=== PATIENT | female | born 1960 | race Caucasian/White ===

== ENCOUNTER 2025-05-03 12:58 | Outpatient (CLI) | payer SELFPAY ==
--- NOTE | 2025-05-03 13:07 | XR_ITS ---
FINAL REPORT TECHNIQUE: Bone densitometry calculations of the lumbar spine and bilateral hips were obtained. CLINICAL HISTORY: SCREENING COMPARISON: None FINDINGS: Using L1-4, the bone mineral density of the spine is 0.853 g/cm2, corresponding to T-score of -1.8 and a Z score of 0.0. This is within the range of osteopenia. Using the left hip, the bone mineral density of the femoral neck is 0.589 g/cm2, corresponding to a T-score of -2.3 and a Z-score of -0.9. This is within the range of osteopenia. Using the right hip, the bone mineral density of the femoral neck is 0.664 g/cm?, corresponding to a T-score of -1.7 and a Z-score of -0.2. This is within the range of osteopenia. NOTE: T-score: Standard deviation compared with peak bone mass of young adult mean. *Following the recommendations of the International Society of Bone densitometry, classification of hip BMD is based on the lower of two T-scores; total hip or femoral neck. IMPRESSION: 1. Bone mineral density of the lumbar spine within the range of osteopenia. 2. Bone mineral density of the bilateral femoral necks within the range of osteopenia. Reviewed, Interpreted and Dictated by Caridad Trivedi MD Transcribed by Martha Jones Authenticated and . [facility]
== END 2025-05-03 23:59 | disposition home or self-care (01) ==
LOC: RAD 13:01
PROVIDERS: PCP Nurse Practitioner; Visit Provider Nurse Practitioner
DX: R93.7 Abnormal findings on diagnostic imaging of other parts of musculoskeletal system (principal); Z13.9 Encounter for screening, unspecified
CPT/HCPCS: 77080

== ENCOUNTER 2025-06-28 09:57 | Emergency (ER) | payer SELFPAY ==
--- OUTSIDE RECORDS SUMMARY | 2025-05-24 13:43 | XMS_ITS | Encounter Summary ---
Author Organization 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 Name Role Phone Unavailable Primary Care Provider Unavailabl e Reason for Referral * Mammography (Routine) - Pending Review Specialty Diagnoses / Procedures Referred By Sophy roldan Referred To Contact Radiology Diagnoses Encounter for screening mammogram for malignant neoplasm of breast Procedures MM MAMMO DIGITAL DEYVI SCREEN Gabby Dawkins, CASTR[place] [address] [place] [address] Phone: tel: Referral ID Status Reason Start Date Expiration Date V isits Requested Visits Authorized [id number] Pending Review 05/10/2025 05/10/2027 1 1 Reason for Visit * Mammography (Routine) - Pending Review Specialty Diagnoses / Procedures Referred By Sophy roldan Referred To Contact Radiology Diagnoses Encounter for screening mammogram for malignant neoplasm of breast Procedures MM MAMMO DIGITAL DEYVI SCREEN Gabby Dawkins, CASTR[place] [address] [place] [address] Phone: tel: Referral ID Status Reason Start Date Expiration Date V isits Requested Visits Authorized [id number] Pending Review 05/10/2025 05/10/2027 1 1 Encounter Details Date Type Department Care Team (Latest Contact Info) Description 05/24/2025 1:43 PM EDT - 05/24/2025 11:59 PM EDT Hospital Encounter Mobile Mammography Other Location View online schedule for mobile van location [phone] Gabby Gordillo, CASTR[place] [address] [place] [address] Encounter for screening mammogram for malignant neoplasm of breast Discharge Disposition: Home or Self Care Social History Tobacco Use Types Packs/Day Years Used Date Smoking Tobacco: Never Assessed Comments No Sex and Gender Information Value Date Recorded Sex Assigned at Not on file Legal Sex Female 11:36 AM EDT Gender Identity Not on file Sexual Orientation Not on file documented as of this encounter Discharge Disposition Disposition Code Departure Means Destination Home or Self Care documented in this encounter Plan of Treatment Not on file documented as of this encounter Procedures Procedure Name Priority Date/Time Associated Diagnosis Comments MM MAMMO DIGITAL DEYVI SCREEN BILAT Routine 05/24/2025 1:55 PM EDT Encounter for screening mammogram for malignant neoplasm of breast documented in this encounter Results * MM MAMMO DIGITAL DEYVI SCREEN BILAT (05/24/2025 1:55 PM EDT) Anatomical Region Laterality Modality Breast Bilateral Mammography 05/24/2025 1:55 PM EDT Impressions 05/25/2025 8:38 AM EDT Negative ([id number]) RECOMMENDATION: Routine Screening Mammogram in 1 Year Bilateral . . COMMENTS: DISCLAIMER *The patient was notified by MyChart or mail of the results for this examination. *The patient's information was entered into a reminder system with a target due date for the next breast imaging, in accordance with the [employer] [place] [employer] and the Society of Breast Imaging recommendations. *Breast Imaging has a false negative rate of 15%. *Any patient with a palpable abnormality, unexplained by breast imaging, should be managed on a clinical basis by the attending physician. Narrative 05/25/2025 8:38 AM EDT EXAM: MM MAMMO DIGITAL DEYVI SCREEN BILAT EXAM DATE: 05/24/2025 1:55 PM INDICATION: Z12.31-Encounter for screening mammogram for malignant neoplasm of [id number] COMPARISON STUDIES: Compared with prior studies the most recent being 05/25/2024 MM MAMMO DIGITAL DEYVI SCREEN BILAT at [facility] TISSUE DENSITY: There are scattered areas of fibroglandular density. FINDINGS: No mammographic evidence of malignancy. Procedure Note Alex Oakes MD - 05/25/2025 EXAM: MM MAMMO DIGITAL DEYVI SCREEN BILAT EXAM DATE: 05/24/2025 1:55 PM INDICATION: Z12.31-Encounter for screening mammogram for malignantneoplasm of [id number] COMPARISON STUDIES: Compared with prior studies the most recent being 05/25/2024 MM MAMMO DIGITAL DEYVI SCREEN BILAT at [facility] TISSUE DENSITY: There are scattered areas of fibroglandular density. FINDINGS: No mammographic evidence of malignancy. IMPRESSION: Negative ([id number]) RECOMMENDATION: Routine Screening Mammogram in 1 Year Bilateral . . COMMENTS: DISCLAIMER *The patient was notified by MyChart or mail of the results for this examination. *The patient's information was entered into a reminder system with atarget due date for the next breast imaging, in accordance with the [employer] [place] [employer] and the Society of Breast Imaging recommendations. *Breast Imaging has a false negative rate of 15%. *Any patient with a palpable abnormality, unexplained by breast imaging,should be managed on a clinical basis by the attending physician. us Gabby Gordillo HVAC INSTRUCTOR IMG MAMMOGRAPHY ORDERABLE S Final Result documented in this encounter Visit Diagnoses Diagnosis Encounter for screening mammogram for malignant neoplasm of breast Other screening mammogram documented in this encounter
[2025-06-28] VITALS (10 sets, daily range): BP systolic 114–157; BP diastolic 68–96; PULSE 71–100; RESP 18; TEMP 36.8–37.2; O2SAT 91–99; BMI 24.0
--- NOTE | 2025-06-28 10:04 | ED_ITS ---
<Statement entered by Donna Rosales DO - 06/28/25 14:02> I was consulted by the JANET, and we discussed the complexity of the problems being addressed. I approved the treatment and management plan for this patient's care in the emergency department, thus performing a substantive portion of the medical decision making. Donna Rosales DO Discharge Plan Disposition Patient Disposition: Xfer Short-Term Hosp Condition: Serious Prescriptions Prescriptions: No Action atorvastatin 10 mg tablet 10 mg PO DAILY Patient Comments: TAKE ONE TABLET BY MOUTH EVERY DAY alprazolam 1 mg tablet 1 mg PO TIDP PRN (Reason: Anxiety) Patient Comments: TAKE ONE TABLET BY MOUTH THREE TIMES DAILY NEEDED glipizide 10 mg tablet 10 mg PO BID Patient Comments: Take 1 tablet twice a day by oral route for 90 days. aspirin 81 mg tablet,delayed release (DR/EC) 81 mg PO DAILY Patient Comments: TAKE ONE CAPSULE BY MOUTH EVERY DAY metformin 1,000 mg tablet 1,000 mg PO BID Patient Comments: TAKE ONE TABLET BY MOUTH TWICE DAILY levothyroxine 112 mcg tablet 112 mcg PO DAILY Patient Comments: TAKE ONE TABLET BY MOUTH EVERY DAY calcium carbonate-vitamin D3 600 mg-10 mcg (400 unit) tablet 1 tab PO DAILY Patient Comments: TAKE ONE TABLET BY MOUTH EVERY DAY FOR 90 DAYS insulin glargine [Lantus Solostar U-100 Insulin] 100 unit/mL (3 mL) insulin pen 30 unit SQ BID Patient Comments: Inject 30 units twice a day by subcutaneous route at bedtime for 90 days. Referrals Follow up/Referrals: Gabby Gordillo APRN [Primary Care Provider, Medical] - See instructions Activity Restrictions/Add. Instructions Additional Instructions/Restrictions: To the [facility] emergency department care of Dr. Calle of urology Clinical Impressions Clinical Impression: Calculus of proximal left ureter, Complicated urinary tract infection, DKA, type 2 Print Language Print Language: Jamaican Discharge ED Provider: Donna Rosales General Adult HPI General Chief complaint: Nausea/Vomiting/Diarrhea Stated complaint: throwing up, weekness, diarrhea Time Seen by Provider: 06/28/25 10:02 History of Present Illness HPI narrative: Patient presents for evaluation of nausea vomiting diarrhea. Patient states that she has daily nausea vomiting diarrhea since October. Approximately 5 weeks ago she was diagnosed with H. pylori and treated with eradication protocol but has not changed any of her symptoms. Patient is a type II diabetic but is not on a GLP-1. She is on insulin however. She does not know when her last hemoglobin A1c was. She denies any abdominal pain fever chills shortness of breath hemoptysis hematochezia melena hematemesis hematuria. Related Data Home Medications ?Medication ?Instructions ?Recorded ?Confirmed alprazolam 1 mg tablet 1 mg PO TIDP PRN Anxiety 06/28/25 aspirin 81 mg tablet,delayed 81 mg PO DAILY 06/28/25 0 06/28/25 release atorvastatin 10 mg tablet 10 mg PO DAILY 06/28/2506/02 calcium 600 mg (as 1 tab PO DAILY 06/28/2506/02 carbonate)-vitamin D3 10 mcg (400 unit) tablet glipizide 10 mg tablet 10 mg PO BID 06/28/25 insulin glargine 100 unit/mL (3 30 unit SQ BID 5 06/28/25 mL) subcutaneous pen (Lantus Solostar U-100 Insulin) levothyroxine 112 mcg tablet 112 mcg PO DAILY 06/28/25 06/28/25 metformin 1,000 mg tablet 1,000 mg PO BID 06/28/25 Allergies Allergy/AdvReac Type Severity Reaction Status Date / Time No Known Allergies Allergy Verified 06/28/25 10:23 [facility] Disclaimer: The information contained in this section may have been updated after the patient was seen, as this information can be updated by other users. Social History Smoking Status: Never smoker alcohol intake: never current occupational status: retired Travel in the last 8 weeks?: None ROS Obtained: Yes Systems reviewed as appropriate & no additional complaints except as documented Physical Exam General General appearance: alert Respiratory Respiratory exam: Present normal lung sounds bilaterally Cardiovascular Cardiovascular exam: Present regular rate Neurological Exam Neurological exam: Present alert and oriented X3 Medical Decision Making Medical Records Medical records reviewed: Yes I reviewed the patient's medical records. Screening: Per USPSTF and CDC recommendations, given the prevalence of disease in our region, it is our hospital?s policy to screen for HIV and viral Hepatitis for all patients aged 18 and over and those with ongoing risk factors. Cheikh Inquiry Pt receiving controlled substance: No Vital Signs: 06/28/25 09:59 06/28/25 10:31 06/28/25 11:00 Temperature 99.0 F Temperature Source Oral Pulse Rate 96 H 93 H Pulse Rate [Radial] 100 H Respiratory Rate 18 Blood Pressure 122/68 114/78 Blood Pressure [Left Arm] 157/90 H Blood Pressure Mean [Left Arm] 112 Blood Pressure Source [Left Arm] Automatic Cuff Blood Pressure Position [Left Arm] Sitting 02 Sat by Pulse Oximetry 98 96 93 L Oxygen Delivery Method Room Air 06/28/25 11:30 06/28/25 12:00 06/28/25 12:30 Temperature Temperature Source Pulse Rate 90 81 82 Pulse Rate [Radial] Respiratory Rate Blood Pressure 135/93 H 125/96 H 147/93 H Blood Pressure [Left Arm] Blood Pressure Mean [Left Arm] Blood Pressure Source [Left Arm] Blood Pressure Position [Left Arm] 02 Sat by Pulse Oximetry 94 L 96 95 Oxygen Delivery Method Lab Data Lab results reviewed: Yes I reviewed the patient's lab results. Lab Results 06/28/25 10:07: Urine Color Yellow, Urine Appearance Cloudy, Urine pH 6.0, Ur Specific Rodman 1.020, Urine Protein 1+ A, Urine Glucose (UA) 2+, Urine Ketones 3+, Urine Blood Trace-i, Urine Nitrate Positive A, Urine Bilirubin Negative, Urine Urobilinogen 0.2, Ur Leukocyte Esterase Trace, Urine RBC Occasional, Urine WBC 50-100, Ur Squamous Epith Cells 3-5, Urine Bacteria 4+ 06/28/25 10:19: WBC 6.1, RBC 4.64, Hgb 13.3, Hct 40.1, MCV 86.4, MCH 28.7, MCHC 33.2, RDW 14.3, Plt Count 216, MPV 11.5 H, Neut % (Auto) 74.9, Lymph % (Auto) 13.1, [place] % (Auto) 9.6 H, Eos % (Auto) 0.7, Baso % (Auto) 1.0, Neut # (Auto) 4.6, Lymph # (Auto) 0.8, [place] # (Auto) 0.6, Eos # (Auto) 0.0, Baso # (Auto) 0.1, Sodium 136, Potassium 4.3, Chloride 99, Carbon Dioxide 19 L, Anion Gap 22.3 H, B UN 23 H, Creatinine 0.70, Estimated GFR 84, Est GFR ( Amer) 102, Glucose 389 H, Hemoglobin A1c 8.4 H, Calcium 10.7 H, Phosphorus 3.2, Magnesium 1.4 L, Total Bilirubin 1.3, AST 29, ALT 19, Alkaline Phosphatase 70, Total Protein 8.0, Albumin 4.6, Globulin 3.4 H, Albumin/Globulin Ratio 1.4, Lipase 117, Acetone Level Small, HCV Ab BEATRIZ w/Rflx PCR Qn Negative, HIV Ag/Ab Combo Qual Negative 06/28/25 11:04: Lactate 0.7 06/28/25 12:40: VBG pH 7.39, VBG pCO2 33.6 L, VBG pO2 44.7 H, VBG HCO3 20.0 L, V BG Total CO2 21.1 L, VBG O2 Saturation 84.3 H, VBG Base Excess -4.1 L, VBG Lactic Acid 1.1 06/28/25 10:19 06/28/25 10:19 Orders (Tests/Meds): ED MEDICATIONS Generic Name Dose Route Start Last Admin Trade Name Freq PRN Reason Stop Dose Admin Sodium Chloride 1,000 mls @ 150 mls/hr 06/28/25 14:00 Sod Chlor 0.9% 1000ml Bag IV 07/28/25 13:59 .Q6H40M ZORAIDA Sodium Chloride 2,000 mls @ 999 mls/hr 06/28/25 12:00 06/28/25 12:16 Sod Chlor 0.9% 1000ml Bag IV 07/28/25 11:59 999 mls/hr .Q2H1M ZORAIDA Administration Insulin Human Regular 100 unit 101 mls @ 5.05 mls/hr 06/28/25 12:00 06/28/25 12:31 / Sodium Chloride IV 07/28/25 11:59 6 unit/hr .Q20H ZORAIDA 6.06 mls/hr Protocol Administration 5 UNIT/HR Ceftriaxone Sodium 1 gm/ 50 mls @ 100 mls/hr 06/28/25 12:00 06/28/25 12:48 Sodium Chloride IV 07/08/25 11:59 100 mls/hr Q24H ZORAIDA Administration Sodium Chloride 10 ml 06/28/25 11:13 06/28/25 11:14 Sodium Chloride 0.9% 10ml Syr (Rad Only) IV 07/28/25 11:12 10 ml NEEDED PRN Administration Maintain IV Site Discontinued Medications Generic Name Dose Route Start Last Admin Trade Name Cass PRN Reason Stop Dose Admin Sodium Chloride 1,000 mls @ 999 mls/hr 06/28/25 10:09 06/28/25 10:24 Sod Chlor 0.9% 1000ml Bag IV 06/28/25 11:09 999 mls/hr .Q1H1M ONE Administration Insulin Human Regular 10 unit 06/28/25 11:43 06/28/25 12:47 Insulin Human Regular 100 Units/Ml 10ml Vial IVP 06/28/25 11:44 Not Given ONCE ONE Iopamidol 75 ml 06/28/25 11:13 06/28/25 11:14 Iopamidol-370 (76%);100ml Bottle IV 06/28/25 11:14 75 ml ONCE ONE Administration Ondansetron HCl 4 mg 06/28/25 10:09 06/28/25 10:24 Ondansetron 4mg/2ml Vial IV 06/28/25 10:10 4 mg ONCE ONE Administration ORDERS Category Date Time Status CT abdomen pelvis w con Stat Cat Scan 06/28/25 10:14 Completed Acetone, Serum (Rapid) Stat Lab 06/28/25 10:19 Completed CBC w/Auto Diff [Complete Blood Count Auto Diff] Stat Lab 06/28/25 10:19 Completed CMP [Comprehensive Metabolic Panel] Stat Lab 06/28/25 10:19 Completed HIV Combo Stat Lab 06/28/25 10:19 Completed Hemoglobin A1C Stat Lab 06/28/25 10:19 Completed Hepatitis C Ab Qual. W/ RFX Stat Lab 06/28/25 10:19 Completed Lactic Acid Stat Lab 06/28/25 11:04 Completed Lipase Stat Lab 06/28/25 10:19 Completed Magnesium Stat Lab 06/28/25 10:19 Completed Phosphorous Stat Lab 06/28/25 10:19 Completed Procalcitonin Stat Lab 06/28/25 10:19 Received UA [Urinalysis and Microscopic] Stat Lab 06/28/25 10:07 Completed Blood Culture Stat Micro 06/28/25 12:40 Received Urine Culture Stat Micro 06/28/25 10:07 Received VBG [Venous Blood Gas] Stat RT 06/28/25 12:40 Completed Medical Decision Narrative: In summary patient is a 64-year-old female who presents to the emergency department for evaluation of daily nausea vomiting diarrhea for 9 months. Patient is hypertensive on arrival upon arrival, afebrile. Physical exam is remarkable for clear breath sounds with no increased work of breathing or adventitious sounds, abdomen soft nontender no rebound or guarding no rigidity. Bowel sounds normal active.. Differential diagnosis includes gastroparesis versus electrolyte abnormality constipation versus hyperglycemia versus nonfunctioning gallbladder although less likely given no pain etc. Initial workup will be conducted with hematologic labs CT scan abdomen pelvis. Initial interventions include crystalloid bolus and Zofran. Initial workup reviewed by me shows a white count of 6.1 normal H&H with no neutrophilic shift, chemistry is positive for a CO2 of 19 and a gap of 22 BUN of 23 creatinine 0.7 GFR of 84 glucose of 389 hemoglobin A1c of 8.4 calcium of 10.7 magnesium of 1.4 urinalysis shows 1+ of protein 2+ of glucose 3+ of ketones trace blood nitrite positive leukocyte Estrace trace and microscopic exam shows occasional red blood cells 50-100 white cells 4+ bacteria. My informal interpretation of her CT scan abdomen pelvis shows a thick-walled but contracted gallbladder and significant hydronephrosis on the left with an obstructing proximal ureteral stone that is approximately 1 cm.. Upon repeat evaluation queried the patient whether or not she knew that she had an obstructing stone and she stated that she did note that she had a stone approximately 5 weeks ago that they saw on [facility] at [facility]. She however has had no symptoms of dysuria flank pain abdominal pain.. Given this patient is in early DKA along with a complicated urinary tract infection that likely is involving the obstructing left proximal ureteral stone. I have started the DKA protocol with an insulin bolus followed by an insulin drip as well as covering with Rocephin IV. I have contacted initially [facility] at noon to initiate transfer as we do not have interventional urology here. Spoke with Dr. Dias of urology at [facility] and we discussed patient presentation BLANKENSHIP and management and he felt that even though she had DKA and infected kidney stone that she did not need acute urologic intervention. Given that I have contacted the [facility] transfer center to discuss with the transfer physician at 1300 hrs. I spoke with the transfer center physician at [address] Calle of urology regarding patient presentation BLANKENSHIP and management and patient has been graciously accepted to the [place] emergency department for further evaluation and care. Critical Care Critical Care Time Critical Care Time: Yes Attestation: On 06/28/25, the high probability of a clinically significant, sudden or life threatening deterioration of the following system(s) required my full and direct attention, intervention and personal management. The time I documented below is in addition to time spent performing reported procedures but includes the following listed in this critical care notation. Total Time Total Critical Care Time: 30
--- OUTSIDE RECORDS SUMMARY | 2025-06-28 10:10 | XMS_ITS | Continuity of Care Document ---
Author Organization [employer] [facility] Address [address] [place] [address] Assessment No assessment recorded. Plan of Treatment Reminders Order Date Submit Date Provider Last Modified By Organization Details Last Modified Time Details Appointments ANNUAL EXAM 2024 03:30P M Álvaro Gordillo APRN Not available Not available Not available Lab H pylori urea breath test, co2 infrared 2024 025 [facility] [address] [place], [address], 05/26/2025 07:07:28 amylase + lipase, serum 2024 025 [facility] [address] [place], [address], 05/26/2025 07:07:26 lipid panel, serum 2024 025 [facility] [address] [place], [address], 05/26/2025 07:07:25 CMP, serum or plasma 2024 025 [facility] [address] [place], [address], 05/26/2025 07:07:24 CBC w/ auto diff 2024 025 [facility] [address] [place], [address], 05/26/2025 07:07:23 TSH + free T4, serum 2024 025 [facility]), [address] [place], [address], 05/26/2025 07:07:23 ca 125, serum 2024 025 [facility]), [address] [place], [address], 05/26/2025 07:07:27 vitamin D, 25-hydrox y, total, serum 2024 025 [facility]), [address] [place] [address], [address], 05/26/2025 07:07:27 Hepatitis C IgG Ab, qual, serum 2024 025 [facility], [address] [place], [address], 05/26/2025 07:07:26 HIV 1 + 2, meaningfu l use set 2024 025 [facility], [address] [place] [address], [address], 05/26/2025 07:07:28 cobalamin and folate panel, serum 2024 025 [facility], [address] [place] [address], [address], 05/26/2025 07:07:25 Referral None recorded. Procedures None recorded. Surgeries None recorded. Imaging XR, abdomen [address], [address], 05/25/2025 15:05:56 Medication Orders None recorded. Patient TargetsNo targets recorded. Patient InstructionsNo instructions recorded. Reason for Referral None Reported. Results Created Date Observation Date Name Description Value Unit Range Abnormal Flag Note LastModifiedBy Organization Detail LastModifiedTime 05/04/20 25 05/04/2025 HbA1c (hemo globi n A1c), blood HbA1c 6.9 Not Available [address], [place], [address], 05/04/2025 10:52:28 05/24/2005/25/2025 TSH+F REE T4 TSH 1.370 uIU/m L 0.450- 4.500 normal Not Available [facility] ([facility]) [address] [place], [address], 05/26/2025 07:07:23 05/24/20 25 05/25/2025 TSH+F REE T4 T4,free(dire ct) 1.93 NG/dL 0.82-1 .77 above high normal Not Available [facility] ([facility]) [address] [place], [address], 05/26/2025 07:07:23 05/24/20 25 05/25/2025 CBC WITH DIFFE RENTI AL/PL ATELE T WBC 6.4 x10e3 /uL 3.4-10 .8 normal Not Available [facility] ([facility]) [address] [place], [address], 05/26/2025 07:07:23 05/24/20 25 05/25/2025 CBC WITH DIFFE RENTI AL/PL ATELE T RBC 4.89 x10e6 /uL 3.77-5 .28 normal Not Available [facility] ([facility]) [address] [place], [address], 05/26/2025 07:07:23 05/24/20 25 05/25/2025 CBC WITH DIFFE RENTI AL/PL ATELE T hemoglobin 13.8 g/dL 11.1-1 5.9 normal Not Available [facility] ([facility]) [address] [place], [address], 05/26/2025 07:07:23 05/24/20 25 05/25/2025 CBC WITH DIFFE RENTI AL/PL ATELE T hematocrit 43.4 % 34.0-4 6.6 normal Not Available [facility] ([facility]) [address], [place], [address], 05/26/2025 07:07:23 05/24/20 25 05/25/2025 CBC WITH DIFFE RENTI AL/PL ATELE T MCV 89 fL 79-97 normal Not Available [facility] ([facility]) [address], [place], [address], 05/26/2025 07:07:23 05/24/20 25 05/25/2025 CBC WITH DIFFE RENTI AL/PL ATELE T MCH 28.2 pg 26.6-3 3.0 normal Not Available [facility] ([facility]) [address], [place], [address], 05/26/2025 07:07:23 05/24/20 25 05/25/2025 CBC WITH DIFFE RENTI AL/PL ATELE T MCHC 31.8 g/dL 31.5-3 5.7 normal Not Available [facility] ([facility]) [address] [place], [address], 05/26/2025 07:07:23 05/24/20 25 05/25/2025 CBC WITH DIFFE RENTI AL/PL ATELE T RDW 14.1 % 11.7-1 5.4 Not Available [facility] ([facility]) [address] [place], [address], 05/26/2025 07:07:23 05/24/20 25 05/25/2025 CBC WITH DIFFE RENTI AL/PL ATELE T platelets 328 x10e3 /uL 150-45 0 normal Not Available [facility] ([facility]) [address] [place], [address], 05/26/2025 07:07:23 05/24/20 25 05/25/2025 CBC WITH DIFFE RENTI AL/PL ATELE T neutrophils 61 % not estab. normal Not Available [facility] ([facility]) [address], [place], [address], 05/26/2025 07:07:23 05/24/20 25 05/25/2025 CBC WITH DIFFE RENTI AL/PL ATELE T lymphs 28 % not estab. normal Not Available [facility] ([facility]) [address], [place], [address], 05/26/2025 07:07:23 05/24/20 25 05/25/2025 CBC WITH DIFFE RENTI AL/PL ATELE T monocytes 7 % not estab. normal Not Available [facility] ([facility]) [address], [place], [address], 05/26/2025 07:07:23 05/24/20 25 05/25/2025 CBC WITH DIFFE RENTI AL/PL ATELE T eos 2 % not estab. normal Not Available [facility] ([facility]) [address], [place], [address], 05/26/2025 07:07:23 05/24/20 25 05/25/2025 CBC WITH DIFFE RENTI AL/PL ATELE T basos 1 % not estab. normal Not Available [facility] ([facility]) [address], [place], [address], 05/26/2025 07:07:23 05/24/20 25 05/25/2025 CBC WITH DIFFE RENTI AL/PL ATELE T immature cells [employer] Not Available [facility] ([facility]) [address] [place], [address], 05/26/2025 07:07:23 05/24/20 25 05/25/2025 CBC WITH DIFFE RENTI AL/PL ATELE T neutrophils (absolute) 4.0 x10e3 /uL 1.4-7. 0 normal Not Available [facility] ([facility]) [address] [place], [address], 05/26/2025 07:07:23 05/24/20 25 05/25/2025 CBC WITH DIFFE RENTI AL/PL ATELE T lymphs (absolute) 1.8 x10e3 /uL 0.7-3. 1 normal Not Available [facility] ([facility]) [address], [place], [address], 05/26/2025 07:07:23 05/24/20 25 05/25/2025 CBC WITH DIFFE RENTI AL/PL ATELE T monocytes(ab solute) 0.5 x10e3 /uL 0.1-0. 9 normal Not Available [facility] ([facility]) [address] [place], [address], 05/26/2025 07:07:23 05/24/20 25 05/25/2025 CBC WITH DIFFE RENTI AL/PL ATELE T eos (absolute) 0.1 x10e3 /uL 0.0-0. 4 normal Not Available [facility] ([facility]) [address], [place], [address], 05/26/2025 07:07:23 05/24/20 25 05/25/2025 CBC WITH DIFFE RENTI AL/PL ATELE T baso (absolute) 0.1 x10e3 /uL 0.0-0. 2 normal Not Available [facility] ([facility]) [address] [place], [address], 05/26/2025 07:07:23 05/24/2005/25/2025 CBC WITH DIFFE RENTI AL/PL ATELE T immature granulocytes 1 % not estab. Not Available [facility] ([facility]) [address] [place], [address], 05/26/2025 07:07:23 05/24/20 25 05/25/2025 CBC WITH DIFFE RENTI AL/PL ATELE T immature grans (abs) 0.0 x10e3 /uL 0.0-0. 1 Not Available [facility] ([facility]) [address], [place], [address], 05/26/2025 07:07:23 05/24/20 25 05/25/2025 CBC WITH DIFFE RENTI AL/PL ATELE T NRBC [employer] Not Available [facility] ([facility]) [address], [place], [address], 05/26/2025 07:07:23 05/24/20 25 05/25/2025 CBC WITH DIFFE RENTI AL/PL ATELE T hematology comments: [employer] Not Available [facility] ([facility]) [address], [place], [address], 05/26/2025 07:07:23 05/24/20 25 05/25/2025 COMP. METAB OLIC PANEL (14) glucose 171 mg/dL 70-99 above high normal Not Available [facility] ([facility]) [address], [place], [address], 05/26/2025 07:07:24 05/24/20 25 05/25/2025 COMP. METAB OLIC PANEL (14) BUN 32 mg/dL 8-27 above high normal Not Available [facility] ([facility]) [address] [place], [address], 05/26/2025 07:07:24 05/24/20 25 05/25/2025 COMP. METAB OLIC PANEL (14) creatinine 0.86 mg/dL 0.57-1 .00 normal Not Available [facility] ([facility]) [address], [place], [address], 05/26/2025 07:07:24 05/24/20 25 05/25/2025 COMP. METAB OLIC PANEL (14) eGFR 75 mL/mi n/1.7 3 >59 normal Not Available [facility] ([facility]) [address] [place], [address], 05/26/2025 07:07:24 05/24/20 25 05/25/2025 COMP. METAB OLIC PANEL (14) BUN/creatini ne ratio 37 12-28 above high normal Not Available [facility] ([facility]) [address] [place], [address], 05/26/2025 07:07:24 05/24/20 25 05/25/2025 COMP. METAB OLIC PANEL (14) sodium 139 mmol/ L 134-14 4 normal Not Available [facility] ([facility]) [address] [place], [address], 05/26/2025 07:07:24 05/24/20 25 05/25/2025 COMP. METAB OLIC PANEL (14) potassium 4.5 mmol/ L 3.5-5. 2 normal Not Available [facility] ([facility]) [address] [place], [address], 05/26/2025 07:07:24 05/24/20 25 05/25/2025 COMP. METAB OLIC PANEL (14) chloride 100 mmol/ L 96-106 normal Not Available [facility] ([facility]) [address] [place], [address], 05/26/2025 07:07:24 05/24/20 25 05/25/2025 COMP. METAB OLIC PANEL (14) carbon dioxide, total 18 mmol/ L 20-29 below low normal Not Available [facility] ([facility]) [address] [place], [address], 05/26/2025 07:07:24 05/24/20 25 05/25/2025 COMP. METAB OLIC PANEL (14) calcium 10.9 mg/dL 8.7-10 .3 above high normal Not Available [facility] ([facility]) [address] [place], [address], 05/26/2025 07:07:24 05/24/20 25 05/25/2025 COMP. METAB OLIC PANEL (14) protein, total 7.9 g/dL 6.0-8. 5 normal Not Available [facility] ([facility]) [address] [place], [address], 05/26/2025 07:07:24 05/24/20 25 05/25/2025 COMP. METAB OLIC PANEL (14) albumin 4.8 g/dL 3.9-4. 9 normal Not Available [facility] ([facility]) [address] [place], [address], 05/26/2025 07:07:24 05/24/20 25 05/25/2025 COMP. METAB OLIC PANEL (14) globulin, total 3.1 g/dL 1.5-4. 5 Not Available [facility] ([facility]) [address] [place], [address], 05/26/2025 07:07:24 05/24/20 25 05/25/2025 COMP. METAB OLIC PANEL (14) bilirubin, total 1.0 mg/dL 0.0-1. 2 normal Not Available [facility] ([facility]) [address] [place], [address], 05/26/2025 07:07:24 05/24/20 25 05/25/2025 COMP. METAB OLIC PANEL (14) alkaline phosphatase 113 IU/L 44-121 normal Not Available [facility] ([facility]) [address] [place], [address], 05/26/2025 07:07:24 05/24/20 25 05/25/2025 COMP. METAB OLIC PANEL (14) AST (SGOT) 18 IU/L 0-40 normal Not Available [facility] ([facility]) [address] [place], [address], 05/26/2025 07:07:24 05/24/20 25 05/25/2025 COMP. METAB OLIC PANEL (14) ALT (SGPT) 14 IU/L 0-32 normal Not Available [facility] ([facility]) [address] [place], [address], 05/26/2025 07:07:24 05/24/20 25 05/25/2025 LIPID PANEL cholesterol, total 133 mg/dL 100-19 9 normal Not Available [facility] ([facility]) [address] [place], [address], 05/26/2025 07:07:25 05/24/20 25 05/25/2025 LIPID PANEL triglyceride s 122 mg/dL 0-149 normal Not Available [facility] ([facility]) [address] [place], [address], 05/26/2025 07:07:25 05/24/20 25 05/25/2025 LIPID PANEL HDL cholesterol 36 mg/dL >39 below low normal Not Available [facility] ([facility]) [address] [place], [address], 05/26/2025 07:07:25 05/24/20 25 05/25/2025 LIPID PANEL VLDL cholesterol omkar 22 mg/dL 5-40 Not Available [facility] ([facility]) [address] [place], [address], 05/26/2025 07:07:25 05/24/20 25 05/25/2025 LIPID PANEL LDL chol calc ([facility]) 75 mg/dL 0-99 Not Available [facility] ([facility]) [address] [place], [address], 05/26/2025 07:07:25 05/24/20 25 05/25/2025 LIPID PANEL LDL calc comment: [employer] Not Available [facility] ([facility]) [address], [place], [address], 05/26/2025 07:07:25 05/24/20 25 05/25/2025 VITAM IN B12 AND FOLAT E vitamin B12 897 pg/mL 232-12 45 normal Not Available [facility] ([facility]) [address], [place], [address], 05/26/2025 07:07:25 05/24/20 25 05/25/2025 VITAM IN B12 AND FOLAT E folate (folic acid), serum >20.0 NG/mL >3.0 A serum folat e frantz ntrat ion of less than 3.1 ng/mL is consi dered to repre sent clini omkar defic iency . Not Available [facility] ([facility]) [address], [place], [address], 05/26/2025 07:07:25 05/24/20 25 05/25/2025 CHI+L IPASE amylase 42 U/L 31-110 normal Not Available [facility] ([facility]) [address] [place], [address], 05/26/2025 07:07:26 05/24/20 25 05/25/2025 CHI+L IPASE lipase 49 U/L 14-72 normal Not Available [facility] ([facility]) [address] [place], [address], 05/26/2025 07:07:26 05/24/20 25 05/25/2025 HCV ANTIB ALEENA RFX TO QUANT PCR HCV Ab Non Reacti ve non reacti ve Not Available [facility] ([facility]) [address] [place], [address], 05/26/2025 07:07:26 05/24/20 25 05/25/2025 HCV ANTIB ALEENA RFX TO QUANT PCR interpretati on: Commen t Not infec blanche with HCV unles s early or acute infec tion is suspe cted (whic h may be delay ed in an immun ocomp romis ed indiv idual ), or other evide nce exist s to indic ate HCV infec tion. Not Available [facility] ([facility]) [address], [place], [address], 05/26/2025 07:07:26 05/24/20 25 05/25/2025 CANCE R ANTIG EN (CA) 125 cancer antigen (Ca) 125 12.3 U/mL 0.0-38 .1 normal [employer] milum inesc ence Immun oassa y (ECLI A) Value s obtai walt with diffe rent assay metho ds or kits canno t be used inter restrepo eably . Resul ts canno t be inter prete d as absol andreafski evide nce of the prese nce or absen ce of adrian corona se. Not Available [facility] ([facility]) [address], [place], [address], 05/26/2025 07:07:27 05/24/20 25 05/25/2025 VITAM IN D, 25-HY DROXY vitamin D, 25-hydroxy 93.2 NG/mL 30.0-1 00.0 Vitam in D defic iency has been defin ed by the Insti tute of Medic ine and an Endoc rine Socie ty pract ice guide line as a level of serum 25-OH vitam in D less than 20 ng/mL (1,2) . The Endoc rine Socie ty went on to [facility] er defin e vitam in D insuf ficie ncy as a level betwe en 21 and 29 ng/mL (2). 1. IOM (Inst itute of Medic ine). 2009. Dieta ry refer ence intak es for calci um and D. Alberto lay [place]: The Natio nal [facility] Press . 2. Jackie cisse [place], Yudy ey [place], Abby off-F errar i QUINTANILLA, et al. Evalu ation , treat ment, and preve ntion of vitam in D defic iency : an Endoc rine Socie ty clini omkar pract ice guide line. JCEM. 2010; 96(7) :1911 -30. Not Available [facility] ([facility]) [address], [place], [address], 05/26/2025 07:07:27 05/24/20 25 05/25/2025 HIV AB/P2 4 AG WITH REFLE X HIV Ab/P24 Ag screen Non Reacti ve non reacti ve HIV-1 /HIV- 2 antib odies and HIV-1 p24 antig en were NOT detec blanche. There is no labor atory evide nce of HIV infec tion. HIV Negat elvin Not Available [facility] ([facility]) [address], [place], [address], 05/26/2025 07:07:28 05/24/20 25 05/26/2025 H PYLOR I BREAT H TEST H pylori breath test Positi ve negati ve abnormal Not Available [facility] ([facility]) [address], [place], [address], 05/26/2025 07:07:28 05/03/20 25 05/03/2025 DEXA No observ ation record ed. [email or web address] [facility] [address], [place], [address], 05/10/2025 11:27:39 05/25/20 25 XR, abdom en No observ ation record ed. [email or web address] [address], [address], 05/27/2025 08:21:09 05/26/20 25 05/24/2023 MAMMO , scree bud, digit al, bilat eral No observ ation record ed. [email or web address] Not Available 2024 17:46:16 05/31/20 MAMMO , scree bud, digit al, bilat eral No observ ation record ed. [address], [place], [address], 05/31/2025 17:51:27 Result Notes None recorded. Problems Name Problem SNOMED Code Status Onset Date Resolution Date Notes Provider Name and Address Organization Details Recorded Time Proteinuria 76863249 Active 2023 Hillary mojica, [employer] 12:56:42 Dehydration 27279813 Active 2023 Hillary Dill null, [employer] 12:56:35 Type 2 diabetes mellitus without complicatio n 055332549 Active 2023 Hillary Dill null, [employer] 12:56:53 Bilateral hyperopia of eyes 3586501701738 00 Active 2023 Hillary Dill [employer], [employer] 12:56:39 Hypothyroid ism 71739313 Active 2023 Hillary Dill null, [employer] 12:56:31 Flank pain 596457712 Active 2023 Hillary Dill [employer], [employer] 12:56:33 Nausea 581409236 Active 2023 Hillary Dill null, [employer] 12:57:16 Viral gastroenter itis 168370505 Active 2023 Hillary Dill null, [employer] 12:57:05 Urine ketone test = + 840813855 Active 2023 Hillary Dill [employer], [employer] 12:56:57 Type 2 diabetes mellitus 45270604 Active 2024 Hillary Dill null, [employer] 12:56:48 Problem Notes None recorded. Procedures Surgical History Date Name Laterality Status Provider Name and Address Organization Details Recorded Time 11/03/20 24 Cerumen Removal completed [facility] 11/03/2024 13:30:40 05/26/20 24 Most Recent Mammogram completed [facility] 02/01/2025 11:18:24 07/08/20 23 Date of Last Pap Smear completed [facility] 02/13/2024 10:46:23 Carpal tunnel surgery completed [facility]. 06/10/2023 10:52:07 ultrasonic fragmentation of urinary stone through percutaneous nephrostomy completed [facility] 06/10/2023 10:52:35 Imaging Results None recorded. Procedure Notes None recorded. Medical Equipment None Reported. Allergies No known drug allergies Medications Name Sig Start Date Stop Date Status Note LastModified by Organization Details LastModified Time debrox drops kit 0.5oz INSTILL 5 DROPS INTO AFFECTED EAR(S) 2 TIMES PER DAY 05/15 completed Not Available Not Available Not Available tetracyclin e 500 mg capsule TAKE ONE CAPSULE BY MOUTH FOUR TIMES DAILY FOR FOURTEEN DAYS active Not Available Not Available No t Available cyclobenzap rine 10 mg tablet TAKE ONE TABLET BY MOUTH THREE TIMES DAILY NEEDED active Not Available Not Available No t Available levothyroxi ne 175 mcg tablet Take 1 tablet every day by oral route. 07/02 completed Not Available Not Available Not Available levothyroxi ne 137 mcg tablet Take 1 tablet every day by oral route. 08/04 completed Not Available Not Available Not Available atorvastati n 10 mg tablet TAKE ONE TABLET BY MOUTH EVERY DAY active Not Available Not Available No t Available azithromyci n 250 mg tablet TAKE 2 TABLETS (500 MG) BY ORAL ROUTE ONCE DAILY FOR 1 DAY THEN 1 TABLET (250 MG) BY ORAL ROUTE ONCE DAILY FOR 4 DAYS 02/01 completed Not Available Not Available Not Available alprazolam 1 mg tablet TAKE ONE TABLET BY MOUTH THREE TIMES DAILY NEEDED active Not Available Not Available No t Available fluconazole 150 mg tablet TAKE ONE TABLET BY MOUTH today THEN ONE tablet again in 72 hours active Not Available Not Available No t Available meloxicam 15 mg tablet Take 1 tablet every day by oral route as needed for 90 days. 04/01 completed Not Available Not Available Not Available glipizide 10 mg tablet Take 1 tablet twice a day by oral route for 90 days. active Not Available Not Available No t Available Levoxyl 100 mcg tablet Take 1 tablet every day by oral route. 02/01 completed Not Available Not Available Not Available Debrox 6.5 % ear drops INSTILL 5 DROPS INTO AFFECTED EAR(S) BY OTIC ROUTE 2 TIMES PER DAY 04/01 completed Not Available Not Available Not Available Levoxyl 75 mcg tablet Take 1 tablet every day by oral route. 10/06 completed Not Available Not Available Not Available metronidazo le 500 mg tablet TAKE ONE TABLET BY MOUTH THREE TIMES DAILY FOR FOURTEEN DAYS active Not Available Not Available No t Available aspirin 81 mg tablet,chapis yed release TAKE ONE CAPSULE BY MOUTH EVERY DAY active Not Available Not Available No t Available tramadol 50 mg tablet TAKE ONE TABLET BY MOUTH THREE TIMES DAILY NEEDED FOR 3 DAYS active Not Available Not Available No t Available ciclopirox 8 % topical solution APPLY TO THE AFFECTED AREA(S) BY TOPICAL ROUTE ONCE DAILY PREFERABL Y AT BEDTIME OR 8 HOURS BEFORE WASHING active Not Available Not Available No t Available levothyroxi ne 88 mcg tablet TAKE ONE TABLET BY MOUTH EVERY DAY 11/05 completed Not Available Not Available Not Available alprazolam 0.5 mg tablet TAKE ONE TABLET BY MOUTH EVERY DAY as needed 08/12 completed Not Available Not Available Not Available levothyroxi ne 50 mcg tablet Take 1 tablet every day by oral route. 09/03 completed Not Available Not Available Not Available metformin 1,000 mg tablet TAKE ONE TABLET BY MOUTH TWICE DAILY active Not Available Not Available No t Available levothyroxi ne 125 mcg tablet TAKE ONE TABLET BY MOUTH ONCE DAILY 08/06 completed Not Available Not Available Not Available bismuth subsalicyla te 262 mg chewable tablet Take 1 tablet 4 times a day by oral route for 14 days. 2024 active Not Available Not Available Not Avai lable omeprazole 20 mg capsule,del ayed release TAKE ONE CAPSULE BY MOUTH TWICE DAILY FOR FOURTEEN DAYS active Not Available Not Available No t Available levothyroxi ne 112 mcg tablet TAKE ONE TABLET BY MOUTH EVERY DAY active Not Available Not Available No t Available Byetta 5 mcg/dose (250 mcg/mL)1.2 mL subcutaneou s pen injector Inject 5 microgram s twice a day by subcutane ous route for 90 days. 2024 active Not Available Not Available Not Avai lable calcium 600 mg (as carbonate)- vitamin D3 10 mcg (400 unit) tablet TAKE ONE TABLET BY MOUTH EVERY DAY FOR 90 DAYS active Not Available Not Available No t Available Lantus Solostar U-100 Insulin 100 unit/mL (3 mL) subcutaneou s pen Inject 30 units twice a day by subcutane ous route at bedtime for 90 days. active Not Available Not Available No t Available Comfort EZ Pen [place] 31 gauge x 3/16 USE daily 2023 active Not Available Not Available Not Avai lable Victoza 3-James 0.6 mg/0.1 mL (18 mg/3 mL) subcutaneou s pen injector Inject 1.8 mg every day by subcutane ous route for 90 days. 08/04 completed Not Available Not Available Not Available Novolin N FlexPen 100 unit/mL (3 mL) subcutaneou s insulin pen Inject 21 units twice a day by subcutane ous route. 11/11 completed Not Available Not Available Not Available aspirin 81 mg capsule Take 1 capsule every day by oral route. 2024 active Not Available Not Available Not Avai lable Vitals Date Recorded Body height Body mass index (BMI) Body weight Heart rate Oxygen saturation Oxygen saturation in Arterial blood by Pulse oximetry Body temperature Systolic And Diastolic Provider Name and Address Organization Details Last Updated DateTime 5 165.1 cm 24 kg/m2 94176.7 g 98 /min 96 % 96 % 97.6 [degF] 115/82 mm[Hg] Hillary Dill [employer] 13:13:05 Social History Question Answer Notes LastModified by Organizat ion Details LastModified Time Tobacco Smoking Status Never Smoker Hillary mojica [employer] 06/10/2023 10:51:32 Is Your Home Air Conditioned? Yes Information not available 06/10/2023 Do You Wear A Helmet When Biking? No [email or web address] Information not available 10/21/2024 Are You Blind Or Do You Have Difficulty Seeing? No Information n ot available 06/10/2023 What Is Your Level Of Caffeine Consumption? None Information not available 06/10/2023 Are You A Caregiver? No Information not available 06/10/2023 In The 14 Days Before Symptom Onset, Have You Had Close Contact With A Laboratory-confirm ed COVID-19 While That Case Was Ill? No Information n ot available 08/15/2023 In The 14 Days Before Symptom Onset, Have You Had Close Contact With A Person Who Is Under Investigation For COVID-19 While That Person Was Ill? No Information not available 08/15/2023 Have You Been To An Area Known To Be High Risk For COVID-19? No Information not available 06/10/2023 Are You Deaf Or Do You Have Serious Difficulty Hearing? No Information not available 06/10/2023 What Type Of Diet Are You Following? DIABETIC [email or web address] Information n ot available 10/21/2024 Have There Been Any Changes To Your Family Or Social Situation? No Information no t available 06/10/2023 What Was The Date Of Your Most Recent Tobacco Screening? 05/24/2025 Information not available 05/24/2025 What Is Your Relationship Status? Information not available 06/10/2023 Do You Use Your Seat Belt Or Car Seat Routinely? Yes Information not available 06/10/2023 Are You Sexually Active? No [email or web address] Information not available 10/21/2024 Do You Have Smoke And Carbon Monoxide Detectors In Your Home? Yes Information not available 06/10/2023 Are You Passively Exposed To Smoke? No Information no t available 06/10/2023 Are There Any Smokers In Your House? No Information not available 06/10/2023 Do You Participate In Social Media? Yes [email or web address] Information not available 10/21/2024 Has Tobacco Cessation Counseling Been Provided? No Information not available 06/10/2023 Have You Recently Traveled Abroad? No Information not available 06/10/2023 Do You Have Difficulty Walking Or Climbing Stairs? No Information not available 06/10/2023 Do You Have Any Dietary Restrictions? Yes [email or web address] Information not available 10/21/2024 Sex: Female Functional Status Question Answer Note LastModified by [employer] Details LastModified Time Do you use any illicit or recreational drugs? No Information not available 06/10/2023 Do you or have you ever used any other forms of tobacco or nicotine? No [email or web address] Information not available 10/21/2024 What is your level of alcohol consumption? Occasional Information not available 06/10/2023 Are you currently employed? No retired Information not available 06/10/2023 Do you have transportation difficulties? No Information not available 06/10/2023 Are you able to walk? [email or web address] Information not available 06/10/2023 Do you have difficulty doing errands alone? No Information not available 06/10/2023 Are you able to care for yourself independently? Yes Information not available 06/10/2023 Do you have difficulty dressing, bathing, grooming, or toileting? No Information not available 06/10/2023 Mental Status Question Answer Note LastModified by [employer] Details LastModified Time Do you feel stressed (tense, restless, nervous, or anxious, or unable to sleep at night)? [id number] [email or web address] Information not available 10/21/2024 Do you have difficulty concentrating, remembering or making decisions? No Information no t available 06/10/2023 Family History Relationship Description Onset Age of this Age Resolved Age Notes LastModified by Organization Details LastModified Time Father No current problems or disability Not available 06/2023 08:45:36 Mother No current problems or disability Not available 06/2023 08:45:36 Medical History Condition Response Diabetes Hospitalizations N Emergency room visit since last appointm ent. N Thyroid Problems Y Gynecological History Statement/Question Response Abnormal Pap N Date of Last Pap Smear 07/08/2023 Most Recent Mammogram 05/26/2024 Obstetrics History GPAL:G 0 P 0 0 0 0 Immunizations Vaccine Type Date Status Note Provider Name and Address Organization Details Recorded Time zoster recombinant 05/15/20 24 cancelled patient objection Gabby GordilloTOM[facility]S [address] [place], [address], [facility] [employer], [facility]. 05/15/2024 12:33:57 Tdap 05/03/20 23 completed Susy mojica [facility] [employer] 08/15/2023 13:44:39 Past Encounters Encounter ID Performer Location Encounter Start Date Encounter Closed Date Diagnosis/Indication Diagnosis SNOMED-CT Code Diagnosis ICD10 Code Diagnosis Note [id number] Gabby [facility]ordilloTOM[facility] [address] [place] [address] 05/04/2025 10:32:54 05/04/2025 11:25:20 Type 2 diabetes mellitus 66162196 E11.9 Z79.4 Type 2 gurjit betes mellitus without complication 710906320 E11.9 Hyperlipidemia 45268944 E78.5 Hypothyroidism 71896635 E03.9 Overweight in adulthood with body mass index of 25 or more but less than 30 909844407 Z68.25 [id number] Gabby GordilloTOMÁS [facility] [address] [place] [address] 05/24/2025 12:52:26 05/24/2025 13:37:50 Vomiting 246080746 R11.10 Abdominal pain 58039331 R10.9 Fatigue 25780293 R53.83 Mixed hyperlipidemia 267 054660 E78.2 Vitamin D deficiency 347 35185 E55.9 Cobalamin deficiency 190 241277 E53.8 Unintentio nal weight loss 492134058 R63.4 HIV screening 042570562 Z11.4 Viral scre ening status 959383981 Z11.59 Body mass index 20-24 - normal 568488074 Z68.24 Health Concerns Section Related Observation LastModified by Organization Detai ls LastModified Time None Recorded Concern Status LastModified by Organization Details LastModified Time None Recorded Payers Encounter Date Sequence Insurance Name Policy Number Policy Gutierrez Covered Member ID Gutierrez Member ID Guarantor Name 05/24/2025 1 *SELF PAY* Ci ndy [place] [facility] Episode No OBEpisode recorded.
--- OUTSIDE RECORDS SUMMARY | 2025-06-28 10:10 | XMS_ITS | Clinical Summary ---
Author Organization [facility] Address [address] [place] [address] Phone Care Team Providers Care Utility Tender Carding Name Role Phone Unavailable Primary Care Provider Unavailabl e Encounters Date Type Department Care Team Description 05/24/2025 1:43 PM EDT - 05/24/2025 11:59 PM EDT Hospital Encounter Mobile Mammography Other Location View online schedule for mobile van location [phone] Gabby Gordillo NP Encounter for screening mammogram for malignant neoplasm of breast Discharge Disposition: Home or Self Care from Last 3 Months Social History Tobacco Use Types Packs/Day Years Used Date Smoking Tobacco: Never Assessed Comments No Sex and Gender Information Value Date Recorded Sex Assigned at Not on file Legal Sex Female 11:36 AM EDT Gender Identity Not on file Sexual Orientation Not on file Obstetrics History Para Term AB IAB SAB Ectopic Multiple Livin g Live Births 2 Plan of Treatment Health Maintenance Due Date Last Done Comments Annual Wellness Exam 1963 Hepatitis C Screening 1978 Cervical Cancer Screening 1981 Pap Smear 1981 HPV/Pap Cotest 1990 Cologuard 2005 Colon Cancer Screening 2005 Colonoscopy 2005 FIT 2005 Sigmoidoscopy 2005 Virtual Colonography 2005 Zoster (1 of 2) 2010 Pneumococcal Vaccine 50+ (2 of 2 - PCV) 04/07/2020 04/07/2019 COVID-19 Vaccine (1 - 2023-2 5 season) 2024 Influenza Vaccine (#1) 2025 0, 10/16/2019, 12/05/2017 Breast Cancer Screening 05/24/2027 05/24/20 25, 05/25/2024 DTaP/TDaP/Td (3 - Td or Tdap) 05/03/2033, 02/20/2012, 01/23/2006 Hepatitis B Vaccine Aged Out No longe r eligible based on patient's age to complete this topic Meningococcal B Vaccine Aged Out No l onger eligible based on patient's age to complete this topic Procedures Procedure Name Priority Date/Time Associated Diagnosis Comments MM MAMMO DIGITAL DEYVI SCREEN BILAT Routine 05/24/2025 1:55 PM EDT Encounter for screening mammogram for malignant neoplasm of breast from Last 3 Months Results * MM MAMMO DIGITAL DEYVI SCREEN BILAT (05/24/2025 1:55 PM EDT) Anatomical Region Laterality Modality Breast Bilateral Mammography 05/24/2025 1:55 PM EDT Impressions 05/25/2025 8:38 AM EDT Negative ([id number]) RECOMMENDATION: Routine Screening Mammogram in 1 Year Bilateral . . COMMENTS: DISCLAIMER *The patient was notified by MyChart or mail of the results for this examination. *The patient's information was entered into a reminder system with a target due date for the next breast imaging, in accordance with the [employer] and the Society of [...] for screening mammogram for malignant neoplasm of [id number] COMPARISON STUDIES: Compared with prior studies the most recent being 05/25/2024 MM MAMMO DIGITAL DEYVI SCREEN BILAT at [facility] TISSUE DENSITY: There are scattered areas of fibroglandular density. FINDINGS: No mammographic evidence of malignancy. Procedure Note Alex Oakes MD - 05/25/2025 EXAM: MM MAMMO DIGITAL DEYVI SCREEN BILAT EXAM DATE: 05/24/2025 1:55 PM INDICATION: Z12.31-Encounter for screening mammogram for malignantneoplasm of [id number] COMPARISON STUDIES: Compared with prior studies the most recent being 05/25/2024 MM MAMMO DIGITAL DEYVI SCREEN BILAT at [facility] TISSUE DENSITY: There are scattered areas of fibroglandular density. FINDINGS: No mammographic evidence of malignancy. IMPRESSION: Negative ([id number]) RECOMMENDATION: Routine Screening Mammogram in 1 Year Bilateral . . COMMENTS: DISCLAIMER *The patient was notified by MyChart or mail of the results for this examination. *The patient's information was entered into a reminder system with atarget due date for the next breast imaging, in accordance with the [employer] and the Society of Breast Imaging recommendations. *Breast Imaging has a false negative rate of 15%. *Any patient with a palpable abnormality, unexplained by breast imaging,should be managed on a clinical basis by the attending physician. us Gabby Gordillo AEROGRAPHER IMG MAMMOGRAPHY ORDERABLE S Final Result from Last 3 Months
--- OUTSIDE RECORDS SUMMARY | 2025-06-28 10:10 | XMS_ITS | Data Portability ---
Author Organization [place] - [facility] EMMA Dwyer [facility] Address [address] [facility] [address] [place] [place] [address] Assessment Encounter Date Assessment Date Assessment LastModified by Organization Details LastModified Time 12/04/2022 12/04/2022 reviewed outside records and recent lab results with pt. she will see her other MDs as scheduled [email or web address] Not available 12/04/2022 15:14:05 Plan of Treatment Reminders Order Date Submit Date Provider Last Modified By Organization Details Last Modified Time Details Appointments None recorded. Lab BMP, serum or plasma 2022 023 [email or web address] 2 [facility] [place], [place], [address], 3 09:26:18 HbA1c (hemoglobi n A1c), blood 2022 023 [email or web address] 2 [facility] [place], [place], [address], 3 09:26:19 BMP, serum or plasma 2022 023 LAURA [facility] [place], [place], [address], 3 12:01:41 HbA1c (hemoglobi n A1c), blood 2022 023 HYRUM [facility] [place], [place], [address], 3 12:01:38 Referral None recorded. Procedures None recorded. Surgeries None recorded. Imaging MAMMO, screening, tomosynthe sis, bilateral 2022 023 [email or web address] [facility] handy [employer] [facility] [address] [facility], [place], [address], 3 10:49:32 Medication Orders None recorded. Patient TargetsNo targets recorded. Patient InstructionsNo instructions recorded. Reason for Referral None Reported. Results Created Date Observation Date Name Description Value Unit Range Abnormal Flag Note LastModifiedBy Organization Detail LastModifiedTime 11/08/2011/08/2022 A1C HbA1C 9.0 % 4.0-5. 6 high Incre ased risk for diabe mac 5.7-6 .4 Diabe mac: >6.4 Glyce ayo contr ol for adult s with diabe mac: <7.0 Not Available [facility] [place], [address], 11/08/2022 12:56:18 11/08/20 22 11/08/2022 A1C EAG 213.0 mg/dL Not Available [facility] [place], [address], 11/08/2022 12:56:18 11/08/20 22 11/08/2022 CBC W/ AUTOD IFF, COMPL ETE BLOOD COUNT WBC 5.65 10^3/ uL 3.70-1 1.00 Not Available [facility] [place], [address], 11/08/2022 12:56:20 11/08/20 22 11/08/2022 CBC W/ AUTOD IFF, COMPL ETE BLOOD COUNT RBC 4.4 10^6/ uL 4.0-4. 9 Not Available [facility] [place], [address], 11/08/2022 12:56:20 11/08/20 22 11/08/2022 CBC W/ AUTOD IFF, COMPL ETE BLOOD COUNT HGB 13.1 g/dL 12.2-1 4.9 Not Available [facility] [place], [address], 11/08/2022 12:56:20 11/08/20 22 11/08/2022 CBC W/ AUTOD IFF, COMPL ETE BLOOD COUNT HCT 39.5 % 35.8-4 7.9 Not Available [facility] [place], [address], 11/08/2022 12:56:20 11/08/20 22 11/08/2022 CBC W/ AUTOD IFF, COMPL ETE BLOOD COUNT MCV 90.0 fL 82.0-9 8.0 Not Available [facility] [place], [address], 11/08/2022 12:56:20 11/08/20 22 11/08/2022 CBC W/ AUTOD IFF, COMPL ETE BLOOD COUNT MCH 29.8 pg 27.0-3 3.0 Not Available [facility] [place], [address], 11/08/2022 12:56:20 11/08/20 22 11/08/2022 CBC W/ AUTOD IFF, COMPL ETE BLOOD COUNT MCHC 33.2 g/dL 31.0-3 7.0 Not Available [facility] [place], [address], 11/08/2022 12:56:20 11/08/20 22 11/08/2022 CBC W/ AUTOD IFF, COMPL ETE BLOOD COUNT RDW 13.2 % 11.8-1 4.9 Not Available [facility] [place], [place], [address], 11/08/2022 12:56:20 11/08/20 22 11/08/2022 CBC W/ AUTOD IFF, COMPL ETE BLOOD COUNT plt 245 10^3/ uL 150-40 0 Not Available [facility] [place], [address], 11/08/2022 12:56:20 11/08/20 22 11/08/2022 CBC W/ AUTOD IFF, COMPL ETE BLOOD COUNT ne% 50.4 % 50.0-7 0.0 Not Available [facility] [place], [address], 11/08/2022 12:56:20 11/08/20 22 11/08/2022 CBC W/ AUTOD IFF, COMPL ETE BLOOD COUNT ly% 39.5 % 25.0-4 0.0 Not Available [facility] [place], [address], 11/08/2022 12:56:20 11/08/20 22 11/08/2022 CBC W/ AUTOD IFF, COMPL ETE BLOOD COUNT MO% 6.2 % 4.0-12 .0 Not Available [facility] [place], [address], 11/08/2022 12:56:20 11/08/20 22 11/08/2022 CBC W/ AUTOD IFF, COMPL ETE BLOOD COUNT eo% 3.4 % 1.0-6. 0 Not Available [facility] [place], [address], 11/08/2022 12:56:20 11/08/20 22 11/08/2022 CBC W/ AUTOD IFF, COMPL ETE BLOOD COUNT ba% 0.5 % 0.0-2. 0 Not Available [facility] [place], [address], 11/08/2022 12:56:20 11/08/20 22 11/08/2022 CBC W/ AUTOD IFF, COMPL ETE BLOOD COUNT ne# 2.85 10^3/ uL 1.50-7 .50 Not Available [facility] [place], [address], 11/08/2022 12:56:20 11/08/20 22 11/08/2022 CBC W/ AUTOD IFF, COMPL ETE BLOOD COUNT ly# 2.23 10^3/ uL 1.00-4 .50 Not Available [facility] [place], [address], 11/08/2022 12:56:20 11/08/20 22 11/08/2022 CBC W/ AUTOD IFF, COMPL ETE BLOOD COUNT MO# 0.35 10^3/ uL 0.10-0 .80 Not Available [facility] [place], [address], 11/08/2022 12:56:20 11/08/20 22 11/08/2022 CBC W/ AUTOD IFF, COMPL ETE BLOOD COUNT eo# 0.19 10^3/ uL 0.00-0 .50 Not Available [facility] [place], [address], 11/08/2022 12:56:20 11/08/20 22 11/08/2022 CBC W/ AUTOD IFF, COMPL ETE BLOOD COUNT ba# 0.03 10^3/ uL 0.00-0 .20 Absol caddo numbe rs of White Blood Cells (WBC) types are more impor tant than their perce ntage s (Rela tive count s) Not Available [facility] [place], [address], 11/08/2022 12:56:20 11/08/20 22 11/08/2022 LIPID PANEL W/ CALCU LATED LDL chol 138 mg/dL 123-20 0 Not Available [facility] [place], [address], 11/08/2022 12:56:22 11/08/20 22 11/08/2022 LIPID PANEL W/ CALCU LATED LDL HDL(good) cholesterol 48.2 mg/dL >40.0 HDL Note; (Good Marion stero l) patie nts below 40 mg/dL have a modes t incre ased cardi ac risk. 60 mg/dL and great er is consi dered prote ctive again st heart disea se. Not Available [facility] [place], [address], 11/08/2022 12:56:22 11/08/20 22 11/08/2022 LIPID PANEL W/ CALCU LATED LDL trig 38 mg/dL 0-210 Not Available [facility] [place], [address], 11/08/2022 12:56:22 11/08/20 22 11/08/2022 LIPID PANEL W/ CALCU LATED LDL LDL calc(bad) chol nih 89.4 mg/dL 0.0-12 9.0 LDL Note; (Bad [place] stero l) Treat ment goals for cardi ac disea se are aimed at achie ving appro priat e LDL's Not Available [facility] [place], [address], 11/08/2022 12:56:22 11/08/20 22 11/08/2022 LIPID PANEL W/ CALCU LATED LDL VLDL calc 0.4 mg/dL Not Available [facility], [address], 11/08/2022 12:56:22 11/08/20 22 11/08/2022 CMP, COMPR EHENS HAN METAB OLIC PANEL Na 137 mEq/L 135-14 5 Not Available [facility] [place], [address], 11/08/2022 12:56:24 11/08/20 22 11/08/2022 CMP, COMPR EHENS HAN METAB OLIC PANEL K 4.2 mEq/L 3.5-5. 0 Not Available [facility] [place], [address], 11/08/2022 12:56:24 11/08/20 22 11/08/2022 CMP, COMPR EHENS HAN METAB OLIC PANEL cL 104 mEq/L 98-112 Not Available [facility] [place], [address], 11/08/2022 12:56:24 11/08/20 22 11/08/2022 CMP, COMPR EHENS HAN METAB OLIC PANEL CO2 26 mEq/L 22-31 Not Available [facility] [place] [place], [address], 11/08/2022 12:56:24 11/08/20 22 11/08/2022 CMP, COMPR EHENS HAN METAB OLIC PANEL gluc 205 mg/dL 70-100 high Not Available [facility] [place] [place], [address], 11/08/2022 12:56:24 11/08/20 22 11/08/2022 CMP, COMPR EHENS HAN METAB OLIC PANEL BUN 30 mg/dL 9-23 high Not Available [facility] [place] [place], [address], 11/08/2022 12:56:24 11/08/20 22 11/08/2022 CMP, COMPR EHENS HAN METAB OLIC PANEL creat 0.60 mg/dL 0.60-1 .20 Not Available [facility] [place], [address], 11/08/2022 12:56:24 11/08/20 22 11/08/2022 CMP, COMPR EHENS HAN METAB OLIC PANEL Ca 9.2 mg/dL 8.6-10 .4 Not Available [facility] [place], [address], 11/08/2022 12:56:24 11/08/20 22 11/08/2022 CMP, COMPR EHENS HAN METAB OLIC PANEL TP 6.8 g/dL 6.1-8. 0 Not Available [facility] [place], [address], 11/08/2022 12:56:24 11/08/20 22 11/08/2022 CMP, COMPR EHENS HAN METAB OLIC PANEL alb 4.3 g/dL 3.5-5. 0 Not Available [facility] [place], [address], 11/08/2022 12:56:24 11/08/20 22 11/08/2022 CMP, COMPR EHENS HAN METAB OLIC PANEL glob 2.5 g/dL 1.9-3. 2 Not Available [facility] [place] [place], [address], 11/08/2022 12:56:24 11/08/20 22 11/08/2022 CMP, COMPR EHENS HAN METAB OLIC PANEL A/G N 1.72 1.20-2 .20 Not Available [facility] [place] [place], [address], 11/08/2022 12:56:24 11/08/20 22 11/08/2022 CMP, COMPR EHENS HAN METAB OLIC PANEL alk phos 61 IU/L 22-126 Not Available [facility] [place], [address], 11/08/2022 12:56:24 11/08/20 22 11/08/2022 CMP, COMPR EHENS HAN METAB OLIC PANEL ALT 18 IU/L 0-35 Not Available [facility] [place], [address], 11/08/2022 12:56:24 11/08/20 22 11/08/2022 CMP, COMPR EHENS HAN METAB OLIC PANEL AST 15 IU/L 10-36 Not Available [facility] [place], [address], 11/08/2022 12:56:24 11/08/20 22 11/08/2022 CMP, COMPR EHENS HAN METAB OLIC PANEL T bili 0.8 mg/dL 0.4-1. 4 Not Available [facility] [place], [address], 11/08/2022 12:56:24 11/08/20 22 11/08/2022 CMP, COMPR EHENS HAN METAB OLIC PANEL GFR 101 GFR >60 - Mild decre ase to bren l (CKD Stage 2 to bren l) GFR 30-59 - Moder ate decre ase (CKD Stage 3) GFR 15-29 - Sever e decre ase (CKD Stage 4) GFR <15 - Dialy sis, Kidne y failu re (CKD Stage 5) Not Available [facility] [place], [address], 11/08/2022 12:56:24 11/08/20 22 11/08/2022 TSH, THYRO ID STIMU LATIN G HORMO NE TSH 6.25 uIU/L 0.34-5 .60 high Scree bud test for Thyro id funct ion Not Available [facility] [place], [address], 11/08/2022 12:56:26 11/08/20 22 11/08/2022 VENIP UNCTU RE autoapproveh ostcode Comple te Not Available [facility] [place], [address], 11/08/2022 09:06:35 11/15/20 22 11/15/2022 MICRO ALBUM IN, RAND( UR/CR EAT) MA U 5.4 mg/L 0.0-30 .0 Not Available [facility] [place], [address], 11/15/2022 12:52:47 11/15/20 22 11/15/2022 MICRO ALBUM IN, RAND( UR/CR EAT) creat U 121.34 mg/dL 34.00- 147.00 Not Available [facility] [place], [address], 11/15/2022 12:52:47 11/15/20 22 11/15/2022 MICRO ALBUM IN, RAND( UR/CR EAT) microalb/cre at rat 4.5 mg/g 0.0-30 .0 Not Available [facility] [place], [address], 11/15/2022 12:52:47 02/26/20 23 02/25/2023 URINA LYSIS , COMPL ETE W/ REFLE X TO CULTU RE SG >=1.03 0 Not Available [facility] [place], [address], 02/25/2023 08:13:44 02/26/20 23 02/25/2023 URINA LYSIS , COMPL ETE W/ REFLE X TO CULTU RE pH 6.0 5.0 - 8.0 Not Available [facility] [place], [place], [address], 02/25/2023 08:13:44 02/26/20 23 02/25/2023 URINA LYSIS , COMPL ETE W/ REFLE X TO CULTU RE pro NEGATI VE negati ve Not Available [facility] [place], [place], [address], 02/25/2023 08:13:44 02/26/20 23 02/25/2023 URINA LYSIS , COMPL ETE W/ REFLE X TO CULTU RE glu urine 2+ negati ve Not Available [facility] [place], [address], 02/25/2023 08:13:44 02/26/20 23 02/25/2023 URINA LYSIS , COMPL ETE W/ REFLE X TO CULTU RE ket NEGATI VE negati ve Not Available [facility] [place], [address], 02/25/2023 08:13:44 02/26/20 23 02/25/2023 URINA LYSIS , COMPL ETE W/ REFLE X TO CULTU RE blo TRACE negati ve Not Available [facility] [place], [address], 02/25/2023 08:13:44 02/26/20 23 02/25/2023 URINA LYSIS , COMPL ETE W/ REFLE X TO CULTU RE nit NEGATI VE negati ve Not Available [facility] [place], [address], 02/25/2023 08:13:44 02/26/20 23 02/25/2023 URINA LYSIS , COMPL ETE W/ REFLE X TO CULTU RE qasim NEGATI VE negati ve Not Available [facility] [place], [address], 02/25/2023 08:13:44 02/26/20 23 02/25/2023 URINA LYSIS , COMPL ETE W/ REFLE X TO CULTU RE julee NEGATI VE negati ve Not Available [facility] [place], [address], 02/25/2023 08:13:44 02/26/20 23 02/25/2023 URINA LYSIS , COMPL ETE W/ REFLE X TO CULTU RE uro 0.2 Not Available [facility] [place], [address], 02/25/2023 08:13:44 02/26/20 23 02/25/2023 A1C HbA1C 9.8 % 4.0-5. 6 high Incre ased risk for diabe mac 5.7-6 .4 Diabe mac: >6.4 Glyce ayo contr ol for adult s with diabe mac: <7.0 Not Available [facility] [place], [address], 02/25/2023 12:01:38 02/26/20 23 02/25/2023 A1C EAG 235.0 mg/dL Not Available [facility] [place], [address], 02/25/2023 12:01:38 02/26/20 23 02/25/2023 BMP, BASIC METAB OLIC PANEL Na 134 mEq/L 135-14 5 low Not Available [facility] [place], [address], 02/25/2023 12:01:41 02/26/20 23 02/25/2023 BMP, BASIC METAB OLIC PANEL K 4.5 mEq/L 3.5-5. 0 Not Available [facility] [place] [place], [address], 02/25/2023 12:01:41 02/26/20 23 02/25/2023 BMP, BASIC METAB OLIC PANEL cL 101 mEq/L 98-112 Not Available [facility] [place], [address], 02/25/2023 12:01:41 02/26/20 23 02/25/2023 BMP, BASIC METAB OLIC PANEL CO2 26 mEq/L 22-31 Not Available [facility] [place], [address], 02/25/2023 12:01:41 02/26/20 23 02/25/2023 BMP, BASIC METAB OLIC PANEL gluc 361 mg/dL 70-100 high Not Available [facility] [place], [address], 02/25/2023 12:01:41 02/26/20 23 02/25/2023 BMP, BASIC METAB OLIC PANEL BUN 17 mg/dL 9-23 Not Available [facility] [place], [address], 02/25/2023 12:01:41 02/26/20 23 02/25/2023 BMP, BASIC METAB OLIC PANEL creat 0.57 mg/dL 0.60-1 .20 low Not Available [facility] [place] [place], [address], 02/25/2023 12:01:41 02/26/20 23 02/25/2023 BMP, BASIC METAB OLIC PANEL Ca 10.0 mg/dL 8.6-10 .4 Not Available [facility] [place] [place], [address], 02/25/2023 12:01:41 02/26/20 23 02/25/2023 BMP, BASIC METAB OLIC PANEL GFR 102 GFR >60 - Mild decre ase to bren l (CKD Stage 2 to bren l) GFR 30-59 - Moder ate decre ase (CKD Stage 3) GFR 15-29 - Sever e decre ase (CKD Stage 4) GFR <15 - Dialy sis, Kidne y failu re (CKD Stage 5) Not Available [facility] [place], [address], 02/25/2023 12:01:41 02/26/20 23 02/25/2023 VENIP UNCTU RE autoapproveh ostcode Comple te Not Available [facility] [place], [address], 02/25/2023 08:06:11 04/12/20 23 04/12/2023 A1C HbA1C 10.6 % 4.0-5. 6 high Incre ased risk for diabe mac 5.7-6 .4 Diabe mac: >6.4 Glyce ayo contr ol for adult s with diabe mac: <7.0 Not Available [facility] [place], [address], 04/12/2023 11:16:17 04/12/20 23 04/12/2023 A1C EAG 257.2 mg/dL Not Available [facility] [place], [address], 04/12/2023 11:16:17 04/12/20 23 04/12/2023 BMP, BASIC METAB OLIC PANEL Na 137 mEq/L 135-14 5 Not Available [facility] [place], [address], 04/12/2023 11:16:21 04/12/20 23 04/12/2023 BMP, BASIC METAB OLIC PANEL K 4.6 mEq/L 3.5-5. 0 Not Available [facility] [place] [place], [address], 04/12/2023 11:16:21 04/12/20 23 04/12/2023 BMP, BASIC METAB OLIC PANEL cL 103 mEq/L 98-112 Not Available [facility] [place] [place], [address], 04/12/2023 11:16:21 04/12/20 23 04/12/2023 BMP, BASIC METAB OLIC PANEL CO2 26 mEq/L 22-31 Not Available [facility] [place], [address], 04/12/2023 11:16:21 04/12/20 23 04/12/2023 BMP, BASIC METAB OLIC PANEL gluc 252 mg/dL 70-100 high Not Available [facility] [place] [place], [address], 04/12/2023 11:16:21 04/12/20 23 04/12/2023 BMP, BASIC METAB OLIC PANEL BUN 20 mg/dL 9-23 Not Available [facility] [place], [address], 04/12/2023 11:16:21 04/12/20 23 04/12/2023 BMP, BASIC METAB OLIC PANEL creat 0.60 mg/dL 0.60-1 .20 Not Available [facility] [place] [place], [address], 04/12/2023 11:16:21 04/12/20 23 04/12/2023 BMP, BASIC METAB OLIC PANEL Ca 9.6 mg/dL 8.6-10 .4 Not Available [facility] [place] [place], [address], 04/12/2023 11:16:21 04/12/20 23 04/12/2023 BMP, BASIC METAB OLIC PANEL GFR 101 GFR >60 - Mild decre ase to bren l (CKD Stage 2 to bren l) GFR 30-59 - Moder ate decre ase (CKD Stage 3) GFR 15-29 - Sever e decre ase (CKD Stage 4) GFR <15 - Dialy sis, Kidne y failu re (CKD Stage 5) Not Available [facility] [place], [address], 04/12/2023 11:16:21 04/12/20 23 04/12/2023 VENIP UNCTU RE autoapproveh ostcode Comple te Not Available [facility] [place], [address], 04/12/2023 09:27:37 06/28/20 23 06/26/2023 MAMMO , scree bud, tomos ynthe sis, bilat eral, w/ CAD #[id number] - MG SCREEN ING DIGITA L MAMMOG MILDRED WITH CAD AND DEYVI BILATE RAL DIGITA L SCREEN ING MAMMOG MILDRED 3D/2D WITH CAD: 023 CLINIC AL: Routin e screen ing mammog [facility]. Ruchi roldan has no compla ints. Mother with post menopa usal breast cancer . TECHNI QUE: The study was acquir ed using full field digita l techno logy and interp reted from soft copy. 3D tomosy nthesi s views and volume previe w recons tructe d views were obtain ed. Manuel roldan study was also evalua blanche with a Comput er Aided Detect ion (CAD). Compar blair is made to exams dated: 02/01/20 mammog [facility] and 02/01/20 [facility] - [facility] kellie Rodriguez. FINDIN GS: TISSUE DENSIT Y: There are scatte red areas of fibrog landul ar densit y in both breast s. There are a benign densit y and nodule in the right breast . There also is a benign nodule in the left breast . Additi onally , there are benign calcif icatio ns in both breast s. No suspic ious masses , malign ant-ty pe micro calcif icatio ns, or other findin gs are seen in either breast . There has been no signif icant interv al change . IMPRES KANDY: BENIGN There is no mammog raphic eviden ce of malign damian. A 1 year screen ing mammog [facility] is recomm ended. RISK ASSESS MENT: Based on the Ronna Frausto BCRA tool, this patien t's calcul ated 10-yea r risk for develo ping breast cancer is 4.4% and lifeti me risk is 10.1%. Electr onical ly signed by: Dr. Gila Coronado M.D. ttb/pe nrad: 23 14:08: 14 Imagin g Techno logist (s): Evelyne Mota(Bernabe )(M), Radha Rodriguez letter sent: Normal Mamm[facility] BI-RAD S: 2 Benign [facility] ([facility]) [address] [place], [address], 06/28/2023 09:24:39 Result Notes Documentation Provider Name and Address Organization Details Recorded Time Mammo, Screening, Tomosynthesis, Bilateral, W/ Cad : #[id number] - MG SCREENING DIGITAL MAMMOGRAM WITH CAD AND DEYVI BILATERAL DIGITAL SCREENING MAMMOGRAM 3D/2D WITH CAD: 06/26/2023 CLINICAL: Routine screening mammogram. Patient has no complaints. Mother with post menopausal breast cancer. TECHNIQUE: The study was acquired using full field digital technology and interpreted from soft copy. 3D tomosynthesis views and volume preview reconstructed views were obtained. Current study was also evaluated with a Computer Aided Detection (CAD). Comparison is made to exams dated: 01/31/2022 mammogram and 01/31/2021 mammogram - [facility]. FINDINGS: TISSUE DENSITY: There are scattered areas of fibroglandular density in both breasts. There are a benign density and nodule in the right breast. There also is a benign nodule in the left breast. Additionally, there are benign calcifications in both breasts. No suspicious masses, malignant-type micro calcifications, or other findings are seen in either breast. There has been no significant interval change. IMPRESSION: BENIGN There is no mammographic evidence of malignancy. A 1 year screening mammogram is recommended. RISK ASSESSMENT: Based on the Ronna Frausto BCRA tool, this patient's calculated 10-year risk for developing breast cancer is 4.4% and lifetime risk is 10.1%. Electronically signed by: Dr. Gila Coronado M.D. ttb/penkamlesh:06/27/2023 14:08:14 [place] Winder(s): Fabien Mota)(M), Neil Rodriguez letter sent: Normal Mammogram BI-RADS: 2 Benign Vasquez Bridges MD [address] [place], [address], [facility] 06/28/2023 09:24:39 Problems Name Problem SNOMED Code Status Onset Date Resolution Date Notes Provider Name and Address Organization Details Recorded Time Acquired hypothyro idism 171575214 Active 2013 Acquired hypothyro idism Not Available [facility] 2 13:22:23 Kidney stone 54165824 Active [address] Lebron ([facility]). S/P lithotrip sy and stenting. Vasquez Bridges MD [address] [place], [address] , [facility] 3 14:55:32 Steatotic liver disease 653584644 Active 2013 Fatty liver - Hx of Elevated LFT's: Neg Hep B & C. Nl Ferritin level. Abd U/S showed Fatty liver. Vasquez Bridges MD [address] [place], [address] , [facility] 3 15:06:31 History of abnormal cervical Papanicol aou smear 749252142 Active 2013 Abnormal PAP smear 08/16/10, HPV +. Neg Pap at [facility] in 2013 Vasquez Bridges MD [address] [place], [address] , [facility] 3 14:55:20 Pain in upper limb 052933113 Active 2013 Hx of Bilat UE pain/ Myalgias/ Arthralgi as. Neg autoimmun e work up. Has had imaging in past of C spine (xray, CT, MRI) 2010 - minimal DDD. Rheum consult 01/2006. ?carpal tunnel. Trial of daily celebrex 09/21 Vasquez Bridges MD [address] [place], [address] , [facility] 3 14:55:47 Menopausa l and postmenop ausal disorders 528956852 Active 2013 Menopausa l and postmenop ausal disorder Not Available [facility] 2 13:22:24 Vitamin D deficienc y 82530481 Active 2013 Level good 11/21 Vasquez Bridges MD [address] [place], [address] , [facility] 3 15:05:10 Type 2 diabetes mellitus without complicat ion 463434781 Active 2018 no complicat ions. NPH added in 06/20. increased doses 12/24 and03/24 Vasquez Bridges MD [address] [place], [address] , [facility] 3 11:19:28 Genital herpes simplex type 2 579435200 Active 2018 Genital herpes simplex type 2 Not Available [facility] 2 13:22:23 Sterile pyuria 233811963 Active 2019 nocturia. x2 in 11/20. due to hyperglyc emia? prob has yeast infection in 03/24 but won't come in for visit. will use OTC meds Vasquez Bridges MD [address] [place], [address] , [facility] 3 11:17:33 Bilateral carpal tunnel syndrome 40784654647 120669 Active 2020 L>R. Presumed dx. Pt is S/P R carpal tunnel release Vasquez Bridges MD [address] [place], [address] , [facility] 3 14:31:06 Plantar fasciitis of right foot 19361291510 602487 Active 09/21. better in 2021 Vasquez Bridges MD [address] [place], [address] , [facility] 3 14:56:09 Hyperchol esterolem ia 74065043 Active 2021 pt takes atorvasta tin. pt declines COVID and flu shots and she can't afford colonosco py but will do it when she starts [employer]. Vasquez Bridges MD [address] [place], [address] , [facility] 3 15:07:21 Weight loss 19574775 Active 12/24. after wt gain in 2020 Vasquez Bridges MD [address] [place], [address] , [facility] 3 15:04:57 Mild major depressio n 82221497 Active 2022 Hx of suicide gesture (12/05, 03/2011).- Both children as young adults (daughter ? Etiology; son was murdered in 2017). Pt took bupropion and tapered herself off Fall 2021 Vasquez Bridges MD [address] [place], [address] , [facility] 3 15:09:18 Problem Notes None recorded. Procedures Surgical History Date Name Laterality Status Provider Name and Address Organization Details Recorded Time 03/06/20 23 Telehealth Telephonic completed Vasquez Bridges MD [address] [place], [address], [facility] 03/06/2023 11:14:26 02/26/20 23 Cerumen Disimpaction Using instrumentation cancelled ADIS ANDRADE [address] [place], [address], [facility] 02/19/2023 10:26:44 12/04/19 23 Diabetic Foot Exam completed Vasquez Bridges MD [address] [place], [address], [facility] 12/04/2022 15:13:31 02/01/20 22 completed Carmelina Amaro [facility] 12/04/2022 14:27:14 Carpal Tunnel Surgery completed Carmelina Amaro [facility] 12/04/2022 14:27:28 Imaging Results None recorded. Procedure Notes None recorded. Medical Equipment None Reported. Allergies No known drug allergies Medications Name Sig Start Date Stop Date Status Note LastModified by Organization Details LastModified Time celecoxib 200 mg capsule TAKE ONE CAPSULE BY MOUTH DAILY 12/04 completed Not Available Not Available Not Available atorvastati n 10 mg tablet TAKE ONE TABLET BY MOUTH AT BEDTIME 2022 active Not Available Not Available Not Avai lable alprazolam 1 mg tablet TAKE ONE TABLET BY MOUTH THREE TIMES A DAY NEEDED 2022 active Not Available Not Available Not Avai lable Novolin N NPH U-100 Insulin isophane 100 unit/mL subcutaneou s susp Take 21 u with breakfast and 21 u nightly. 2020 active Not Available Not Available Not Avai lable fluconazole 150 mg tablet Take 1 tablet once for yeast infection ; may repeat once in 3 days if needed 12/04 completed Not Available Not Available Not Available valacyclovi r 1 gram tablet Take 1 pill twice daily at first signs of lesion outbreak for 5-7 days 2021 active Not Available Not Available Not Avai lable glipizide 10 mg tablet TAKE 1 TABLET BY MOUTH TWICE DAILY BEFORE MEAL(S) active Not Available Not Available No t Available Macrobid 100 mg capsule Take 1 capsule every 12 hours by oral route for 7 days. 2022 active Not Available Not Available Not Avai lable metformin 1,000 mg tablet TAKE 1 TABLET BY MOUTH TWICE DAILY WITH MEALS 2022 active Not Available Not Available Not Avai lable levothyroxi ne 125 mcg tablet Take 1 tablet by mouth once daily 2022 active Not Available Not Available Not Avai lable aspirin 81 mg chewable tablet Chew 81 mg by mouth daily. active Not Available Not Available No t Available bacitracin- polymyxin B 500 unit-10,000 unit/gram eye ointment Apply to eye 2 (two) times daily for [address] a 1/2 inch ribbon of ointment into the lower eyelid twice a day 12/04 completed Not Available Not Available Not Available cyclobenzap rine 5 mg tablet Take one tablet (5 mg dose) by mouth 2 (two) times a day as needed for Muscle spasms. 2020 active Not Available Not Available Not Avai lable bupropion HCl XL 150 mg 24 hr tablet, extended release TAKE ONE TABLET BY MOUTH EVERY MORNING 12/04 completed Not Available Not Available Not Available zinc active Not Available Not Availa ble Not Available biotin active Not Available Not Availa ble Not Available cholecalcif irene (vitamin D3) 50 mcg (2,000 unit) capsule Take one capsule (2,000 Units dose) by mouth daily. 2019 active Not Available Not Available Not Avai lable vit C 1,000 mg-multivit -minerals-M SM 1,000 mg oral efferv powder pack Take by oral route. active Not Available Not Available No t Available vit B comp C no.24-iron- folic active Not Available Not Available Not Available Vitals Date Recorded Body height Body mass index (BMI) Body weight Heart rate Oxygen saturation Oxygen saturation in Arterial blood by Pulse oximetry Systolic And Diastolic Provider Name and Address Organization Details Last Updated DateTime 3 162.56 cm 29.2 kg/m2 36449.7 g 90 /min 98 % 98 % 138/62 mm[Hg] Carmelina Amaro [place] - [facility] 3 14:39:54 Social History Question Answer Notes LastModified by Organizat ion Details LastModified Time Tobacco Smoking Status Never Smoker Not Available [facility] 10/05/2022 18:29:40 Do You Have An Advance Directive? No Information n ot available 12/04/2022 Do You Wear A Helmet When Biking? Yes Information not available 12/04/2022 Is Blood Transfusion Acceptable In An Emergency? Yes [email or web address] Information not available 12/04/2022 What Is Your Level Of Caffeine Consumption? Moderate [email or web address] Information not available 12/04/2022 In The 14 Days Before Symptom Onset, Have You Had Close Contact With A Laboratory-confirm ed COVID-19 While That Case Was Ill? No [email or web address] Information n ot available 12/04/2022 In The 14 Days Before Symptom Onset, Have You Had Close Contact With A Person Who Is Under Investigation For COVID-19 While That Person Was Ill? No [email or web address] Information not available 12/04/2022 Have You Been To An Area Known To Be High Risk For COVID-19? No [email or web address] Information not available 12/04/2022 What Type Of Diet Are You Following? REGULAR [email or web address] Information n ot available 12/04/2022 Have There Been Any Changes To Your Family Or Social Situation? No [email or web address] Information no t available 12/04/2022 Alcohol Use Less Than 1 Per Month [email or web address] Information not available 12/04/2022 Do You Smoke? No [email or web address] Informatio n not available 12/04/2022 Do You Have A Medical Power Of Airplane Navigator? No [email or web address] Information not available 12/04/2022 What Was The Date Of Your Most Recent Tobacco Screening? 12/04/2022 [email or web address] Information not available 12/04/2022 What Is Your Relationship Status? [email or web address] Information not available 12/04/2022 Do You Use Your Seat Belt Or Car Seat Routinely? Yes [email or web address] Information not available 12/04/2022 Do You Have Smoke And Carbon Monoxide Detectors In Your Home? Yes [email or web address] Information not available 12/04/2022 Are You Passively Exposed To Smoke? No [email or web address] Information no t available 12/04/2022 Do You Use Sunscreen Routinely? Yes [email or web address] Information not available 12/04/2022 Has Tobacco Cessation Counseling Been Provided? No [email or web address] Information not available 12/04/2022 Sex: Unknown Functional Status Question Answer Note LastModified by Organizat ion Details LastModified Time Do you use any illicit or recreational drugs? No [email or web address] Information not available 12/04/2022 Do you or have you ever used any other forms of tobacco or nicotine? No [email or web address] Information not available 12/04/2022 What is your level of alcohol consumption? Occasional Information not available 12/04/2022 Are you currently employed? Yes Information not available 12/04/2022 What is your exercise level? Occasional [email or web address] Information not available 12/04/2022 Mental Status None recorded. Family History Relationship Description Onset Age of this Age Resolved Age Notes LastModified by Organization Details LastModified Time Mother Family history of malignant neoplasm [email or web address] Not available 01/2023 14:27:06 Sister Diabetes mellitus Not available 01/2023 14:27:06 Notes:Problem: Diabetes Re lation: Natural sister Problem: Cancer Relation: Natural mother Problem: Coronary artery disease Relation: Natural father Problem: Other Relation: Natural mother Problem: Other Relation: Natural daughter Problem: Glaucoma Relation: Natural father Problem: Kidney disease Relation: Natural mother Problem: Heart disease Relation: Natural father Problem: Stroke Relation: Natural sister Problem: Cancer Relation: Natural father Medical History Condition Response Depression Y Diabetes Y Gynecological History Statement/Question Response 01/31/2022 Obstetrics History GPAL:G 0 P 0 0 0 0 Immunizations Vaccine Type Date Status Note Provider Nam e and Address Organization Details Recorded Time Influenza, split virus, quadrivalent, preservative 9 completed Not Available [facility] 10/06/2022 00:19:25 Influenza, split virus, trivalent, preservative 0 completed Not Available [facility] 10/06/2022 00:19:25 Tdap 2 completed Not Available [facility] 10/06/2022 00:19:26 Influenza, recombinant, quadrivalent, PF 8 completed Not Available [facility] 10/06/2022 00:19:26 Td (adult), 2 Lf tetanus toxoid, preservative free, adsorbed 6 completed Not Available [facility] 10/06/2022 00:19:26 pneumococcal polysaccharide PPV23 9 completed Not Available [facility] 10/06/2022 00:19:26 Past Encounters Encounter ID Performer Location Encounter Start Date Encounter Closed Date Diagnosis/Indication Diagnosis SNOMED-CT Code Diagnosis ICD10 Code Diagnosis Note [id number] MD EMMA Landrum [address] [address] 12/04/2022 14:19:43 12/04/2022 15:52:14 Adult health examination 190037544 Z00.00 Hypercholesterolemia 136 10012 E78.00 controlled with statin. Type 2 gurjit betes mellitus without complication 291549593 E11.9 A1c up to 9 despite wt loss. pt will increase NPH to 16 u bid and will continue losing wt. Mild major depression 87 486436 F32.0 pt says she is doing well and denies SI/HI. she will call with questions Weight loss 88363913 R63 .4 asked pt to continue working on diet and exercise and lose more wt. we will follow Screening for malignant neoplasm of breast 390034941 Z12.39 [id number] MD EMMA Landrum [address] [place] [address] 03/06/2023 11:06:23 03/06/2023 12:07:15 Type 2 diabetes mellitus without complication 371673468 E11.9 A1c up to 9.8 prob due to getting off diet. pt will increase NPH to 18 u bid and will get back on diet and exercise program and try to lose wt. she will call with questions. recheck in 3 mos Vaginitis 79425681 N76.0 presumed dx since pt won't/can' t come in for eval. pt will try OTC meds for yeast infection and will call with questions Health Concerns Section Related Observation LastModified by Organization Detai ls LastModified Time None Recorded Concern Status LastModified by Organization Details LastModified Time None Recorded Advance Directives Directive N: Payers Insurance Date Sequence Insurance Name Policy Number Policy Gutierrez Covered Member ID Gutierrez Member ID Guarantor Name 11/08/2022 1 *SELF PAY* Ci ndy [place] 01/07/2023 PAYMENT PLAN Donna Timmy 05/05/2023 PAYMENT PLAN Donna [place] OBGyn Episode No OBEpisode recorded.
--- OUTSIDE RECORDS SUMMARY | 2025-06-28 10:10 | XMS_ITS | Continuity of Care Document ---
Author Organization [place] [facility] Address [address] [place] [address] Assessment No assessment recorded. Plan of Treatment Reminders Order Date Submit Date Provider Last Modified By Organization Details Last Modified Time Details Appointments ANNUAL EXAM 2024 03:30P M Álvaro Gordillo APRN Not available Not available Not available Lab HbA1c (hemoglob in A1c), blood [address], [address] [place] [address], [phone], 05/04/2025 12:35:55 Referral None recorded. Procedures None recorded. Surgeries None recorded. Imaging None recorded. Medication Orders aspirin 81 mg capsule 2024 025 [facility], [address] [place] [address], [id number], 05/04/2025 12:20:03 Byetta 5 mcg/dose (250 mcg/mL)1. 2 mL subcutane ous pen injector 2024 025 [facility], [address] [place] [address], [id number], 05/04/2025 11:54:54 metformin 1,000 mg tablet 2024 025 [facility], [address] [place] [address], [id number], 05/04/2025 12:20:02 glipizide 10 mg tablet 2024 025 [facility], [address] [place] [address], [id number], 05/04/2025 12:20:02 levothyro xine 112 mcg tablet 2024 025 [facility], [address] [place] [address], [id number], 05/04/2025 12:20:04 atorvasta tin 10 mg tablet 2024 025 [facility], [address] [place] [address], [id number], 05/04/2025 12:20:00 Patient TargetsNo targets recorded. Patient InstructionsNo instructions recorded. Reason for Referral None Reported. Results Created Date Observation Date Name Description Value Unit Range Abnormal Flag Note LastModifiedBy Organization Detail LastModifiedTime 05/04/2005/04/2025 HbA1c (hemo globi n A1c), blood HbA1c 6.9 Not Available [address], [address], 05/04/2025 10:52:28 05/03/20 25 05/03/2025 DEXA No observ ation record ed. [email or web address] [facility] [address], [place], [address], 05/10/2025 11:27:39 05/25/20 25 XR, abdom en No observ ation record ed. [email or web address] [address], [address], 05/27/2025 08:21:09 05/26/20 25 05/24/2023 MAMMO , scree bud, digit al, bilat eral No observ ation record ed. [email or web address] Not Available 2024 17:46:16 05/31/20 MAMMO , scree bud, digit al, bilat eral No observ ation record ed. [facility] [address], [place], [address], 05/31/2025 17:51:27 Result Notes None recorded. Problems Name Problem SNOMED Code Status Onset Date Resolution Date Notes Provider Name and Address Organization Details Recorded Time Proteinuria 27619507 Active 2023 Hillary Dill null, [employer] 12:56:42 Dehydration 06966409 Active 2023 Hillary Colemany null, [employer] 12:56:35 Type 2 diabetes mellitus without complicatio n 326773526 Active 2023 Hillary Dill null, [employer] 12:56:53 Bilateral hyperopia of eyes 9776938472709 00 Active 2023 Hillary Dill null, [employer] 12:56:39 Hypothyroid ism 82748439 Active 2023 Hillary Colemany null, [employer] 12:56:31 Flank pain 016327830 Active 2023 Hillary Colemany null, [employer] 12:56:33 Nausea 840752421 Active 2023 Hillary Colemany null, [employer] 12:57:16 Viral gastroenter itis 003284526 Active 2023 Hillary [place] null, [employer] 12:57:05 Urine ketone test = + 767524863 Active 2023 Hillary Colemany null, [employer] 12:56:57 Type 2 diabetes mellitus 51272262 Active 2024 Hillary Colemany null, [employer] 12:56:48 Problem Notes None recorded. Procedures Surgical History Date Name Laterality Status Provider Name and Address Organization Details Recorded Time 11/03/20 24 Cerumen Removal completed [employer] 11/03/2024 13:30:40 05/26/20 24 Most Recent Mammogram completed [employer] 02/01/2025 11:18:24 07/08/20 23 Date of Last Pap Smear completed [employer] 02/13/2024 10:46:23 Carpal tunnel surgery completed [employer] 06/10/2023 10:52:07 ultrasonic fragmentation of urinary stone through percutaneous nephrostomy completed [employer] 06/10/2023 10:52:35 Imaging Results None recorded. Procedure [...] Available No t Available Comfort EZ Pen Otto 31 gauge x 3/16 USE daily 2023 [...] Details Last Updated DateTime 5 165.1 cm 25.3 kg/m2 09349.0 4 g 91 /min 96 % 96 % 133/81 mm[Hg] Hillary Dill [place] - [employer]. 5 10:59:02 Social History Question Answer Notes LastModified by Organizat ion Details LastModified Time Tobacco Smoking Status Never Smoker Hillary mojica [facility] [employer] 06/10/2023 10:51:32 Is Your Home Air Conditioned? Yes Information not available 06/10/2023 Do You Wear A Helmet When Biking? No [email or web address] Information not available 10/21/2024 Are You Blind [...] Type Of Diet Are You Following? DIABETIC [email or web address] Information n ot available 10/21/2024 Have There [...] available 06/10/2023 Are You Sexually Active? No [email or web address] Information not available 10/21/2024 Do You Have Smoke And Carbon Monoxide Detectors In Your Home? Yes Information not available 06/10/2023 Are You Passively Exposed To Smoke? No Information no t available 06/10/2023 Are There Any Smokers In Your House? No Information not available 06/10/2023 Do You Participate In Social Media? Yes [email or web address] Information not available 10/21/2024 Has Tobacco Cessation Counseling Been Provided? No Information not available 06/10/2023 Have You Recently Traveled Abroad? No Information not available 06/10/2023 Do You Have Difficulty Walking Or Climbing Stairs? No Information not available 06/10/2023 Do You Have Any Dietary Restrictions? Yes [email or web address] Information not available 10/21/2024 Sex: Female Functional Status Question Answer Note LastModified by [employer] Details LastModified Time Do you use any illicit or recreational drugs? No Information not available 06/10/2023 Do you or have you ever used any other forms of tobacco or nicotine? No [email or web address] Information not available 10/21/2024 What is your [...] Mental Status Question Answer Note LastModified by [employer] Details LastModified Time Do you feel stressed (tense, restless, nervous, or anxious, or unable to sleep at night)? [id number] [email or web address] Information not available 10/21/2024 Do you have difficulty concentrating, remembering or making decisions? No Information no t available 06/10/2023 Family History Relationship Description Onset Age of this Age Resolved Age Notes LastModified by Organization Details LastModified Time Father No current problems or disability Not available 06/2023 08:45:36 Mother No current problems or disability Not available 06/2023 08:45:36 Medical History Condition Response Hospitalizations N Emergency room visit since last appointm ent. N Thyroid Problems Y Diabetes Gynecological History Statement/Question Response Abnormal Pap N Date of Last Pap Smear 07/08/2023 Most Recent Mammogram 05/26/2024 Obstetrics History GPAL:G 0 P 0 0 0 0 Immunizations Vaccine Type Date Status Note Provider Name and Address Organization Details Recorded Time zoster recombinant 05/15/20 24 cancelled patient objection Gabby Gordillo APRN [address] [place], [address], [facility] 05/15/2024 12:33:57 Tdap 05/03/20 23 completed Susy mojica [employer] 08/15/2023 13:44:39 Past Encounters Encounter ID Performer Location Encounter Start Date Encounter Closed Date Diagnosis/Indication Diagnosis SNOMED-CT Code Diagnosis ICD10 Code Diagnosis Note [id number] Gabby Gordillo APRN [address] [address] 05/04/2025 10:32:54 05/04/2025 11:25:20 Type 2 diabetes mellitus 47677142 E11.9 Z79.4 Type 2 gurjit betes mellitus without complication 803313784 E11.9 Hyperlipidemia 05962407 E78.5 Hypothyroidism 22793747 E03.9 Overweight in adulthood with body mass index of 25 or more but less than 30 747320673 Z68.25 Health Concerns Section Related Observation LastModified by Organization Detai ls LastModified Time None Recorded Concern Status LastModified by Organization Details LastModified Time None Recorded Payers Encounter Date Sequence Insurance Name Policy Number Policy Gutierrez Covered Member ID Gutierrez Member ID Guarantor Name 05/04/2025 1 *SELF PAY* Ci ndy [place] [facility] Episode No OBEpisode recorded.
--- OUTSIDE RECORDS SUMMARY | 2025-06-28 10:10 | XMS_ITS | Data Portability ---
Author Organization [employer] [facility] - [facility] Address [address] [place] [address] Assessment No assessment recorded. Plan of Treatment Reminders Order Date Submit Date Provider Last Modified By Organization Details Last Modified Time Details Appointments ANNUAL EXAM 2024 03:30P M Álvaro Gordillo ASSESSMENT MANAGER Not available Not available Not available Lab H pylori urea breath test, co2 infrared [facility]24 025 [facility] [address] [place], [address], 05/26/2025 07:07:28 amylase + lipase, serum 2024 025 [facility] [address] [place], [address], 05/26/2025 07:07:26 lipid panel, serum 2024 025 [facility] [address] [place], [address], 05/26/2025 07:07:25 CMP, serum or plasma 2024 025 [facility] [address] [place], [address], 05/26/2025 07:07:24 CBC w/ auto diff 2024 025 [facility] [address] [place], [address], 05/26/2025 07:07:23 TSH + free T4, serum 2024 025 [facility] [place], [address], 05/26/2025 07:07:23 ca 125, serum 2024 025 [facility]), [address] [place], [address], 05/26/2025 07:07:27 vitamin D, 25-hydrox y, total, serum 2024 025 [facility]), [address] [place] [address], [address], 05/26/2025 07:07:27 Hepatitis C IgG Ab, qual, serum 2024 025 [facility]), [facility] [place], [address], 05/26/2025 07:07:26 HIV 1 + 2, meaningfu l use set 2024 025 [facility]), [address] [place] [address], [address], 05/26/2025 07:07:28 cobalamin and folate panel, serum 2024 025 [facility]), [facility] [place], [address], 05/26/2025 07:07:25 HbA1c (hemoglob in A1c), blood [address], [address], 05/04/2025 12:35:55 HbA1c (hemoglob in A1c), blood [address], [address], 02/01/2025 16:19:06 TSH + free T4, serum 2024 025 [facility] [address] [place] [address], [address], 12/04/2024 04:07:15 iron + TIBC + ferritin, serum 2024 025 [facility] [address] [place] [address], [address], 12/04/2024 04:07:14 CBC w/ auto diff 2024 025 [facility] [address] [place] [address], [address], 12/04/2024 04:07:15 unlisted lab - toxassure flex 19, [id number] -P 2023 024 [facility] [address] [place] [address], [address], 11/06/2024 16:09:32 HbA1c (hemoglob in A1c), blood [address], [address], 11/03/2024 13:19:44 microalbu min/creat inine, mass ratio, urine [address], [address] [place] [address], [address], 11/03/2024 13:19:44 TSH + free T4, serum 2023 024 [facility]), [address] [place] [address], [address], 11/06/2024 16:09:32 Referral diabetic nutrition education referral - first available appt 2023 024 [email or web address] [facility] ([facility]), [address], [place], [place], [address], 12/24/2024 10:54:44 Procedures cerumen removal using irrigatio n (PROC) [address], [address], 11/03/2024 13:30:42 Surgeries None recorded. Imaging XR, abdomen [address], [address], 05/25/2025 15:05:56 XR, lumbosacr al spine, 2 or 3 view [address], [address], 02/01/2025 15:19:14 Medication Orders aspirin 81 mg capsule 2024 025 [facility], [address] [place] [address], [address], 05/04/2025 12:20:03 Byetta 5 mcg/dose (250 mcg/mL)1. 2 mL subcutane ous pen injector 2024 025 [facility], [address] [place] [address], [address], 05/04/2025 11:54:54 metformin 1,000 mg tablet 2024 025 [facility], [address] [place] [address], [address], 05/04/2025 12:20:02 glipizide 10 mg tablet 2024 025 [facility], [address] [place] [address], [address], 05/04/2025 12:20:02 levothyro xine 112 mcg tablet 2024 025 [facility], [address] [place] [address], [address], 05/04/2025 12:20:04 atorvasta tin 10 mg tablet 2024 025 [facility], [address] [place] [address], [address], 05/04/2025 12:20:00 alprazola m 1 mg tablet 2024 025 [facility], [address] [place] [address], [address], 02/01/2025 12:40:08 cyclobenz aprine 10 mg tablet 2024 025 [facility], [address] [place] [address], [address], 02/01/2025 12:40:06 tramadol 50 mg tablet 2024 025 [facility], [address] [place] [address], [address], 02/01/2025 12:40:05 aspirin 81 mg capsule 2024 025 [facility], [address] [place] [address], [address], 02/01/2025 12:40:07 Byetta 5 mcg/dose (250 mcg/mL)1. 2 mL subcutane ous pen injector 2024 025 [facility], [address] [place] [address], [address], 02/01/2025 12:19:57 glipizide 10 mg tablet 2024 025 [facility], [address] [place] [address], [address], 02/04/2025 14:23:58 Lantus Solostar U-100 Insulin 100 unit/mL (3 mL) subcutane ous pen 2024 025 [facility], [address] [place] [address], [address], 04/29/2025 12:03:37 metformin 1,000 mg tablet 2024 025 [facility], [address] [place] [address], [address], 02/01/2025 12:40:10 Levoxyl 112 mcg tablet 2024 025 [facility], [address] [place] [address], [address], 02/01/2025 12:40:03 atorvasta tin 10 mg tablet 2024 025 [facility], [address] [place] [address], [address], 02/01/2025 12:40:09 azithromy agustin 250 mg tablet 2024 025 [facility], [address] [place] [address], [address], 02/01/2025 11:49:46 alprazola m 1 mg tablet 2024 025 [facility], [address] [place] [address], [address], 12/03/2024 14:19:07 atorvasta tin 10 mg tablet 2023 024 [facility], [address] [place] [address], [address], 11/03/2024 12:58:14 alprazola m 1 mg tablet 2023 [facility], [address] [place] [address], [address], 11/03/2024 12:58:14 aspirin 81 mg capsule 2023 [facility], [address] [place] [address], [address], 11/03/2024 12:58:15 Byetta 5 mcg/dose (250 mcg/mL)1. 2 mL subcutane ous pen injector 2023 [facility], [address] [place] [address], [address], 03/29/2025 08:43:14 glipizide 10 mg tablet 2023 [facility], [address] [place] [address], [address], 11/03/2024 12:58:16 Lantus Solostar U-100 Insulin 100 unit/mL (3 mL) subcutane ous pen 2023 [facility], [address] [place] [address], [address], 11/03/2024 12:58:17 metformin 1,000 mg tablet 2023 [facility], [address] [place] [address], [address], 11/03/2024 12:58:17 Patient TargetsNo targets recorded. Patient Instructions Encounter Date Encounter Id Patient Instructions Last Modified By Organization Details Last Modified Time 11/03/2024 [id number] controlled substance agreement* [email or web address] Not available 11/03/2024 11:48:28 Reason for Referral Diabetic Nutrition Education Referral for Type 2 diabetes mellitus without complication first available appt Referring Physician: Gabby Gordillo, Family Medicine, Encounter Date: 11/03/2024 Results Created Date Observation Date Name Description Value Unit Range Abnormal Flag Note LastModifiedBy Organization Detail LastModifiedTime 10/21/2010/21/2024 urina lysis , dipst ick Leukocytes Negati ve Not Available [address], [address], 10/21/2024 16:46:16 10/21/2010/21/2024 urina lysis , dipst ick Nitrite negati ve Not Available [address], [address], 10/21/2024 16:46:16 10/21/2010/21/2024 urina lysis , dipst ick Urobilinogen 1 Not Available [address], [address], 10/21/2024 16:46:16 10/21/20 24 10/21/2024 urina lysis , dipst ick Protein 100 Not Available [address], [address], 10/21/2024 16:46:16 10/21/20 24 10/21/2024 urina lysis , dipst ick pH 6.0 Not Available [address], [address], 10/21/2024 16:46:16 10/21/2010/21/2024 urina lysis , dipst ick Blood Negati ve Not Available [address], [address], 10/21/2024 16:46:16 10/21/20 24 10/21/2024 urina lysis , dipst ick Specific [place] 1.030 Not Available [address], [address], 10/21/2024 16:46:16 10/21/20 24 10/21/2024 urina lysis , dipst ick Ketone Large Not Available [address], [address], 10/21/2024 16:46:16 10/21/20 24 10/21/2024 urina lysis , dipst ick Bilirubin Small Not Available [address], [address], 10/21/2024 16:46:16 10/21/20 24 10/21/2024 urina lysis , dipst ick Glucose 250 Not Available [address], [address], 10/21/2024 16:46:16 10/21/20 24 10/21/2024 urina lysis , dipst ick Appearance Slight ly Cloudy Not Available [address], [address], 10/21/2024 16:46:16 10/21/20 24 10/21/2024 urina lysis , dipst ick Color Dark Yellow Not Available [address], [address], 10/21/2024 16:46:16 10/21/20 24 10/21/2024 gluco se, finge rstic k, blood Blood Glucose: mg/dl 251 Not Available [address], [address], 10/21/2024 16:46:47 10/22/20 24 10/23/2024 CBC WITH DIFFE RENTI AL/PL ATELE T WBC 13.8 x10e3 /uL 3.4-10 .8 above high normal Eff ectiv e Decem wayne 2023 profi jeremías [id number] WBC will be made* * non-o rdera ble as a stand -shawna e order code. Not Available [facility] ([facility]) [address] [facility], [place], [address], 10/31/2024 20:06:46 10/22/20 24 10/23/2024 CBC WITH DIFFE RENTI AL/PL ATELE T RBC 4.18 x10e6 /uL 3.77-5 .28 normal Not Available [facility] ([facility]) [address] [place], [address], 10/31/2024 20:06:46 10/22/20 24 10/23/2024 CBC WITH DIFFE RENTI AL/PL ATELE T hemoglobin 12.5 g/dL 11.1-1 5.9 normal Not Available [facility] ([facility]) [address] [facility], [place], [address], 10/31/2024 20:06:46 10/22/20 24 10/23/2024 CBC WITH DIFFE RENTI AL/PL ATELE T hematocrit 37.3 % 34.0-4 6.6 normal Not Available [facility] ([facility]) [address] [place], [address], 10/31/2024 20:06:46 10/22/20 24 10/23/2024 CBC WITH DIFFE RENTI AL/PL ATELE T MCV 89 fL 79-97 normal Not Available [facility] ([facility]) [address] [place], [address], 10/31/2024 20:06:46 10/22/20 24 10/23/2024 CBC WITH DIFFE RENTI AL/PL ATELE T MCH 29.9 pg 26.6-3 3.0 normal Not Available [facility] ([facility]) [address] [place], [address], 10/31/2024 20:06:46 10/22/20 24 10/23/2024 CBC WITH DIFFE RENTI AL/PL ATELE T MCHC 33.5 g/dL 31.5-3 5.7 normal Not Available [facility] ([facility]) [address] [place], [address], 10/31/2024 20:06:46 10/22/20 24 10/23/2024 CBC WITH DIFFE RENTI AL/PL ATELE T RDW 12.9 % 11.7-1 5.4 Not Available [facility] ([facility]) [address] [place], [address], 10/31/2024 20:06:46 10/22/20 24 10/23/2024 CBC WITH DIFFE RENTI AL/PL ATELE T platelets 331 x10e3 /uL 150-45 0 normal Not Available [facility] ([facility]) [address] [place], [address], 10/31/2024 20:06:46 10/22/20 24 10/23/2024 CBC WITH DIFFE RENTI AL/PL ATELE T neutrophils 81 % not estab. normal Not Available [facility] ([facility]) [address] [place], [address], 10/31/2024 20:06:46 10/22/20 24 10/23/2024 CBC WITH DIFFE RENTI AL/PL ATELE T lymphs 8 % not estab. normal Not Available [facility] ([facility]) [address] [place], [address], 10/31/2024 20:06:46 10/22/20 24 10/23/2024 CBC WITH DIFFE RENTI AL/PL ATELE T monocytes 9 % not estab. normal Not Available [facility] ([facility]) [address] [place], [address], 10/31/2024 20:06:46 10/22/20 24 10/23/2024 CBC WITH DIFFE RENTI AL/PL ATELE T eos 0 % not estab. normal Not Available [facility] ([facility]) [address] [place], [address], 10/31/2024 20:06:46 10/22/20 24 10/23/2024 CBC WITH DIFFE RENTI AL/PL ATELE T basos 1 % not estab. normal Not Available [facility] ([facility]) [address] [place], [address], 10/31/2024 20:06:46 10/22/20 24 10/23/2024 CBC WITH DIFFE RENTI AL/PL ATELE T immature cells HAND PACKER/PACKAGER Not Available [facility] ([facility]) [address] [place], [address], 10/31/2024 20:06:46 10/22/20 24 10/23/2024 CBC WITH DIFFE RENTI AL/PL ATELE T neutrophils (absolute) 11.3 x10e3 /uL 1.4-7. 0 above high normal Not Available [facility] ([facility]) [address] [place], [address], 10/31/2024 20:06:46 10/22/20 24 10/23/2024 CBC WITH DIFFE RENTI AL/PL ATELE T lymphs (absolute) 1.1 x10e3 /uL 0.7-3. 1 normal Not Available [facility] ([facility]) [address] [place], [address], 10/31/2024 20:06:46 10/22/20 24 10/23/2024 CBC WITH DIFFE RENTI AL/PL ATELE T monocytes(ab solute) 1.2 x10e3 /uL 0.1-0. 9 above high normal Not Available [facility] ([facility]) [address] [place], [address], 10/31/2024 20:06:46 10/22/20 24 10/23/2024 CBC WITH DIFFE RENTI AL/PL ATELE T eos (absolute) 0.0 x10e3 /uL 0.0-0. 4 normal Not Available [facility] ([facility]) [address] [facility], [place], [address], 10/31/2024 20:06:46 10/22/20 24 10/23/2024 CBC WITH DIFFE RENTI AL/PL ATELE T baso (absolute) 0.1 x10e3 /uL 0.0-0. 2 normal Not Available [facility] ([facility]) [address] [facility], [place], [address], 10/31/2024 20:06:46 10/22/20 24 10/23/2024 CBC WITH DIFFE RENTI AL/PL ATELE T immature granulocytes 1 % not estab. Not Available [facility] ([facility]) [address] [facility], [place], [address], 10/31/2024 20:06:46 10/22/20 24 10/23/2024 CBC WITH DIFFE RENTI AL/PL ATELE T immature grans (abs) 0.1 x10e3 /uL 0.0-0. 1 Not Available [facility] ([facility]) [address] [facility], [place], [address], 10/31/2024 20:06:46 10/22/20 24 10/23/2024 CBC WITH DIFFE RENTI AL/PL ATELE T NRBC HAND PACKER/PACKAGER Not Available [facility] ([facility]) [address] [facility], [place], [address], 10/31/2024 20:06:46 10/22/20 24 10/23/2024 CBC WITH DIFFE RENTI AL/PL ATELE T hematology comments: HAND PACKER/PACKAGER Not Available [facility] ([facility]) [address] [facility], [place], [address], 10/31/2024 20:06:46 10/22/20 24 10/23/2024 COMP. METAB OLIC PANEL (14) glucose 165 mg/dL 70-99 above high normal Not Available [facility] ([facility]) [address] [place], [address], 10/31/2024 20:06:47 10/22/20 24 10/23/2024 COMP. METAB OLIC PANEL (14) BUN 22 mg/dL 8-27 normal Not Available [facility] ([facility]) [address] [place], [address], 10/31/2024 20:06:47 10/22/20 24 10/23/2024 COMP. METAB OLIC PANEL (14) creatinine 0.84 mg/dL 0.57-1 .00 normal Not Available [facility] ([facility]) [address] [place], [address], 10/31/2024 20:06:47 10/22/20 24 10/23/2024 COMP. METAB OLIC PANEL (14) eGFR 78 mL/mi n/1.7 3 >59 normal Not Available [facility] ([facility]) [address] [place], [address], 10/31/2024 20:06:47 10/22/20 24 10/23/2024 COMP. METAB OLIC PANEL (14) BUN/creatini ne ratio 26 12-28 normal Not Available [facility] ([facility]) [address] [place], [address], 10/31/2024 20:06:47 10/22/20 24 10/23/2024 COMP. METAB OLIC PANEL (14) sodium 139 mmol/ L 134-14 4 normal Not Available [facility] ([facility]) [address] [place], [address], 10/31/2024 20:06:47 10/22/20 24 10/23/2024 COMP. METAB OLIC PANEL (14) potassium 3.6 mmol/ L 3.5-5. 2 normal Not Available [facility] ([facility]) [address] [facility] [place], [address], 10/31/2024 20:06:47 10/22/20 24 10/23/2024 COMP. METAB OLIC PANEL (14) chloride 99 mmol/ L 96-106 normal Not Available [facility] ([facility]) [address] [facility] [place], [address], 10/31/2024 20:06:47 10/22/20 24 10/23/2024 COMP. METAB OLIC PANEL (14) carbon dioxide, total 18 mmol/ L 20-29 below low normal Not Available [facility] ([facility]) [address] [facility] [place], [address], 10/31/2024 20:06:47 10/22/20 24 10/23/2024 COMP. METAB OLIC PANEL (14) calcium 9.0 mg/dL 8.7-10 .3 normal Not Available [facility] ([facility]) [address] [facility] [place], [address], 10/31/2024 20:06:47 10/22/20 24 10/23/2024 COMP. METAB OLIC PANEL (14) protein, total 6.7 g/dL 6.0-8. 5 normal Not Available [facility] ([facility]) [address] [facility] [place], [address], 10/31/2024 20:06:47 10/22/20 24 10/23/2024 COMP. METAB OLIC PANEL (14) albumin 3.9 g/dL 3.9-4. 9 normal Not Available [facility] ([facility]) [address] [facility] [place], [address], 10/31/2024 20:06:47 10/22/20 24 10/23/2024 COMP. METAB OLIC PANEL (14) globulin, total 2.8 g/dL 1.5-4. 5 Not Available [facility] ([facility]) [address] [facility], [place], [address], 10/31/2024 20:06:47 10/22/20 24 10/23/2024 COMP. METAB OLIC PANEL (14) bilirubin, total 0.9 mg/dL 0.0-1. 2 normal Not Available [facility] ([facility]) [address] [place], [address], 10/31/2024 20:06:47 10/22/20 24 10/23/2024 COMP. METAB OLIC PANEL (14) alkaline phosphatase 100 IU/L 44-121 normal Not Available [facility] ([facility]) [address] [facility], [place], [address], 10/31/2024 20:06:47 10/22/20 24 10/23/2024 COMP. METAB OLIC PANEL (14) AST (SGOT) 21 IU/L 0-40 normal Not Available [facility] ([facility]) [address] [facility], [place], [address], 10/31/2024 20:06:47 10/22/20 24 10/23/2024 COMP. METAB OLIC PANEL (14) ALT (SGPT) 24 IU/L 0-32 normal Not Available [facility] ([facility]) [address] [place], [address], 10/31/2024 20:06:47 10/22/20 24 10/31/2024 BETA- HYDRO XYBUT YRATE beta-hydroxy butyrate 34 mg/dL above high normal Refer ence Range : All Ages (fast ing): 0.2 - 2.8 Not Available [facility] [address] [facility], [place], [address], 10/31/2024 20:06:48 11/03/20 24 11/06/2024 TOXAS SURE FLEX 19, UR summary report FINAL ===== ===== ===== ===== ===== ===== ===== ===== ===== ===== ===== ===== ===== === Canna binoi ds, MS, Ur RFX ToxAs sure Flex 19, Ur ===== ===== ===== ===== ===== ===== ===== ===== ===== ===== ===== ===== ===== === Test Resul t Flag Units Drug Prese nt Alpra zolam 207 ng/mg creat Alpha -hydr oxyal prazo briceno 1560 ng/mg creat Sourc e of alpra zolam is a sched uled presc ripti on medic ation . Alpha -hydr oxyal prazo briceno is an expec blanche metab olite of alpra zolam . Carbo xy-TH C 107 ng/mg creat Carbo xy-TH C is a metab olite of tetra hydro canna binol (THC) . Sourc e of THC is most commo nly herba l marij uana or marij uana- based produ cts, but THC is also prese nt in a sched uled presc ripti on medic ation . Trace amoun ts of THC can be prese nt in hemp and canna bidio l (CBD) produ cts. This test is not inten ded to disti nguis h betwe en delta -9-te trahy droca nnabi nol, the predo minan t form of THC in most herba l or marij uana- based produ cts, and delta -8-te trahy droca nnabi nol. ===== ===== ===== ===== ===== ===== ===== ===== ===== ===== ===== ===== ===== === Test Resul t Flag Units Ref Range Creat inine 45 mg/dL >=20 ===== ===== ===== ===== ===== ===== ===== ===== ===== ===== ===== ===== ===== === Decla red Medic ation s: Medic ation list was not provi ded. ===== ===== ===== ===== ===== ===== ===== ===== ===== ===== ===== ===== ===== === For clini omkar consu ltati on, pleas e call [phone]. ===== ===== ===== ===== ===== ===== ===== ===== ===== ===== ===== ===== ===== === Not Available [facility] ([facility]) [address] [place], [address], 11/06/2024 16:09:32 11/03/20 24 11/06/2024 TOXAS SURE FLEX 19, UR pdf . Not Available [facility] ([facility]) [address] [place], [address], 11/06/2024 16:09:32 11/03/20 24 11/06/2024 TOXAS SURE FLEX 19, UR creatinine 45 mg/dL REFER ENCE RANGE : Ref Range >=20 Not Available [facility] ([facility]) [address] [place], [address], 11/06/2024 16:09:32 11/03/20 24 11/06/2024 TOXAS SURE FLEX 19, UR amphetamines ia Negati ve NG/mL cutoff :300 Not Available [facility] ([facility]) [address] [place], [address], 11/06/2024 16:09:32 11/03/20 24 11/06/2024 TOXAS SURE FLEX 19, UR benzodiazepi guillaume +POSIT HAN+ Not Available [facility] ([facility]) [address] [place], [address], 11/06/2024 16:09:32 11/03/20 24 11/06/2024 TOXAS SURE FLEX 19, UR diazepam Not Detect ed NG/mg _crea t Not Available [facility] ([facility]) [address] [place] [address], [address], 11/06/2024 16:09:32 11/03/20 24 11/06/2024 TOXAS SURE FLEX 19, UR desmethyldia zepam Not Detect ed NG/mg _crea t Not Available [facility] ([facility]) [address] [place] [address], [address], 11/06/2024 16:09:32 11/03/20 24 11/06/2024 TOXAS SURE FLEX 19, UR oxazepam Not Detect ed NG/mg _crea t Not Available [facility] ([facility]) [address] [place] [address], [address], 11/06/2024 16:09:32 11/03/20 24 11/06/2024 TOXAS SURE FLEX 19, UR temazepam Not Detect ed NG/mg _crea t Expec blanche metab olism of benzo diaze pine class drugs : Paren t Drug Detec blanche Metab olite s ----- ----- - ----- ----- ----- ----- Diaze wenceslao: Desme thyld iazep am, Temaz epam, Oxaze wenceslao Chlor diaze poxid e: Desme thyld iazep am, Oxaze wenceslao Clora zepat e: Desme thyld iazep am, Oxaze wenceslao Halaz epam: Desme thyld iazep am, Oxaze wenceslao Temaz epam: Oxaze wenceslao Oxaze wenceslao: None Not Available [facility] ([facility]) [address] [facility], [place], [address], 11/06/2024 16:09:32 11/03/20 24 11/06/2024 TOXAS SURE FLEX 19, UR alprazolam 207 NG/mg _crea t Not Available [facility] ([facility]) [address] [facility], [place], [address], 11/06/2024 16:09:32 11/03/20 24 11/06/2024 TOXAS SURE FLEX 19, UR alpha-hydrox yalprazolam 1560 NG/mg _crea t Not Available [facility] ([facility]) [address] [place], [address], 11/06/2024 16:09:32 11/03/20 24 11/06/2024 TOXAS SURE FLEX 19, UR desalkylflur azepam Not Detect ed NG/mg _crea t Not Available [facility] ([facility]) [address] [facility], [place], [address], 11/06/2024 16:09:32 11/03/20 24 11/06/2024 TOXAS SURE FLEX 19, UR lorazepam Not Detect ed NG/mg _crea t Not Available [facility] ([facility]) [address] [place], [address], 11/06/2024 16:09:32 11/03/20 24 11/06/2024 TOXAS SURE FLEX 19, UR alpha-hydrox ytriazolam Not Detect ed NG/mg _crea t Not Available [facility] ([facility]) [address] [place], [address], 11/06/2024 16:09:32 11/03/20 24 11/06/2024 TOXAS SURE FLEX 19, UR clonazepam Not Detect ed NG/mg _crea t Not Available [facility] ([facility]) [address] [place], [address], 11/06/2024 16:09:32 11/03/20 24 11/06/2024 TOXAS SURE FLEX 19, UR 7-aminoclona zepam Not Detect ed NG/mg _crea t Not Available [facility] ([facility]) [address] [place], [address], 11/06/2024 16:09:32 11/03/20 24 11/06/2024 TOXAS SURE FLEX 19, UR midazolam Not Detect ed NG/mg _crea t Not Available [facility] ([facility]) [address] [place], [address], 11/06/2024 16:09:32 11/03/20 24 11/06/2024 TOXAS SURE FLEX 19, UR alpha-hydrox ymidazolam Not Detect ed NG/mg _crea t Not Available [facility] ([facility]) [address] [place], [address], 11/06/2024 16:09:32 11/03/20 24 11/06/2024 TOXAS SURE FLEX 19, UR flunitrazepa m Not Detect ed NG/mg _crea t Not Available [facility] ([facility]) [address] [place], [address], 11/06/2024 16:09:32 11/03/20 24 11/06/2024 TOXAS SURE FLEX 19, UR desmethylflu nitrazepam Not Detect ed NG/mg _crea t Not Available [facility] ([facility]) [address] [place], [address], 11/06/2024 16:09:32 11/03/20 24 11/06/2024 TOXAS SURE FLEX 19, UR cocaine metabolite ia Negati ve NG/mL cutoff :150 Not Available [facility] ([facility]) [address] [place], [address], 11/06/2024 16:09:32 11/03/20 24 11/06/2024 TOXAS SURE FLEX 19, UR ethanol biomarkers ia Negati ve NG/mL cutoff :500 Not Available [facility] ([facility]) [address] [place], [address], 11/06/2024 16:09:32 11/03/20 24 11/06/2024 TOXAS SURE FLEX 19, UR cannabinoids ia COMMEN T NG/mL cutoff :20 Furth er testi ng indic ated Not Available [facility] ([facility]) [address] [place], [address], 11/06/2024 16:09:32 11/03/20 24 11/06/2024 TOXAS SURE FLEX 19, UR 6-acetylmorp emanuel ia Negati ve NG/mL cutoff :10 Not Available [facility] ([facility]) [address] [place], [address], 11/06/2024 16:09:32 11/03/20 24 11/06/2024 TOXAS SURE FLEX 19, UR opiate class ia Negati ve NG/mL cutoff :100 Not Available [facility] ([facility]) [address] [place], [address], 11/06/2024 16:09:32 11/03/20 24 11/06/2024 TOXAS SURE FLEX 19, UR oxycodone class ia Negati ve NG/mL cutoff :100 Not Available [facility] ([facility]) [address] [place], [address], 11/06/2024 16:09:32 11/03/20 24 11/06/2024 TOXAS SURE FLEX 19, UR methadone ia Negati ve NG/mL cutoff :100 Not Available [facility] ([facility]) [address] [place] [address], [address], 11/06/2024 16:09:32 11/03/20 24 11/06/2024 TOXAS SURE FLEX 19, UR methadone mtb ia Negati ve NG/mL cutoff :100 Not Available [facility] ([facility]) [address] [place], [address], 11/06/2024 16:09:32 11/03/20 24 11/06/2024 TOXAS SURE FLEX 19, UR buprenorphin e ia Negati ve NG/mL cutoff :5.0 Not Available [facility] ([facility]) [address] [place], [address], 11/06/2024 16:09:32 11/03/20 24 11/06/2024 TOXAS SURE FLEX 19, UR fentanyl ia Negati ve NG/mL cutoff :2.0 Not Available [facility] ([facility]) [address] [place], [address], 11/06/2024 16:09:32 11/03/20 24 11/06/2024 TOXAS SURE FLEX 19, UR tapentadol ia Negati ve NG/mL cutoff :200 Not Available [facility] ([facility]) [address] [place], [address], 11/06/2024 16:09:32 11/03/20 24 11/06/2024 TOXAS SURE FLEX 19, UR propoxyphene ia Negati ve NG/mL cutoff :300 Not Available [facility] ([facility]) [address] [place], [address], 11/06/2024 16:09:32 11/03/20 24 11/06/2024 TOXAS SURE FLEX 19, UR tramadol ia Negati ve NG/mL cutoff :200 Not Available [facility] ([facility]) [address] [place], [address], 11/06/2024 16:09:32 11/03/20 24 11/06/2024 TOXAS SURE FLEX 19, UR methylphenid ate ia Negati ve NG/mL cutoff :100 Not Available [facility] ([facility]) [address] [place], [address], 11/06/2024 16:09:32 11/03/20 24 11/06/2024 TOXAS SURE FLEX 19, UR barbiturates ia Negati ve NG/mL cutoff :200 Not Available [facility] ([facility]) [address] [place], [address], 11/06/2024 16:09:32 11/03/20 24 11/06/2024 TOXAS SURE FLEX 19, UR phencyclidin e ia Negati ve NG/mL cutoff :25 Not Available [facility] ([facility]) [address] [place], [address], 11/06/2024 16:09:32 11/03/20 24 11/06/2024 TOXAS SURE FLEX 19, UR gabapentin ia Negati ve ug/mL cutoff :1.0 Not Available [facility] ([facility]) [address] [place], [address], 11/06/2024 16:09:32 11/03/20 24 11/06/2024 TOXAS SURE FLEX 19, UR anticonvulsa nts Negati ve Not Available [facility] ([facility]) [address] [place], [address], 11/06/2024 16:09:32 11/03/20 24 11/06/2024 TOXAS SURE FLEX 19, UR pregabalin Not Detect ed Not Available [facility] ([facility]) [address] [place], [address], 11/06/2024 16:09:32 11/03/20 24 11/06/2024 TOXAS SURE FLEX 19, UR carisoprodol ia Negati ve NG/mL cutoff :100 Not Available [facility] ([facility]) [address] [place], [address], 11/06/2024 16:09:32 11/03/20 24 11/04/2024 TSH+F REE T4 TSH 28.600 uIU/m L 0.450- 4.500 above high normal Not Available [facility] ([facility]) [address] [facility], [place], [address], 11/06/2024 16:09:32 11/03/20 24 11/04/2024 TSH+F REE T4 T4,free(dire ct) 1.17 NG/dL 0.82-1 .77 normal Not Available [facility] ([facility]) [address] [facility], [place], [address], 11/06/2024 16:09:32 11/03/20 24 11/06/2024 VICTORINA MEEKS DS, MS, UR RFX cannabinoids +POSIT HAN+ Not Available [facility] ([facility]) [address] [facility], [place], [address], 11/06/2024 16:09:33 11/03/20 24 11/06/2024 VICTORINA MEEKS DS, MS, UR RFX carboxy-THC 107 NG/mg _crea t This test is not inten ded to disti nguis h betwe en the metab olite s of delta -9-te trahy droca nnabi nol, the predo minan t form of THC in most herba l or marij uana- based produ cts, and delta -8-te trahy droca nnabi nol, a psych oacti ve compo und gener ally synth esize d from other victorina meeks ds. Not Available [facility] ([facility]) [address] [facility], [place], [address], 11/06/2024 16:09:33 11/03/20 24 11/03/2024 micro album in/cr eatin ine, mass ratio , urine Microalbumin 30 Not Available [address], [address], 11/03/2024 11:25:26 11/03/20 24 11/03/2024 micro album in/cr eatin ine, mass ratio , urine Creatinine 50 Not Available [facility] [place] [address], [place], [address], 11/03/2024 11:25:26 11/03/20 24 11/03/2024 micro album in/cr eatin ine, mass ratio , urine Ratio 30-300 Not Available [address], [address], 11/03/2024 11:25:26 11/03/20 24 11/03/2024 HbA1c (hemo globi n A1c), blood HbA1c 7.4 Not Available [address], [address], 11/03/2024 11:25:25 12/03/19 25 12/04/2024 FE+TI BC+FE R iron bind.cap.(TI BC) 285 ug/dL 250-45 0 normal Not Available [facility] ([facility]) [address] [place], [address], 12/04/2024 04:07:14 12/03/19 25 12/04/2024 FE+TI BC+FE R UIBC 243 ug/dL 118-36 9 normal Not Available [facility] ([facility]) [address] [place], [address], 12/04/2024 04:07:14 12/03/19 25 12/04/2024 FE+TI BC+FE R iron 42 ug/dL 27-139 normal Not Available [facility] ([facility]) [address] [place], [address], 12/04/2024 04:07:14 12/03/19 25 12/04/2024 FE+TI BC+FE R iron saturation 15 % 15-55 normal Not Available [facility] ([facility]) [address] [place], [address], 12/04/2024 04:07:14 12/03/1912/04/2024 FE+TI BC+FE R ferritin 59 NG/mL 15-150 normal Not Available [facility] ([facility]) [address] [place], [address], 12/04/2024 04:07:14 12/03/19 25 12/04/2024 TSH+F REE T4 TSH 11.400 uIU/m L 0.450- 4.500 above high normal Not Available [facility] ([facility]) [address] [place], [address], 12/04/2024 04:07:15 12/03/1912/04/2024 TSH+F REE T4 T4,free(dire ct) 1.49 NG/dL 0.82-1 .77 normal Not Available [facility] ([facility]) [address] [place], [address], 12/04/2024 04:07:15 12/03/1912/04/2024 CBC WITH DIFFE RENTI AL/PL ATELE T WBC 7.8 x10e3 /uL 3.4-10 .8 normal Not Available [facility] ([facility]) [address] [place], [address], 12/04/2024 04:07:15 12/03/1912/04/2024 CBC WITH DIFFE RENTI AL/PL ATELE T RBC 4.17 x10e6 /uL 3.77-5 .28 normal Not Available [facility] ([facility]) [address] [place], [address], 12/04/2024 04:07:15 12/03/1912/04/2024 CBC WITH DIFFE RENTI AL/PL ATELE T hemoglobin 12.3 g/dL 11.1-1 5.9 normal Not Available [facility] ([facility]) [address] [place], [address], 12/04/2024 04:07:15 12/03/1912/04/2024 CBC WITH DIFFE RENTI AL/PL ATELE T hematocrit 37.8 % 34.0-4 6.6 normal Not Available [facility] ([facility]) [address] [place], [address], 12/04/2024 04:07:15 12/03/1912/04/2024 CBC WITH DIFFE RENTI AL/PL ATELE T MCV 91 fL 79-97 normal Not Available [facility] ([facility]) [address] [place], [address], 12/04/2024 04:07:15 12/03/1912/04/2024 CBC WITH DIFFE RENTI AL/PL ATELE T MCH 29.5 pg 26.6-3 3.0 normal Not Available [facility] ([facility]) [address] [place], [address], 12/04/2024 04:07:15 12/03/1912/04/2024 CBC WITH DIFFE RENTI AL/PL ATELE T MCHC 32.5 g/dL 31.5-3 5.7 normal Not Available [facility] ([facility]) [address] [place], [address], 12/04/2024 04:07:15 12/03/1912/04/2024 CBC WITH DIFFE RENTI AL/PL ATELE T RDW 13.3 % 11.7-1 5.4 Not Available [facility] ([facility]) [address] [place], [address], 12/04/2024 04:07:15 12/03/1912/04/2024 CBC WITH DIFFE RENTI AL/PL ATELE T platelets 320 x10e3 /uL 150-45 0 normal Not Available [facility] ([facility]) [address] [place], [address], 12/04/2024 04:07:15 12/03/19 25 12/04/2024 CBC WITH DIFFE RENTI AL/PL ATELE T neutrophils 63 % not estab. normal Not Available [facility] ([facility]) [address] [facility], [place], [address], 12/04/2024 04:07:15 12/03/19 25 12/04/2024 CBC WITH DIFFE RENTI AL/PL ATELE T lymphs 29 % not estab. normal Not Available [facility] ([facility]) [address] [facility], [place], [address], 12/04/2024 04:07:15 12/03/19 25 12/04/2024 CBC WITH DIFFE RENTI AL/PL ATELE T monocytes 5 % not estab. normal Not Available [facility] ([facility]) [address] [facility], [place], [address], 12/04/2024 04:07:15 12/03/19 25 12/04/2024 CBC WITH DIFFE RENTI AL/PL ATELE T eos 2 % not estab. normal Not Available [facility] ([facility]) [address] [facility], [place], [address], 12/04/2024 04:07:15 12/03/19 25 12/04/2024 CBC WITH DIFFE RENTI AL/PL ATELE T basos 1 % not estab. normal Not Available [facility] ([facility]) [address] [facility], [place], [address], 12/04/2024 04:07:15 12/03/19 25 12/04/2024 CBC WITH DIFFE RENTI AL/PL ATELE T immature cells HAND PACKER/PACKAGER Not Available [facility] ([facility]) [address] [facility], [place], [address], 12/04/2024 04:07:15 12/03/19 25 12/04/2024 CBC WITH DIFFE RENTI AL/PL ATELE T neutrophils (absolute) 4.8 x10e3 /uL 1.4-7. 0 normal Not Available [facility] ([facility]) [address] [facility], [place], [address], 12/04/2024 04:07:15 12/03/19 25 12/04/2024 CBC WITH DIFFE RENTI AL/PL ATELE T lymphs (absolute) 2.3 x10e3 /uL 0.7-3. 1 normal Not Available [facility] ([facility]) [address] [facility], [place], [address], 12/04/2024 04:07:15 12/03/1912/04/2024 CBC WITH DIFFE RENTI AL/PL ATELE T monocytes(ab solute) 0.4 x10e3 /uL 0.1-0. 9 normal Not Available [facility] ([facility]) [address] [facility], [place], [address], 12/04/2024 04:07:15 12/03/19 25 12/04/2024 CBC WITH DIFFE RENTI AL/PL ATELE T eos (absolute) 0.2 x10e3 /uL 0.0-0. 4 normal Not Available [facility] ([facility]) [address] [facility], [place], [address], 12/04/2024 04:07:15 12/03/1912/04/2024 CBC WITH DIFFE RENTI AL/PL ATELE T baso (absolute) 0.1 x10e3 /uL 0.0-0. 2 normal Not Available [facility] ([facility]) [address] [facility], [place], [address], 12/04/2024 04:07:15 12/03/1912/04/2024 CBC WITH DIFFE RENTI AL/PL ATELE T immature granulocytes 0 % not estab. Not Available [facility] ([facility]) [address] [facility], [place], [address], 12/04/2024 04:07:15 12/03/192025 CBC WITH DIFFE RENTI AL/PL ATELE T immature grans (abs) 0.0 x10e3 /uL 0.0-0. 1 Not Available [facility] ([facility]) [address] [facility], [place], [address], 12/04/2024 04:07:15 12/03/19 25 12/04/2024 CBC WITH DIFFE RENTI AL/PL ATELE T NRBC HAND PACKER/PACKAGER Not Available [facility] ([facility]) [address] [facility], [place], [address], 12/04/2024 04:07:15 12/03/19 25 12/04/2024 CBC WITH DIFFE RENTI AL/PL ATELE T hematology comments: HAND PACKER/PACKAGER Not Available [facility] ([facility]) [address] [facility], [place], [address], 12/04/2024 04:07:15 02/02/20 25 02/01/2025 HbA1c (hemo globi n A1c), blood HbA1c 7.6 Not Available [address], [address], 02/01/2025 11:18:07 05/04/20 25 05/04/2025 HbA1c (hemo globi n A1c), blood HbA1c 6.9 Not Available [address], [address], 05/04/2025 10:52:28 05/24/20 25 05/25/2025 TSH+F REE T4 TSH 1.370 uIU/m L 0.450- 4.500 normal Not Available [facility] ([facility]) [address] [facility], [place], [address], 05/26/2025 07:07:23 05/24/20 25 05/25/2025 TSH+F REE T4 T4,free(dire ct) 1.93 NG/dL 0.82-1 .77 above high normal Not Available [facility] ([facility]) [address] [place], [address], 05/26/2025 07:07:23 05/24/20 25 05/25/2025 CBC WITH DIFFE RENTI AL/PL ATELE T WBC 6.4 x10e3 /uL 3.4-10 .8 normal Not Available [facility] ([facility]) [address] [place], [address], 05/26/2025 07:07:23 05/24/20 25 05/25/2025 CBC WITH DIFFE RENTI AL/PL ATELE T RBC 4.89 x10e6 /uL 3.77-5 .28 normal Not Available [facility] ([facility]) [address] [place], [address], 05/26/2025 07:07:23 05/24/20 25 05/25/2025 CBC WITH DIFFE RENTI AL/PL ATELE T hemoglobin 13.8 g/dL 11.1-1 5.9 normal Not Available [facility] ([facility]) [address] [place], [address], 05/26/2025 07:07:23 05/24/20 25 05/25/2025 CBC WITH DIFFE RENTI AL/PL ATELE T hematocrit 43.4 % 34.0-4 6.6 normal Not Available [facility] ([facility]) [address] [place], [address], 05/26/2025 07:07:23 05/24/20 25 05/25/2025 CBC WITH DIFFE RENTI AL/PL ATELE T MCV 89 fL 79-97 normal Not Available [facility] ([facility]) [address] [place], [address], 05/26/2025 07:07:23 05/24/20 25 05/25/2025 CBC WITH DIFFE RENTI AL/PL ATELE T MCH 28.2 pg 26.6-3 3.0 normal Not Available [facility] ([facility]) [address] [facility], [place], [address], 05/26/2025 07:07:23 05/24/20 25 05/25/2025 CBC WITH DIFFE RENTI AL/PL ATELE T MCHC 31.8 g/dL 31.5-3 5.7 normal Not Available [facility] ([facility]) [address] [facility], [place], [address], 05/26/2025 07:07:23 05/24/20 25 05/25/2025 CBC WITH DIFFE RENTI AL/PL ATELE T RDW 14.1 % 11.7-1 5.4 Not Available [facility] ([facility]) [address] [facility], [place], [address], 05/26/2025 07:07:23 05/24/20 25 05/25/2025 CBC WITH DIFFE RENTI AL/PL ATELE T platelets 328 x10e3 /uL 150-45 0 normal Not Available [facility] ([facility]) [address] [facility], [place], [address], 05/26/2025 07:07:23 05/24/20 25 05/25/2025 CBC WITH DIFFE RENTI AL/PL ATELE T neutrophils 61 % not estab. normal Not Available [facility] ([facility]) [address] [facility], [place], [address], 05/26/2025 07:07:23 05/24/20 25 05/25/2025 CBC WITH DIFFE RENTI AL/PL ATELE T lymphs 28 % not estab. normal Not Available [facility] ([facility]) [address] [facility], [place], [address], 05/26/2025 07:07:23 05/24/20 25 05/25/2025 CBC WITH DIFFE RENTI AL/PL ATELE T monocytes 7 % not estab. normal Not Available [facility] ([facility]) [address] [place], [address], 05/26/2025 07:07:23 05/24/20 25 05/25/2025 CBC WITH DIFFE RENTI AL/PL ATELE T eos 2 % not estab. normal Not Available [facility] ([facility]) [address] [place], [address], 05/26/2025 07:07:23 05/24/20 25 05/25/2025 CBC WITH DIFFE RENTI AL/PL ATELE T basos 1 % not estab. normal Not Available [facility] ([facility]) [address] [place], [address], 05/26/2025 07:07:23 05/24/20 25 05/25/2025 CBC WITH DIFFE RENTI AL/PL ATELE T immature cells HAND PACKER/PACKAGER Not Available [facility] ([facility]) [address] [place], [address], 05/26/2025 07:07:23 05/24/20 25 05/25/2025 CBC WITH DIFFE RENTI AL/PL ATELE T neutrophils (absolute) 4.0 x10e3 /uL 1.4-7. 0 normal Not Available [facility] ([facility]) [address] [place], [address], 05/26/2025 07:07:23 05/24/20 25 05/25/2025 CBC WITH DIFFE RENTI AL/PL ATELE T lymphs (absolute) 1.8 x10e3 /uL 0.7-3. 1 normal Not Available [facility] ([facility]) [address] [place], [address], 05/26/2025 07:07:23 05/24/20 25 05/25/2025 CBC WITH DIFFE RENTI AL/PL ATELE T monocytes(ab solute) 0.5 x10e3 /uL 0.1-0. 9 normal Not Available [facility] ([facility]) [address] [facility], [place], [address], 05/26/2025 07:07:23 05/24/20 25 05/25/2025 CBC WITH DIFFE RENTI AL/PL ATELE T eos (absolute) 0.1 x10e3 /uL 0.0-0. 4 normal Not Available [facility] ([facility]) [address] [facility], [place], [address], 05/26/2025 07:07:23 05/24/20 25 05/25/2025 CBC WITH DIFFE RENTI AL/PL ATELE T baso (absolute) 0.1 x10e3 /uL 0.0-0. 2 normal Not Available [facility] ([facility]) [address] [facility], [place], [address], 05/26/2025 07:07:23 05/24/20 25 05/25/2025 CBC WITH DIFFE RENTI AL/PL ATELE T immature granulocytes 1 % not estab. Not Available [facility] ([facility]) [address] [facility], [place], [address], 05/26/2025 07:07:23 05/24/20 25 05/25/2025 CBC WITH DIFFE RENTI AL/PL ATELE T immature grans (abs) 0.0 x10e3 /uL 0.0-0. 1 Not Available [facility] ([facility]) [address] [place], [address], 05/26/2025 07:07:23 05/24/20 25 05/25/2025 CBC WITH DIFFE RENTI AL/PL ATELE T NRBC HAND PACKER/PACKAGER Not Available [facility] ([facility]) [address] [facility], [place], [address], 05/26/2025 07:07:23 05/24/20 25 05/25/2025 CBC WITH DIFFE RENTI AL/PL ATELE T hematology comments: HAND PACKER/PACKAGER Not Available [facility] ([facility]) [address] [facility] [place], [address], 05/26/2025 07:07:23 05/24/20 25 05/25/2025 COMP. METAB OLIC PANEL (14) glucose 171 mg/dL 70-99 above high normal Not Available [facility] ([facility]) [address] [facility] [place], [address], 05/26/2025 07:07:24 05/24/20 25 05/25/2025 COMP. METAB OLIC PANEL (14) BUN 32 mg/dL 8-27 above high normal Not Available [facility] ([facility]) [address] [facility] [place], [address], 05/26/2025 07:07:24 05/24/20 25 05/25/2025 COMP. METAB OLIC PANEL (14) creatinine 0.86 mg/dL 0.57-1 .00 normal Not Available [facility] ([facility]) [address] [facility] [place], [address], 05/26/2025 07:07:24 05/24/20 25 05/25/2025 COMP. METAB OLIC PANEL (14) eGFR 75 mL/mi n/1.7 3 >59 normal Not Available [facility] ([facility]) [address] [place], [address], 05/26/2025 07:07:24 05/24/20 25 05/25/2025 COMP. METAB OLIC PANEL (14) BUN/creatini ne ratio 37 12-28 above high normal Not Available [facility] ([facility]) [address] [place], [address], 05/26/2025 07:07:24 05/24/20 25 05/25/2025 COMP. METAB OLIC PANEL (14) sodium 139 mmol/ L 134-14 4 normal Not Available [facility] ([facility]) [address] [place], [address], 05/26/2025 07:07:24 05/24/20 25 05/25/2025 COMP. METAB OLIC PANEL (14) potassium 4.5 mmol/ L 3.5-5. 2 normal Not Available [facility] ([facility]) [address] [facility] [place], [address], 05/26/2025 07:07:24 05/24/20 25 05/25/2025 COMP. METAB OLIC PANEL (14) chloride 100 mmol/ L 96-106 normal Not Available [facility] ([facility]) [address] [facility] [place], [address], 05/26/2025 07:07:24 05/24/20 25 05/25/2025 COMP. METAB OLIC PANEL (14) carbon dioxide, total 18 mmol/ L 20-29 below low normal Not Available [facility] ([facility]) [address] [facility] [place], [address], 05/26/2025 07:07:24 05/24/20 25 05/25/2025 COMP. METAB OLIC PANEL (14) calcium 10.9 mg/dL 8.7-10 .3 above high normal Not Available [facility] ([facility]) [address] [facility] [place], [address], 05/26/2025 07:07:24 05/24/20 25 05/25/2025 COMP. METAB OLIC PANEL (14) protein, total 7.9 g/dL 6.0-8. 5 normal Not Available [facility] ([facility]) [address] [facility] [place], [address], 05/26/2025 07:07:24 05/24/20 25 05/25/2025 COMP. METAB OLIC PANEL (14) albumin 4.8 g/dL 3.9-4. 9 normal Not Available [facility] ([facility]) [address] [facility] [place], [address], 05/26/2025 07:07:24 05/24/20 25 05/25/2025 COMP. METAB OLIC PANEL (14) globulin, total 3.1 g/dL 1.5-4. 5 Not Available [facility] ([facility]) [address] [facility] [place], [address], 05/26/2025 07:07:24 05/24/20 25 05/25/2025 COMP. METAB OLIC PANEL (14) bilirubin, total 1.0 mg/dL 0.0-1. 2 normal Not Available [facility] ([facility]) [address] [facility] [place], [address], 05/26/2025 07:07:24 05/24/20 25 05/25/2025 COMP. METAB OLIC PANEL (14) alkaline phosphatase 113 IU/L 44-121 normal Not Available [facility] ([facility]) [address] [facility] [place], [address], 05/26/2025 07:07:24 05/24/20 25 05/25/2025 COMP. METAB OLIC PANEL (14) AST (SGOT) 18 IU/L 0-40 normal Not Available [facility] ([facility]) [address] [facility] [place], [address], 05/26/2025 07:07:24 05/24/20 25 05/25/2025 COMP. METAB OLIC PANEL (14) ALT (SGPT) 14 IU/L 0-32 normal Not Available [facility] ([facility]) [address] [facility] [place], [address], 05/26/2025 07:07:24 05/24/20 25 05/25/2025 LIPID PANEL cholesterol, total 133 mg/dL 100-19 9 normal Not Available [facility] ([facility]) [address] [facility] [place], [address], 05/26/2025 07:07:25 05/24/20 25 05/25/2025 LIPID PANEL triglyceride s 122 mg/dL 0-149 normal Not Available [facility] ([facility]) [address] [place], [address], 05/26/2025 07:07:25 05/24/20 25 05/25/2025 LIPID PANEL HDL cholesterol 36 mg/dL >39 below low normal Not Available [facility] ([facility]) [address] [place], [address], 05/26/2025 07:07:25 05/24/20 25 05/25/2025 LIPID PANEL VLDL cholesterol omkar 22 mg/dL 5-40 Not Available [facility] ([facility]) [address] [place], [address], 05/26/2025 07:07:25 05/24/20 25 05/25/2025 LIPID PANEL LDL chol calc ([facility]) 75 mg/dL 0-99 Not Available [facility] ([facility]) [address] [place], [address], 05/26/2025 07:07:25 05/24/20 25 05/25/2025 LIPID PANEL LDL calc comment: [employer]ER/PACKAG[employer] Not Available [facility] ([facility]) [address] [place], [address], 05/26/2025 07:07:25 05/24/20 25 05/25/2025 VITAM IN B12 AND FOLAT E vitamin B12 897 pg/mL 232-12 45 normal Not Available [facility] ([facility]) [address] [place], [address], 05/26/2025 07:07:25 05/24/20 25 05/25/2025 VITAM IN B12 AND FOLAT E folate (folic acid), serum >20.0 NG/mL >3.0 A serum folat e frantz ntrat ion of less than 3.1 ng/mL is consi dered to repre sent clini omkar defic iency . Not Available [facility] ([facility]) [address] [place], [address], 05/26/2025 07:07:25 05/24/20 25 05/25/2025 CHI+L IPASE amylase 42 U/L 31-110 normal Not Available [facility] ([facility]) [address] [facility], [place], [address], 05/26/2025 07:07:26 05/24/20 25 05/25/2025 CHI+L IPASE lipase 49 U/L 14-72 normal Not Available [facility] ([facility]) [address] [facility], [place], [address], 05/26/2025 07:07:26 05/24/20 25 05/25/2025 HCV ANTIB ALEENA RFX TO QUANT PCR HCV Ab Non Reacti ve non reacti ve Not Available [facility] ([facility]) [address] [facility], [place], [address], 05/26/2025 07:07:26 05/24/20 25 05/25/2025 HCV ANTIB ALEENA RFX TO QUANT PCR interpretati on: Commen t Not infec blanche with HCV unles s early or acute infec tion is suspe cted (whic h may be delay ed in an immun ocomp romis ed indiv idual ), or other evide nce exist s to indic ate HCV infec tion. Not Available [facility] ([facility]) [address] [facility], [place], [address], 05/26/2025 07:07:26 05/24/20 25 05/25/2025 CANCE R ANTIG EN (CA) 125 cancer antigen (Ca) 125 12.3 U/mL 0.0-38 .1 normal [employer] grupo milum inesc ence Immun oassa y (ECLI A) Value s obtai walt with diffe rent assay metho ds or kits canno t be used inter restrepo eacullen . Resul ts canno t be inter prete d as absol [place] evide nce of the prese nce or absen ce of adrian corona se. Not Available [facility] ([facility]) [address] [facility], [place], [address], 05/26/2025 07:07:27 05/24/2005/25/2025 VITAM IN D, 25-HY DROXY vitamin D, 25-hydroxy 93.2 NG/mL 30.0-1 00.0 Vitam in D defic iency has been defin ed by the Insti tute of Medic ine and an Endoc rine Socie ty pract ice guide line as a level of serum 25-OH vitam in D less than 20 ng/mL (1,2) . The Endoc rine Socie ty went on to furth er defin e vitam in D insuf ficie ncy as a level betwe en 21 and 29 ng/mL (2). 1. IOM (Inst itute of Medic ine). 2010. Ko ry refer ence intak es for calci um and D. Alberto lay [place]: The Natio nal [facility] Press . 2. Jackie cisse MF, Yudy newsome [place], Abby off-F errar i QUINTANILLA, et al. Evalu ation , treat ment, and preve ntion of vitam in D defic iency : an Endoc rine Socie ty clini omkar pract ice guide line. JCEM. 2010; 96(7) :1911 -30. Not Available [facility] ([facility]) [address] [facility], [place], [address], 05/26/2025 07:07:27 05/24/2005/25/2025 HIV AB/P2 4 AG WITH REFLE X HIV Ab/P24 Ag screen Non Reacti ve non reacti ve HIV-1 /HIV- 2 antib odies and HIV-1 p24 antig en were NOT detec blanche. There is no labor atory evide nce of HIV infec tion. HIV Negat han Not Available [facility] ([facility]) [address] [facility], [place], [address], 05/26/2025 07:07:28 05/24/20 25 05/26/2025 H PYLOR I BREAT H TEST H pylori breath test Positi ve negati ve abnormal Not Available [facility] ([facility]) [address], [place], [address], 05/26/2025 07:07:28 02/02/20 25 XR, lumbo sacra l spine , 2 or 3 view No observ ation record ed. [email or web address] [address], [address], 02/02/2025 08:43:21 05/03/20 25 05/03/2025 DEXA No observ ation record ed. [email or web address] [facility] [address], [place], [address], 05/10/2025 11:27:39 05/25/20 25 XR, abdom en No observ ation record ed. [email or web address] [address], [address], 05/27/2025 08:21:09 05/26/2005/24/2023 MAMMO , scree bud, digit al, bilat eral No observ ation record ed. [email or web address] Not Available 2024 17:46:16 05/31/20 MAMMO , scree bud, digit al, bilat eral No observ ation record ed. [address], [place], [address], 05/31/2025 17:51:27 Result Notes None recorded. Problems Name Problem SNOMED Code Status Onset Date Resolution Date Notes Provider Name and Address Organization Details Recorded Time Proteinuria 35120150 Active 2023 RASHMI Varma [employer] 12:56:42 Dehydration 19995246 Active 2023 Hillary mojica [facility] [employer]. 06/23/202 5 12:56:35 Type 2 diabetes mellitus without complicatio n 798207083 Active 2023 Hillary mojica, [employer] 12:56:53 Bilateral hyperopia of eyes 7325433031890 00 Active 2023 Hillary mojica, [employer] 12:56:39 Hypothyroid ism 78141786 Active 2023 Hillary Dill null, [employer] 12:56:31 Flank pain 427826522 Active 2023 Hillary Dill [employer], [employer] 12:56:33 Nausea 986299602 Active 2023 Hillary Dill [employer], [employer] 12:57:16 Viral gastroenter itis 584610596 Active 2023 Hillary Dill [employer], [employer] 12:57:05 Urine ketone test = + 009531876 Active 2023 Hillary Dill [employer], [employer] 12:56:57 Type 2 diabetes mellitus 83594197 Active 2024 Hillary Dill [employer], [employer] 12:56:48 Problem Notes None recorded. Procedures Surgical History Date Name Laterality Status Provider Name and Address Organization Details Recorded Time 11/03/20 24 Cerumen Removal completed [employer] 11/03/2024 13:30:40 05/26/20 24 Most Recent Mammogram completed [employer] 02/01/2025 11:18:24 07/08/20 23 Date of Last Pap Smear completed [employer] 02/13/2024 10:46:23 Carpal tunnel surgery completed [employer] 06/10/2023 10:52:07 ultrasonic fragmentation of urinary stone through percutaneous nephrostomy completed Hillary Dill [employer]. 06/10/2023 10:52:35 Imaging Results None recorded. Procedure [...] OTIC ROUTE 2 TIMES PER DAY 04/01 /2024 completed Not Available Not Available Not Available [...] Available No t Available Comfort EZ Pen [place] 31 gauge x 3/16 USE daily 2023 active Not Available Not Available Not Jocy velázquez Victoza 3-James 0.6 mg/0.1 mL (18 mg/3 [...] 2024 active Not Available Not Available Not Jocy velázquez Vitals Date Recorded Body height Body mass index (BMI) Body weight Body temperature Heart rate Oxygen saturation Oxygen saturation in Arterial blood by Pulse oximetry Systolic And Diastolic Provider Name and Address Organization Details Last Updated DateTime 5 165.1 cm 26.5 kg/m2 82127.1 9 g 97.2 [degF] 77 /min 96 % 96 % 100/67 mm[Hg] Hillary [employer], [employer] 5 13:29:41 Date Recorded Body height Body mass index (BMI) Body weight Heart rate Oxygen saturation Oxygen saturation in Arterial blood by Pulse oximetry Systolic And Diastolic Provider Name and Address Organization Details Last Updated DateTime 5 165.1 cm 26.6 kg/m2 08716.7 8 g 85 /min 97 % 97 % 139/80 mm[Hg] Hillary [employer] 5 11:28:42 Date Recorded Body height Body mass index (BMI) Body weight Heart rate Oxygen saturation Oxygen saturation in Arterial blood by Pulse oximetry Systolic And Diastolic Provider Name and Address Organization Details Last Updated DateTime 5 165.1 cm 25.3 kg/m2 91317.0 4 g 91 /min 96 % 96 % 133/81 mm[Hg] Hillary Dill [employer] 5 10:59:02 Date Recorded Body height Body mass index (BMI) Body weight Heart rate Oxygen saturation Oxygen saturation in Arterial blood by Pulse oximetry Body temperature Systolic And Diastolic Provider Name and Address Organization Details Last Updated DateTime 5 165.1 cm 24 kg/m2 29393.7 g 98 /min 96 % 96 % 97.6 [degF] 115/82 mm[Hg] Hillary Dill [employer] 5 13:13:05 Date Recorded Body height Body mass index (BMI) Body weight Heart rate Oxygen saturation Oxygen saturation in Arterial blood by Pulse oximetry Systolic And Diastolic Provider Name and Address Organization Details Last Updated DateTime 4 165.1 cm 27.4 kg/m2 17584.2 5 g 83 /min 96 % 96 % 137/88 mm[Hg] Hillary Dill [employer] 4 11:35:06 Social History Question Answer Notes LastModified by [employer] ion Details LastModified Time Tobacco Smoking Status Never Smoker Hillary [employer] 06/10/2023 10:51:32 Is Your Home Air Conditioned? Yes Information not available 06/10/2023 Do You Wear A Helmet When Biking? No Information not available 10/21/2024 Are You Blind [...] Type Of Diet Are You Following? DIABETIC [email or web address] Information n ot available 10/21/2024 Have There [...] available 06/10/2023 Are You Sexually Active? No [email or web address] Information not available 10/21/2024 Do You Have Smoke And Carbon Monoxide Detectors In Your Home? Yes Information not available 06/10/2023 Are You Passively Exposed To Smoke? No Information no t available 06/10/2023 Are There Any Smokers In Your House? No Information not available 06/10/2023 Do You Participate In Social Media? Yes [email or web address] Information not available 10/21/2024 Has Tobacco Cessation Counseling Been Provided? No Information not available 06/10/2023 Have You Recently Traveled Abroad? No Information not available 06/10/2023 Do You Have Difficulty Walking Or Climbing Stairs? No Information not available 06/10/2023 Do You Have Any Dietary Restrictions? Yes [email or web address] Information not available 10/21/2024 Sex: Female Functional Status Question Answer Note LastModified by [employer] ion Details LastModified Time Do you use any illicit or recreational drugs? No Information not available 06/10/2023 Do you or have you ever used any other forms of tobacco or nicotine? No [email or web address] Information not available 10/21/2024 What is your [...] Organizat ion Details LastModified Time Do you feel stressed (tense, restless, nervous, or anxious, or unable to sleep at night)? [id number] [email or web address] Information not available 10/21/2024 Do you have difficulty concentrating, remembering or making decisions? No Information no t available 06/10/2023 Family History Relationship Description Onset Age of this Age Resolved Age Notes LastModified by Organization Details LastModified Time Father No current problems or disability Not available 06/2023 08:45:36 Mother No current problems or disability Not available 06/2023 08:45:36 Medical History Condition Response Hospitalizations N Diabetes Emergency room visit since last appointm ent. N Thyroid Problems Y Gynecological History Statement/Question Response Abnormal Pap N Date of Last Pap Smear 07/08/2023 Most Recent Mammogram 05/26/2024 Obstetrics History GPAL:G 0 P 0 0 0 0 Immunizations Vaccine Type Date Status Note Provider Name and Address Organization Details Recorded Time zoster recombinant 05/15/20 24 cancelled patient objection Gabby Gordillo APRN [address] [place] [address], [address], [facility] [employer] 05/15/2024 12:33:57 Tdap 05/03/20 23 completed Susy mojica [employer] 08/15/2023 13:44:39 Past Encounters Encounter ID Performer Location Encounter Start Date Encounter Closed Date Diagnosis/Indication Diagnosis SNOMED-CT Code Diagnosis ICD10 Code Diagnosis Note [id number] Gabby Gordillo APRN [address] [address] 06/10/2023 10:41:33 06/10/2023 13:40:07 Impacted cerumen of bilateral ears 1534308462 653800 H61.23 Body mass index 25-29 - overweight 829000044 Z68.28 [id number] Gabby Gordillo[address] 0 07/08/2023 08:43:29 07/08/2023 09:43:24 Generalized anxiety disorder 44095316 F41.1 Gynecologi c examination 85107461 Z01.419 Body mass index 25-29 - overweight 223223654 Z68.28 [id number] Gabby Gordillo [place] [address] 08/15/2023 13:42:11 08/15/2023 14:56:11 Type 2 diabetes mellitus without complication 828770052 E11.9 Generalize d anxiety disorder 33187726 F41.1 Long-term drug therapy 246114463 Z79.899 Fatigue 41945907 R53.83 Hypothyroidism 42395776 E03.9 Hyperlipidemia 34358329 E78.5 Vitamin D deficiency 347 41689 E55.9 Vitamin B deficiency 479 98476 E53.9 Body mass index 25-29 - overweight 791739681 Z68.28 [id number] [place] [address] 09/05/2023 12:44:34 09/05/2023 13:38:47 Pain in coccyx 64595796 M53.3 Pain of mu ltiple joints 81743512 M25.50 Onychomyco sis of toenails 581692172 B35.1 Body mass index 25-29 - overweight 031740679 Z68.28 [id number] [place] [address] 11/11/2023 13:32:30 11/11/2023 14:54:51 Generalized anxiety disorder 12765534 F41.1 Type 2 gurjit betes mellitus without complication 670843399 E11.9 Hyperlipidemia 42668757 E78.5 Hypothyroidism 80031986 E03.9 Pain of mu ltiple joints 94928902 M25.50 Anti-nucle ar factor detected 175950612 R76.8 [id number] Gabby Gordillo [address] [address] 02/13/2024 10:22:58 02/13/2024 11:45:26 Diabetes mellitus 68147984 E11.9 Body mass index 20-24 - normal 454260198 Z68.24 Type 2 gurjit betes mellitus without complication 662758493 E11.9 Hyperlipidemia 58264870 E78.5 Hypothyroidism 48264658 E03.9 Pain of mu ltiple joints 06219270 M25.50 Impacted c erumen of bilateral ears 2702484574 609883 H61.23 [id number] DILEEP DURAN, [facility] [address] 04/01/2024 16:22:28 04/01/2024 17:05:20 Proteinuria 48419853 R80.9 Blood in urine 39110664 R31.9 Dehydration 17647554 E86 .0 [id number] MATILDA SAHA, OD [address] [address] 04/16/2024 12:31:35 04/16/2024 14:10:35 Type 2 diabetes mellitus without complication 729829555 E11.9 Patient educated on findings. No Diabetic Retinopath y found during examinatio n. Stressed importance of blood sugar control and risks of diabetic retinopath y. RTC if changes in vision occur. Bilateral hyperopia of eyes 6593208816 39928 H52.03 Educated patient o findings. Optional spec Rx. OTC readers ok. Discussed the possibilit y of refraction changes if blood sugar becomes more under control. [id number] Gabby Duy [address] [address] 05/15/2024 10:30:59 05/15/2024 11:53:26 Type 2 diabetes mellitus without complication 414480579 E11.9 Screening for malignant neoplasm of colon 912133334 Z12.11 We are checking to see how much patient would owe for cologuard where she is on slide. Body mass index 25-29 - overweight 857970749 Z68.28 Vaccine de clined by patient 7756864305 02 Z28.20 pt may like to get later but she does not want it at this time. Fatigue 97739513 R53.83 Hyperlipidemia 40282382 E78.5 Vitamin D deficiency 347 90100 E55.9 Hypothyroidism 63717889 E03.9 Noncomplia nce with treatment 2777240 Z91.995 [id number] Gabby Gordillo [place] [address] 0 07/02/2024 12:50:47 07/02/2024 13:51:44 Hypothyroidism 09940395 E03.9 Body mass index 25-29 - overweight 581423182 Z68.28 Type 2 gurjit betes mellitus without complication 127938534 E11.9 [id number] Gabby Gordillo [place] [address] 08/04/2024 15:16:57 08/04/2024 16:24:57 Adult health examination 443326662 Z00.00 Type 2 gurjit betes mellitus without complication 903861565 E11.9 Fatigue 01786359 R53.83 Hyperlipidemia 43291336 E78.5 Vitamin D deficiency 347 43317 E55.9 Generalize d anxiety disorder 07304732 F41.1 Noncomplia nce with treatment 9983450 Z91.199 Body mass index 25-29 - overweight 327385224 Z68.28 [id number] Donna Main, CASTRO [place] [address] 10/21/2024 15:57:45 10/21/2024 17:19:36 Type 2 diabetes mellitus without complication 352837690 E11.9 Flank pain 799313572 R10 .9 Viral gastroenteritis 11 4907028 A08.4 Urine ketone test = + 16 0602248 R82.4 [id number] Gabby Gordillo [place] [address] 0 11/03/2024 11:20:43 11/03/2024 12:24:25 Type 2 diabetes mellitus without complication 282544098 E11.9 Long-term drug therapy 144819700 Z79.899 Hypothyroidism 34224995 E03.9 Generalize d anxiety disorder 64533487 F41.1 Hyperlipidemia 46769234 E78.5 Body mass index 25-29 - overweight 173529669 Z68.28 Impacted c erumen of bilateral ears 5389725758 061127 H61.23 [id number] [place] [address] 12/03/2024 12:40:35 12/03/2024 14:26:04 Hypothyroidism 58607985 E03.9 Generalize d anxiety disorder 10867638 F41.1 Fatigue 74484503 R53.83 Iron defic iency anemia 26594114 D50.9 Lower resp iratory tract infection 67608132 J22 Body mass index 25-29 - overweight 108788576 Z68.28 [id number] [place] [address] 02/01/2025 11:15:42 02/01/2025 12:16:32 Type 2 diabetes mellitus without complication 828500834 E11.9 Low back pain 830002577 M54.50 Generalize d anxiety disorder 93063354 F41.1 Hyperlipidemia 10605117 E78.5 Hypothyroidism 09143107 E03.9 Body mass index 25-29 - overweight 499706849 Z68.28 [id number] [place] [address] 0 05/04/2025 10:32:54 05/04/2025 11:25:20 Type 2 diabetes mellitus 58827281 E11.9 Z79.4 Type 2 gurjit betes mellitus without complication 608118461 E11.9 Hyperlipidemia 76087068 E78.5 Hypothyroidism 85831028 E03.9 Overweight in adulthood with body mass index of 25 or more but less than 30 386060869 Z68.25 [id number] [place] [address] 0 05/24/2025 12:52:26 05/24/2025 13:37:50 Vomiting 418410984 R11.10 Abdominal pain 99226134 R10.9 Fatigue 40394525 R53.83 Mixed hyperlipidemia 267 572547 E78.2 Vitamin D deficiency 347 69874 E55.9 Cobalamin deficiency 190 079304 E53.8 Unintentio nal weight loss 465629002 R63.4 HIV screening 474414492 Z11.4 Viral scre ening status 538408495 Z11.59 Body mass index 20-24 - normal 394766730 Z68.24 Health Concerns Section Related Observation LastModified by Organization Detai ls LastModified Time None Recorded Concern Status LastModified by Organization Details LastModified Time None Recorded Advance Directives Directive None Recorded Payers Insurance Date Sequence Insurance Name Policy Number Policy Gutierrez Covered Member ID Gutierrez Member ID Guarantor Name 08/15/2023 SLIDING FEE SCHEDULE - DISCOUNT Donna Warner 08/04/2024 SLIDING FEE SCHEDULE - DISCOUNT Donna Warner 06/10/2023 1 *SELF PAY* Ci ndy Timmy OBGyn Episode No OBEpisode recorded.
--- NOTE | 2025-06-28 10:14 | CT_ITS ---
FINAL REPORT TECHNIQUE: Thin section axial images are obtained through the abdomen and pelvis after intravenous contrast. Reconstruction images were obtained from the axial data. Exam was performed using dose reduction techniques. CLINICAL HISTORY: Nausea vomiting diarrhea for 9 months FINDINGS: LUNG BASES: There is a granuloma in the left lower lobe Heart size is normal. LIVER: Homogeneous. No focal lesion. GALLBLADDER/BILIARY SYSTEM: The gallbladder is contracted. No gallstones. No biliary dilatation. SPLEEN: Unremarkable. PANCREAS: Unremarkable. ADRENALS: Unremarkable. KIDNEYS/URETERS/BLADDER: There is moderate left hydronephrosis with an obstructing 12 mm left UPJ stone. There is mild right hydronephrosis with no obstructing stone on the right. There is no renal mass. There is mild left perinephric stranding. There are multiple nonobstructing left renal stones. Unremarkable urinary bladder. GI TRACT: No small bowel obstruction or dilatation. Normal appendix. No acute colon abnormality. PELVIC ORGANS: Unremarkable for age. LYMPH NODES/RETROPERITONEUM/MESENTERY: No lymphadenopathy. No abdominal aortic aneurysm. ABDOMINAL WALL: The abdominal wall is intact. FREE FLUID: No ascites. BONES: There is no acute osseous abnormality. There are chronic compression deformities of T12 and L1 which are fused. IMPRESSION: 1. Obstructing left UPJ stone with hydronephrosis. 2. Nonobstructing left renal stones. Reviewed, Interpreted and Dictated by Caridad Trivedi MD Transcribed by ADIS Cm Authenticated and [facility]
[2025-06-28] MEDS: 0.9 % SODIUM CHLORIDE 1000ML 1,000 ML 999 ML IV (10:24)
[2025-06-28] MEDS: ONDANSETRON 4MG/2ML VIAL 4 MG IV (10:24)
--- NOTE | 2025-06-28 10:26 | PC.NURSE ---
PT MEDICATED PER EMAR, UPDATED ON POC. CALL LIGHT WITHIN REACH
[2025-06-28 10:27] LABS: Hematocrit 40.1 % (37.0-47.0); Hemoglobin 13.3 g/dL (12.2-16.2); Immature Granulocytes % 0.7 %; Mean Corpuscular HGB Conc 33.2 g/dL (31.8-35.4); Mean Corpuscular Hemoglobin 28.7 pg (27.0-31.2); Mean Corpuscular Volume 86.4 fl (81-99); Nucleated Red Blood Cells % 0 %; Platelet Count 216 K/mm3 (142-424); Red Blood Count 4.64 M/mm3 (4.20-5.40); Red Cell Distribution Width-SD 45.1 fL; White Blood Count 6.1 K/mm3 (4.8-10.8)
[2025-06-28 10:38] LABS: Alanine Aminotransferase 19 U/L (12-78); Albumin Level 4.6 g/dl (3.5-5.0); Albumin/Globulin Ratio 1.4 (1.1-1.8); Alkaline Phosphatase 70 U/L (38-126); Anion Gap 22.3 mEq/L (5-15); Aspartate Amino Transferase 29 U/L (14-36); Bilirubin,Total 1.3 mg/dl (0.2-1.3); Blood Urea Nitrogen 23 mg/dl (7-17); Calcium 10.7 mg/dl (8.4-10.2); Carbon Dioxide 19 mmol/L (22.0-30.0); Chloride 99 mmol/L (98-107); Creatinine,Serum 0.70 mg/dl (0.52-1.04); Estimated Glomerular Filt Rate 84 ml/min (>60); GFR (African American) 102 ML/MIN (>60); Globulin 3.4 g/dL (1.3-3.2); Glucose 389 mg/dl (74-100); Lipase 117 U/L (23-300); Magnesium 1.4 mg/dl (1.6-2.3); Potassium 4.3 mmoL/L (3.5-5.1); Sodium 136 mmol/L (136-145); Total Protein,Serum 8.0 g/dl (6.3-8.2)
--- NOTE | 2025-06-28 10:44 | PC.NURSE ---
ROUNDED ON PT, WARM BLANKET PROVIDED. AT BEDSIDE. CALL LIGHT WITHIN REACH
[2025-06-28] MEDS: SODIUM CHLORIDE 0.9% 10ML SYR (RAD ONLY) 10 ML IV (11:14)
[2025-06-28] MEDS: IOPAMIDOL-370 (76%);100ML BOTTLE 75 ML IV (11:14)
[2025-06-28 11:29] LABS: Hemoglobin A1C 8.4 % (4.0-6.0)
[2025-06-28 11:35] LABS: Acetone, Serum (Rapid) Small (None Detect)
[2025-06-28 11:52] LABS: Microscopic, Urine URINE MICROSCOPIC (MICROSCOPIC)
[2025-06-28 11:54] LABS: Bilirubin,Urine Negative (Negative); Color,Urine YELLOW (Yellow); Glucose,Urine (UA) 2+ (Negative); Ketones,Urine 3+ (Negative); Leukocyte Esterase,Urine TRACE (Negative); PH,Urine 6.0 (5.0-8.5); Protein,Urine 1+ (Negative); Specific Gravity, Urine 1.020 (1.005-1.030); Urobilinogen,Urine 0.2 EU/dl (0.2)
--- NOTE | 2025-06-28 12:01 | PC.NURSE ---
DON YOLANDA AT BEDSIDE TO UPDATE PT AND
[2025-06-28 12:03] LABS: Phosphorous 3.2 mg/dl (2.5-4.5)
[2025-06-28 12:04] LABS: WBC,Urine 50-100 #/hpf (0-3)
--- NOTE | 2025-06-28 12:04 | PC.NURSE ---
Called [facility] to speak with [facility] about this patient for mild DKA and an 11.[address] [facility] advised they would page urology and call us back.
[2025-06-28 12:05] LABS: Bacteria,Urine 4+ /lpf; RBC,Urine Occasional #/hpf (0-3)
[2025-06-28] MEDS: 0.9 % SODIUM CHLORIDE 1000ML 2,000 ML 999 ML IV (12:16)
[2025-06-28] MEDS: INSULIN REGULAR, HUMAN 100 UNIT in 0.9 % SODIUM CHLORIDE 100 ML 6.06 UNIT IV (12:31)
--- NOTE | 2025-06-28 12:34 | PC.NURSE ---
Patients FSBS was [id number].
[2025-06-28 12:43] LABS: Hepatitis C Ab Qual. W/ RFX NEGATIVE (Negative)
[2025-06-28 12:44] LABS: VBG PCO2 33.6 mmol/L (35-51); VBG PH 7.39 mmol/L (7.31-7.41); VBG PO2 44.7 mmol/L (28-40)
[2025-06-28 12:45] LABS: Lactate Venous 1.1 mmol/L (0.4-2.0); VBG HCO3 20.0 mmol/L (23-30)
--- NOTE | 2025-06-28 12:47 | PC.NURSE ---
[facility] called back and advised that they were still waiting on Urology due to they were in surgery but would call us back as soon as hes available
[2025-06-28] MEDS: CEFTRIAXONE 1 GM 1 GM in 0.9 % SODIUM CHLORIDE 50 ML IV (12:48)
--- NOTE | 2025-06-28 12:51 | PC.NURSE ---
[facility] called back and [facility] is speaking with them now
--- NOTE | 2025-06-28 12:57 | PC.NURSE ---
[facility] advised [facility] they could not take this pt.
--- NOTE | 2025-06-28 13:04 | PC.NURSE ---
Called [facility] per [facility] to speak with them about transferring this patient with mild DKA and a 12 mm kidney stone. Images have been powershared and a disc made and [facility] advised that they would call us back
--- NOTE | 2025-06-28 13:36 | PC.NURSE ---
Patients FSBS was 230.
[2025-06-28 13:37] LABS: Procalcitonin 0.420 ng/mL (0.0-2.0)
--- NOTE | 2025-06-28 14:02 | PC.NURSE ---
Called EMS to let them know that the patient was ready for transfer. they said that they would be here as soon as possible.
--- NOTE | 2025-06-28 14:30 | PC.NURSE ---
REPORT GIVEN TO [facility]
--- NOTE | 2025-06-29 11:11 | PC.NURSE ---
Urine culture results faxed to [facility]
[2025-06-30 05:34] LABS: Acinetobacter calcoaceticus-ba Not Detected; Bacteroides fragilis Not Detected; CTX-M Not Detected; Candida auris Not Detected; Candida glabrata Not Detected; Enterobacterales Detected; Enterococcus faecalis Not Detected; Enterococcus faecium Not Detected; IMP Not Detected; KPC Not Detected; Klebsiella aerogenes Not Detected; Klebsiella pneumoniae grp Detected; NDM Not Detected; OXA-48-like Not Detected; Proteus spp. Not Detected; Salmonella spp. Not Detected; Serratia marcescens Not Detected; Staphylococcus epidermidis Not Detected; Staphylococcus lugdunensis Not Detected; Staphylococcus spp. Not Detected; Stenotrophomonas maltophilia Not Detected; Streptococcus agalactiae(GrpB) Not Detected; Streptococcus pyogenes Group A Not Detected; Streptococcus spp. Not Detected; VIM Not Detected; mcr-1 Not Detected
--- NOTE | 2025-06-30 05:50 | PC.NURSE ---
Positive blood culture results given to RN at and faxed to the number requested
== END 2025-06-28 14:35 | disposition short-term general hospital (02) ==
PROVIDERS: Physician Assistant; Emergency Provider Emergency Medicine; PCP Nurse Practitioner
DX: E11.10 Type 2 diabetes mellitus with ketoacidosis without coma (principal); N13.0 Hydronephrosis with ureteropelvic junction obstruction; N39.0 Urinary tract infection, site not specified; B96.21 Shiga toxin-producing Escherichia coli [E. coli] [STEC] O157 as the cause of diseases classified elsewhere; B96.1 Klebsiella pneumoniae [K. pneumoniae] as the cause of diseases classified elsewhere; N20.0 Calculus of kidney; Z79.4 Long term (current) use of insulin
CPT/HCPCS: 74177; 80053; 81001; 82009; 82803; 83036; 83605; 83690; 83735; 84100; 84145; 85025; 86803; 87040; 87077; 87086; 87088; 87154; 87186; 87389; 96361; 96365; 96366; 96375; 99291; J0696; J2405; J7030; Q9967

== ENCOUNTER 2025-08-06 16:08 | Emergency (ER) | payer SELFPAY ==
--- OUTSIDE RECORDS SUMMARY | 2025-06-28 15:38 | XMS_ITS | Encounter Summary ---
Author Organization [facility] Address [address] [place] [address] Care Team Providers [employer] Operations Specialist Name Role Phone Gabby Gordillo APRN Primary Care Provider + [phone] Reason for Visit * Reason Comments Nausea * Auth/Cert (Routine) Specialty Diagnoses / Procedures Referred By Sophy roldan Referred To Contact Diagnoses Ureteral stone with hydronephrosis kidney stone 12mm; DKA William Calle MD [address] [address] Phone: tel: fax: [facility] [address] [place] [address] Phone: tel: Referral ID Status Reason Start Date Expiration Date Visits Re quested Visits Authorized [id number] 1 1 Encounter Details Date Type Department Care Team (Latest Contact Info) Description 06/28/2025 3:38 PM EDT - 06/29/2025 1:25 PM EDT Hospital Encounter [facility] [address] [place] [address] Sheyla Groves MD [address] [place] [address] William Calle MD [address] [address] Ureteral stone with hydronephrosis (Primary Dx) Discharge Disposition: Home or Self Care Social History Tobacco Use Types Packs/Day Years Used Date Smoking Tobacco: Never Passive Smoke Exposure: Never Smokeless Tobacco: Never Tobacco Cessation:Counseling Given: No Alcohol Use Standard Drinks/Week Comments Never 0 (1 standard drink = 0.6 oz pur e alcohol) AUDIT-C Answer Date Recorded Q1: How often do you have a drink containing alcohol? Never 06/29/2025 Q2: How many drinks containi ng alcohol do you have on a typical day when you are drinking? Patient does not drink Q3: How often do you have si x or more drinks on one occasion? Never 06/29/2025 Comments Unknown Sex and Gender Information Value Date Recorded Sex Assigned at Not on file Legal Sex Female 1:07 PM EDT Gender Identity Not on file Sexual Orientation Not on file documented as of this encounter Last Filed Vital Signs Vital Sign Reading Time Taken Comments Blood Pressure 125/76 06/29/2025 12:44 PM EDT Pulse 82 06/29/2025 12:44 PM EDT Temperature 36.4 C (97.5 F) 06/29/2025 12:44 PM EDT Respiratory Rate 14 06/29/2025 4:01 AM EDT Oxygen Saturation 98% 06/29/2025 12:44 PM EDT Inhaled Oxygen Concentration - - Weight 71 kg (156 lb 8.4 oz) 06/28/2025 4:46 PM EDT Height 162.6 cm (5' 4 ) 06/28/2025 4:46 PM EDT Body Mass Index 26.87 06/28/2025 4:46 PM EDT documented in this encounter Functional Status * AUDIT-C Score Answer Date of Assessment Author 0 06/29/2025 12:43 AM EDT Toña Lockett RN * Question Answer Date of Assessment Author Q1: How often do you have a drink containing alcohol? Never 06/29/2025 12:43 AM EDT Toña Lockett RN Q2: How many drinks containing alcohol do you have on a typical day when you are drinking? Patient does not drink 06/29/2025 12:43 AM EDT Toña Lockett RN Q3: How often do you have six or more drinks on one occasion? Never 06/29/2025 12:43 AM EDT Toña Lockett RN * Are you deaf or do you have serious difficulty hearing? Answer Date of Assessment Author No 06/29/2025 12:21 PM EDT Stacey Erazo * Are you blind or do you have serious difficulty seeing, even when wearing glasses? Answer Date of Assessment Author No 06/29/2025 12:21 PM EDT Stacey Erazo * Do you have serious difficulty walking or climbing stairs? Answer Date of Assessment Author No 06/29/2025 12:21 PM EDT Stacey Erazo * Do you have serious difficulty dressing or bathing? Answer Date of Assessment Author No 06/29/2025 12:21 PM EDT Stacey Erazo * Because of a physical, mental, or emotional condition, do you have serious difficulty doing errandsalone such as visiting the doctor? Answer Date of Assessment Author No 06/29/2025 12:21 PM EDT Stacey Erazo * Calculated C-SSRS Risk Score (Lifetime/Recent) Answer Date of Assessment Author No Risk Indicated 06/28/2025 5:05 PM EDT Vicenta James RN * Question Answer Date of Assessment Author 1. Wish to be (Past 1 Month) No 06/28/2025 5:05 PM EDT Vicenta Wesley RN 2. Non-Specific Active Suici sushil Thoughts (Past 1 Month) No 06/28/2025 5:05 PM EDT Leta Wesley RN 6. Suicidal Behavior (Lifetime) No 5:05 PM EDT Vicenta Wesley RN documented as of this encounter Mental Status * Because of a physical, mental, or emotional condition, do you have serious difficulty concentrating, remembering, or making decisions? (5 years old or older) Answer Entry Date Author No 06/29/2025 12:21 PM EDT Stacey Erazo documented in this encounter Discharge Instructions * Discharge Instructions* Wilfred Richard MD - 06/29/2025 9:16 AM EDT Medications: - You should take 500mg Tylenol every 6 hours for mild - moderate pain. You may take up to 1000mg every 6 hours but do not take more than 4000mg in a day. - You should take 500mg methocarbamol 4 times per day for muscle spasms. - You may resume your previous medications unless otherwise instructed. Nutrition: - You may resume your normal diet as tolerated, focusing on liquids to keep yourself hydrated. Activity: - Walking and climbing stairs is ok and encouraged. You should refrain from any strenuous activity/exercise until your follow up appointment. - No lifting anything >10lbs (approximately a gallon of milk) for the next 6 weeks. - You may not drive for 24 hours after surgery, or while taking narcotics Potential Issues: - It is normal to have some blood in the urine after the procedure and while you have a stent in place. Drink plenty of water and it should clear up. Contact the office if you are passing large clotsor unable to urinate. - Call the office if you have a fever greater than 101 F - Call the office if you have severe abdominal discomfort, nausea and vomiting, or feeling unwell Follow Up: - You will be contacted by the clinic for a follow up appointment in approximately 2-4 weeks. Questions or Concerns and Appointments (physicians work at both clinics so confirm your location ahead of your appointment) [facility] Clinic at [address], [address] Floor, [facility], [address] [place] [address] Clinic After Hours [facility] [address] [facility] [address] [place] [address] Clinic documented in this encounter Medications at Time of Discharge acetaminophen (Tylenol) 500 MG tablet Take 2 tablets by mouth every 6 hours as needed for pain. 50 tablet 06/29/2025 Aspirin 81 MG capsule Take 1 capsule by mouth daily. 05/04/2025 exenatide 5 MCG/0.02ML inj. pen 2 times a day before meals. 05/04/2025 ibuprofen 400 MG tablet Take 1 tablet by mouth every 6 hours as needed for moderate pain. 20 tablet 06/29/2025 methocarbamol (Robaxin) 500 MG tablet Take 1 tablet by mouth 4 times a day as needed for muscle spasms. 20 tablet 06/29/2025 phenazopyridine (Pyridium) 100 MG tablet Take 1 tablet by mouth 3 times a day for 10 days. 30 tablet 06/29/2025 07/12/2025 documented as of this encounter Miscellaneous Notes * Query Clarification Note - William Calle MD - 06/29/2025 1:25 PM EDT Physician Clarification [x] UTI due to klebsiella pneumoniae [] Other (please comment) This documentation will become part of the patient's medical record. * Stacey Jay - 06/29/2025 12:20 PM EDT Images from the original note were not included. [address] Diabetic Ketoacidosis Diabetic ketoacidosis (DKA) is a serious problem that can happen in people with diabetes. DKA should be treated as a medical emergency. This is because it can lead to coma or . If you have the symptoms of DKA, get medical help right away. DKA happens more often in people with type 1 diabetes. It can also happen to people with type 2 diabetes who are taking the SLGT-2 inhibitors for diabetes control. It also can happen in women with diabetes during (gestational diabetes). DKA happens when insulin levels are too low. Without enough insulin, sugar (glucose) can?t get to the cells of your body. The glucose stays in the blood. The liver then puts out even more glucose into the blood. This causes high blood glucose (hyperglycemia). Your body breaks down stored fat, when your cells don't get the glucose they need for energy. When this happens, acids called ketones are released into the blood. This is called ketosis. High levels of ketones (ketoacidosis) can be harmfulto you. Hyperglycemia and ketoacidosis can also cause serious problems in the blood and your body, such as: ? Low levels of potassium and phosphate. ? Damage to kidneys or other organs. ? Coma. ? Dehydration. What causes diabetic ketoacidosis? In people with diabetes, DKA is most often caused by too little insulin in the body. It's also caused by: ? Diabetes that's not under good control. ? Infections, such as a urinary tract infection or pneumonia. ? Serious health problems, such as a heart attack. ? Reactions to certain prescribed medicines, including medicines used to treat type 2 diabetes. ? Reactions to illegal drugs, including cocaine. ? Problems with insulin delivery from an insulin pump. Symptoms of diabetic ketoacidosis DKA most often happens slowly over time. But it can get worse in a few hours if you are vomiting and dehydrated. The first symptoms are: ? Thirst and dry mouth. ? Urinating a lot. ? Belly pain. ? Nausea or vomiting. ? Breath that smells fruity (from the ketones). Over time, these symptoms may happen or get worse, including: ? Dry or flushed skin. ? Nausea and vomiting. ? Loss of appetite. ? Weight loss. ? Belly pain. ? Trouble breathing or breathing that is deep and rapid. ? Trouble thinking or confusion. ? Feeling very tired or weak. This can lead to coma. How is diabetic ketoacidosis diagnosed? Your health care provider will ask about your health history. They will give you a physical exam. You may also have tests, including: ? Blood tests to check your glucose levels and ketones. ? Blood tests to check your electrolytes, such as potassium, sodium, and bicarbonate. ? Plasma osmolarity to check the number of particles dissolved in your blood. ? Other blood tests to check for the number of red and white blood cells in your blood. ? Urine test to check for ketones. ? Electrocardiogram. ? Chest X-ray to check for lung infection. These tests are done to check for DKA, and watch it over time. How is diabetic ketoacidosis treated? DKA needs treatment right away in the hospital. Treatment includes: ? Insulin. This is the main type of treatment. Insulin allows the cells to use the glucose in the blood. This lowers the levels of both blood glucose and ketones. ? Fluids and electrolytes. These are given by IV (intravenous) line into a vein. Fluids are replaced and abnormal electrolyte levels are corrected. ? Other medicines. These may be given to treat an illness that caused DKA. For example, antibioticsmay be given to treat any infection that caused DKA. Preventing diabetic ketoacidosis To help prevent DKA, make sure you: ? Take all of your medicines for diabetes exactly as prescribed. This includes insulin. ? Check your blood glucose levels exactly as instructed. ? Be very careful when you are sick with an illness or an infection. Take extra care to follow diabetes care instructions for sick days. Check your blood glucose more often. Contact your health care provider if you have questions about how to manage your diabetes while you are ill. ? Don't exercise when your blood sugar is high and you have ketones in your urine. ? Check your urine ketone levels if told to do so. This is done with a urine test strip. Ask your provider how often to check your urine. When to contact your doctor Contact your health care provider or get medical care right away if you: ? Have symptoms of DKA. ? Have very high blood glucose levels or high levels of ketones in your urine. ? Are getting sick with another illness. ? Are confused about how to manage your diabetes. Last Reviewed Date: 2025 00:00:00 ?? [id number] [employer]. All rights reserved. This information is not intended as a substitute for professional medical care. Always follow your healthcare professional's instructions. * Otis MurguiaANDREW - Stacey Erazo - 06/29/2025 12:20 PM EDT Images from the original note were not included. 20600 Diabetes: Understanding Carbohydrates, Fats, and Protein Food is a source of fuel and nourishment for your body. It?s also a source of pleasure. Having diabetes doesn?t mean you have to eat special foods or give up desserts. Instead, your dietitian can show you how to plan meals to suit your body. To start, learn how different foods affect blood sugar. Carbohydrates Carbohydrates (carbs) are the main source of fuel for the body. They raise blood sugar. Many peoplethink carbohydrates are only in pasta or bread. But carbohydrates are in many kinds of foods. Carbsinclude: ? Sugars. These are naturally found in foods such as fruit, milk, honey, and molasses. Sugars can also be added to many foods. They may be added to cereals, yogurt, candy, and desserts. Sugars raise blood sugar rapidly. ? Starches. These are in bread, cereals, pasta, and dried beans. They?re also in corn, peas, potatoes, yam, acorn squash, and butternut squash. Starches raise blood sugar, but more slowly than simplesugars. ? Fiber. This is in foods such as vegetables, fruits, beans, and whole grains. Unlike other carbs, fiber isn?t digested or absorbed, so it can help keep blood sugar from rising too fast. It may also help keep blood cholesterol at a healthy level. Did you know? Even though carbohydrates raise blood sugar, it?s best to have some in every meal. They're an important part of a healthy diet. Fat Fat is an energy source that can be stored until needed. Fat doesn't raise blood sugar. But it can raise blood cholesterol. This increases the risk of heart disease. Fat is high in calories. Eating too many calories can cause weight gain. Not all types of fat are the same. More healthy: ? Monounsaturated fats. These are mostly found in vegetable oils such as olive, canola, and peanut oils. They're found in avocados and some nuts. Monounsaturated fats are healthy for your heart. That?s because they lower LDL ( bad ) cholesterol. ? Polyunsaturated fats. These are mostly found in vegetable oils such as corn, safflower, and soybean oils. They're found in some seeds, nuts, and fish. Polyunsaturated fats lower LDL ( bad ) cholesterol. So choosing them instead of saturated fats is healthy for your heart. Some unsaturated fats can help lower triglycerides. Less healthy: ? Saturated fats. These are found in animal products such as meat, poultry, whole milk, lard, and butter. Saturated fats raise LDL ( bad ) cholesterol. They are not healthy for your heart. ? Trans fats. These are formed when vegetable oils are processed into solid fats. They are found inmany processed foods. Trans fats raise LDL ( bad ) cholesterol and lower HDL ( good ) cholesterol. They are not healthy for your heart. Protein Protein helps the body build and repair muscle and other tissue. Protein has little or no effect onblood sugar. But many foods that have protein also have saturated fat. By choosing low-fat protein sources, you can get the benefits of protein without the extra fat: ? Plant protein. This is found in dry beans and peas, nuts, and soy products such as tofu and soy milk. These foods tend to have no cholesterol. Most are low in saturated fat. ? Animal protein. This is found in fish, poultry, meat, cheese, milk, and eggs. These foods have cholesterol. They can be high in saturated fat. Aim for lean, lower-fat choices. Don't eat fried foods. Last Reviewed Date: 2024 00:00:00 ?? [id number] [employer]. All rights reserved. This information is not intended as a substitute for professional medical care. Always follow your healthcare professional's instructions. * Otis Brandon - Stacey Erazo - 06/29/2025 12:20 PM EDT Images from the original note were not included. [address]28 Managing Type 2 Diabetes Type 2 diabetes is a long-term (chronic) condition. Managing it may mean making some tough changes.Your healthcare team can help you. You'll need to balance your medicine with diet and activity. This will help you manage your type 2 diabetes. You will also need to check your blood sugar often. And work with your healthcare providerto prevent complications. Ask your team about a service called diabetes self-management education and support (DSMES). The ADA advises that all people with diabetes participate in an individually appropriate DSMES. You will learn skills to help you better manage your diabetes and find support when you need it. This service should be provided at diagnosis, annually, or when not meeting treatment goals. Take your medicine You may take pills or give yourself insulin shots for diabetes. Or you may use both. Take your medicines or give yourself insulin at the right times, This will help you control your blood sugar. Think about ways that will help you remember to take your medicines the right way every day. Ask your healthcare provider or team for ideas. You may only take pills for your diabetes now. But this may change. Over time, most people with type 2 diabetes also need insulin or other injections. Eat healthy A healthy diet helps control the amount of sugar in your blood. It also helps you stay at a healthyweight. Or it helps you lose weight, if you're overweight. Extra weight makes it harder to control diabetes. Your healthcare team will help you create a plan that works for you. You don't have to give up all the foods you like. Have meals and snacks with: ? Vegetables ? Fruits ? Lean meats or other healthy proteins ? Whole grains ? Low-fat or nonfat dairy products Replace sugary drinks with water or low-calorie, no calorie drinks when possible. Don't have foods with added sugar. Be physically active Being active helps lower your blood sugar. Activity helps your body use insulin to turn food into energy. It also helps you manage your weight. Ask your healthcare provider to help you to make an activity program that's right for you. Your program is based on your age, general health, and types of activity you enjoy. Start off slowly. But try to aim for at least 150 minutes of exercise or activity each week. Start with 30 minutes a day. Exercise in 10- minute blocks. Don?t let more than 2 days go by without being active. Get enough sleep As you manage your diabetes, it's essential to recognize the significant role that sleep plays in your overall health. Quality sleep is not just about feeling rested; it can directly impact your blood sugar levels and diabetes management. Here are some sleep tips: ? Aim for 7-9 Hours. Most adults need between 7 to 9 hours of sleep per night. Try to stick with a regular sleep schedule. ? Be consistent. Going to sleep at the same time every night and waking up at the same time each day, including on the weekends, trains your body to be ready for the proper amount of sleep each night. ? Routine. Create a relaxing pre-bedtime routine that you do every night to help prepare you to fall asleep. Try reading a book, doing gentle yoga, or taking a bath. One thing to leave out of your routine is screens. The blue light emitted from phones, computers, and even TVs can disrupt your body?s ability to produce melatonin. This is a hormone that helps you sleep. Check your blood sugar A regular part of your care may be to check your own blood sugar. Or you may only need to check your blood sugar from time to time. Your healthcare provider will tell you how to check your blood sugar at home. Checking it tells you if your blood sugar is in your target range. Having your blood sugars within the target range means that you are managing your diabetes well. If your blood sugar levels are too high or too low, your healthcare provider may suggest changes toyour diet or activity level. They may also adjust your medicine. Your healthcare provider may also tell you to check your blood sugar more often when you are sick. Take care of yourself When you have diabetes, you may be more likely to get other health problems. They include foot, eye, heart, nerve, and kidney problems. You can help prevent these problems by controlling your blood sugar. And by taking good care of yourself. Your healthcare provider, nurse, music educator, and others can help you with the following: ? Checkups. You should have regular checkups with your healthcare provider. At those visits, you will have a physical exam that includes checking your feet. Your healthcare provider will also check your blood pressure and weight. Take your shoes off before your appointment starts to be sure your feet are checked. Be sure to bring the records of your blood sugar tests. Ask your healthcare providers if there are new or better ways to check on your blood sugars. ? Other exams. You'll also need eye, foot, and dental exams at least once each year or as advised. ? Lab tests. You will have blood and urine tests: o Your healthcare provider will check your hemoglobin A1C at least twice a year. This blood test shows how well you have been controlling your blood sugar over 2 to 3 months. The results help your healthcare provider manage your diabetes. o You will also have other lab tests. For example, to check for kidney problems and abnormal cholesterol levels. ? Smoking. If you smoke, you will need to quit. Smoking makes it more likely you will get complications from diabetes. Ask your healthcare provider about ways to quit. Also don't use e-cigarette, or vaping products. ? Vaccines. Get a yearly flu shot. And ask your healthcare provider about vaccines to prevent pneumonia, shingles, COVID-19, RSV, and hepatitis B. Stress and depression Most people have challenges throughout their lives. Living with diabetes can increase your stress. Feeling stressed or depressed can actually affect your blood sugar levels. Tell your healthcare provider if you are having trouble coping with diabetes. They can help or refer you to other healthcare providers or programs. To learn more Know where you can get help. You can try the following: ? Support. Ask family and friends to support your efforts to take care of yourself. Or look for a diabetes support group nearby or on the internet. Check the Support for Your Health Journey at diabetes.org/tools-resources ? Counseling. Talk with a manager social services, psychologist, psychiatrist, or other counselor. ? Information. Contact the [place] at www.diabetes.org or 689-214-7047. Another good source is the Association of Diabetes Care and Education Specialists at www.diabeteseducator.org/mxcrrb-tqlo-gmlnsmwf. Last Reviewed Date: 2022 00:00:00 ?? [id number] [employer]. All rights reserved. This information is not intended as a substitute for professional medical care. Always follow your healthcare professional's instructions. * Taylor Ochoa - 06/29/2025 12:10 PM EDT Images from the original note were not included. Creating a Sick Day Plan - Video Understand how preparing a sick day plan, while you are healthy, can help you manage your diabetes on days which you are ill. To view the video go to this web address: https://[employer].Pixowl/2M6ujar Or, scan this QR code with your smart phone ?? [employer] * Taylor Ochoa - 06/29/2025 12:10 PM EDT Images from the original note were not included. [address]505 Diabetes: Sick Day Plan Infections, the flu, and even a cold can cause your blood sugar to rise. Eating less or having an upset stomach (nausea) and vomiting may cause your blood sugar to fall. Creating a sick day plan willhelp you manage your blood sugar when you get ill. Planning ahead To plan ahead before you get sick: ? Ask your healthcare provider to help you make a sick day plan. ? Talk with 1 or 2 friends or family members about blood sugar monitoring. Tell them the symptoms that need emergency care. ? Put together a sick day box with medicines and easy-to-fix foods. ? Put a printed copy of your sick day plan in the box. Don?ts Don'ts include: ? Don?t stop taking your diabetes medicine without advice from your healthcare provider. ? Don't take other medicines without advice. Check with your healthcare provider first. This includes medicines such as those for colds or the flu. Do?s Do's include: ? Eating. Stick to your meal plan, if you can. Even if you can't eat your normal diet, you may still be able to eat some saltine crackers or dry toast. If you can?t eat, try fruit juice, regular gelatin, or frozen juice bars if approved by your healthcare provider. ? Drinking. Drink at least 1 glass of liquid every half hour. If you?re eating, these liquids should be sugar-free and caffeine-free. ? Checking your blood sugar. Check your blood sugar as often as your provider tells you to do so. You may need to check it more often than normal. ? Checking for ketones. Check your blood or urine for ketones. Ketones are the waste product from burning fat instead of glucose for the energy your body needs. They are a warning sign of ketoacidosis. Ketoacidosis is a medical emergency that can happen to anyone with diabetes. It is more common with type 1 diabetes. It may also be a problem if you are taking a certain type of medicine for type 2diabetes. This medicine type is called an SGLT-2 inhibitor. ? Taking your diabetes medicines. o Adjust your insulin based on your sick-day plan. Don't skip insulin. You need insulin even if youcan't eat your normal meals. o If you take pills for diabetes (oral medicines), take your normal dose unless your provider tellsyou something different. ? Choosing sugar-free medicines. Look for sugar-free cough drops and other medicines. Ask your provider if it?s OK for you to take these. ? Getting help. If you're alone, ask someone to check on you several times a day. Have your phone near you at all times. When to call your healthcare provider Call your provider or get medical care right away for any of the below: ? You vomit or have diarrhea for more than 6 hours. ? Your blood sugar level is higher than normal or more than 250 mg/dL even after you have taken extra insulin (if advised in your sick-day plan). ? You take oral medicine for diabetes, and your blood sugar is higher than normal or over 250 mg/dL, before a meal and stays that high for more than 24 hours. ? Your blood sugar is lower than normal or less than 70 mg/dL. ? You have moderate to large amounts of ketones in your blood or urine. ? You feel weak standing up. Or you have signs of dehydration, such as dry lips or tongue. ? You aren?t better after 2 days. ? You can't stay awake or think clearly. Last Reviewed Date: 2024 00:00:00 ?? [id number] [employer]. All rights reserved. This information is not intended as a substitute for professional medical care. Always follow your healthcare professional's instructions. * Consults - Taylor Rios - 06/29/2025 12:00 PM EDTAssociated Order(s): IP CONSULT TO DIABETIC EDUCATION Adult Diabetes Education Team Note Donna Warner 64 y.o. female CSN: [id number] This is a 64 y.o. female patient was admitted to [facility] with the diagnosis of ureteral stone with hydronephrosis. DM education for automatic A1c >9% Labs: A1C 9.2 06/28/25 FSBG-PRN FSBG FSBG Other FSBG-AC FSBG-HS FSBG-3a POCBG Ranges: 81-297 Current Diabetes Regimen: glargine 15u bid; lispro 1:50>150 tid prn ac or >250 hs and 3a prn Home Monitoring Of Diabetes Home Monitoring Meter Type: pt endorses glucometer at home Home Monitoring Frequency: Twice a day (BID) Home Monitoring Average: pt reports BG has increased to 200+ since she has been sick/in pain. She endorses her BG was better and A1c was down when last checked before admission. Home Medications for Diabetes: pt endorses metformin, glipizide, lantus, and another injectable sheis unaware of the name. Any barriers/issues getting DM/RX Supplies? Yes, no insurance Education Diabetic Education Performed with patient. Dx t2dm for 8 years, PCP is DM care provider Medication Education instructions given: The use of insulin Injection sites and rotation Importance of taking basal insulin Pt couldn't remember home doses of injectables, reports she goes by the box. Pt instructed by primary team to follow up with PCP for DM management. PCP or outpatient pharmacy will need to review medications with her. Pt endorses injectables taken twice daily. Pt endorses she is self adjusting insulin doses. taught titration of basal insulin: titration of basal insulin by +2u if fasting BG >150mg/dL for 3 consecutive days, or -2u if fasting BG <100 md/dL or experiencing unexplained low BGsx. Diabetic Monitoring Education instructions given: Test Times Target Goals Action to take for results outside the target goals Hyperglycemia causes, signs, symptoms and treatment Hypoglycemia Management instructions given: Symptoms, causes, and treatment Nutrition instructions given: Appropriate meal schedule Plate method Carbohydrate containing foods Sick Day Management instructions given: Importance of always taking basal insulin Complications and Hygiene instructions given: A1C Complications Prevention Follow Ups: Provided with educational literature and the diabetic [facility] diabetes basics booklet, [facility] 60g cho handout, and myplate tear sheet, A1c and complications handout Diabetes Education Team Recommendations: pt endorses understanding of education without questions at this time. Pt declines needing DM care prescriptions at discharge. Wilfred Schmidt with Uro onc team alerted to DM education completion and alerted to consider ADA standards of care recommend addingor intensifying DM care regimen when A1c >9%; importance of BG control for wound healing, infecti on prevention, and complication/readmission prevention. Education Time 30 minutes Taylor Rios * Progress Notes - Mikki Olson RN - 06/29/2025 10:03 AM EDT POC reviewed with primary team. Refer to primary team's discharge note for details. Medically readyto discharge today. Patient agrees to dc home today and agrees with above DC plan. In??s A. OTTO Olson, security services manager * Discharge Summary - Wilfred Richard MD - 06/29/2025 10:02 AM EDT Hospitalization Admit Date/Time: 06/28/2025 3:38 PM Admitting Attending: William Calle Discharge Date: 06/29/25 Discharge Attending Physician: William Calle MD PCP name and Address: Gabby Gordillo, [employer] [address] / [place] [address] Referring provider name and address: Loy Viramontes PA [address] [place] [address] [place] [address] Chief Concern, Brief History of Present Illness, and Hospital Course HPI: Donna Warner is a 64 y.o. female who presented with flank pain on 06/28/25. Hospital Course: Donna Warner is a 64 y.o. female who presented with Left flank pain on 06/28/25 and was subsequently admitted to [facility] for further work-up, evaluation, and treatment. On 06/28/25, the patient underwent cystoscopy with ureteral stent insertion. The procedure was tolerated well with no intr aoperative complications. The patient was successfully extubated post- operatively and taken to the PACU for immediate postoperative care per protocol. Patient was subsequently placed in a floor bed where the diet was slowly advanced which the patient tolerated well. The remainder of the post-operative course was uncomplicated. On the day of discharge, the patient was ambulating frequently and independently with pain well controlled on po pain meds, tolerating a regular diet, voiding adequately, and passing flatus and stool. Patient was discharged to home in stable condition without pending results. Surgeries and Procedures Procedures performed in this encounter Procedures Case Request Operating Room: CYSTOSCOPY, WITH URETERAL STENT INSERTION CYSTOSCOPY, WITH URETERAL STENT INSERTION, retrograde pyleogram (Left) Medication List .. acetaminophen 500 MG tablet Commonly known as: Tylenol Take 2 tablets by mouth every 6 hours as needed for pain. ibuprofen 400 MG tablet Take 1 tablet by mouth every 6 hours as needed for moderate pain. methocarbamol 500 MG tablet Commonly known as: Robaxin Take 1 tablet by mouth 4 times a day as needed for muscle spasms. phenazopyridine 100 MG tablet Commonly known as: Pyridium Take 1 tablet by mouth 3 times a day for 10 days. Where to Get Your Medications These medications were sent to [facility] - [place], [place] - [address] [facility] [address] acetaminophen 500 MG tablet ibuprofen 400 MG tablet methocarbamol 500 MG tablet phenazopyridine 100 MG tablet Discharge Diagnosis Medical Problems Active and Resolved Hospital Problems Hospital * (Principal) Ureteral stone with hydronephrosis Outpatient Follow-Up No future appointments. Test Results Pending At Discharge Pending Labs Order Current Status Urine Culture In process Urine Culture In process Discharge Disposition/Condition Disposition: Home Condition: Stable (s/sx potential problems absent or manageable) I spent < 30 minutes of patient care and instruction time in preparation for this discharge. Cosigned by William Calle MD at 06/30/2025 1:18 PM EDT Associated attestation - William Calle MD - 06/30/2025 1:18 PM EDT I saw and evaluated the patient with the resident/fellow. I discussed the case with the resident/fellow and agree with the findings and plan as documented. * Care Plan - Stacey Erazo - 06/29/2025 9:46 AM EDT Problem: Adult Inpatient Plan of Care Goal: Plan of Care Review Outcome: Ongoing, Progressing Flowsheets (Taken 06/29/2025 09) Progress: improving Outcome Evaluation: plan of care reviewed with patient Plan of Care Reviewed With: patient Goal: Patient-Specific Goal (Individualized) Outcome: Ongoing, Progressing Flowsheets (Taken 06/29/2025799) Patient/Family-Specific Goals (Include Timeframe): pt will remain free from falls/injury during this shift Individualized Care Needs: safety Anxieties, Fears or Concerns: none stated Goal: Absence of Hospital-Acquired Illness or Injury Outcome: Ongoing, Progressing Intervention: Identify and Manage Fall Risk Flowsheets (Taken 06/29/2025799) Safety Promotion/Fall Prevention: clutter-free environment maintained Intervention: Prevent Skin Injury Flowsheets Taken 06/29/2025937 Skin Protection: incontinence pads utilized Taken 06/29/2025799 Body Position: weight shifting Intervention: Prevent and Manage VTE (Venous Thromboembolism) Risk Flowsheets (Taken 06/29/2025799) VTE Prevention/Management: medication Intervention: Prevent Infection Flowsheets (Taken 06/29/2025937) Infection Prevention: environmental surveillance performed equipment surfaces disinfected hand hygiene promoted personal protective equipment utilized rest/sleep promoted Goal: Optimal Comfort and Wellbeing Outcome: Ongoing, Progressing Intervention: Monitor Pain and Promote Comfort Flowsheets (Taken 06/29/2025937) Pain Management Interventions: medication (see MAR) emotional support pillow support provided position adjusted Intervention: Provide Person-Centered Care Flowsheets (Taken 06/29/2025937) Trust Relationship/Rapport: care explained emotional support provided Goal: Readiness for Transition of Care Outcome: Ongoing, Progressing Intervention: Mutually Develop Transition Plan Flowsheets (Taken 06/29/2025937) Discharge Facility/Level of Care Needs: 1-Home or Self Care Equipment Needed After Discharge: none Equipment Currently Used at Home: none Current Outpatient/Agency/Support Group: other (see comments) Anticipated Changes Related to Illness: none Transportation Anticipated: family or friend will provide Outpatient/Agency/Support Group Needs: support group(s) Transportation Concerns: none Current Discharge Risk: other (see comments) Concerns to be Addressed: no discharge needs identified Readmission Within the Last 30 Days: no previous admission in last 30 days Patient/Family Anticipated Services at Transition: education services Patient/Family Anticipates Transition to: home with family Offered/Gave Vendor List: no Note: Case management to evaluate Problem: Skin Injury Risk Increased Goal: Skin Health and Integrity Outcome: Ongoing, Progressing Intervention: Optimize Skin Protection Flowsheets Taken 06/29/2025937 Skin Protection: incontinence pads utilized Taken 06/29/2025 08 Activity Management: up ad mulu Head of Bed (HOB) Positioning: HOB elevated Intervention: Promote and Optimize Oral Intake Flowsheets (Taken 06/29/2025937) Oral Nutrition Promotion: nutrition counseling provided Nutrition Interventions: diet adjusted food preferences provided Problem: Diabetes Goal: Optimal Coping Outcome: Ongoing, Progressing Intervention: Support Wellbeing and Self-Management Success Flowsheets (Taken 06/29/2025937) Supportive Measures: active listening utilized counseling provided positive reinforcement provided Family/Support System Care: involvement promoted self-care encouraged support provided Goal: Optimal Functional Ability Outcome: Ongoing, Progressing Intervention: Optimize Functional Ability Flowsheets Taken 06/29/2025 08 by Stacey Erazo Activity Management: up ad mulu Activity Assistance Provided: independent Taken 06/29/2025 0033 by Toña Lockett, JOCE Self-Care Promotion: independence encouraged Goal: Blood Glucose Level Within Target Range Outcome: Ongoing, Progressing Intervention: Optimize Glycemic Control Flowsheets (Taken 06/29/2025 003 by Toña Lockett RN) Hyperglycemia Management: blood glucose monitored correctional insulin given Goal: Minimize Hypoglycemia Risk Outcome: Ongoing, Progressing Intervention: Minimize and Manage Hypoglycemia Flowsheets (Taken 06/29/2025 09) Hypoglycemia Management: blood glucose monitored Problem: Pain Acute Goal: Optimal Pain Control and Function Outcome: Ongoing, Progressing Intervention: Optimize Psychosocial Wellbeing Flowsheets (Taken 06/29/2025937) Supportive Measures: active listening utilized counseling provided positive reinforcement provided Diversional Activities: television Spiritual Activities Assistance: music provided Intervention: Develop Pain Management Plan Flowsheets (Taken 06/29/2025937) Pain Management Interventions: medication (see MAR) emotional support pillow support provided position adjusted Intervention: Prevent or Manage Pain Flowsheets (Taken 06/29/2025937) Sensory Stimulation Regulation: care clustered lighting decreased quiet environment promoted Complementary Therapy: music therapy provided Bowel Elimination Promotion: adequate fluid intake promoted ambulation promoted Sleep/Rest Enhancement: awakenings minimized consistent schedule promoted family presence promoted regular sleep/rest pattern promoted Medication Review/Management: medications reviewed * Hospital Course - Wilfred Richard MD - 06/29/2025 9:08 AM EDT HPI: Donna Warner is a 64 y.o. female who presented with flank pain on 06/28/25. Hospital Course: Donna Warner is a 64 y.o. female who presented with Left flank pain on 06/28/25 and was subsequently admitted to [facility] for further work-up, evaluation, and treatment. On 06/28/25, the patient underwent cystoscopy with ureteral stent insertion. The procedure was tolerated well with no intr aoperative complications. The patient was successfully extubated post- operatively and taken to the PACU for immediate postoperative care per protocol. Patient was subsequently placed in a floor bed where the diet was slowly advanced which the patient tolerated well. The remainder of the post-operative course was uncomplicated. On the day of discharge, the patient was ambulating frequently and independently with pain well controlled on po pain meds, tolerating a regular diet, voiding adequately, and passing flatus and stool. Patient was discharged to home in stable condition without pending results. * Care Plan - Toña Lockett RN - 06/29/2025 12:39 AM EDT Problem: Adult Inpatient Plan of Care Goal: Plan of Care Review Outcome: Ongoing, Progressing Flowsheets (Taken 06/29/202532) Progress: improving Outcome Evaluation: Plan of care reviewed with patient and spouse verbalized understanding. Plan of Care Reviewed With: patient spouse Problem: Adult Inpatient Plan of Care Goal: Patient-Specific Goal (Individualized) Outcome: Ongoing, Progressing Flowsheets (Taken 06/29/2025 0000) Patient/Family-Specific Goals (Include Timeframe): Pt will be free of falls/Injury this shift. Individualized Care Needs: Safety Anxieties, Fears or Concerns: None expressed Problem: Adult Inpatient Plan of Care Goal: Absence of Hospital-Acquired Illness or Injury Outcome: Ongoing, Progressing Intervention: Identify and Manage Fall Risk Flowsheets (Taken 06/29/202532) Safety Promotion/Fall Prevention: activity supervised clutter-free environment maintained fall prevention program maintained lighting adjusted nonskid shoes/slippers when out of bed safety round/check completed Intervention: Prevent Skin Injury Flowsheets (Taken 06/29/202532) Body Position: weight shifting Skin Protection: protective footwear used Intervention: Prevent and Manage VTE (Venous Thromboembolism) Risk Flowsheets (Taken 06/29/2025 0000) VTE Prevention/Management: bilateral lower extremity SCDs (sequential compression devices) on Intervention: Prevent Infection Flowsheets (Taken 06/29/202532) Infection Prevention: hand hygiene promoted personal protective equipment utilized Problem: Adult Inpatient Plan of Care Goal: Readiness for Transition of Care Outcome: Ongoing, Progressing Intervention: Mutually Develop Transition Plan Flowsheets (Taken 06/29/202532) Equipment Currently Used at Home: none Concerns to be Addressed: no discharge needs identified Readmission Within the Last 30 Days: no previous admission in last 30 days Patient/Family Anticipates Transition to: home with family Problem: Diabetes Goal: Optimal Coping Outcome: Ongoing, Progressing Intervention: Support Wellbeing and Self-Management Success Flowsheets (Taken 06/29/202532) Supportive Measures: active listening utilized positive reinforcement provided problem-solving facilitated relaxation techniques promoted self-care encouraged self-responsibility promoted verbalization of feelings encouraged Family/Support System Care: involvement promoted self-care encouraged Goal: Optimal Functional Ability Outcome: Ongoing, Progressing Intervention: Optimize Functional Ability Flowsheets (Taken 06/29/202532) Activity Management: activity adjusted per tolerance Activity Assistance Provided: independent Self-Care Promotion: independence encouraged Goal: Blood Glucose Level Within Target Range Outcome: Ongoing, Progressing Intervention: Optimize Glycemic Control Flowsheets (Taken 06/29/202532) Hyperglycemia Management: blood glucose monitored correctional insulin given Goal: Minimize Hypoglycemia Risk Outcome: Ongoing, Progressing Intervention: Minimize and Manage Hypoglycemia Flowsheets (Taken 06/29/202532) Hypoglycemia Management: blood glucose monitored Problem: Pain Acute Goal: Optimal Pain Control and Function Intervention: Optimize Psychosocial Wellbeing Flowsheets (Taken 06/29/202536) Supportive Measures: active listening utilized decision-making supported positive reinforcement provided relaxation techniques promoted self-care encouraged self-reflection promoted self-responsibility promoted verbalization of feelings encouraged Diversional Activities: television smartphone Intervention: Develop Pain Management Plan Flowsheets (Taken 06/29/202536) Pain Management Interventions: quiet environment facilitated rest pillow support provided position adjusted Intervention: Prevent or Manage Pain Flowsheets (Taken 06/29/202536) Sensory Stimulation Regulation: care clustered lighting decreased quiet environment promoted television on Bowel Elimination Promotion: adequate fluid intake promoted Sleep/Rest Enhancement: awakenings minimized noise level reduced regular sleep/rest pattern promoted relaxation techniques promoted * Anesthesia PACU Signout - Manuel Gutierrez MD - 06/28/2025 9:25 PM EDT Patient: Donna Salazarham Anesthesia Type: general Vitals Value Taken Time BP 129/75 06/28/25 21:20 Temp 36.8 ??C (98.3 ??F) 06/28/25 21:00 Pulse 100 06/28/25 21:23 Resp 18 06/28/25 21:23 SpO2 99 % 06/28/25 21:23 Vitals shown include unfiled device data. Anesthesia PACU Signout Patient location during evaluation: PACU Patient participation: complete - patient participated Level of consciousness: baseline and awake Pain management: adequate (pain score 0-3) Airway patency: natural airway Hydration status: acceptable PONV: none Cardiovascular status: acceptable and hemodynamically stable Respiratory status: acceptable, spontaneous ventilation, unassisted and nonlabored ventilation Discharge Disposition: admit to inpatient unit Cosigned by Adeel Newsome MD at 06/29/2025 10:10 PM EDT Associated attestation - Adeel Newsome MD - 06/29/2025 10:10 PM EDT I discussed the case with the resident/fellow and agree with the findings and plan as documented. * Op Note - William Calle MD - 06/28/2025 8:20 PM EDT Operative Note Date: 06/28/25 Location: [facility] Name: Donna Warner, : 1960, Diagnoses: Pre-op Diagnosis Ureteral stone with hydronephrosis Post-op Diagnosis Ureteral stone with hydronephrosis Procedure(s): Cystoscopy Left retrograde pyelogram Left ureteral stent placement without strings Attending Surgeon(s): * William Calle - Primary Irish Moss Gatherer(s): * Teresa Kimble MD - Resident - Assisting Anesthesia: Choice ASA: II Blood Administration: Blood Product Administration History None Estimated Blood Loss: Minimal Drains: * None in log * Implants Type Name Action Serial No. Stent STENT URETERAL DOUBLE PIGTAIL POS 6FR 24CM - [id number] Wasted Stent STENT URETERAL DOUBLE PIGTAIL POS 6FR 26CM - [id number] Implanted Specimen: Specimens ID Source Frozen? A Other (specify site) Description: Left Renal Pelvis Urine Findings: - Mild rectal prolapse - Bladder without masses, stones, or lesions. Bilateral ureteral orifices in normal anatomic position. - Left retrograde pyelogram demonstrated dilated left renal pelvis without contrast extravasation and was used to assist with stent placement - Successful placement of 6 Japanese X 26 cm JJ ureteral stent without strings on the left Indications: Donna Warner is an 64 y.o. female who is having surgery for Ureteral stone with hydronephrosis. History of T2DM, hypothyroidism, and HLD who presents to ED as a transfer from [facility] for left UPJ stone with upstream hydronephrosis and concern for infection. She has been afebrile and hemodynamically stable. OSH labs notable for WBC 6.1, hemoglobin 13.3, creatinine 0.7, hemoglobin A1c 8.4, urinalysis with protein, glucose, ketones, blood, nitrites positive, leukocyte esterase, and 4+ bacteria. Narrative: After informed consent was obtained, the patient was brought into the surgical suite. General anesthesia was administered, SCDs were placed on the patient, preoperative antibiotics were administered prior to the start of the case. The patient was placed in the dorsal lithotomy position. The patientwas prepped and draped in a sterile and standard fashion. A time-out was called immediately prior to the start of the case, and all in the room were in agreement. A 21 Japanese rigid cystoscope was introduced through the patient's urethral meatus into the urinary bladder. Quick survey of the bladder demonstrated no masses, stones, or lesions. Bilateral ureteral orifices in normal anatomic position. The left ureteral orifice was cannulated with a sensor wire and this is advanced under fluoroscopy to the level of the left renal pelvis. A 5 Japanese open-ended ureteral catheter was advanced over the sensor wire into the left renal pelvis and the wire was withdrawn. A hydronephrotic drip was noted of concentrated urine, a left renal pelvis urine was collected and sent for culture. Contrast was injected through the catheter to delineate the left intrarenal anatomy which demonstrated dilated left renal collecting system without contrast extravasation. The ureteral catheter was exchanged for a sensor wire under fluoroscopy. A 6 Japanese X 26 cm JJ ureteral stent was advanced over the wire in the proximal curl was confirmed to be in the left renal pelvis and distal curl in the urinary bladder. The patient tolerated the procedure well and was awakened from anesthesia without difficulty. The patient was transported to PACU in stable condition. There were NO signs of surgical site infection (SSI) present at the time of surgery (PATOS). Complications: None; patient tolerated the procedure well. Postoperative plan: - Patient is admitted to Urology service - Regular diet - Flomax while stent in place - Oxybutynin for bladder spasms as needed, Pyridium for discomfort as needed - Follow up urine cultures Submitted by: Teresa Kimble MD - 06/28/2025 * H&P - Teresa Kimble MD - 06/28/2025 5:57 PM EDTAssociated Order(s): Consult to Urology Consult to Urology Consult performed by: Teresa Kimble MD Consult ordered by: Sheyla Groves MD Reason for consult: Left UPJ stone with hydronephrosis [facility] Urology Consult Note 06/28/25 Service Requesting Consultation: Emergency medicine CC: Left UPJ stone with hydronephrosis HPI: Donna Warner is a 64 y.o. female with pmhx T2DM, hypothyroidism, and HLD who presents to ED as a transfer from [facility] for left UPJ stone with upstream hydronephrosis and concern for infection. She has been afebrile and hemodynamically stable. OSH labs notable for WBC 6.1, hemoglobin 13.3, creatinine 0.7, hemoglobin A1c 8.4, urinalysis with protein, glucose, ketones, blood,nitrites positive, leukocyte esterase, and 4+ bacteria. Patient states she has had nausea and a poor appetite and feels unwell since October. She states that she was recently treated for an H pyloriinfection and treated antibiotics about 2 weeks ago. She has known about her kidney stone for the last couple of months. She states she had a subjective fever, nausea, and vomiting. She denies any flank pain, dysuria, or hematuria. She used to see a urologist in the past in [place] but recently moved to [place] and has not established with a urologist here. She has a history of kidney stones and required ureteroscopy once in the past. Surgical history remarkable for carpal tunnel surgery and ureteroscopy. She denies any tobacco use. She occasionally drinks alcohol. She takes ASA 81 but no other blood thinners. Family history of father with prostate cancer in mother with breast cancer. Past Medical History: reviewed Past Medical History[1] Past Surgical History: reviewed Surgical History[2] Family History: reviewed Family History[3] Social History: reviewed Social History[4] Outpatient Medications: No current outpatient medications ROS: Review of Systems All other systems reviewed and are negative. PHYSICAL EXAM: Temp: [36.8 ??C (98.3 ??F)] 36.8 ??C (98.3 ??F) Heart Rate: [96] 96 Resp: [16] 16 BP: (110)/(71) 110/71 SpO2: [98 %] 98 % GEN: NAD HEENT: NCAT, EOMI RESP: Equal bilateral chest rise, normal work of breathing CV: Regular rate, appears well perfused ABD: Nondistended, nontender to palpation : No CVA tenderness bilaterally EXT: No gross deformities MSK: Full ROM in BL UE NEURO: No focal deficits, alert and oriented PSYCH: Normal mood and affect LABS: Results from last 7 days Lab Units 06/28/25 1657 WBC 10*3/uL 5.12 HEMOGLOBIN g/dL 11.5 HEMATOCRIT % 34.1 PLATELETS 10*3/uL 183 Results from last 7 days Lab Units 06/28/25 1657 SODIUM mmol/L 138 POTASSIUM mmol/L 3.7 CHLORIDE mmol/L 105 CO2 mmol/L 19* BUN mg/dL 17 CREATININE mg/dL 0.56* EGFR mL/min/1.73m*2 102.1 GLUCOSE mg/dL 102* CALCIUM mg/dL 9.2 Results from last 7 days Lab Units 06/28/25 1641 COLOR UA Dark Yellow SPEC GRAV U >1.030* PH UA 6.0 PROTEIN UR mg/dL Trace* GLUCOSE UA mg/dL 500* KETONES UA mg/dL 40* LEUKOCYTES UA Negative NITRITE UA Negative Results from last 7 days Lab Units 06/28/25 1641 COLOR UA Dark Yellow SPEC GRAV U >1.030* PH UA 6.0 PROTEIN UR mg/dL Trace* GLUCOSE UA mg/dL 500* KETONES UA mg/dL 40* LEUKOCYTES UA Negative NITRITE UA Negative Imaging: I have personally reviewed the imaging below: CT abdomen and pelvis 06/28/2025: My personal interpretation this imaging is that there is a 11 x 8 mm left UPJ stone with upstream hydronephrosis. There are some punctate nonobstructing left renal stones was well as an 8 mm left lower pole renal stone. Mildly distended but unremarkable urinary bladder. Hospital Problem List: Principal Problem: Ureteral stone with hydronephrosis Assessment: Donna Warner is a 64 y.o. female with pmhx T2DM, hypothyroidism, and HLD who presents to ED as a transfer from [facility] for left UPJ stone with upstream hydronephrosis and concern for infection. She has been afebrile and hemodynamically stable. OSH labs notable forWBC 6.1, hemoglobin 13.3, creatinine 0.7, hemoglobin A1c 8.4, urinalysis with protein, glucose, ketones, blood, nitrites positive, leukocyte esterase, and 4+ bacteria. Labs here WBC 5.1, HGB 11.5, creatinine 0.56, urinalysis with trace protein, ketones, and glucose. She did receive a dose of Rocephin at OSH. Given concern for infection in the setting of an obstructing stone we will plan for cystoscopy and left ureteral stent placement Plan: - admit to urology - NPO - To OR for cystoscopy and left ureteral stent placement - [facility] - restart home meds as able Teresa Kimble MD [1] History reviewed. No pertinent past medical history. [2] History reviewed. No pertinent surgical history. [3] No family history on file. [4] Cosigned by William Calle MD at 06/30/2025 1:17 PM EDT Associated attestation - William Calle MD - 06/30/2025 1:17 PM EDT I saw and evaluated the patient with the resident/fellow. I discussed the case with the resident/fellow and agree with the findings and plan as documented. * ED Provider Notes - David Santos MBBS - 06/28/2025 3:37 PM EDT Images from the original note were not included. - HPI Chief Complaint Patient presents with Nausea HPI Ms Warner is 64, with PMH of T2DM who presented to [facility] with nausea/vomiting and was found to have an obstructing 12 mm stone in L proximal ureter, found to be in DKA and started on insulin gtt. She notes that she has had nausea/vomiting for about 6 weeks now, she tested positive for H pylori and completed two weeks of treatment, with minimal improvement in symptoms. Given this, she presented to OSH ED today, for further evaluation, where CT scan showed a 12 mm stone with obstruction and was transferred here after being given unclear dose of ceftriaxone due to no Urology service at OSH. She was also started on insulin gtt due to being found in DKA but stopped in transfer due to glucoseof 70-80 She notes no fevers, no abdominal or flank pain at all. Patient History Past Medical History[1] Surgical History[2] Family History[3] Social History[4] Allergies: Allergies[5] Physical Exam ED Triage Vitals [06/28/25 1551] Temp Heart Rate Resp BP 36.8 ??C (98.3 ??F) 96 16 110/71 SpO2 Temp src Heart Rate Source Patient Position 98 % -- -- -- BP Location FiO2 (%) -- -- Physical Exam Constitutional: Appearance: Normal appearance. HENT: Mouth/Throat: Mouth: Mucous membranes are moist. Pharynx: Oropharynx is clear. Cardiovascular: Rate and Rhythm: Normal rate and regular rhythm. Pulses: Normal pulses. Heart sounds: Normal heart sounds. No murmur heard. Pulmonary: Effort: Pulmonary effort is normal. No respiratory distress. Breath sounds: Normal breath sounds. No wheezing. Abdominal: General: Abdomen is flat. There is no distension. Palpations: Abdomen is soft. Tenderness: There is no abdominal tenderness. There is no right CVA tenderness or left CVA tenderness. Musculoskeletal: Right lower leg: No edema. Left lower leg: No edema. Skin: General: Skin is warm and dry. Capillary Refill: Capillary refill takes less than 2 seconds. Neurological: General: No focal deficit present. Mental Status: She is alert and oriented to person, place, and time. No data recorded ED Course & MDM - Assessment: 64 y.o. female presents to ED with complaint of obstructive stone. It should be noted that the chronic conditions includes T2DM, which currently is not at goal therapy. This complicates the clinical picture because it Comorbidities: may be exacerbating symptoms and increases the amount and complexity of data to be reviewed Differential Diagnosis: Obstructive stone, DKA, UTI In order to fully explore the differential diagnosis the following treatments and tests were ordered: All Other Orders Ordered Status Ordering Provider 06/28/25 1806 Hemogram (CBC) Morning draw Start Status Ordering Provider 06/29/25 0400 Scheduled AL AWADI, TERESA N 06/30/25 0400 Scheduled AL AWADI, TERESA N 07/01/25 0400 Scheduled AL AWADI, TERESA N 07/02/25 0400 Scheduled AL AWADI, TERESA N 07/03/25 0400 Scheduled AL AWADI, TERESA N Acknowledged AL AWADI, TERESA N 06/28/25 1806 Basic metabolic panel Morning draw Start Status Ordering Provider 06/29/25 0400 Scheduled AL AWADI, TERESA N 06/30/25 0400 Scheduled AL AWADI, TERESA N 07/01/25 0400 Scheduled AL AWADI, TERESA N 07/02/25 0400 Scheduled AL AWADI, TERESA N 07/03/25 0400 Scheduled AL AWADI, TERESA N Acknowledged AL AWADI, TERESA N 06/28/25 1806 Magnesium Morning draw Start Status Ordering Provider 06/29/25 0400 Scheduled AL AWADI, TERESA N 06/30/25 0400 Scheduled AL AWADI, TERESA N 07/01/25 0400 Scheduled AL AWADI, TERESA N 07/02/25 0400 Scheduled AL AWADI, TERESA N 07/03/25 0400 Scheduled AL AWADI, TERESA N Acknowledged AL AWADI, TERESA N 06/28/25 1806 Phosphorus Morning draw Start Status Ordering Provider 06/29/25 0400 Scheduled AL AWADI, TERESA N 06/30/25 0400 Scheduled AL AWADI, TERESA N 07/01/25 0400 Scheduled AL AWADI, TERESA N 07/02/25 0400 Scheduled AL AWADI, TERESA N 07/03/25 0400 Scheduled AL AWADI, TERESA N Acknowledged AL AWADI, TERESA N 06/28/25 1806 Ambulate patient 4 times daily Acknowledged AL AWADI, TERESA N 06/28/25 1806 Vital Signs (Every 4 hours) Every 4 hours Acknowledged TERESA KIMBLE N 06/28/25 1806 Check pulse oximetry (Every 4 hours) Every 4 hours Acknowledged TERESA KIMBLE N 06/28/25 180 Intake and Output (Every 4 hours) Every 4 hours Acknowledged TERESA KIMBLE N 06/28/25 180 Do Not Give Nicotine Replacement Until discontinued Acknowledged TERESA KIMBLE N 06/28/25 180 Mobility Orders Until discontinued Acknowledged TERESA KIMBLE N 06/28/25 180 Out of Bed Until discontinued Acknowledged TERESA KIMBLE N 06/28/25 180 Notify Provider Until discontinued Acknowledged TERESA KIMBLE N 06/28/25 180 Insert peripheral IV Once Placed in And Linked Group Acknowledged TERESA KIMBLE N 06/28/25 180 Saline lock IV Once Placed in And Linked Group Acknowledged TERESA KIMBLE N 06/28/25 180 Do NOT transfer patient to [facility] without chief resident or attending apporval Until discontinued Acknowledged TERESA KIMBLE N 06/28/25 180 Admit to inpatient Once Acknowledged TERESA KIMBLE N 06/28/25 180 Full code Continuous Acknowledged TERESA KIMBLE N 06/28/25 174 NPO diet NPO except: Sips with meds Diet effective now Acknowledged TERESA KIMBLE N 06/28/25 1748 Case Request Operating Room: CYSTOSCOPY, WITH URETERAL STENT INSERTION Once Completed VERONICA PETEALICEEBONIETERESA N 06/28/25 174 , urine Once Final result VERONICA PETEALICETERESA N 06/28/25 1748 Skin prep Once Acknowledged TERESA KIMBLE N 06/28/25 1748 Hibiclens Scrub Until discontinued Comments: Shower/scrub evening before and morning of procedure; include 5 minutes scrub each time to operative site with chlorhexidine gluconate 4% (Hibiclens). Acknowledged VERONICA PETEALICETERESA N 06/28/25 1748 Void registration manager to OR Once Acknowledged VERONICA FREEMANALICETERESA N 06/28/25 1740 Microbiology Frequency Override Once In process DAVID SANTOS 06/28/25 1649 Hemoglobin A1c STAT In process SHEYLA GROVES 06/28/25 1649 EKG now - STAT (adult) Once Preliminary result SHEYLA GROVES 06/28/25 1649 PT-INR STAT Final result SHEYLA GROVES 06/28/25 1649 Magnesium STAT Final result SHEYLA GROVES 06/28/25 1649 Blood gas panel, venous STAT Final result SHEYLA GROVES 06/28/25 1649 Beta-Hydroxybutyric Acid STAT Final result SHEYLA GROVES 06/28/25 1635 Urinalysis with reflex microscopic AND reflex culture (IF UTI SUSPECTED) STAT In process DAVID SANTOS 06/28/25 1635 Urinalysis with reflex microscopic (Culture NOT Included) PROCEDURE ONCE Final result DAVID SANTOS 06/28/25 1635 Urine Salvador Panel PROCEDURE ONCE In process DAVID SANTOS 06/28/25 1632 CMP STAT Final result DAVID SANTOS 06/28/25 1632 CBC and Differential STAT Final result DAVID SANTOS 06/28/25 1632 Hepatitis C Antibody - ED Once Final result DAVID SANTOS 06/28/25 1632 ED Protocol - HIV 1/2 Antibody/Antigen Screen Once Final result DAVID SANTOS 06/28/25 1633 ED HIV 1/2 Antibody/Antigen Screen w/Reflex to HIV 1/2 Differentiation PROCEDURE ONCE Final result DAVID SANTOS 06/28/25 1631 Consult to Urology Once Specialty: Urology Provider: (Not yet assigned) Completed DAVID SANTOS 06/28/25 1620 POCT glucose meter PROCEDURE ONCE Final result POCT, GENERIC PROVIDER OSH labs notable for WBC 6.1, hemoglobin 13.3, creatinine 0.7, hemoglobin A1c 8.4, urinalysis with protein, glucose, ketones, blood, nitrites positive, leukocyte esterase, and 4+ bacteria. Given OSH findings of left UPJ stone with hydronephrosis, with images powershared, Urology was consulted, who agreed to admit her to their service - CMP with no abnormalities, CBC with no leucocytosis (low suspicion for infection such as pyelonephritis) - INR slightly elevated at 1.2 however no signs of bleeding - Urine culture obtained, UA with trace protein and ketonuria - EKG normal Given DKA at OSH, VBG obtained showing pH of 7.3, bicarb of 21, beta hydroxy butyrate elevated at 2.46, however glucose normal and no anion gap, patient able to tolerate PO (likely resolving DKA) Social Determinates of Health Risks (including Economic Stability, Education and level of understanding, Healthcare access and quality and concerning social factors): None identified on this visit Ultimately, this patient was Was admitted (Admission) The encounter diagnosis was Ureteral stone with hydronephrosis.. Patient believed to require admission for the listed diagnoses. The Urology service was consulted for admission and was agreeable to admit to Acute Floor (Med/Surg). ED Prescriptions None Disposition Admit Admitting/Attending Physician: WILLIAM CALLE [[id number]] Provider Care Team: [facility] [[id number]] Are they the primary team?: Yes [1] - [1] History reviewed. No pertinent past medical history. [2] History reviewed. No pertinent surgical history. [3] No family history on file. [4] [5] No Known Allergies David Santos MBBS Resident [id number] Cosigned by Sheyla Groves MD at 06/28/2025 7:12 PM EDT Associated attestation - Sheyla Groves MD - 06/28/2025 7:12 PM EDT I saw and evaluated the patient with the resident/fellow. I discussed the case with the resident/fellow and agree with the findings and plan as documented. * ED Triage Notes - Vicenta Wesley RN - 06/28/2025 3:37 PM EDT Patient complains of n/v abdominal pain. Was in DKA at OSH, insulin drip was stopped en route FSBG 76. Sent for 12mm obstructing kidney stone. Recently had Hpylori completed abx. documented in this encounter Plan of Treatment Upcoming Encounters Date Type Department Care Team (Late st Contact Info) Description 09/09/2025 1:00 PM EDT Appointment [facility] [address] [place] [address] 09/09/2025 3:15 PM EDT Office Visit Medical Office Building Urology [address], [address] [place] [address] Gilberto Ling MD [address] [place] [address] documented as of this encounter Procedures Procedure Name Priority Date/Time Associated Diagnosis Comments POCT GLUCOSE METER UNSOLICITED RESULTS Routine 06/29/2025 12:42 PM EDT POCT GLUCOSE METER UNSOLICITED RESULTS Routine 06/29/2025 7:48 AM EDT POCT GLUCOSE METER UNSOLICITED RESULTS Routine 06/29/2025 6:47 AM EDT CBC W/O DIFFERENTIAL Routine 06/29/2025 3:58 AM EDT PHOSPHORUS, PLASMA Routine 06/29/2025 3: 58 AM EDT MAGNESIUM, PLASMA Routine 06/29/2025 3:5 8 AM EDT BASIC METABOLIC PANEL, PLASMA Routine 06/29/2025 3:58 AM EDT POCT GLUCOSE METER UNSOLICITED RESULTS Routine 06/28/2025 11:53 PM EDT FL LESS THAN 1 HOUR (NON-REPORTABLE) Routine 06/28/2025 9:00 PM EDT POCT GLUCOSE METER UNSOLICITED RESULTS Routine 06/28/2025 8:59 PM EDT URINE CULTURE Routine 06/28/2025 8:29 PM EDT Ureteral stone with hydronephrosis POCT GLUCOSE METER UNSOLICITED RESULTS Routine 06/28/2025 7:47 PM EDT ME CYSTOSCOPY,INSERT URETERAL STENT 06/28/2025 7:46 PM EDT Ureteral stone with hydronephrosis Special Needs Cmax MICROBIOLOGY FREQUENCY OVERRIDE STAT 06/28/2025 6:05 PM EDT , URINE Routine 06/28/2025 6:05 PM EDT URINE CULTURE Routine 06/28/2025 6:05 PM EDT ECG ADULT STAT 06/28/2025 4:57 PM EDT ED HIV 1/2 ANTIBODY/ANTIGEN SCREEN WITH REFLEX TO HIV I/II DIFFERENTIATION STAT 06/28/2025 4:57 PM EDT ED PROTOCOL HIV 1/2 ANTIBODY/ANTIGEN SCREEN W/REFLEX TO HIV 1/2 ANTIBODY DIFFERENTIATION STAT 06/28/2025 4:57 PM EDT BETA HYDROXYBUTYRIC ACID STAT 06/28/2025 4:57 PM EDT HEPATITIS C ANTIBODY - ED W/REFLEX TO HCV QUANT PCR STAT 06/28/2025 4:57 PM EDT PROTHROMBIN TIME(PT) / INR STAT 06/28/2025 4:57 PM EDT CBC WITH AUTO DIFFERENTIAL STAT 06/28/2025 4:57 PM EDT MAGNESIUM, PLASMA STAT 06/28/2025 4:5 7 PM EDT HEMOGLOBIN A1C STAT 06/28/2025 4:57 PM EDT BLOOD GAS PANEL, VENOUS STAT 06/28/2025 4:57 PM EDT COMPREHENSIVE METABOLIC PANEL, PLASMA STAT 06/28/2025 4:57 PM EDT URINALYSIS WITH REFLEX MICROSCOPIC AND CULTURE STAT 06/28/2025 4:41 PM EDT URINE SALVADOR PANEL STAT 06/28/2025 4:41 PM EDT URINALYSIS WITH REFLEX MICROSCOPIC STAT 06/28/2025 4:41 PM EDT POCT GLUCOSE METER UNSOLICITED RESULTS Routine 06/28/2025 4:20 PM EDT documented in this encounter Results * (ABNORMAL) POCT glucose meter (06/29/2025 12:42 PM EDT) Pathologist [facility] POCT Glucose 258(H) 74 - 99 mg/dL 06/29/2025 12:43 PM EDT [facility] Comment:Accuracy of a glucos e result obtained from a capillary whole blood specimen relies upon adequate, non-compromised capillary blood flow. If the capillary glucose result is not consistent with the patient's clinical signs and symptoms, glucose testing should be repeated with either an arterial or venous sample on the glucometer or sent to the main labortory for testing. Comment 06/29/2025 12:43 PM EDT [facility] Implementation Architect ID Jose Hartman 06/29/2025 12:43 PM EDT [facility] Device ID [id number] 06/29/2025 12:43 PM EDT [facility] Specimen Type POC Capillary 06/29/2025 12:43 PM EDT [facility] Blood Capillary blood specimen / Unknown 06/29/2025 12:42 PM EDT 06/29/2025 12:43 PM EDT us William Calle MD LAB POINT OF CARE T EST DOCKED DEVICE UNSOLICITED RESULTS Final Result [facility] [address] [place] [address] * (ABNORMAL) POCT glucose meter (06/29/2025 7:48 AM EDT) POCT Glucose 297(H) 74 - 99 mg/dL 06/29/2025 7:49 AM EDT [facility] Comment:Accuracy of a glucos e result obtained from a capillary whole blood specimen relies upon adequate, non-compromised capillary blood flow. If the capillary glucose result is not consistent with the patient's clinical signs and symptoms, glucose testing should be repeated with either an arterial or venous sample on the glucometer or sent to the main labortory for testing. Comment 06/29/2025 7:49 AM EDT [facility] Implementation Architect ID Jose Hartman 06/29/2025 7:49 AM EDT [facility] Device ID [id number] 06/29/2025 7:49 AM EDT [facility] Specimen Type POC Capillary 06/29/2025 7:49 AM EDT [facility] Blood Capillary blood specimen / Unknown 06/29/2025 7:48 AM EDT 06/29/2025 7:49 AM EDT William Calle MD LAB POINT OF CARE T EST DOCKED DEVICE UNSOLICITED RESULTS Final Result Performing Organization Address City/State/[facility] Co de Phone Number [facility] [address] [place] [address] * (ABNORMAL) POCT glucose meter (06/29/2025 6:47 AM EDT) [facility] POCT Glucose 294(H) 74 - 99 mg/dL 06/29/2025 6:49 AM EDT [facility] Comment:Accuracy of a glucos e result obtained from a capillary whole blood specimen relies upon adequate, non-compromised capillary blood flow. If the capillary glucose result is not consistent with the patient's clinical signs and symptoms, glucose testing should be repeated with either an arterial or venous sample on the glucometer or sent to the main labortory for testing. Comment 06/29/2025 6:49 AM EDT [facility] Implementation Architect ID Karlie Paniagua 06/29/2025 6:49 AM EDT [facility] Device ID [id number] 06/29/2025 6:49 AM EDT [facility] Specimen Type POC Capillary 06/29/2025 6:49 AM EDT [facility] Blood Capillary blood specimen / Unknown 06/29/2025 6:47 AM EDT 06/29/2025 6:49 AM EDT us William Calle MD LAB POINT OF CARE T EST DOCKED DEVICE UNSOLICITED RESULTS Final Result Performing Organization Address [facility] Co de Phone Number [facility] [address] [place] [address] * Phosphorus (06/29/2025 3:58 AM EDT) Phosphorus, Plasma 3.5 2.5 - 4.5 mg/dL 06/29/2025 4:41 AM EDT [facility] Blood Venous blood specimen / Unknown Venipuncture / Unknown 06/29/2025 3:58 AM EDT 06/29/2025 4:09 AM EDT William Calle MD LAB BLOOD ORDERABLES Final Result Performing Organization Address [facility] de Phone Number [facility] [address] [place] [address] * (ABNORMAL) Magnesium (06/29/2025 3:58 AM EDT) Magnesium, Plasma 1.8(L) 1.9 - 2.4 mg/dL 06/29/2025 4:41 AM EDT [facility] Blood Venous blood specimen / Unknown Venipuncture / Unknown 06/29/2025 3:58 AM EDT 06/29/2025 4:09 AM EDT William Calle MD LAB BLOOD ORDERABLES Final Result Performing Organization Address City/[facility] Co de Phone Number [facility] [address] [place] [address] * (ABNORMAL) Basic metabolic panel (06/29/2025 3:58 AM EDT) Glucose, Plasma 279(H) 74 - 99 mg/dL 06/29/2025 4:41 AM EDT [facility] BUN, Plasma 16 8 - 23 mg/dL 06/29/2025 4:41 AM EDT [facility] Creatinine, Plasma 0.61 0.60 - 1.10 mg/dL 06/29/2025 4:41 AM EDT [facility] BUN/Creatinine Ratio 26 06/29/2025 4:41 AM EDT [facility] Sodium, Plasma 139 136 - 145 mmol/L 06/29/2025 4:41 AM EDT [facility] Potassium, Plasma 4.4 3.6 - 4.9 mmol/L 06/29/2025 4:41 AM EDT [facility] Chloride, Plasma 106 97 - 107 mmol/L 06/29/2025 4:41 AM EDT [facility] CO2, Plasma 19(L) 22 - 29 mmol/L 06/29/2025 4:41 AM EDT [facility] Anion Gap 14 6 - 16 mmol/L 06/29/2025 4:41 AM EDT [facility] Total Calcium, Plasma 8.5(L) 8.9 - 10.2 mg/dL 06/29/2025 4:41 AM EDT [facility] eGFRcr 100.0 mL/min/1.7 3m*2 06/29/2025 4:41 AM EDT [facility] Comment:Reported eGFRcr in m L/min/1.73m2 is based the CKD-EPI 2020 equation that does not use a race coefficient. Blood Venous blood specimen / Unknown Venipuncture / Unknown 06/29/2025 3:58 AM EDT 06/29/2025 4:09 AM EDT us William Calle MD LAB BLOOD ORDERABLES Final Result [facility] [address] [place] [address] * (ABNORMAL) Hemogram (CBC) (06/29/2025 3:58 AM EDT) WBC Count 5.08 3.70 - 10.30 10*3/uL LAB HEMATOLOGY METHOD 06/29/2025 4:29 AM EDT [facility] RBC Count 3.74(L) 3.90 - 5.20 10*6/uL LAB HEMATOLOGY METHOD 06/29/2025 4:29 AM EDT [facility] HGB 10.9(L) 11.2 - 15.7 g/dL LAB HEMATOLOGY METHOD 06/29/2025 4:29 AM EDT [facility] HCT 32.3(L) 34.0 - 45.0 % LAB HEMATOLOGY METHOD 06/29/2025 4:29 AM EDT [facility] Platelet Count 188 155 - 369 10*3/uL LAB HEMATOLOGY METHOD 06/29/2025 4:29 AM EDT [facility] MCV 86 79 - 98 fL LAB HEMATOLOGY METHOD 06/29/2025 4:29 AM EDT [facility] MCH 29.1 26.0 - 32.0 pg LAB HEMATOLOGY METHOD 06/29/2025 4:29 AM EDT [facility] MCHC 33.7 30.7 - 35.5 g/dL LAB HEMATOLOGY METHOD 06/29/2025 4:29 AM EDT [facility] RDW 14.3 11.5 - 14.5 % LAB HEMATOLOGY METHOD 06/29/2025 4:29 AM EDT [facility] MPV 12.1 8.8 - 12.5 fL LAB HEMATOLOGY METHOD 06/29/2025 4:29 AM EDT [facility] nRBC 0.0 <=0.0 per 100 WBCs LAB HEMATOLOGY METHOD 06/29/2025 4:29 AM EDT [facility] Blood Venous blood specimen / Unknown Venipuncture / Unknown 06/29/2025 3:58 AM EDT 06/29/2025 4:03 AM EDT us William Calle MD LAB BLOOD ORDERABLES Final Result [facility] [address] [place] [address] * (ABNORMAL) POCT glucose meter (06/28/2025 11:53 PM EDT) [facility] POCT Glucose 223(H) 74 - 99 mg/dL 06/28/2025 11:58 PM EDT [facility] Comment:Accuracy of a glucos e result obtained from a capillary whole blood specimen relies upon adequate, non-compromised capillary blood flow. If the capillary glucose result is not consistent with the patient's clinical signs and symptoms, glucose testing should be repeated with either an arterial or venous sample on the glucometer or sent to the main labortory for testing. Comment 06/28/2025 11:58 PM EDT [facility] Implementation Architect ID Karlie Paniagua 06/28/2025 11:58 PM EDT [facility] Device ID [id number] 06/28/2025 11:58 PM EDT [facility] Specimen Type POC Capillary 06/28/2025 11:58 PM EDT [facility] Blood Capillary blood specimen / Unknown 06/28/2025 11:53 PM EDT 06/28/2025 11:58 PM EDT us William Calle MD LAB POINT OF CARE T EST DOCKED DEVICE UNSOLICITED RESULTS Final Result [facility] [address] [place] [address] * FL Less than 1 Hour Intraoperative (06/28/2025 9:00 PM EDT) Narrative IMAGING - 06/28/2025 9:28 PM EDT Images were obtained for surgical purposes. See William Calle's surgical note in the patient's chart for the findings. us William Calle MD IMG FLUOROSCOPY PROCEDURES Final Result IMAGING * (ABNORMAL) POCT glucose meter (06/28/2025 8:59 PM EDT) POCT Glucose 114(H) 74 - 99 mg/dL 06/28/2025 9:01 PM EDT [facility] Comment:Accuracy of a glucos e result obtained from a capillary whole blood specimen relies upon adequate, non-compromised capillary blood flow. If the capillary glucose result is not consistent with the patient's clinical signs and symptoms, glucose testing should be repeated with either an arterial or venous sample on the glucometer or sent to the main labortory for testing. Comment 06/28/2025 9:01 PM EDT [facility] Implementation Architect ID Sotero Sanchez 06/28/2025 9:01 PM EDT [facility] LAB Device ID [id number] 06/28/2025 9:01 PM EDT [facility] Specimen Type POC Capillary 06/28/2025 9:01 PM EDT [facility] Blood Capillary blood specimen / Unknown 06/28/2025 8:59 PM EDT 06/28/2025 9:01 PM EDT William Calle MD LAB POINT OF CARE T EST DOCKED DEVICE UNSOLICITED RESULTS Final Result [facility] [address] [place] [address] * (ABNORMAL) Urine Culture (06/28/2025 8:29 PM EDT) Culture Unable to quantitate due to interfering substance. 07/02/2025 1:42 PM EDT [facility] Culture Klebsiella pneumoniae(A) PRINCESS 07/02/2025 1:42 PM EDT [facility] Comment: This isolate has been identified using the FDA Approved UTILICASE CA System Edited result: Previously reported as Gram Negative Jorge on 06/30/2025 at 1805 EDT. Urine Topography unknown / Unknown 06/28/2025 8:29 PM EDT 06/28/2025 9:02 PM EDT Comment:Pre-op diagnosis: Ureteral stone with hydronephrosis [N13.2] Narrative Organism Antibiotic Method Susceptibility Klebsiella pneumoniae Amoxicillin/Clavulanate PRINCESS <=4/2 ug/ml: Susceptible Klebsiella pneumoniae Ampicillin PRINCESS 16 ug/ml: Resistant Klebsiella pneumoniae Ampicillin/Sulbactam PRINCESS 8/4 ug/ml: Susceptible Klebsiella pneumoniae Aztreonam PRINCESS <=2 ug/ml: Susceptible Klebsiella pneumoniae Cefazolin PRINCESS <=1 ug/ml: Susceptible Comment:Breakpoints when cefazolin is used for therapy of uncomplicated UTIs due to E. coli, K. pneumoniae, and P. mirabilis. Breakpoints are based on a dosage regimen of 1 g administered every 12 hours. Cefazolin should be used as a surrogate to predict susceptibility for all oral cephalosporins (including cephalexin and cefdinir) to E. coli, Klebsiella spp., and P. mirabilis isolated from the urine. Klebsiella pneumoniae Cefepime PRINCESS <=0.5 ug/ml: Susceptible Klebsiella pneumoniae Ceftriaxone PRINCESS <=1 ug/ml: Susceptible Klebsiella pneumoniae Ciprofloxacin PRINCESS <=0.25 ug/ml: Susceptible Klebsiella pneumoniae Ertapenem PRINCESS <=0.25 ug/ml: Susceptible Klebsiella pneumoniae Gentamicin PRINCESS <=2 ug/ml: Susceptible Klebsiella pneumoniae Levofloxacin PRINCESS <=0.25 ug/ml: Susceptible Klebsiella pneumoniae Meropenem PRINCESS <=0.5 ug/ml: Susceptible Klebsiella pneumoniae Nitrofurantoin PRINCESS >64 ug/ml: Resistant Klebsiella pneumoniae Piperacillin/Tazobactam PRINCESS 4/4 ug/ml: Susceptible Klebsiella pneumoniae Tetracycline PRINCESS >8 ug/ml: Resistant Klebsiella pneumoniae Tobramycin PRINECSS <=2 ug/ml: Susceptible Klebsiella pneumoniae Trimethoprim/Sulfa methoxazol e PRINCESS <=0.5/9.5 ug/ml: Susceptible William Calle MD LAB MICROBIOLOGY - GENERAL ORDERABLES Final Result [address] [address] * (ABNORMAL) POCT glucose meter (06/28/2025 7:47 PM EDT) [facility] POCT Glucose 122(H) 74 - 99 mg/dL 06/28/2025 7:50 PM EDT [facility] Comment:Accuracy of a glucos e result obtained from a capillary whole blood specimen relies upon adequate, non-compromised capillary blood flow. If the capillary glucose result is not consistent with the patient's clinical signs and symptoms, glucose testing should be repeated with either an arterial or venous sample on the glucometer or sent to the main labortory for testing. Comment 06/28/2025 7:50 PM EDT [facility] Implementation Architect ID Lupe Cordova 7:50 PM EDT [facility] Device ID [id number] 06/28/2025 7:50 PM EDT [facility] Specimen Type POC Capillary 06/28/2025 7:50 PM EDT [facility] Blood Capillary blood specimen / Unknown 06/28/2025 7:47 PM EDT 06/28/2025 7:50 PM EDT us William Calle MD LAB POINT OF CARE T EST DOCKED DEVICE UNSOLICITED RESULTS Final Result Performing Organization Address [facility] Co de Phone Number [facility] [address] [place] [address] * Urine Culture (06/28/2025 6:05 PM EDT) Culture <10,000 CFU/mL Mixed urogenital, fecal, or skin lavinia present. 06/30/2025 5:55 AM EDT [facility] Urine Urine specimen obtained by clean catch procedure / Unknown Non-blood Collection / Unknown 06/28/2025 6:05 PM EDT 06/28/2025 6:23 PM EDT William Calle MD LAB MICROBIOLOGY - GENERAL ORDERABLES Final Result Performing Organization Address [facility] de Phone Number [facility] [address] [place] [address] * , urine (06/28/2025 6:05 PM EDT) Urine Negative Negative 6:23 PM EDT [facility] Comment:False negative resul ts have been reported in some women after 7 weeks of gestation. Plasma hCG testing is recommended if clinically indicated. Urine Urine specimen obtained by clean catch procedure / Unknown Non-blood Collection / Unknown 06/28/2025 6:05 PM EDT 06/28/2025 6:15 PM EDT William Calle MD LAB URINE ORDERABLES Final Result Performing Organization Address [facility] de Phone Number [facility] [address] [place] [address] * Microbiology Frequency Override (06/28/2025 6:05 PM EDT) Microbiology Frequency Override Test Comment Urine culture 06/29/2025 7:05 AM EDT [facility] Urine Urine specimen obtained by clean catch procedure / Unknown Non-blood Collection / Unknown 06/28/2025 6:05 PM EDT 06/28/2025 6:23 PM EDT us Sheyla Groves MD LAB MICROBIOLOGY - GENERAL OR DERABLES Final Result [facility] [address] [place] [address] * EKG now - STAT (adult) (06/28/2025 4:57 PM EDT) EKG DIAGNOSIS CLASS Borderline Abnormal MUSE ECG Ventricular Rate 82 BPM MUSE ECG Atrial Rate 82 BPM MUSE ECG ME Interval 136 ms MUSE ECG QRSD Interval 74 ms MUSE ECG QT Interval 352 ms MUSE ECG QTC Interval 411 ms MUSE ECG P Vista 59 degrees MUSE ECG R Vista 46 degrees MUSE ECG T Wave [place] 59 degrees MUSE ECG Diagnosis Normal sinus rhythm MUSE ECG Diagnosis Low voltage QRS MUSE ECG Diagnosis Borderline ECG MUSE ECG Diagnosis MUSE ECG Diagnosis Confirmed by Gilberto West ([id number]) on 06/29/2025 4:58:20 PM MUSE ECG 06/28/2025 4:57 PM EDT 06/29/2025 4:58 PM EDT us Sheyla Groves MD ECG ORDERABLES Final Result MUSE ECG * (ABNORMAL) Hemoglobin A1c (06/28/2025 4:57 PM EDT) Hemoglobin A1c 9.2(H) <5.7 % 06/28/2025 7:22 PM EDT [facility] Blood Venous blood specimen / Unknown Venipuncture / Unknown 06/28/2025 4:57 PM EDT 06/28/2025 5:14 PM EDT Narrative [facility] - 06/28/2025 7:22 PM EDT HA1C Interpretive Data: Diagnosis of Diabetes: Diabetic > or = 6.5% Pre-diabetic 5.7 to 6.4% Non-diabetic < or = 5.6% Glycemic Targets for Type I and Type II Diabetics: Non- Adults <7.0% Adults <6.0% Children and Adolescents <7.5% Source: [place] [employer]. Standards of medical care in diabetes,2017. Diabetes Care.2017:40 (suppl 1):S1-S135. us Sheyla Groves MD LAB BLOOD ORDERABLES Final Re sult Performing Organization Address [facility]/ZIP Co de Phone Number [facility] [address] [place] [address] * (ABNORMAL) Beta-Hydroxybutyric Acid (06/28/2025 4:57 PM EDT) Beta-Hydroxybu tyric Acid, Plasma 2.46(H) <=0.27 mmol/L 06/28/2025 6:17 PM EDT [facility] Blood Venous blood specimen / Unknown Venipuncture / Unknown 06/28/2025 4:57 PM EDT 06/28/2025 5:05 PM EDT us Sheyla Groves MD LAB BLOOD ORDERABLES Final Re sult Performing Organization Address [facility] de Phone Number [facility] [address] [place] [address] * (ABNORMAL) Blood gas panel, venous (06/28/2025 4:57 PM EDT) pH, Venous 7.30(L) 7.32 - 7.43 LAB HEMATOLOGY METHOD 06/28/2025 5:10 PM EDT [facility] pCO2, Venous 43 37 - 52 mmHg LAB HEMATOLOGY METHOD 06/28/2025 5:10 PM EDT [facility] pO2, Venous 15(L) 25 - 40 mmHg LAB HEMATOLOGY METHOD 06/28/2025 5:10 PM EDT [facility] SO2, Measured, Venous 18(L) 65 - 80 % LAB HEMATOLOGY METHOD 06/28/2025 5:10 PM EDT [facility] Base Excess, Venous -5.1(L) -2.0 - 3.0 mmol/L LAB HEMATOLOGY METHOD 06/28/2025 5:10 PM EDT [facility] Bicarbonate, Calculated, Venous 21(L) 22 - 26 mmol/L LAB HEMATOLOGY METHOD 06/28/2025 5:10 PM EDT [facility] Hematocrit, Whole Blood 36.8 34.0 - 45.0 % LAB HEMATOLOGY METHOD 06/28/2025 5:10 PM EDT [facility] Sodium, Whole Blood 142 136 - 145 mmol/L LAB HEMATOLOGY METHOD 06/28/2025 5:10 PM EDT [facility] Potassium, Whole Blood 3.6 3.6 - 4.9 mmol/L LAB HEMATOLOGY METHOD 06/28/2025 5:10 PM EDT [facility] Chloride, Whole Blood 108(H) 97 - 107 mmol/L LAB HEMATOLOGY METHOD 06/28/2025 5:10 PM EDT [facility] Glucose, Whole Blood 101(H) 74 - 99 mg/dL LAB HEMATOLOGY METHOD 06/28/2025 5:10 PM EDT [facility] Lactate, Venous, Whole Blood 1.2 0.5 - 2.2 mmol/L LAB HEMATOLOGY METHOD 06/28/2025 5:10 PM EDT [facility] Ionized Calcium, Whole Blood 4.9 4.6 - 5.1 mg/dL LAB HEMATOLOGY METHOD 06/28/2025 5:10 PM EDT [facility] Blood Venous blood specimen / Unknown Venipuncture / Unknown 06/28/2025 4:57 PM EDT 06/28/2025 5:07 PM EDT us Sheyla Groves MD LAB BLOOD ORDERABLES Final Re sult Performing Organization Address City/[facility]/ZIP Co de Phone Number [facility] [address] [place] [address] * (ABNORMAL) Magnesium (06/28/2025 4:57 PM EDT) Magnesium, Plasma 1.2(L) 1.9 - 2.4 mg/dL 06/28/2025 5:31 PM EDT [facility] Blood Venous blood specimen / Unknown Venipuncture / Unknown 06/28/2025 4:57 PM EDT 06/28/2025 5:05 PM EDT us Sheyla Groves MD LAB BLOOD ORDERABLES Final Re sult Performing Organization Address City/[facility]/ZIP Co de Phone Number [facility] [address] [place] [address] * (ABNORMAL) PT-INR (06/28/2025 4:57 PM EDT) Prothrombin Time 14.9(H) 12.0 - 14.3 sec 06/28/2025 5:22 PM EDT [facility] INR 1.2(H) 0.9 - 1.1 06/28/2025 5:22 PM EDT [facility] Blood Venous blood specimen / Unknown Venipuncture / Unknown 06/28/2025 4:57 PM EDT 06/28/2025 5:05 PM EDT Narrative [facility] - 06/28/2025 5:22 PM EDT OPTIMAL INR RANGES FOR PATIENT ON ORAL ANTICOAGULANT THERAPY Prevention of venous thromboembolism INR 2.0 to 3.0 In patients with heart disease: Atrial fibrillation INR 2.0 to 3.0 Valvular heart disease INR 2.0 to 3.0 Tissue heart valves INR 2.0 to 3.0 Mechanical prosthetic valves INR 2.5 to 3.5 Prevention of recurrent WI INR 2.5 to 3.5 us Sheyla Groves MD LAB BLOOD ORDERABLES Final Re sult [facility] [address] [place] [address] * ED HIV 1/2 Antibody/Antigen Screen w/Reflex to HIV 1/2 Differentiation (06/28/2025 4:57 PM EDT) HIV 1 & 2 Antibody/Antigen Screen Non Reactive Non Reactive 06/28/2025 5:54 PM EDT [facility] Comment:Screening for HIV 1 & 2 antibodies, and P24 antigen is NONREACTIVE. No confirmatory testing is required. Blood Venous blood specimen / Unknown Venipuncture / Unknown 06/28/2025 4:57 PM EDT 06/28/2025 5:13 PM EDT us Sheyla Groves MD LAB BLOOD ORDERABLES Final Re sult [facility] [address] [place] [address] * Hepatitis C Antibody - ED (06/28/2025 4:57 PM EDT) Pathologist [facility] Hepatitis C Antibody Negative Negative 06/28/2025 5:56 PM EDT [facility] Blood Venous blood specimen / Unknown Venipuncture / Unknown 06/28/2025 4:57 PM EDT 06/28/2025 5:13 PM EDT us Sheyla Groves MD LAB BLOOD ORDERABLES Final Re sult [facility] [address] [place] [address] * (ABNORMAL) CBC and Differential (06/28/2025 4:57 PM EDT) [facility] WBC Count 5.12 3.70 - 10.30 10*3/uL LAB HEMATOLOGY METHOD 06/28/2025 5:09 PM EDT [facility] RBC Count 3.94 3.90 - 5.20 10*6/uL LAB HEMATOLOGY METHOD 06/28/2025 5:09 PM EDT [facility] HGB 11.5 11.2 - 15.7 g/dL LAB HEMATOLOGY METHOD 06/28/2025 5:09 PM EDT [facility] HCT 34.1 34.0 - 45.0 % LAB HEMATOLOGY METHOD 06/28/2025 5:09 PM EDT [facility] Platelet Count 183 155 - 369 10*3/uL LAB HEMATOLOGY METHOD 06/28/2025 5:09 PM EDT [facility] MCV 87 79 - 98 fL LAB HEMATOLOGY METHOD 06/28/2025 5:09 PM EDT [facility] MCH 29.2 26.0 - 32.0 pg LAB HEMATOLOGY METHOD 06/28/2025 5:09 PM EDT [facility] MCHC 33.7 30.7 - 35.5 g/dL LAB HEMATOLOGY METHOD 06/28/2025 5:09 PM EDT [facility] RDW 14.3 11.5 - 14.5 % LAB HEMATOLOGY METHOD 06/28/2025 5:09 PM EDT [facility] MPV 11.7 8.8 - 12.5 fL LAB HEMATOLOGY METHOD 06/28/2025 5:09 PM EDT [facility] nRBC 0.0 <=0.0 per 100 WBCs LAB HEMATOLOGY METHOD 06/28/2025 5:09 PM EDT [facility] Differential Type Automated LAB HEMATOLOGY METHOD 06/28/2025 5:09 PM EDT [facility] Neutrophils % 68 % LAB HEMATOLOGY METHOD 06/28/2025 5:09 PM EDT [facility] Lymphocytes % 18 % LAB HEMATOLOGY METHOD 06/28/2025 5:09 PM EDT [facility] Monocytes % 11 % LAB HEMATOLOGY METHOD 06/28/2025 5:09 PM EDT [facility] Eosinophils % 1 % LAB HEMATOLOGY METHOD 06/28/2025 5:09 PM EDT [facility] Basophils % 1 % LAB HEMATOLOGY METHOD 06/28/2025 5:09 PM EDT [facility] Immature Granulocytes % 1 % LAB HEMATOLOGY METHOD 06/28/2025 5:09 PM EDT [facility] Neutrophils Absolute 3.55 1.60 - 6.10 10*3/uL LAB HEMATOLOGY METHOD 06/28/2025 5:09 PM EDT [facility] Lymphocytes Absolute 0.91(L) 1.20 - 3.90 10*3/uL LAB HEMATOLOGY METHOD 06/28/2025 5:09 PM EDT [facility] Monocytes Absolute 0.55 0.30 - 0.90 10*3/uL LAB HEMATOLOGY METHOD 06/28/2025 5:09 PM EDT [facility] Eosinophils Absolute 0.05 0.00 - 0.50 10*3/uL LAB HEMATOLOGY METHOD 06/28/2025 5:09 PM EDT [facility] Basophils Absolute 0.03 0.00 - 0.10 10*3/uL LAB HEMATOLOGY METHOD 06/28/2025 5:09 PM EDT [facility] Immature Granulocytes Absolute 0.03 0.00 - 0.06 10*3/uL LAB HEMATOLOGY METHOD 06/28/2025 5:09 PM EDT [facility] Blood Venous blood specimen / Unknown Venipuncture / Unknown 06/28/2025 4:57 PM EDT 06/28/2025 5:05 PM EDT [facility] - 06/28/2025 5:09 PM EDT Therapeutic decision making should be based on absolute values, rather than percentages. us Sheyla Groves MD LAB BLOOD ORDERABLES Final Re sult [facility] [address] [place] [address] * (ABNORMAL) CMP (06/28/2025 4:57 PM EDT) Glucose, Plasma 102(H) 74 - 99 mg/dL 06/28/2025 5:31 PM EDT [facility] BUN, Plasma 17 8 - 23 mg/dL 06/28/2025 5:31 PM EDT [facility] Creatinine, Plasma 0.56(L) 0.60 - 1.10 mg/dL 06/28/2025 5:31 PM EDT [facility] BUN/Creatinine Ratio 30 06/28/2025 5:31 PM EDT [facility] Sodium, Plasma 138 136 - 145 mmol/L 06/28/2025 5:31 PM EDT [facility] Potassium, Plasma 3.7 3.6 - 4.9 mmol/L 06/28/2025 5:31 PM EDT [facility] Chloride, Plasma 105 97 - 107 mmol/L 06/28/2025 5:31 PM EDT [facility] CO2, Plasma 19(L) 22 - 29 mmol/L 06/28/2025 5:31 PM EDT [facility] Anion Gap 14 6 - 16 mmol/L 06/28/2025 5:31 PM EDT [facility] Total Calcium, Plasma 9.2 8.9 - 10.2 mg/dL 06/28/2025 5:31 PM EDT [facility] Total Protein 6.9 6.3 - 7.9 g/dL 06/28/2025 5:31 PM EDT [facility] Albumin, Plasma 3.7 3.5 - 5.2 g/dL 06/28/2025 5:31 PM EDT [facility] AST, Plasma 14 10 - 35 U/L 06/28/2025 5:31 PM EDT [facility] ALT, Plasma 12 10 - 35 U/L 06/28/2025 5:31 PM EDT [facility] Alkaline Phosphatase, Plasma 62 46 - 142 U/L 06/28/2025 5:31 PM EDT [facility] Total Bilirubin, Plasma 0.5 0.2 - 1.1 mg/dL 06/28/2025 5:31 PM EDT [facility] eGFRcr 102.1 mL/min/1.7 3m*2 06/28/2025 5:31 PM EDT [facility] Comment:Reported eGFRcr in m L/min/1.73m2 is based the CKD-EPI 2020 equation that does not use a race coefficient. Blood Venous blood specimen / Unknown Venipuncture / Unknown 06/28/2025 4:57 PM EDT 06/28/2025 5:05 PM EDT us Sheyla Groves MD LAB BLOOD ORDERABLES Final Re sult [facility] [address] [place] [address] * Urine [place] Panel (06/28/2025 4:41 PM EDT) Extra Reflex urine culture not indicated 06/29/2025 2:01 AM EDT [facility] Comment: Previously prelim verified as Culture prev ordered within last 24 hours, refer to previous culture result on 06/28/2025 at 1901 EDT. Previously prelim verified as Specimen evaluation in progress on 06/28/2025 at 2001 EDT. Previously prelim verified as Specimen evaluation in progress on 06/28/2025 at 2101 EDT. Previously prelim verified as Specimen evaluation in progress on 06/28/2025 at 2201 EDT. Previously prelim verified as Specimen evaluation in progress on 06/28/2025 at 2301 EDT. Previously prelim verified as Specimen evaluation in progress on 06/29/2025 at 0001 EDT. Previously prelim verified as Specimen evaluation in progress on 06/29/2025 at 0103 EDT. Urine Urine specimen obtained by clean catch procedure / Unknown Non-blood Collection / Unknown 06/28/2025 4:41 PM EDT 06/28/2025 5:14 PM EDT us Sheyla Groves MD LAB URINE ORDERABLES Final Re sult [facility] [address] [place] [address] * (ABNORMAL) Urinalysis with reflex microscopic (Culture NOT Included) (06/28/2025 4:41 PM EDT) Color, Urine Dark Yellow LAB URINALYSIS - AUTOMATED METHOD 06/28/2025 4:53 PM EDT [facility] Clarity, Urine Clear LAB URINALYSIS - AUTOMATED METHOD 06/28/2025 4:53 PM EDT [facility] Spec [place], Urine >1.030(H) 1.005 - 1.030 LAB URINALYSIS - AUTOMATED METHOD 06/28/2025 4:53 PM EDT [facility] pH, Urine 6.0 5.0 - 8.0 LAB URINALYSIS - AUTOMATED METHOD 06/28/2025 4:53 PM EDT [facility] Protein, Urine Trace(A) Negative mg/dL LAB URINALYSIS - AUTOMATED METHOD 06/28/2025 4:53 PM EDT [facility] Glucose, Urine 500(A) Negative mg/dL LAB URINALYSIS - AUTOMATED METHOD 06/28/2025 4:53 PM EDT [facility] Ketones, Urine 40(A) Negative mg/dL LAB URINALYSIS - AUTOMATED METHOD 06/28/2025 4:53 PM EDT [facility] Blood, Urine Negative Negative LAB URINALYSIS - AUTOMATED METHOD 06/28/2025 4:53 PM EDT [facility] Bilirubin, Urine Negative Negative LAB URINALYSIS - AUTOMATED METHOD 06/28/2025 4:53 PM EDT [facility] Urobilinogen, Urine 0.2 0.2 to 1.0 mg/dL LAB URINALYSIS - AUTOMATED METHOD 06/28/2025 4:53 PM EDT [facility] Leukocytes, Urine Negative Negative LAB URINALYSIS - AUTOMATED METHOD 06/28/2025 4:53 PM EDT [facility] Nitrite, Urine Negative Negative LAB URINALYSIS - AUTOMATED METHOD 06/28/2025 4:53 PM EDT [facility] Urine Urine specimen obtained by clean catch procedure / Unknown Non-blood Collection / Unknown 06/28/2025 4:41 PM EDT 06/28/2025 4:51 PM EDT Sheyla Groves MD LAB URINE ORDERABLES Final Re sult Performing Organization Address City/[facility] Co de Phone Number [facility] [address] [place] [address] * POCT glucose meter (06/28/2025 4:20 PM EDT) [facility] POCT Glucose 81 74 - 99 mg/dL 06/28/2025 4:22 PM EDT [facility] Comment:Accuracy of a glucos e result obtained from a capillary whole blood specimen relies upon adequate, non-compromised capillary blood flow. If the capillary glucose result is not consistent with the patient's clinical signs and symptoms, glucose testing should be repeated with either an arterial or venous sample on the glucometer or sent to the main labortory for testing. Comment 06/28/2025 4:22 PM EDT [facility] Implementation Architect ID Vicenta Wesley 06/28/2025 4:22 PM EDT [facility] Device ID [id number] 06/28/2025 4:22 PM EDT [facility] Specimen Type POC Capillary 06/28/2025 4:22 PM EDT [facility] Blood Capillary blood specimen / Unknown 06/28/2025 4:20 PM EDT 06/28/2025 4:22 PM EDT Generic Provider Poct LAB POINT OF CARE TEST DOCKED DEVICE UNSOLICITED RESULTS Final Result Performing Organization Address City/[facility] Co de Phone Number [facility] [address] [place] [address] documented in this encounter Visit Diagnoses Diagnosis Ureteral stone with hydronephrosis- Primary Ureteral stone with hydronephrosis documented in this encounter Admitting Diagnoses Diagnosis Ureteral stone with hydronephrosis documented in this encounter Administered Medications Inactive Administered Medications - up to 3 most recent administrations Medication Order MAR Action Action Date Dose Rate Site acetaminophen (Tylenol) tablet 1,000 mg 1,000 mg, Oral, Every 6 hours scheduled, First dose on Sat06/28/25 at 1810, Until Discontinued, Routine Given 06/29/2025 6:47 AM EDT 1,000 mg Given 06/29/2025 12:49 AM EDT 1,000 mg cefadroxil (Duricef) capsule 1,000 mg 1,000 mg, Oral, 2 times daily, 10 doses, First dose on Sat06/29/25 at 1000, Last dose on Sat07/03/25 at 2100, Routine Given 06/29/2025 10:33 AM EDT 1,000 mg cefTRIAXone (Rocephin) 2 g in sodium chloride 0.9% 100 mL IVPB (vial adapter required) 2 g, Intravenous, Every 24 hours, First dose on Sat06/29/25 at 0700, Until Discontinued, Routine New Bag 06/29/2025 6:46 AM EDT 2 g 220 mL/hr dextrose 10 % (D10W) bolus 125 mL 125 mL, Intravenous, Every 15 min PRN, Starting on Sat06/28/25 at 1808, Until Sat06/29/25 at 1639, Administer over 15 Minutes, Routine, low blood sugar BG 51-89 mg/dL dextrose 10 % (D10W) bolus 250 mL 250 mL, Intravenous, Every 15 min PRN, Starting on Sat06/28/25 at 1808, Until Sat06/29/25 at 1639, Administer over 15 Minutes, Routine, PRN low blood sugar BG =/<50 mg/dL glucagon (human recombinant) injection 1 mg 1 mg, Intramuscular, Every 15 min PRN, Starting on Sat06/28/25 at 1808, Until Sat06/29/25 at 1639, Routine, low blood sugar per Hypoglycemia Prevention and Treatment protocol glucose (Glutose) 40 % oral gel 15-30 grams of glucose 15-30 grams of glucose, Sublingual, Every 15 min PRN, Starting on Sat06/28/25 at 1808, Until Sat06/29/25 at 1639, Routine, low blood sugar, per Hypoglycemia Prevention and Treatment protocol heparin (porcine) injection 5,000 Units 5,000 Units, Subcutaneous, Every 8 hours scheduled, First dose on Sat06/28/25 at 2200, Until Discontinued, RoutineIndications:Prophy laxis of Venous Thromboembolism Given 06/29/2025 6:46 AM EDT 5,000 Units Left Lower Abdomen Given 06/28/2025 9:23 PM EDT 5,000 Units L eft Lower Abdomen insulin glargine-yfgn 100 UNIT/ML injection 15 Units 15 Units, Subcutaneous, 2 times daily, First dose on Sat06/29/25 at 0900, Until Discontinued, Routine Given 06/29/2025 8:07 AM EDT 15 Units Right Upper Arm (Delmar k) insulin lispro (Admelog) 100 units/mL injection - Correction - Standard Dose 0-5 Units, Subcutaneous, 3 times daily with meals, First dose on Sat06/29/25 at 0830, Until Discontinued, Routine Given 06/29/2025 1:06 PM EDT 3 Units Right Lower Abdomen Given 06/29/2025 8:07 AM EDT 3 Units Ri ght Upper Arm (Back) insulin lispro (Admelog) injection - Correction - Nighttime Dose 0-3 Units, Subcutaneous, 2 times nightly (2100 & 0300), First dose on Sat06/29/25 at 2100, Until Discontinued, Routine insulin regular (HumuLIN R,NovoLIN R) 100 units/mL injection - Correction - Standard Dose 0-5 Units, Subcutaneous, Every 6 hours scheduled, First dose on Sat06/28/25 at 1810, Until Discontinued, Routine Given 06/29/2025 6:51 AM EDT 3 Units Left Lower Abdomen Given 06/29/2025 12:49 AM EDT 2 Units L eft Lower Abdomen lactated Ringer's infusion 84 mL/hr, Intravenous, Continuous, Starting on Sat06/28/25 at 1810, Until Sat06/29/25 at 1639, Routine New Bag 06/29/2025 8:08 AM EDT 84 mL/ hr 84 mL/hr New Bag 06/28/2025 9:02 PM EDT 84 mL/hr 84 mL/hr New Bag 06/28/2025 8:01 PM EDT magnesium sulfate IVPB 2 g 2 g, Intravenous, Once, 1 dose, On Sat06/28/25 at 1745, Routine New Bag 06/28/2025 6:11 PM EDT 2 g 25 mL/hr magnesium sulfate IVPB 2 g 2 g, Intravenous, Once, 1 dose, On Sat06/29/25 at 0645, Routine New Bag 06/29/2025 6:46 AM EDT 2 g 25 mL/hr ondansetron (Zofran) injection 4 mg 4 mg, Intravenous, Every 6 hours PRN, Starting on Sat06/28/25 at 1806, Until Sat06/29/25 at 1639, Routine, nausea, vomiting oxybutynin (Ditropan) tablet 5 mg 5 mg, Oral, 3 times daily PRN, Starting on Sat06/28/25 at 1806, Until Sat06/29/25 at 1639, Routine, bladder spasms phenazopyridine (Pyridium) tablet 200 mg 200 mg, Oral, 3 times daily PRN, Starting on Sat06/28/25 at 1805, Until Sat06/29/25 at 1639, Routine, pain, discomfort, irritation sodium chloride 0.9 % flush 10 mL 10 mL, Intravenous, Every 12 hours, First dose on Sat06/28/25 at 2130, Until Discontinued, Routine, Holding - Preprocedure Given 06/28/2025 9:01 PM EDT 10 mL sodium chloride 0.9 % flush 10 mL 10 mL, Intravenous, Every 12 hours, First dose on Sat06/28/25 at 1810, Until Discontinued, Routine Given 06/29/2025 6:51 AM EDT 10 mL Given 06/28/2025 6:11 PM EDT 10 mL sodium chloride 0.9 % flush 10 mL 10 mL, Intravenous, As needed, Starting on Sat06/28/25 at 1804, Until Sat06/29/25 at 1639, Routine, line care tamsulosin (Flomax) 24 hr capsule 0.4 mg 0.4 mg, Oral, Nightly, First dose on Sat06/28/25 at 2200, Until Discontinued, Routine Given 06/28/2025 9:22 PM EDT 0.4 mg documented in this encounter Active and Recently Administered Medications Times are shown in EDT. Scheduled Medication Order 06/27/2025 06/28/2025 06/29/2025 acetaminophen (Tylenol) tablet 1,000 mg 1,000 mg, Oral, Every 6 hours scheduled, First dose on Sat06/28/25 at 1810, Until Discontinued, Routine 182 (Not Given - Provider: Vicenta Wesley RN - Reason: Patient/family refused)1942 (JAN Hold - Provider: Automatic Transfer Provider - Reason: Patient in procedure)2040 (JAN Unhold - Provider: Jewel Aviles RN) 004 (Given - Provider: Toña Lockett RN)0647 (Given - Provider: Toña Lockett RN)1153 (Not Given - Provider: Stacey Erazo - Reason: Patient/family refused) cefadroxil (Duricef) capsule 1,000 mg 1,000 mg, Oral, 2 times daily, 10 doses, First dose on Sat06/29/25 at 1000, Last dose on Sat07/03/25 at 2100, Routine 1033 (Given - Provid er: [facility]) cefTRIAXone (Rocephin) 2 g in sodium chloride 0.9% 100 mL IVPB (vial adapter required) (CANCELED) 2 g, Intravenous, Every 24 hours, First dose on Sat06/29/25 at 0700, Until Discontinued, Routine 0646 (New Bag - Provider: Toña Lockett RN)0727 (Stopped - Provider: Stacey Erazo) heparin (porcine) injection 5,000 Units 5,000 Units, Subcutaneous, Every 8 hours scheduled, First dose on Sat06/28/25 at 2200, Until Discontinued, Routine 1942 (JAN Hold - Provider: Automatic Transfer Provider - Reason: Patient in procedure)2040 (JAN Unhold - Provider: Jewel Aviles RN)2122 (Given - Provider: Jewel Aviles RN) 0646 (Given - Provider: Toña Lockett RN)1306 (Not Given - Provider: Stacey Erazo - Reason: Patient/family refused) insulin glargine-yfgn 100 UNIT/ML injection 15 Units 15 Units, Subcutaneous, 2 times daily, First dose on Sat06/29/25 at 0900, Until Discontinued, Routine 0807 (Given - Provid er: [facility]) insulin lispro (Admelog) 100 units/mL injection - Correction - Standard Dose 0-5 Units, Subcutaneous, 3 times daily with meals, First dose on Sat06/29/25 at 0830, Until Discontinued, Routine 0807 (Given - Provid er: [facility])1306 (Given - Provider: Stacey Erazo) insulin lispro (Admelog) injection - Correction - Nighttime Dose 0-3 Units, Subcutaneous, 2 times nightly (2100 & 0300), First dose on Sat06/29/25 at 2100, Until Discontinued, Routine insulin regular (HumuLIN R,NovoLIN R) 100 units/mL injection - Correction - Standard Dose (CANCELED) 0-5 Units, Subcutaneous, Every 6 hours scheduled, First dose on Sat06/28/25 at 1810, Until Discontinued, Routine 1825 (Not Given - Provider: Vicenta Wesley RN - Reason: Order parameters not met)1942 (JAN Hold - Provider: Automatic Transfer Provider - Reason: Patient in procedure)2040 (JAN Unhold - Provider: Jewel Aviles RN) 48 (Given - Provider: Toña Lockett RN)0651 (Given - Provider: Tñoa Lockett RN) magnesium sulfate IVPB 2 g (COMPLETED) 2 g, Intravenous, Once, 1 dose, On Sat06/28/25 at 1745, Routine 1810 (New Bag - Provider: Vicenta Wesley RN)2033 (Stopped - Provider: Jewel Aviles RN) magnesium sulfate IVPB 2 g (COMPLETED) 2 g, Intravenous, Once, 1 dose, On Sat06/29/25 at 0645, Routine 0646 (New Bag - Provider: Toña Lockett RN)0806 (Stopped - Provider: Stacey Erazo) sodium chloride 0.9 % flush 10 mL (CANCELED)(Linked Group 1) 10 mL, Intravenous, Every 12 hours, First dose on Sat06/28/25 at 2130, Until Discontinued, Routine, Holding - Preprocedure 2100 (Given - Provider: Jewel Aviles RN) sodium chloride 0.9 % flush 10 mL(Linked Group 2) 10 mL, Intravenous, Every 12 hours, First dose on Sat06/28/25 at 1810, Until Discontinued, Routine 1810 (Given - Provider: Vicenta Wesley RN)1942 (JAN Hold - Provider: Automatic Transfer Provider - Reason: Patient in procedure)2040 (JAN Unhold - Provider: Jewel Aviles RN) 0651 (Given - Provider: Toña Lockett RN) tamsulosin (Flomax) 24 hr capsule 0.4 mg 0.4 mg, Oral, Nightly, First dose on Sat06/28/25 at 2200, Until Discontinued, Routine 1942 (JAN Hold - Provider: Automatic Transfer Provider - Reason: Patient in procedure)2040 (JAN Unhold - Provider: Jewel Aviles RN)2121 (Given - Provider: Jewel Aviles RN) Continuous Medication Order 06/27/2025 06/28/2025 06/29/2025 lactated Ringer's infusion 84 mL/hr, Intravenous, Continuous, Starting on Sat06/28/25 at 1810, Until Sat06/29/25 at 1639, Routine 2000 (New Bag - Provider: Manuel Gutierrez MD)2023 (Anesthesia Volume Adjustment - Provider: Manuel Gutierrez MD)2101 (New Bag - Provider: Jewel Aviles RN) 807 (New Bag - Provider: Stacey Erazo) PRN Medication Order 06/27/2025 06/28/2025 06/29/2025 dextrose 10 % (D10W) bolus 125 mL(Linked Group 3) 125 mL, Intravenous, Every 15 min PRN, Starting on Sat06/28/25 at 1808, Until Sat06/29/25 at 1639, Administer over 15 Minutes, Routine, low blood sugar BG 51-89 mg/dL 1942 (JAN Hold - Provider: Automatic Transfer Provider - Reason: Patient in procedure)2040 (JAN Unhold - Provider: Jewel Aviles RN) dextrose 10 % (D10W) bolus 250 mL(Linked Group 3) 250 mL, Intravenous, Every 15 min PRN, Starting on Sat06/28/25 at 1808, Until Sat06/29/25 at 1639, Administer over 15 Minutes, Routine, PRN low blood sugar BG =/<50 mg/dL 1942 (JAN Hold - Provider: Automatic Transfer Provider - Reason: Patient in procedure)2040 (JAN Unhold - Provider: Jewel Aviles RN) glucagon (human recombinant) injection 1 mg(Linked Group 3) 1 mg, Intramuscular, Every 15 min PRN, Starting on Sat06/28/25 at 1808, Until Sat06/29/25 at 1639, Routine, low blood sugar per Hypoglycemia Prevention and Treatment protocol 1943 ([facility] Hold - Provider: Automatic Transfer Provider - Reason: Patient in procedure)2040 ([facility] Unhold - Provider: Jewel Aviles RN) glucose (Glutose) 40 % oral gel 15-30 grams of glucose(Linked Group 3) 15-30 grams of glucose, Sublingual, Every 15 min PRN, Starting on Sat06/28/25 at 1808, Until Sat06/29/25 at 1639, Routine, low blood sugar, per Hypoglycemia Prevention and Treatment protocol 194 ([facility] Hold - Provider: Automatic Transfer Provider - Reason: Patient in procedure)2040 ([facility] Unhold - Provider: Jewel Aviles RN) iohexol (OMNIPaque) 300 MG/ML injection (CANCELED) As needed, Starting on Sat06/28/25 at 204, Until Sat06/28/25 at 205, Routine, Intraprocedure 2045 (Given - Provider: Teresa Kimble MD) ondansetron (Zofran) injection 4 mg 4 mg, Intravenous, Every 6 hours PRN, Starting on Sat06/28/25 at 1806, Until Sat06/29/25 at 1639, Routine, nausea, vomiting 194 ([facility] Hold - Provider: Automatic Transfer Provider - Reason: Patient in procedure)2040 ([facility] Unhold - Provider: Jewel Aviles RN) oxybutynin (Ditropan) tablet 5 mg 5 mg, Oral, 3 times daily PRN, Starting on Sat06/28/25 at 1806, Until Sat06/29/25 at 1639, Routine, bladder spasms 194 ([facility] Hold - Provider: Automatic Transfer Provider - Reason: Patient in procedure)2040 ([facility] Unhold - Provider: Jewel Aviles RN) phenazopyridine (Pyridium) tablet 200 mg 200 mg, Oral, 3 times daily PRN, Starting on Sat06/28/25 at 1805, Until Sat06/29/25 at 1639, Routine, pain, discomfort, irritation 194 ([facility] Hold - Provider: Automatic Transfer Provider - Reason: Patient in procedure)2040 ([facility] Unhold - Provider: Jewel Aviles RN) sodium chloride 0.9 % flush 10 mL(Linked Group 2) 10 mL, Intravenous, As needed, Starting on Sat06/28/25 at 1804, Until Sat06/29/25 at 1639, Routine, line care 1942 (JAN Hold - Provider: Automatic Transfer Provider - Reason: Patient in procedure)2040 (JAN Unhold - Provider: Jewel Aviles RN) Linked Groups Order Group 1: Insert peripheral IV (CANCELED) Once, On Sat06/28/25 at 203, For 1 occurrence, Holding - Preprocedure And Saline lock IV (CANCELED) Once, On Sat06/28/25 at 2035, For 1 occurrence, Holding - Preprocedure And sodium chloride 0.9 % flush 10 mL (CANCELED)Jump to med 10 mL, Intravenous, Every 12 hours, First dose on Sat06/28/25 at 2130, Until Discontinued, Routine, Holding - Preprocedure And sodium chloride 0.9 % flush 10 mL (CANCELED) 10 mL, Intravenous, As needed, Starting on Sat06/28/25 at 2035, Until Sat06/28/25 at 2220, Routine, Holding - Preprocedure, line care Group 2: Insert peripheral IV (COMPLETED) Once, On Sat06/28/25 at 1805, For 1 occurrence And Saline lock IV (COMPLETED) Once, On Sat06/28/25 at 1805, For 1 occurrence And sodium chloride 0.9 % flush 10 mLJump to med 10 mL, Intravenous, Every 12 hours, First dose on Sat06/28/25 at 1810, Until Discontinued, Routine And sodium chloride 0.9 % flush 10 mLJump to med 10 mL, Intravenous, As needed, Starting on Sat06/28/25 at 1804, Until Sat06/29/25 at 1639, Routine, line care Group 3: glucose (Glutose) 40 % oral gel 15-30 grams of glucoseJump to med 15-30 grams of glucose, Sublingual, Every 15 min PRN, Starting on Sat06/28/25 at 1808, Until Sat06/29/25 at 1639, Routine, low blood sugar, per Hypoglycemia Prevention and Treatment protocol Or dextrose 10 % (D10W) bolus 125 mLJump to med 125 mL, Intravenous, Every 15 min PRN, Starting on Sat06/28/25 at 1808, Until Sat06/29/25 at 1639, Administer over 15 Minutes, Routine, low blood sugar BG 51-89 mg/dL Or dextrose 10 % (D10W) bolus 250 mLJump to med 250 mL, Intravenous, Every 15 min PRN, Starting on Sat06/28/25 at 1808, Until Sat06/29/25 at 1639, Administer over 15 Minutes, Routine, PRN low blood sugar BG =/<50 mg/dL Or glucagon (human recombinant) injection 1 mgJump to med 1 mg, Intramuscular, Every 15 min PRN, Starting on Sat06/28/25 at 1808, Until Sat06/29/25 at 1639, Routine, low blood sugar per Hypoglycemia Prevention and Treatment protocol documented in this encounter Additional Health Concerns Assessment Noted Time A Body Mass Index follow-up plan has been documented for the patient 06/29/2025 12:23 PM EDT documented as of this encounter Care Teams Airways Operations Specialist Relationship Specialty Start Date End Date Gabby Gordillo APRN [address] [place] [place] [id number] PCP - General 06/28/25 documented as of this encounter
--- OUTSIDE RECORDS SUMMARY | 2025-06-28 20:01 | XMS_ITS | Encounter Summary ---
Author Organization [facility] Address [address] [place] [address] Care Team Providers Care Process Operator Name Role Phone Gabby oGrdillo APRN Primary Care Provider + [phone] Reason for Visit * Auth/Cert (Routine) Specialty Diagnoses / Procedures Referred By Sophy t Referred To Contact Diagnoses Ureteral stone with hydronephrosis kidney stone 12mm; William Dorado MD [address] [facility] [address] [place] [address] Phone: tel: fax: [facility] [address] [place] [address] Phone: tel: Referral ID Status Reason Start Date Expiration Date Visits Re quested Visits Authorized [id number] 1 1 Encounter Details Date Type Department Care Team (Late st Contact Info) Description 06/28/2025 8:01 PM EDT Anesthesia Event [facility] [address] [place] [phone] Adeel Newsome MD [address] [place] [phone] Manuel Gutierrez MD [address] [place], [place] [id number] Anesthesia Record Procedure Summary Procedure Name Responsible Anesthesiologist Anesthesia Start Time Anesthesia Stop Time CYSTOSCOPY, WITH URETERAL STENT INSERTION, retrograde pyleogram (Left: Ureter) Adeel Newsome MD 06/28/25200006/28/252054 Events Date Time Event Comment 06/28/20251955 In Room 2000 An Start The patient was reevaluated immediately before sedation and remains eligible for anesthesia plan. 2000 An Start Data 2007 An Induction The patient was reevaluated immediately before moderate or deep sedation use and before anesthesia induction. 2007 An Intubation 2007 Anesthesia Ready 2019 Proc Start 2034 Proc Fin 2046 An Extubation 2049 an stop data 2051 Out of Room 2054 An Stop 2054 Handoff to Receiving I compl eted my handoff to the receiving clinician during which we: 1. Identified the patient 2. Identified the responsible provider 3. Reviewed the pertinent medical history 4. Discussed the surgical course 5. Reviewed intra-op anesthesia management and issues during anesthesia 6. Set expectations for post-procedure period 7. Allowed opportunity for questions and acknowledgement of understanding. Meds Name Total fentaNYL (Sublimaze) injection 50 mcg/mL 50 mcg lidocaine PF (Xylocaine-MPF) 2% 70 mg propofol (Diprivan) injection 10 mg/mL 1 00 mg dexamethasone (Decadron) injection 4 mg/ mL 4 mg phenylephrine (Clyde-Synephrine) prefilled syringe 1 mg/10 mL 300 mcg ondansetron (Zofran) injection 2 mg/mL 4 mg ceFAZolin (Ancef) vial 1 g 2 g lactated Ringer's infusion 500 mL * Agents Name O2 Sevoflurane * Blood No blood administrations on file. Lines, Drains, and Airways Type Details Placement Removal Peripheral IV Placement Date: 06/28/25; Placement Time: 1706; Catheter Size: 20 G; Orientation: Left; Location: Antecubital; Removal Date: 06/29/25; Removal Time: 1153; Removal Reason: Discharge 06/28/251706 by Vicenta Wesley RN 06/29/251152 by Stacey Erazo Peripheral IV Placement Date: 06/28/25; Placement Time: 1706; Catheter Size: 20 G; Orientation: Right; Location: Antecubital; Removal Date: 06/29/25; Removal Time: 1153; Removal Reason: Discharge 06/28/251706 by Vicenta Wesley RN 06/29/25 115 by Stacey Erazo Supraglottic Airway Placement Date: 06/28/25; Placement Time: 2007 (created via procedure documentation); Mask Ventilation: 0; Removal Date: 06/28/25; Removal Time: 204606/28/252007 by Manuel Gutierrez MD 06/28/252046 by Manuel Gutierrez MD documented in this encounter Social History Tobacco Use Types Packs/Day Years Used Date Smoking Tobacco: Never Assessed AUDIT-C Answer Date Recorded Q1: How often [...] on file documented as of this encounter Functional Status * AUDIT-C Score [...] 12:43 AM EDT Toña Lockett RN * Calculated C-SSRS Risk Score (Lifetime/Recent) Answer [...] Wesley RN documented as of this encounter Miscellaneous Notes * Anesthesia Postprocedure Evaluation - Manuel Gutierrez MD - 06/28/2025 8:55 PM EDT Patient: Donna Warner Anesthesia Type: general Vitals Value Taken Time BP 93/59 06/28/25 20:55 Temp See flowsheet 06/28/25 20:55 Pulse 69 06/28/25 20:55 Resp 18 06/28/25 20:55 SpO2 99 06/28/25 20:55 Anesthesia Post Evaluation Patient location during evaluation: PACU Patient participation: complete - patient cannot participate Level of consciousness: sedated Pain management: adequate (pain score 0-3) Airway patency: natural airway Cardiovascular status: acceptable and hemodynamically stable Respiratory status: acceptable, blow-by oxygen and face mask Hydration status: acceptable Nausea/Vomiting: No No notable events documented. Cosigned by Adeel Newsome MD at 06/29/2025 10:10 PM EDT Associated attestation - Adeel Newsome MD - 06/29/2025 10:10 PM EDT I agree with the findings and care plan documented in the postprocedure evaluation note. * Anesthesia Procedure Notes - Manuel Gutierrez MD - 06/28/2025 8:18 PM EDT Associated Order(s): Airway Airway Date/Time: 06/28/2025 8:08 PM Reason: elective Airway not difficult General Information and Staff Patient location during procedure: OR Anesthesiologist: Adeel Newsome MD Resident: Manuel Gutierrez MD Performed: CLAY BURNER Patient Condition Indications for airway management: anesthesia Patient position: sniffing MILS maintained throughout Final Airway Details Final airway type: LMALMA Size: 4 LMA Type: normal Cosigned by Adeel Newsome MD at 06/29/2025 10:10 PM EDT Associated attestation - Adeel Newsome MD - 06/29/2025 10:10 PM EDT I was present during all critical and matias portions of the procedure(s) and immediately available [facility] services the entire duration. See resident note for details. * Anesthesia Preprocedure Evaluation - Adeel Newsome MD - 06/28/2025 7:10 PM EDT Anesthesiologist: Adeel Newsome MD Seasonal Customer Service Associate: Manuel Gutierrez MD Patient: Donna Warner is a 64 y.o. female with T2DM, hypothyroidism, HLD, and body mass index is 26.87 kg/m??. who presents with Ureteral stone with hydronephrosis, now for CYSTOSCOPY, WITH URETERAL STENT INSERTION (Left) >4 METs Allergies reviewed No problems with previous anesthetics Appropriately NPO Procedure Information Date/Time: 06/28/252099 Procedure: CYSTOSCOPY, WITH URETERAL STENT INSERTION (Left) Location: [facility] [facility] Surgeons: William Calle MD Relevant Problems /Renal (+) Ureteral stone with hydronephrosis ALLERGIES Allergies[1] NPO STATUS Past Medical History[2] AIRWAY HISTORY Airway Detailed Review Displaying the 20 most recent records No records found. MEDICATIONS Outpatient No current outpatient medications Scheduled Current Scheduled Medications[3] PRNs Current PRN Medications[4] SURGICAL HX: Surgical History[5] SOCIAL HX: Social History[6] OBJECTIVE DATA LABS Lab Results Component Value Date WBC 5.12 06/28/2025 HGB 11.5 06/28/2025 HCT 34.1 06/28/2025 MCV 87 06/28/2025 PLT 183 06/28/2025 Lab Results Component Value Date CALCIUM 9.2 06/28/2025 BUN 17 06/28/2025 CREATININE 0.56 (L) 06/28/2025 BCR 30 06/28/2025 NA 138 06/28/2025 K 3.7 06/28/2025 CL 105 06/28/2025 CO2 19 (L) 06/28/2025 Type and Screen No results found for: ABO Results from last 7 days Lab Units 06/28/25 1657 INR 1.2* Lab Results Component Value Date HGBA1C 9.2 (H) 06/28/2025 Lab Results Component Value Date PGLU 122 (H) 06/28/2025 GLUCOSE 102 (H) 06/28/2025 ABG No results found for: PHART , GCR7DWB , PO2ART , SO2ART , BEART , PZT5XRY , HCTART , SODIUMART , POTASSIUMART , POCTCL , POCGLU , IONCALART , LACTATE Lab Results Component Value Date HCTSYR 36.8 06/28/2025 KSYR 3.6 06/28/2025 CLSYR 108 (H) 06/28/2025 GLUSYR 101 (H) 06/28/2025 CAION 4.9 06/28/2025 ECHO No echocardiogram results found for the past 12 months PFTs No results found for: EEO5LNS , ULB3ITBD , MIM7GUL , FVCPRED BP Readings from Last 5 Encounters: 06/28/25 110/71 Physical Exam Airway Mallampati: I Mouth opening: normal TM distance: >3 FB Neck ROM: full Cardiovascular Rhythm: regular Rate: normal Dental (+) edentulous, upper dentures, lower dentures Pulmonary Breath sounds clear to auscultation Neurological Oriented: normal to time, normal to place and normal to person and oriented to person, place and time Skin Musculoskeletal Extremities Anesthesia Plan ASA 2 Plan was reviewed with: resident Anesthesia technique(s) discussed with the patient/family: general Anesthesia plan agreed upon was: general Anesthetic plan and risks discussed with patient and spouse. Use of blood products discussed with spouse and patient who consented to blood products. Anesthesia Evaluation [1] No Known Allergies [2] History reviewed. No pertinent past medical history. [3] [Transfer Hold] acetaminophen, 1,000 mg, Oral, q6h ZORAIDA [START ON 06/29/2025] cefTRIAXone, 2 g, Intravenous, q24h [Transfer Hold] heparin (porcine), 5,000 Units, Subcutaneous, q8h ZORAIDA [Transfer Hold] insulin regular, 0-5 Units, Subcutaneous, q6h ZORAIDA magnesium sulfate, 2 g, Intravenous, Once Insert peripheral IV, , , Once AND Saline lock IV, , , Once AND [Transfer Hold] sodium chloride, 10 mL, Intravenous, q12h AND [Transfer Hold] sodium chloride, 10 mL, Intravenous, PRN [Transfer Hold] tamsulosin, 0.4 mg, Oral, Nightly [4] PRN medications: [Transfer Hold] glucose OR [Transfer Hold] dextrose 10 % OR [Transfer Hold] dextrose 10 % OR [Transfer Hold] glucagon (human recombinant), [Transfer Hold] ondansetron, [Transfer Hold] oxybutynin, [Transfer Hold] phenazopyridine, Insert peripheral IV AND Saline lock IV AND [Transfer Hold] sodium chloride AND [Transfer Hold] sodium chloride [5] History reviewed. No pertinent surgical history. [6] documented in this encounter Plan of Treatment Upcoming Encounters Date Type Department Care Team (Late st Contact Info) Description 09/09/2025 1:00 PM EDT Appointment [facility] Ultrasound [address] [place] [phone] 09/09/2025 3:15 PM EDT Office Visit Medical Office Building Urology [address] [facility] [address], [address] [place] [phone] Gilberto Ling MD [address] [place] [address] documented as of this encounter Procedures Procedure Name Priority Date/Time Associated Diagnosis Comments PB ANESTHESIA PLACEHOLDER Routine 06/28/2025 8:08 PM EDT KS AN ELECTIVE SUPRAGLOTTIC AIRWAY Routine 06/28/2025 8:08 PM EDT documented in this encounter Results * KS AN ELECTIVE SUPRAGLOTTIC AIRWAY, PB ANESTHESIA PLACEHOLDER (06/28/2025 8:08 PM EDT) Narrative Adeel Newsome MD - 06/28/2025 8:08 PM EDT Adeel Newsome MD 06/29/2025 10:10 PM Airway Date/Time: 06/28/2025 8:08 PM Reason: elective Airway not difficult General Information and Staff Patient location during procedure: OR Anesthesiologist: Adeel Newsome MD Resident: Manuel Gutierrez MD Performed: CLAY BURNER Patient Condition Indications for airway management: anesthesia Patient position: sniffing MILS maintained throughout Final Airway Details Final airway type: LMALMA Size: 4 LMA Type: normal us Adeel Newsome MD ANESTHESIA ORDERABLES Final R esult documented in this encounter Visit Diagnoses Not on filedocumented in this encounter Administered Medications Inactive Administered Medications - up to 3 most recent administrations Medication Order MAR Action Action Date Dose Rate Site ceFAZolin (Ancef) injection Intravenous, As needed, Starting on Sat06/28/25 at 2010, Until Sat06/28/25 at 2054, Routine, Anesthesia Intraprocedure Given 06/28/2025 8:11 PM EDT 2 g dexamethasone (Decadron) injection Intravenous, As needed, Starting on Sat06/28/25 at 2012, Until Sat06/28/25 at 2054, Routine, Anesthesia Intraprocedure Given 06/28/2025 8:13 PM EDT 4 mg fentaNYL (Sublimaze) injection Intravenous, As needed, Starting on Sat06/28/25 at 2002, Until Sat06/28/25 at 2054, Routine, Anesthesia Intraprocedure Given 06/28/2025 8:03 PM EDT 50 mcg lactated Ringer's infusion 84 mL/hr, Intravenous, Continuous, Starting on Sat06/28/25 at 1810, Until Sat06/29/25 at 1639, Routine New Bag 06/29/2025 8:08 AM EDT 84 mL/hr 84 mL/hr New Bag 06/28/2025 9:02 PM EDT 84 mL/hr 84 mL/hr New Bag 06/28/2025 8:01 PM EDT lidocaine PF (Xylocaine) 2 % injection Intravenous, As needed, Starting on Sat06/28/25 at 2006, Until Sat06/28/25 at 2054, Routine, Anesthesia Intraprocedure Given 06/28/2025 8:07 PM EDT 70 mg ondansetron (Zofran) injection Intravenous, As needed, Starting on Sat06/28/25 at 2020, Until Sat06/28/25 at 2054, Routine, Anesthesia Intraprocedure Given 06/28/2025 8:21 PM EDT 4 mg phenylephrine in NS (Clyde-Synephrine) 100 mcg/mL prefilled syringe Intravenous, As needed, Starting on Sat06/28/25 at 2021, Until Sat06/28/25 at 2054, Routine, Anesthesia Intraprocedure Given 06/28/2025 8:40 PM EDT 100 mcg Given 06/28/2025 8:28 PM EDT 100 mcg Given 06/28/2025 8:22 PM EDT 100 mcg propofol (Diprivan) injection Intravenous, As needed, Starting on Sat06/28/25 at 2006, Until Sat06/28/25 at 2054, Routine, Anesthesia Intraprocedure Given 06/28/2025 8:07 PM EDT 100 mg documented in this encounter Additional Health Concerns Assessment Noted Time A Body Mass Index follow-up plan has been documented for the patient 06/29/2025 12:23 PM EDT documented as of this encounter Care Teams Process Operator Relationship Specialty Start Date End Date Gabby Gordillo APRN [address] [place] [id number] PCP - General 06/28/25 documented as of this encounter
--- OUTSIDE RECORDS SUMMARY | 2025-06-28 21:00 | XMS_ITS | Encounter Summary ---
Author Organization [facility] Address [address] [place] [address] Care Team Providers Care Provider Relations Representative Name Role Phone Gabby Gordillo APRN Primary Care Provider + [phone] Reason for Visit * Reason Comments Nausea * Auth/Cert (Routine) Specialty Diagnoses / Procedures Referred By Sophy roldan Referred To Contact Diagnoses Ureteral stone with hydronephrosis kidney stone 12mm; DKA William Calle MD [address] [address] Phone: tel: fax: [facility] H Inpatient [address] [place] [address] Phone: tel: Referral ID Status Reason Start Date Expiration Date Visits Re quested Visits Authorized [id number] 1 1 Encounter Details Date Type Department Care Team (Late st Contact Info) Description 06/28/2025 9:00 PM EDT - 06/28/2025 10:35 PM EDT Surgery PAV A OPERATING ROOM [address] [place] [address] William Calle MD [address] [address] CYSTOSCOPY, WITH URETERAL STENT INSERTION, retrograde pyleogram [73854 (CPT )] Surgery Details Date/Time Status Location OR Service Patient Class Case Class Case Type Trauma Case? 06/28/2025 9:00 PM Posted [facility] OR [facility] OR 11 Urology Emergency T-Timed: to be done within 24 hours Panel 1 Procedure LRB Anes Op Region Wound Class Comments CYSTOSCOPY, WITH URETERAL ST ENT INSERTION, retrograde pyleogram Left Choice Ureter Surgeon Surgeon Role Service Panel William Calle MD Primary Urology 1 Teresa Kimble MD Resident - Assisting 1 Special Needs Cmax documented in this encounter Social History Tobacco [...] Sign Reading Time Taken Comments Blood Pressure 125/79 06/28/2025 10:27 PM EDT Pulse 84 06/28/2025 10:27 PM EDT Temperature 36.7 C (98.1 F) 06/28/2025 10:27 PM EDT Respiratory Rate 15 06/28/2025 9:25 PM EDT Oxygen Saturation 96% 06/28/2025 10:27 PM EDT Inhaled Oxygen Concentration - - Weight 71 kg (156 lb 8.4 oz) 06/28/2025 4:46 PM EDT Height 162.6 cm (5' 4 ) 06/28/2025 4:46 PM EDT Body Mass Index 26.87 06/28/2025 4:46 PM EDT documented in this encounter Functional Status * Are you deaf or do you [...] confirm your location ahead of your appointment) [facility] Urology Department Clinic at [facility] [address], [address]nd Floor, [facility], [address] [place] [address] Clinic After Hours [facility] Multidisciplinary Urology Clinic [address] [place] [address] Clinic documented in this encounter Medications at [...] from the original note were not included. [address] Diabetic Ketoacidosis Diabetic ketoacidosis (DKA) is a [...] diabetes. Last Reviewed Date: 2025 00:00:00 ?? 2365-0854 The Where I've Been. All rights reserved. This information is not intended as a substitute for professional medical care. Always follow your healthcare professional's instructions. * Otis OnFHIR - Stacey Erazo - 06/29/2025 12:20 PM EDT Images from the original note were not included. 19159 Diabetes: Understanding Carbohydrates, Fats, and Protein Food [...] foods. Last Reviewed Date: 2024 00:00:00 ?? 3781-9596 The Where I've Been. All rights reserved. This information is not intended as a substitute for professional medical care. Always follow your healthcare professional's instructions. * Otis Brandon - Stacey Erazo - 06/29/2025 12:20 PM EDT Images from the original note were not included. 54073 Managing Type 2 Diabetes Type 2 diabetes [...] care of yourself. Your healthcare provider, nurse, hematology nurse educator, and others can help you with [...] at diabetes.org/tools-resources ? Counseling. Talk with a social media content specialist, psychologist, psychiatrist, or other counselor. ? Information. Contact the [place] Diabetes Association at www.diabetes.org or 587-988-2468. Another good source is the Association of Diabetes Care and Education Specialists at www.diabeteseducator.org/kmnrvd-qwqj-ljzpczqo. Last Reviewed Date: 2022 00:00:00 ?? 5330-8799 The Where I've Been. All rights reserved. This information is not [...] the video go to this web address: [email or web address] Or, scan this QR code with your smart phone ?? [employer] * Taylor Ochoa - 06/29/2025 12:10 PM EDT Images from the original note were not included. 20447 Diabetes: Sick Day Plan Infections, the flu, [...] clearly. Last Reviewed Date: 2024 00:00:00 ?? 0918-5425 The Where I've Been. All rights reserved. This information is not intended as a substitute for professional medical care. Always follow your healthcare professional's instructions. * Consults - Taylor Rios - 06/29/2025 12:00 PM EDTAssociated Order(s): IP CONSULT TO DIABETIC EDUCATION Adult Diabetes Education Team Note Donna Warner 64 y.o. female CSN: [id number] This is a 64 y.o. female patient was admitted to [facility] with the diagnosis of ureteral stone with [...] and the diabetic [facility] diabetes basics booklet, [facility] 60g cho handout, and myplate tear sheet, [...] Taylor Rios * Progress Notes - Mikki lOson RN - 06/29/2025 10:03 AM EDT POC reviewed with primary team. Refer to primary team's discharge note for details. Medically readyto discharge today. Patient agrees to dc home today and agrees with above DC plan. In??s A. OTTO Olson, complaint manager * Discharge Summary - Wilfred Richard MD - 06/29/2025 10:02 AM EDT Hospitalization Admit Date/Time: 06/28/2025 3:38 PM Admitting Attending: William Calle Discharge Date: 06/29/25 Discharge Attending Physician: William Calle MD PCP name and Address: Gabby Gordillo, BAR PORTER [address] / [place] [address] Referring provider name and address: Loy Viramontes PA [address] [place] [address] Chief Concern, Brief History of Present Illness, and Hospital Course HPI: Donna Timmy is a 64 y.o. female who presented with flank pain on 06/28/25. Hospital Course: Donna Warner is a 64 y.o. female who presented with Left flank pain on 06/28/25 and was subsequently admitted to [facility] for further work-up, evaluation, and treatment. On [...] Your Medications These medications were sent to [facility] - [place], [place] - [address] [facility] [id number] acetaminophen 500 MG tablet ibuprofen 400 MG [...] plan as documented. * Care Plan - KaceyStacey killian - 06/29/2025 9:46 AM EDT Problem: Adult Inpatient Plan of Care Goal: Plan of Care Review Outcome: Ongoing, Progressing Flowsheets (Taken 06/29/2025937) Progress: improving Outcome Evaluation: plan of care [...] Skin Protection: incontinence pads utilized Taken 06/29/2025799 Activity Management: up ad mulu Head of [...] Progressing Intervention: Optimize Functional Ability Flowsheets Taken 06/29/2025799 by Stacey Erazo Activity Management: up ad mulu Activity Assistance Provided: independent Taken 06/29/202532 by Toña Lockett, RN Self-Care Promotion: independence encouraged Goal: Blood Glucose Level Within Target Range Outcome: Ongoing, Progressing Intervention: Optimize Glycemic Control Flowsheets (Taken 06/29/202532 by Toña Lockett, RN) Hyperglycemia Management: blood glucose monitored correctional [...] on 06/28/25 and was subsequently admitted to [facility] for further work-up, evaluation, and treatment. On [...] Manage VTE (Venous Thromboembolism) Risk Flowsheets (Taken 06/29/2025) VTE Prevention/Management: bilateral lower extremity SCDs (sequential [...] MD - 06/28/2025 9:25 PM EDT Patient: [facility] Anesthesia Type: general Vitals Value Taken Time [...] PM EDT Operative Note Date: 06/28/25 Location: [facility] OR Name: Donna Warner, : 1960, Diagnoses: Pre-op Diagnosis Ureteral stone with hydronephrosis Post-op Diagnosis Ureteral stone with hydronephrosis Procedure(s): Cystoscopy Left retrograde pyelogram Left ureteral stent placement without strings Attending Surgeon(s): * William Calle - Primary Cage Loader(s): * Teresa Kimble MD - Resident - Assisting Anesthesia: Choice ASA: II Blood Administration: Blood Product Administration History None Estimated Blood Loss: Minimal Drains: * None in log * Implants Type Name Action Serial No. Stent STENT URETERAL DOUBLE PIGTAIL POS 6FR 24CM - [id number] Wasted Stent STENT URETERAL DOUBLE PIGTAIL POS 6FR 26CM - [id number] Implanted Specimen: Specimens ID Source Frozen? A Other (specify site) Description: Left Renal Pelvis Urine Findings: - Mild rectal prolapse - Bladder without masses, stones, or lesions. Bilateral ureteral orifices in normal anatomic position. - Left retrograde pyelogram demonstrated dilated left renal pelvis without contrast extravasation and was used to assist with stent placement - Successful placement of 6 [place] X 26 cm JJ ureteral stent without strings on the left Indications: Donna Warner is an 64 y.o. female who is having surgery for Ureteral stone with hydronephrosis. History of T2DM, hypothyroidism, and HLD who presents to ED as a transfer from [facility] for left UPJ stone with upstream hydronephrosis [...] the room were in agreement. A 21 [place] rigid cystoscope was introduced through the patient's urethral meatus into the urinary bladder. Quick survey of the bladder demonstrated no masses, stones, or lesions. Bilateral ureteral orifices in normal anatomic position. The left ureteral orifice was cannulated with a sensor wire and this is advanced under fluoroscopy to the level of the left renal pelvis. A 5 [place] open-ended ureteral catheter was advanced over the [...] a sensor wire under fluoroscopy. A 6 [place] X 26 cm JJ ureteral stent was [...] for consult: Left UPJ stone with hydronephrosis [facility] Urology Consult Note 06/28/25 Service Requesting Consultation: Emergency medicine CC: Left UPJ stone with hydronephrosis HPI: Donna Warner is a 64 y.o. female with pmhx T2DM, hypothyroidism, and HLD who presents to ED as a transfer from [facility] for left UPJ stone with upstream hydronephrosis [...] see a urologist in the past in [place] but recently moved to [place] and has not established with a urologist [...] presents to ED as a transfer from [facility] for left UPJ stone with upstream hydronephrosis [...] cystoscopy and left ureteral stent placement - [facility] -mIVF - restart home meds as able Teresa [...] with PMH of T2DM who presented to [facility] with nausea/vomiting and was found to [...] daily Acknowledged AL AWADI, TERESA N 06/28/25 180 Vital Signs (Every 4 hours) Every 4 hours Acknowledged AL AWADI, TERESA N 06/28/25 180 Check pulse oximetry (Every 4 hours) Every 4 hours Acknowledged AL AWADI, TERESA N 06/28/25 180 Intake and Output (Every 4 hours) Every 4 hours Acknowledged AL AWADI, TERESA N 06/28/25 180 Do Not Give Nicotine Replacement Until discontinued Acknowledged AL AWADI, TERESA N 06/28/25 1806 Mobility Orders Until discontinued Acknowledged TERESA KIMBLE N 06/28/25 1806 Out of Bed Until discontinued Acknowledged TERESA KIMBLE N 06/28/25 1806 Notify Provider Until discontinued Acknowledged TERESA KIMBLE N 06/28/25 1806 Insert peripheral IV Once Placed in And Linked Group Acknowledged TERESA KIMBLE N 06/28/25 1806 Saline lock IV Once Placed in And Linked Group Acknowledged TERESA KIMBLE N 06/28/25 1806 Do NOT transfer patient to [facility] without chief resident or attending apporval Until discontinued Acknowledged TERESA KIMBLE N 06/28/25 1806 Admit to inpatient Once Acknowledged TERESA KIMBLE N 06/28/25 1806 Full code Continuous Acknowledged TERESA KIMBLE N 06/28/25 1748 NPO diet NPO except: Sips with meds Diet effective now Acknowledged TERESA KIMBLE N 06/28/25 1748 Case Request Operating Room: CYSTOSCOPY, WITH URETERAL STENT INSERTION Once Completed TERESA KIMBLE N 06/28/25 1748 , urine Once Final result TERESA KIMBLE N 06/28/25 1748 Skin prep Once Acknowledged TERESA KIMBLE N 06/28/25 1748 Hibiclens Scrub Until discontinued Comments: Shower/scrub evening before and morning of procedure; include 5 minutes scrub each time to operative site with chlorhexidine gluconate 4% (Susanaiclens). Acknowledged TERESA KIMBLE N 06/28/25 1748 Void male impersonator to OR Once Acknowledged TERESA KIMBLE N 06/28/25 1740 Microbiology Frequency Override Once In process DAVID SANTOS 06/28/25 1649 Hemoglobin A1c STAT In process SAMIRA BARBARA A 06/28/25 1649 EKG now - STAT (adult) Once Preliminary result SHEYLA GROVES 06/28/25 1649 PT-INR STAT Final result SAMIRA BARBARA Cherry 06/28/25 1649 Magnesium STAT Final result SAMIRA BARBARA A 06/28/25 1649 Blood gas panel, venous STAT Final result SAMIRA BARBARA A 06/28/25 1649 Beta-Hydroxybutyric Acid STAT Final result [...] None Disposition Admit Admitting/Attending Physician: WILLIAM CALLE [[id number]] Provider Care Team: URO ONCOLOGY [[id number]] Are [...] documented. * ED Triage Notes - Vicenta Wesley, RN - 06/28/2025 3:37 PM EDT Patient complains of n/v abdominal pain. Was in DKA at OSH, insulin drip was stopped en route FSBG 76. Sent for 12mm obstructing kidney stone. Recently had Hpylori completed abx. documented in this encounter Plan of Treatment Upcoming Encounters Date Type Department Care Team ([facility] st Contact Info) Description 09/09/2025 1:00 PM EDT Appointment [facility] Ultrasound [address] [place] [address] 09/09/2025 3:15 PM EDT Office Visit Medical Office Building Urology [address], [address] [place] [address] Gilberto Ling MD [address] [place] [address] documented as of this encounter [...] UNSOLICITED RESULTS Routine 06/28/2025 7:47 PM EDT MS CYSTOSCOPY,INSERT URETERAL STENT 06/28/2025 7:46 PM EDT [...] POCT glucose meter (06/29/2025 12:42 PM EDT) POCT Glucose 258(H) 74 - 99 mg/dL [...] for testing. Comment 06/29/2025 12:43 PM EDT [facility] Wire Photo Operator News ID Jose Hartman 06/29/2025 12:43 PM EDT [facility] Device ID [id number] 06/29/2025 12:43 PM EDT [facility] Specimen Type POC Capillary 06/29/2025 12:43 PM EDT [facility] Blood Capillary blood specimen / Unknown 06/29/2025 12:42 PM EDT 06/29/2025 12:43 PM EDT us William Calle MD LAB POINT OF CARE T EST DOCKED DEVICE UNSOLICITED RESULTS Final Result Performing Organization Address City/State/[facility] Co de Phone Number HEALTHCARE LAB [address] [place] [address] * (ABNORMAL) POCT glucose meter (06/29/2025 7:48 AM EDT) POCT Glucose 297(H) 74 - 99 mg/dL 06/29/2025 7:49 AM EDT [facility] Comment:Accuracy of [...] for testing. Comment 06/29/2025 7:49 AM EDT [facility] Wire Photo Operator News ID Jose Hartman 06/29/2025 7:49 AM EDT [facility] Device ID [id number] 06/29/2025 7:49 AM EDT [facility] Specimen Type POC Capillary 06/29/2025 7:49 AM EDT [facility] Blood Capillary blood specimen / Unknown 06/29/2025 7:48 AM EDT 06/29/2025 7:49 AM EDT William Calle MD LAB POINT OF CARE T EST DOCKED DEVICE UNSOLICITED RESULTS Final Result Performing Organization Address City/[facility] Co de Phone Number HEALTHCARE LAB [address] [place] [address] * (ABNORMAL) POCT glucose meter (06/29/2025 6:47 AM EDT) [facility] Signature POCT Glucose 294(H) 74 - 99 mg/dL 06/29/2025 6:49 AM EDT [facility] Comment:Accuracy of a [...] for testing. Comment 06/29/2025 6:49 AM EDT [facility] Wire Photo Operator News ID Karlie Paniagua 06/29/2025 6:49 AM EDT [facility] Device ID [id number] 06/29/2025 6:49 AM EDT [facility] Specimen Type POC Capillary 06/29/2025 6:49 AM EDT [facility] Blood Capillary blood specimen / Unknown 06/29/2025 6:47 AM EDT 06/29/2025 6:49 AM EDT us William Calle MD LAB POINT OF CARE T EST DOCKED DEVICE UNSOLICITED RESULTS Final Result Performing Organization Address City/[facility]/ZIP Co de Phone Number [facility]ALTHCARE [facility] [address] [place] [address] * Phosphorus (06/29/2025 3:58 AM EDT) Phosphorus, Plasma 3.5 2.5 - 4.5 mg/dL 06/29/2025 4:41 AM EDT [facility] Blood Venous blood specimen / Unknown Venipuncture / Unknown 06/29/2025 3:58 AM EDT 06/29/2025 4:09 AM EDT William Calle MD LAB BLOOD ORDERABLES Final Result Performing Organization Address City/[facility]/ZIP Co de Phone Number [facility] [address] [place] [address] * (ABNORMAL) Magnesium (06/29/2025 3:58 AM EDT) Pathologist [facility] Magnesium, Plasma 1.8(L) 1.9 - 2.4 mg/dL 06/29/2025 4:41 AM EDT [facility] Blood Venous blood specimen / Unknown Venipuncture / Unknown 06/29/2025 3:58 AM EDT 06/29/2025 4:09 AM EDT William Calle MD LAB BLOOD ORDERABLES Final Result Performing Organization Address [facility]/ZIP Co de Phone Number [facility] [address] [place] [address] * (ABNORMAL) Basic metabolic panel (06/29/2025 3:58 AM EDT) Glucose, Plasma 279(H) 74 - 99 mg/dL 06/29/2025 4:41 AM EDT [facility] BUN, Plasma 16 8 - 23 mg/dL 06/29/2025 4:41 AM EDT [facility] Creatinine, Plasma 0.61 0.60 - 1.10 mg/dL 06/29/2025 4:41 AM EDT [facility] BUN/Creatinine Ratio 26 06/29/2025 4:41 AM EDT [facility] Sodium, Plasma 139 136 - 145 mmol/L 06/29/2025 4:41 AM EDT [facility] Potassium, Plasma 4.4 3.6 - 4.9 mmol/L 06/29/2025 4:41 AM EDT [facility] Chloride, Plasma 106 97 - 107 mmol/L 06/29/2025 4:41 AM EDT [facility] CO2, Plasma 19(L) 22 - 29 mmol/L 06/29/2025 4:41 AM EDT [facility] Anion Gap 14 6 - 16 mmol/L 06/29/2025 4:41 AM EDT [facility] Total Calcium, Plasma 8.5(L) 8.9 - 10.2 mg/dL 06/29/2025 4:41 AM EDT [facility] eGFRcr 100.0 mL/min/1.7 3m*2 06/29/2025 4:41 AM EDT [facility] Comment:Reported eGFRcr in m L/min/1.73m2 is based the CKD-EPI 2020 equation that does not use a race coefficient. Blood Venous blood specimen / Unknown Venipuncture / Unknown 06/29/2025 3:58 AM EDT 06/29/2025 4:09 AM EDT us William Calle MD LAB BLOOD ORDERABLES Final Result [facility] [address] [place] [address] * (ABNORMAL) Hemogram (CBC) (06/29/2025 3:58 AM EDT) WBC Count 5.08 3.70 - 10.30 10*3/uL LAB HEMATOLOGY METHOD 06/29/2025 4:29 AM EDT [facility] RBC Count 3.74(L) 3.90 - 5.20 10*6/uL LAB HEMATOLOGY METHOD 06/29/2025 4:29 AM EDT [facility] HGB 10.9(L) 11.2 - 15.7 g/dL LAB HEMATOLOGY METHOD 06/29/2025 4:29 AM EDT [facility] HCT 32.3(L) 34.0 - 45.0 % LAB HEMATOLOGY METHOD 06/29/2025 4:29 AM EDT [facility] Platelet Count 188 155 - 369 10*3/uL LAB HEMATOLOGY METHOD 06/29/2025 4:29 AM EDT [facility] MCV 86 79 - 98 fL LAB HEMATOLOGY METHOD 06/29/2025 4:29 AM EDT [facility] MCH 29.1 26.0 - 32.0 pg LAB HEMATOLOGY METHOD 06/29/2025 4:29 AM EDT [facility] MCHC 33.7 30.7 - 35.5 g/dL LAB HEMATOLOGY METHOD 06/29/2025 4:29 AM EDT [facility] RDW 14.3 11.5 - 14.5 % LAB HEMATOLOGY METHOD 06/29/2025 4:29 AM EDT [facility] MPV 12.1 8.8 - 12.5 fL LAB HEMATOLOGY METHOD 06/29/2025 4:29 AM EDT [facility] nRBC 0.0 <=0.0 per 100 WBCs LAB HEMATOLOGY METHOD 06/29/2025 4:29 AM EDT [facility] Blood Venous blood specimen / Unknown Venipuncture / Unknown 06/29/2025 3:58 AM EDT 06/29/2025 4:03 AM EDT us William Calle MD LAB BLOOD ORDERABLES Final Result [facility] [address] [place] [address] * (ABNORMAL) POCT glucose meter (06/28/2025 11:53 PM EDT) POCT Glucose 223(H) 74 - 99 mg/dL 06/28/2025 11:58 PM EDT [facility] Comment:Accuracy of [...] 06/28/2025 11:58 PM EDT [facility] Wire Photo Operator News ID [email or web address] cherry 06/28/2025 11:58 PM EDT [facility] Device ID [id number] 06/28/2025 11:58 PM EDT [facility] Specimen Type POC Capillary 06/28/2025 11:58 PM EDT [facility] Blood Capillary blood specimen / Unknown 06/28/2025 11:53 PM EDT 06/28/2025 11:58 PM EDT William Calle MD LAB POINT OF CARE T EST DOCKED DEVICE UNSOLICITED RESULTS Final Result [facility] [address] [place] [address] * [place] Less than 1 Hour Intraoperative (06/28/2025 9:00 PM EDT) Narrative IMAGING - 06/28/2025 9:28 PM EDT Images were obtained for surgical purposes. See William Calle's surgical note in the patient's chart for the findings. William Calle MD IMG FLUOROSCOPY PROCEDURES Final Result Performing Organization Address City/[facility]/ZIP Co de Phone Number IMAGING * (ABNORMAL) POCT glucose meter (06/28/2025 [...] 06/28/2025 9:01 PM EDT [facility] Wire Photo Operator News ID Sotero Sanchez 06/28/2025 9:01 PM EDT [facility] Device ID [id number] 06/28/2025 9:01 PM EDT [facility] Specimen Type POC Capillary 06/28/2025 9:01 PM EDT [facility] Blood Capillary blood specimen / Unknown 06/28/2025 8:59 PM EDT 06/28/2025 9:01 PM EDT us William Calle MD LAB POINT OF CARE T EST DOCKED DEVICE UNSOLICITED RESULTS Final Result [facility] [address] [place] [id number] * (ABNORMAL) Urine Culture (06/28/2025 8:29 PM EDT) Culture Unable to quantitate due to interfering substance. 07/02/2025 1:42 PM EDT [facility] Culture Klebsiella pneumoniae(A) PRINCESS 07/02/2025 1:42 PM EDT [facility] Comment: This isolate has been identified using the FDA Approved [employer] [place] System Edited result: Previously reported as [...] PRINCESS >8 ug/ml: Resistant Klebsiella pneumoniae Tobramycin PRINCESS <=2 ug/ml: Susceptible Klebsiella pneumoniae Trimethoprim/Sulfa methoxazol e PRINCESS <=0.5/9.5 ug/ml: Susceptible William Calle MD LAB MICROBIOLOGY - GENERAL ORDERABLES Final Result Performing Organization Address City/State/[facility] Co de Phone Number [facility] [address] [place] [address] * (ABNORMAL) POCT glucose meter (06/28/2025 7:47 PM EDT) POCT Glucose 122(H) 74 - 99 mg/dL [...] for testing. Comment 06/28/2025 7:50 PM EDT [facility] Wire Photo Operator News ID Lupe Cordova 7:50 PM EDT [facility] Device ID [id number] 06/28/2025 7:50 PM EDT [facility] Specimen Type POC Capillary 06/28/2025 7:50 PM EDT [facility] Blood Capillary blood specimen / Unknown 06/28/2025 7:47 PM EDT 06/28/2025 7:50 PM EDT William Calle MD LAB POINT OF CARE T EST DOCKED DEVICE UNSOLICITED RESULTS Final Result Performing Organization Address City/[facility] Co de Phone Number [facility]ALTH[facility]ARE LAB [address] [place] [address] * Urine Culture (06/28/2025 6:05 PM EDT) Culture <10,000 CFU/mL Mixed urogenital, fecal, or skin lavinia present. 06/30/2025 5:55 AM EDT [facility] Urine Urine specimen obtained by clean catch procedure / Unknown Non-blood Collection / Unknown 06/28/2025 6:05 PM EDT 06/28/2025 6:23 PM EDT us William Calle MD LAB MICROBIOLOGY - GENERAL ORDERABLES Final Result Performing Organization Address [facility]/ZIP Co de Phone Number [facility] [address] [place] [address] * , urine (06/28/2025 6:05 PM EDT) Urine Negative Negative 6:23 PM EDT [facility] Comment:False negative resul ts have been reported in some women after 7 weeks of gestation. Plasma hCG testing is recommended if clinically indicated. Urine Urine specimen obtained by clean catch procedure / Unknown Non-blood Collection / Unknown 06/28/2025 6:05 PM EDT 06/28/2025 6:15 PM EDT us William Calle MD LAB URINE ORDERABLES Final Result Performing Organization Address [facility] Co de Phone Number [facility] [address] [place] [address] * Microbiology Frequency Override (06/28/2025 6:05 PM EDT) Pathologist [facility] Microbiology Frequency Override Test Comment Urine culture 06/29/2025 7:05 AM EDT [facility] Urine Urine specimen obtained by clean catch procedure / Unknown Non-blood Collection / Unknown 06/28/2025 6:05 PM EDT 06/28/2025 6:23 PM EDT us Sheyla Groves MD LAB MICROBIOLOGY - GENERAL OR DERABLES Final Result Performing Organization Address City/[facility]/ZIP Co de Phone Number [facility] [address] [place] [address] * EKG now - STAT (adult) (06/28/2025 4:57 PM EDT) EKG DIAGNOSIS CLASS Borderline Abnormal MUSE ECG Ventricular Rate 82 BPM MUSE ECG Atrial Rate 82 BPM MUSE ECG MS Interval 136 ms MUSE ECG QRSD Interval 74 ms MUSE ECG QT Interval 352 ms MUSE ECG QTC Interval 411 ms MUSE ECG P [place] 59 degrees MUSE ECG R [place] 46 degrees MUSE ECG T Wave [place] 59 degrees MUSE ECG Diagnosis Normal sinus rhythm MUSE ECG Diagnosis Low voltage QRS MUSE ECG Diagnosis Borderline ECG MUSE ECG Diagnosis MUSE ECG Diagnosis Confirmed by Gilberto West ([id number]) on 06/29/2025 4:58:20 PM MUSE ECG 06/28/2025 4:57 PM EDT 06/29/2025 4:58 PM EDT us Sheyla Groves MD ECG ORDERABLES Final Result Performing Organization Address [facility] Co de Phone Number MUSE ECG * (ABNORMAL) Hemoglobin A1c (06/28/2025 4:57 PM EDT) Pathologist [facility] Hemoglobin A1c 9.2(H) <5.7 % 06/28/2025 7:22 PM EDT [facility] Blood Venous blood specimen / Unknown Venipuncture / Unknown 06/28/2025 4:57 PM EDT 06/28/2025 5:14 PM EDT Narrative [facility] - 06/28/2025 7:22 PM EDT HA1C Interpretive Data: Diagnosis of Diabetes: Diabetic > or = 6.5% Pre-diabetic 5.7 to 6.4% Non-diabetic < or = 5.6% Glycemic Targets for Type I and Type II Diabetics: Non- Adults <7.0% Adults <6.0% Children and Adolescents <7.5% Source: Citizen Of [place] Diabetes Association. Standards of medical care in diabetes,2017. Diabetes Care.2017:40 (suppl 1):S1-S135. us Sheyla Groves MD LAB BLOOD ORDERABLES Final Re sult [facility] [address] [place] [address] * (ABNORMAL) Beta-Hydroxybutyric Acid (06/28/2025 4:57 PM EDT) Beta-Hydroxybu tyric Acid, Plasma 2.46(H) <=0.27 mmol/L 06/28/2025 6:17 PM EDT [facility] Blood Venous blood specimen / Unknown Venipuncture / Unknown 06/28/2025 4:57 PM EDT 06/28/2025 5:05 PM EDT us Sheyla Groves MD LAB BLOOD ORDERABLES Final Re sult [facility] [address] [place] [address] * (ABNORMAL) Blood gas panel, venous (06/28/2025 4:57 PM EDT) pH, Venous 7.30(L) 7.32 - 7.43 LAB HEMATOLOGY METHOD 06/28/2025 5:10 PM EDT [facility] pCO2, Venous 43 37 - 52 mmHg LAB HEMATOLOGY METHOD 06/28/2025 5:10 PM EDT [facility] pO2, Venous 15(L) 25 - 40 mmHg LAB HEMATOLOGY METHOD 06/28/2025 5:10 PM EDT [facility] SO2, Measured, Venous 18(L) 65 - 80 % LAB HEMATOLOGY METHOD 06/28/2025 5:10 PM EDT [facility] Base Excess, Venous -5.1(L) -2.0 - 3.0 mmol/L LAB HEMATOLOGY METHOD 06/28/2025 5:10 PM EDT [facility] Bicarbonate, Calculated, Venous 21(L) 22 - 26 mmol/L LAB HEMATOLOGY METHOD 06/28/2025 5:10 PM EDT [facility] Hematocrit, Whole Blood 36.8 34.0 - 45.0 % LAB HEMATOLOGY METHOD 06/28/2025 5:10 PM EDT [facility] Sodium, Whole Blood 142 136 - 145 mmol/L LAB HEMATOLOGY METHOD 06/28/2025 5:10 PM EDT [facility] Potassium, Whole Blood 3.6 3.6 - 4.9 mmol/L LAB HEMATOLOGY METHOD 06/28/2025 5:10 PM EDT [facility] Chloride, Whole Blood 108(H) 97 - 107 mmol/L LAB HEMATOLOGY METHOD 06/28/2025 5:10 PM EDT [facility] Glucose, Whole Blood 101(H) 74 - 99 mg/dL LAB HEMATOLOGY METHOD 06/28/2025 5:10 PM EDT [facility] Lactate, Venous, Whole Blood 1.2 0.5 - 2.2 mmol/L LAB HEMATOLOGY METHOD 06/28/2025 5:10 PM EDT [facility] Ionized Calcium, Whole Blood 4.9 4.6 - 5.1 mg/dL LAB HEMATOLOGY METHOD 06/28/2025 5:10 PM EDT [facility] Blood Venous blood specimen / Unknown Venipuncture / Unknown 06/28/2025 4:57 PM EDT 06/28/2025 5:07 PM EDT us Sheyla Groves MD LAB BLOOD ORDERABLES Final Re sult Performing Organization Address City/[facility]/ZIP Co de Phone Number [facility] [address] [place] [address] * (ABNORMAL) Magnesium (06/28/2025 4:57 PM EDT) Magnesium, Plasma 1.2(L) 1.9 - 2.4 mg/dL 06/28/2025 5:31 PM EDT [facility] Blood Venous blood specimen / Unknown Venipuncture / Unknown 06/28/2025 4:57 PM EDT 06/28/2025 5:05 PM EDT us Sheyla Groves MD LAB BLOOD ORDERABLES Final Re sult [facility] [address] [place] [address] * (ABNORMAL) PT-INR (06/28/2025 4:57 PM EDT) Prothrombin Time 14.9(H) 12.0 - 14.3 sec 06/28/2025 5:22 PM EDT [facility] INR 1.2(H) 0.9 - 1.1 06/28/2025 5:22 PM EDT [facility] Blood Venous blood specimen / Unknown Venipuncture / Unknown 06/28/2025 4:57 PM EDT 06/28/2025 5:05 PM EDT Narrative [facility] - 06/28/2025 5:22 PM EDT OPTIMAL INR RANGES FOR PATIENT ON ORAL ANTICOAGULANT THERAPY Prevention of venous thromboembolism INR 2.0 to 3.0 In patients with heart disease: Atrial fibrillation INR 2.0 to 3.0 Valvular heart disease INR 2.0 to 3.0 Tissue heart valves INR 2.0 to 3.0 Mechanical prosthetic valves INR 2.5 to 3.5 Prevention of recurrent AL INR 2.5 to 3.5 us Sheyla Groves MD LAB BLOOD ORDERABLES Final Re sult Performing Organization Address [facility]/ZIP Co de Phone Number [facility] [address] [place] [address] * ED HIV 1/2 Antibody/Antigen Screen w/Reflex to HIV 1/2 Differentiation (06/28/2025 4:57 PM EDT) HIV 1 & 2 Antibody/Antigen Screen Non Reactive Non Reactive 06/28/2025 5:54 PM EDT [facility] Comment:Screening for HIV 1 & 2 antibodies, and P24 antigen is NONREACTIVE. No confirmatory testing is required. Blood Venous blood specimen / Unknown Venipuncture / Unknown 06/28/2025 4:57 PM EDT 06/28/2025 5:13 PM EDT us Sheyla Groves MD LAB BLOOD ORDERABLES Final Re sult Performing Organization Address City/[facility]/ZIP Co de Phone Number [facility] [address] [place] [address] * Hepatitis C Antibody - ED (06/28/2025 4:57 PM EDT) Hepatitis C Antibody Negative Negative 06/28/2025 5:56 PM EDT [facility] Blood Venous blood specimen / Unknown Venipuncture / Unknown 06/28/2025 4:57 PM EDT 06/28/2025 5:13 PM EDT us Sheyla Groves MD LAB BLOOD ORDERABLES Final Re sult [facility] [address] [place] [address] * (ABNORMAL) CBC and Differential (06/28/2025 4:57 PM EDT) WBC Count 5.12 3.70 - 10.30 10*3/uL LAB HEMATOLOGY METHOD 06/28/2025 5:09 PM EDT [facility] RBC Count 3.94 3.90 - 5.20 10*6/uL LAB HEMATOLOGY METHOD 06/28/2025 5:09 PM EDT [facility] HGB 11.5 11.2 - 15.7 g/dL LAB HEMATOLOGY METHOD 06/28/2025 5:09 PM EDT [facility] HCT 34.1 34.0 - 45.0 % LAB HEMATOLOGY METHOD 06/28/2025 5:09 PM EDT [facility] Platelet Count 183 155 - 369 10*3/uL LAB HEMATOLOGY METHOD 06/28/2025 5:09 PM EDT [facility] MCV 87 79 - 98 fL LAB HEMATOLOGY METHOD 06/28/2025 5:09 PM EDT [facility] MCH 29.2 26.0 - 32.0 pg LAB HEMATOLOGY METHOD 06/28/2025 5:09 PM EDT [facility] MCHC 33.7 30.7 - 35.5 g/dL LAB HEMATOLOGY METHOD 06/28/2025 5:09 PM EDT [facility] RDW 14.3 11.5 - 14.5 % LAB HEMATOLOGY METHOD 06/28/2025 5:09 PM EDT [facility] MPV 11.7 8.8 - 12.5 fL LAB HEMATOLOGY METHOD 06/28/2025 5:09 PM EDT [facility] nRBC 0.0 <=0.0 per 100 WBCs LAB HEMATOLOGY METHOD 06/28/2025 5:09 PM EDT [facility] Differential Type Automated LAB HEMATOLOGY METHOD 06/28/2025 5:09 PM EDT [facility] Neutrophils % 68 % LAB HEMATOLOGY METHOD 06/28/2025 5:09 PM EDT [facility] Lymphocytes % 18 % LAB HEMATOLOGY METHOD 06/28/2025 5:09 PM EDT [facility] Monocytes % 11 % LAB HEMATOLOGY METHOD 06/28/2025 5:09 PM EDT [facility] Eosinophils % 1 % LAB HEMATOLOGY METHOD 06/28/2025 5:09 PM EDT [facility] Basophils % 1 % LAB HEMATOLOGY METHOD 06/28/2025 5:09 PM EDT [facility] Immature Granulocytes % 1 % LAB HEMATOLOGY METHOD 06/28/2025 5:09 PM EDT [facility] Neutrophils Absolute 3.55 1.60 - 6.10 10*3/uL LAB HEMATOLOGY METHOD 06/28/2025 5:09 PM EDT [facility] Lymphocytes Absolute 0.91(L) 1.20 - 3.90 10*3/uL LAB HEMATOLOGY METHOD 06/28/2025 5:09 PM EDT [facility] Monocytes Absolute 0.55 0.30 - 0.90 10*3/uL LAB HEMATOLOGY METHOD 06/28/2025 5:09 PM EDT [facility] Eosinophils Absolute 0.05 0.00 - 0.50 10*3/uL LAB HEMATOLOGY METHOD 06/28/2025 5:09 PM EDT [facility] Basophils Absolute 0.03 0.00 - 0.10 10*3/uL LAB HEMATOLOGY METHOD 06/28/2025 5:09 PM EDT [facility] Immature Granulocytes Absolute 0.03 0.00 - 0.06 10*3/uL LAB HEMATOLOGY METHOD 06/28/2025 5:09 PM EDT [facility] Blood Venous blood specimen / Unknown Venipuncture / Unknown 06/28/2025 4:57 PM EDT 06/28/2025 5:05 PM EDT Narrative [facility] - 06/28/2025 5:09 PM EDT Therapeutic decision making should be based on absolute values, rather than percentages. us Sheyla Groves MD LAB BLOOD ORDERABLES Final Re sult [facility] [address] [place] [address] * (ABNORMAL) CMP (06/28/2025 4:57 PM EDT) Glucose, Plasma 102(H) 74 - 99 mg/dL 06/28/2025 5:31 PM EDT [facility] BUN, Plasma 17 8 - 23 mg/dL 06/28/2025 5:31 PM EDT [facility] Creatinine, Plasma 0.56(L) 0.60 - 1.10 mg/dL 06/28/2025 5:31 PM EDT [facility] BUN/Creatinine Ratio 30 06/28/2025 5:31 PM EDT [facility] Sodium, Plasma 138 136 - 145 mmol/L 06/28/2025 5:31 PM EDT [facility] Potassium, Plasma 3.7 3.6 - 4.9 mmol/L 06/28/2025 5:31 PM EDT [facility] Chloride, Plasma 105 97 - 107 mmol/L 06/28/2025 5:31 PM EDT [facility] CO2, Plasma 19(L) 22 - 29 mmol/L 06/28/2025 5:31 PM EDT [facility] Anion Gap 14 6 - 16 mmol/L 06/28/2025 5:31 PM EDT [facility] Total Calcium, Plasma 9.2 8.9 - 10.2 mg/dL 06/28/2025 5:31 PM EDT [facility] Total Protein 6.9 6.3 - 7.9 g/dL 06/28/2025 5:31 PM EDT [facility] Albumin, Plasma 3.7 3.5 - 5.2 g/dL 06/28/2025 5:31 PM EDT [facility] AST, Plasma 14 10 - 35 U/L 06/28/2025 5:31 PM EDT [facility] ALT, Plasma 12 10 - 35 U/L 06/28/2025 5:31 PM EDT [facility] Alkaline Phosphatase, Plasma 62 46 - 142 U/L 06/28/2025 5:31 PM EDT [facility] Total Bilirubin, Plasma 0.5 0.2 - 1.1 mg/dL 06/28/2025 5:31 PM EDT [facility] eGFRcr 102.1 mL/min/1.7 3m*2 06/28/2025 5:31 PM EDT [facility] Comment:Reported eGFRcr in m L/min/1.73m2 is based the CKD-EPI 2020 equation that does not use a race coefficient. Blood Venous blood specimen / Unknown Venipuncture / Unknown 06/28/2025 4:57 PM EDT 06/28/2025 5:05 PM EDT us Sheyla Groves MD LAB BLOOD ORDERABLES Final Re sult Performing Organization Address [facility] de Phone Number [facility] [address] [place] [address] * Urine [place] Panel (06/28/2025 4:41 PM EDT) Extra Reflex urine culture not indicated 06/29/2025 2:01 AM EDT [facility] Comment: Previously prelim verified as [...] ORDERABLES Final Re sult Performing Organization Address [facility] Co de Phone Number [facility] [address] [place] [address] * (ABNORMAL) Urinalysis with reflex microscopic (Culture NOT Included) (06/28/2025 4:41 PM EDT) Color, Urine Dark Yellow LAB URINALYSIS - AUTOMATED METHOD 06/28/2025 4:53 PM EDT [facility] Clarity, Urine Clear LAB URINALYSIS - AUTOMATED METHOD 06/28/2025 4:53 PM EDT [facility] Spec [place], Urine >1.030(H) 1.005 - 1.030 LAB URINALYSIS - AUTOMATED METHOD 06/28/2025 4:53 PM EDT [facility] pH, Urine 6.0 5.0 - 8.0 LAB URINALYSIS - AUTOMATED METHOD 06/28/2025 4:53 PM EDT [facility] Protein, Urine Trace(A) Negative mg/dL LAB URINALYSIS - AUTOMATED METHOD 06/28/2025 4:53 PM EDT [facility] Glucose, Urine 500(A) Negative mg/dL LAB URINALYSIS - AUTOMATED METHOD 06/28/2025 4:53 PM EDT [facility] Ketones, Urine 40(A) Negative mg/dL LAB URINALYSIS - AUTOMATED METHOD 06/28/2025 4:53 PM EDT [facility] Blood, Urine Negative Negative LAB URINALYSIS - AUTOMATED METHOD 06/28/2025 4:53 PM EDT [facility] Bilirubin, Urine Negative Negative LAB URINALYSIS - AUTOMATED METHOD 06/28/2025 4:53 PM EDT [facility] Urobilinogen, Urine 0.2 0.2 to 1.0 mg/dL LAB URINALYSIS - AUTOMATED METHOD 06/28/2025 4:53 PM EDT [facility] Leukocytes, Urine Negative Negative LAB URINALYSIS - AUTOMATED METHOD 06/28/2025 4:53 PM EDT [facility] Nitrite, Urine Negative Negative LAB URINALYSIS - AUTOMATED METHOD 06/28/2025 4:53 PM EDT [facility] Urine Urine specimen obtained by clean catch procedure / Unknown Non-blood Collection / Unknown 06/28/2025 4:41 PM EDT 06/28/2025 4:51 PM EDT us Sheyla Groves MD LAB URINE ORDERABLES Final Re sult [facility] [address] [place] [address] * POCT glucose meter (06/28/2025 4:20 PM EDT) POCT Glucose 81 74 - 99 mg/dL [...] Comment 06/28/2025 4:22 PM EDT [facility] Wire Photo Operator News ID Vicenta Wesley 06/28/2025 4:22 PM EDT [facility] Device ID [id number] 06/28/2025 4:22 PM EDT [facility] Specimen Type POC Capillary 06/28/2025 4:22 PM EDT [facility] Blood Capillary blood specimen / Unknown 06/28/2025 4:20 PM EDT 06/28/2025 4:22 PM EDT us Generic Provider Poct LAB POINT OF CARE TEST DOCKED DEVICE UNSOLICITED RESULTS Final Result [facility] [address] [place] [address] documented in this encounter Visit Diagnoses Diagnosis Ureteral stone with hydronephrosis- Primary Ureteral stone with hydronephrosis Ureteral stone with hydronephrosis documented in this [...] Given 06/29/2025 10:33 AM EDT 1,000 mg dextrose 10 % (D10W) bolus 125 mL [...] dose on Sat06/28/25 at 2200, Until Discontinued, RoutineIndications:Prophylaxi s of Venous Thromboembolism Given 06/29/2025 6:46 AM [...] on Sat06/29/25 at 2100, Until Discontinued, Routine iohexol (OMNIPaque) 300 MG/ML injection As needed, Starting on Sat06/28/25 at 204, Until Sat06/28/25 at 205, Routine, Intraprocedure Given 06/28/2025 8:46 PM EDT 3 mL lactated Ringer's infusion 84 mL/hr, Intravenous, Continuous, Starting on Sat06/28/25 at 1810, Until Sat06/29/25 at 1639, Routine New Bag 06/29/2025 8:08 AM EDT 84 mL/ hr 84 mL/hr New Bag 06/28/2025 9:02 PM EDT 84 mL/hr 84 mL/hr New Bag 06/28/2025 8:01 PM EDT ondansetron (Zofran) injection 4 mg 4 mg, [...] Transfer Provider - Reason: Patient in procedure)2040 (MAR Unhold - Provider: Jewel Aviles RN) 0049 (Given - Provider: Toña Lockett RN)0647 (Given - Provider: Toña Lockett RN)1153 (Not Given - Provider: Stacey Erazo - Reason: Patient/family refused) cefadroxil (Duricef) capsule 1,000 mg 1,000 mg, Oral, 2 times daily, 10 doses, First dose on Sat06/29/25 at 1000, Last dose on Sat07/03/25 at 2100, Routine 1033 (Given - Provid er: Stacey Kacey) cefTRIAXone (Rocephin) 2 g in sodium chloride [...] on Sat06/28/25 at 2200, Until Discontinued, Routine 194 (JAN Hold - Provider: Automatic Transfer Provider - Reason: Patient in procedure)2040 (MAR Unhold - Provider: Jewel Aviles RN)2122 (Given - Provider: Jewel Aviles RN) 0646 (Given - Provider: Toña Lockett RN)1306 (Not Given - Provider: Stacey Erazo - Reason: Patient/family refused) insulin glargine-yfgn 100 UNIT/ML injection 15 Units 15 Units, Subcutaneous, 2 times daily, First dose on Sat06/29/25 at 0900, Until Discontinued, Routine 0807 (Given - Provid er: Stacey Erazo) insulin lispro (Admelog) 100 units/mL injection - Correction - Standard Dose 0-5 Units, Subcutaneous, 3 times daily with meals, First dose on Sat06/29/25 at 0830, Until Discontinued, Routine 0807 (Given - Provid er: Stacey Erazo)1306 (Given - Provider: Stacey Erazo) insulin lispro [...] Wesley RN - Reason: Order parameters not met)194 (MAR Hold - Provider: Automatic Transfer Provider - Reason: Patient in procedure)2040 (MAR Unhold - Provider: Jewel Aviles RN) 0049 (Given - Provider: Toña Lockett RN)0651 (Given - Provider: Toña Lockett RN) magnesium sulfate IVPB 2 g (COMPLETED) 2 g, Intravenous, Once, 1 dose, On Sat06/28/25 at 1745, Routine 1811 (New Bag - Provider: Vicenta Wesley RN)2033 [...] Discontinued, Routine 1810 (Given - Provider: Vicenta Wesley, JOCE)1942 (JAN Hold - Provider: Automatic Transfer Provider - Reason: Patient in procedure)2040 (JAN Unhold - Provider: Jewel Aviles RN) 0651 (Given - Provider: Toña Lockett RN) tamsulosin (Flomax) 24 hr capsule 0.4 mg 0.4 mg, Oral, Nightly, First dose on Sat06/28/25 at 2200, Until Discontinued, Routine 1942 (JAN Hold - Provider: Automatic Transfer Provider - Reason: Patient in procedure)2040 ([facility] Unhold - Provider: Jewel Aviles, JOCE)2121 (Given - Provider: Jewel Aviles RN) Continuous Medication Order 06/27/2025 06/28/2025 06/29/2025 lactated Ringer's infusion 84 mL/hr, Intravenous, Continuous, Starting on Sat06/28/25 at 1810, Until Sat06/29/25 at 1639, Routine 2000 (New Bag - Provider: Manuel Gutierrez MD)2023 (Anesthesia Volume Adjustment - Provider: Manuel Gutierrez MD)2101 (New Bag - Provider: Jewel Aviles RN) 08 (New Bag - Provider: Stacey Erazo) PRN Medication Order 06/27/2025 06/28/2025 06/29/2025 dextrose 10 % (D10W) bolus 125 mL(Linked Group 3) 125 mL, Intravenous, Every 15 min PRN, Starting on Sat06/28/25 at 1808, Until Sat06/29/25 at 1639, Administer over 15 Minutes, Routine, low blood sugar BG 51-89 mg/dL 1942 (JAN Hold - Provider: Automatic Transfer Provider - Reason: Patient in procedure)2040 ([facility] Unhold - Provider: Jewel Aviles RN) dextrose 10 % (D10W) bolus 250 mL(Linked Group 3) 250 mL, Intravenous, Every 15 min PRN, Starting on Sat06/28/25 at 1808, Until Sat06/29/25 at 1639, Administer over 15 Minutes, Routine, PRN low blood sugar BG =/<50 mg/dL 1942 ([facility] Hold - Provider: Automatic Transfer Provider - Reason: Patient in procedure)2040 ([facility] Unhold - Provider: Jewel Aviles RN) glucagon (human recombinant) injection 1 mg(Linked Group 3) 1 mg, Intramuscular, Every 15 min PRN, Starting on Sat06/28/25 at 1808, Until Sat06/29/25 at 1639, Routine, low blood sugar per Hypoglycemia Prevention and Treatment protocol 194 ([facility] Hold - Provider: Automatic Transfer Provider - Reason: Patient in procedure)2040 ([facility] Unhold - Provider: Jewel Aviles RN) glucose (Glutose) 40 % oral gel 15-30 grams of glucose(Linked Group 3) 15-30 grams of glucose, Sublingual, Every 15 min PRN, Starting on Sat06/28/25 at 1808, Until Sat06/29/25 at 1639, Routine, low blood sugar, per Hypoglycemia Prevention and Treatment protocol 1942 ([facility] Hold - Provider: Automatic Transfer Provider - Reason: Patient in procedure)2040 ([facility] Unhold - Provider: Jewel Aviles RN) iohexol (OMNIPaque) 300 MG/ML injection (CANCELED) As needed, Starting on Sat06/28/25 at 204, Until Sat06/28/25 at 205, Routine, Intraprocedure 2045 (Given - Provider: Teresa Kimble MD) ondansetron (Zofran) injection 4 mg 4 mg, Intravenous, Every 6 hours PRN, Starting on Sat06/28/25 at 1806, Until Sat06/29/25 at 1639, Routine, nausea, vomiting 1942 ([facility] Hold - Provider: Automatic Transfer Provider - Reason: Patient in procedure)2040 ([facility] Unhold - Provider: Jewel Aviles RN) oxybutynin (Ditropan) tablet 5 mg 5 mg, Oral, 3 times daily PRN, Starting on Sat06/28/25 at 1806, Until Sat06/29/25 at 1639, Routine, bladder spasms 1943 ([facility] Hold - Provider: Automatic Transfer Provider - Reason: Patient in procedure)2040 ([facility] Unhold - Provider: Jweel Aviles RN) phenazopyridine (Pyridium) tablet 200 mg 200 mg, Oral, 3 times daily PRN, Starting on Sat06/28/25 at 1805, Until Sat06/29/25 at 1639, Routine, pain, discomfort, irritation 1943 ([facility] Hold - Provider: Automatic Transfer Provider - Reason: Patient in procedure)2040 ([facility] Unhold - Provider: Jewel Aviles RN) sodium chloride 0.9 % flush 10 mL(Linked Group 2) 10 mL, Intravenous, As needed, Starting on Sat06/28/25 at 1804, Until Sat06/29/25 at 1639, Routine, line care 1943 ([facility] Hold - Provider: Automatic Transfer Provider - Reason: Patient in procedure)2040 ([facility] Unhold - Provider: Jewel Aviles RN) Linked [...] documented as of this encounter Care Teams Provider Relations Representative Relationship Specialty Start Date End Date Gabby Gordillo APRN [address] [place] [address] PCP - General 06/28/25 documented as of this encounter
--- OUTSIDE RECORDS SUMMARY | 2025-07-12 11:17 | XMS_ITS | Encounter Summary ---
Author Organization Healthcare Address [address] [place] [address] Care Team Providers Care Suspect Artist Name Role Phone Gabby Gordillo APRN Primary Care Provider + [phone] Reason for Referral * Imaging (Routine) - Authorized Specialty Diagnoses / Procedures Referred By Sophy roldan Referred To Contact Radiology Diagnoses Left ureteral stone Procedures US Renal Complete Gilberto Ling MD [address] [address] Phone: tel: fax: Referral ID Status Reason Start Date Expiration Date V isits Requested Visits Authorized [id number] Authorized 07/12/2025 01/11/2027 1 1 Reason for Visit * Auth/Cert (Routine) Specialty Diagnoses / Procedures Referred By Sophy roldan Referred To Contact Diagnoses Left ureteral stone Left ureteral stone [N20.1] Procedures VA CYSTO/URETERO W/LITHOTRIPSY &INDWELL STENT INSRT CHG X-RAY RETROGRADE PYELOGRAM URETEROSCOPY/LASER LITHOTRIPSY Gilberto Ling MD [address] [address] Phone: tel: fax: [facility] [address] [place] [address] Phone: tel: Referral ID Status Reason Start Date Expiration Date Visits Re quested Visits Authorized [id number] 1 1 Encounter Details Date Type Department Care Team (Latest Contact Info) Description 07/12/2025 11:17 AM EDT - 07/12/2025 6:39 PM EDT Hospital Encounter [facility] [address] [place] [address] Gilberto Ling MD [address] [facility] [address] [place] [address] Left ureteral stone; Acute cystitis without hematuria Discharge Disposition: Home or Self Care Social History Tobacco Use Types Packs/Day Years Used Date Smoking Tobacco: Never Passive Smoke Exposure: Never Smokeless Tobacco: Never Alcohol Use Standard Drinks/Week Comments Not Currently 0 (1 standard drink = 0.6 oz [...] drinks on one occasion? Never 06/29/2025 Comments No Sex and Gender Information Value Date Recorded Sex Assigned at Not on file Legal Sex Female 1:07 PM EDT Gender Identity Not on file Sexual Orientation Not on file documented as of this encounter Last Filed Vital Signs Vital Sign Reading Time Taken Comments Blood Pressure 117/76 07/12/2025 6:15 PM EDT Pulse 78 07/12/2025 6:20 PM EDT Temperature 36.7 C (98.1 F) 07/12/2025 6:15 PM EDT Respiratory Rate 16 07/12/2025 6:20 PM EDT Oxygen Saturation 96% 07/12/2025 6:20 PM EDT Inhaled Oxygen Concentration - - Weight 64.9 kg (143 lb 1.3 oz) 07/12/2025 12:44 PM EDT Height 162.6 cm (5' 4 ) 07/12/2025 12:44 PM EDT Body Mass Index 24.56 07/12/2025 12:44 PM EDT documented in this encounter Functional [...] Date of Assessment Author No Risk Indicated 07/12/2025 12:22 PM EDT Greyson Almaguer RN * Question Answer Date of Assessment Author 1. Wish to be (Past 1 Month) No 025 12:22 PM EDT Benita Almaguer RN 2. Non-Specific Active Suici sushil Thoughts (Past 1 Month) No 07/12/2025 12:22 PM EDT Benita Almaguer RN 6. Suicidal Behavior (Lifetime) No 12:22 PM EDT Benita Almaguer RN documented as of this encounter Mental Status * Because of a physical, mental, or emotional condition, do you have serious difficulty concentrating, remembering, or making decisions? (5 years old or older) Answer Entry Date Author No 06/29/2025 12:21 PM EDT Stacey Erazo documented in this encounter Discharge Instructions * Discharge Instructions* Rosa Thompson RN - 07/12/2025 6:01 PM EDT Remove Stent on Saturday07/19/2025 Precautions: - You have received sedation/anesthesia today. You may not drive, drink alcohol, or do anything that requires a clear head for the next 24 hours. Medications: - You have been prescribed Bactrim DS taken twice daily for until 07/19/2025. This is an antibiotic.Please take the entire course of the medication even if you begin to feel better. This is the same antibiotic you were prescribed preoperatively - You should take 0.4mg tamsulosin (Flomax) daily until one day after stent is removed - You may take 200mg phenazopyridine (Pyridium) up to three times daily for stent and bladder discomfort. This medication will make your urine turn orange. - You may take 500mg Tylenol every 6 hours for mild - moderate pain. You may take up to 1000mg every 6 hours but do not take more than 4000mg in a day. - You may also take 600mg ibuprofen (if you normally are able to) every 6 hours for mild-moderate pain. - You may resume your previous medications unless otherwise instructed. Nutrition: - You may resume your normal diet as tolerated, focusing on liquids to keep yourself hydrated. Activity: - You may resume normal physical activity as tolerated - You may not drive for 24 hours after surgery Potential Issues: - It is normal to have some mild bladder, abdominal, or flank discomfort as well as some urinary frequency and discomfort with voiding - Call the office if you have a fever greater than 101 F - Call the office if you have severe abdominal discomfort, nausea and vomiting, or feeling unwell Follow Up: - You will be contacted by the clinic for a follow up appointment in 2 months with Gilberto Ling MD. Renal Ultrasound and 24-Hour Urine prior to follow up appointment. Questions or Concerns and Appointments (physicians work at both clinics so confirm your location ahead of your appointment) [facility] Urology Department Clinic at [place] [address] [facility], 2nd Floor, [facility], [address] [place] [address] Clinic After Hours [facility] Office Building Urology Clinic [address] [place] [address] Clinic After Hours documented in this encounter Medications at Time of Discharge acetaminophen (Tylenol) 500 MG tablet Take 2 tablets by mouth every 6 hours as needed for pain. 50 tablet 06/29/2025 Aspirin 81 MG capsule Take 1 capsule by mouth daily. 05/04/2025 atorvastatin (Lipitor) 10 MG tablet Take 1 tablet by mouth nightly. exenatide 5 MCG/0.02ML inj. pen 2 times a day before meals. 05/04/2025 glipiZIDE (Glucotrol) 10 MG tablet Take 1 tablet by mouth 2 times a day. ibuprofen 400 MG tablet Take 1 tablet by mouth every 6 hours as needed for moderate pain. 20 tablet 06/29/2025 Lantus SoloStar 100 UNIT/ML injection pen Inject 30 units twice a day by subcutaneous route at bedtime for 90 days. levothyroxine (Synthroid, Levoxyl) 112 MCG tablet Take 1 tablet by mouth daily. metFORMIN (Glucophage) 1000 MG tablet Take 1 tablet by mouth 2 times a day. methocarbamol (Robaxin) 500 MG tablet Take 1 tablet by mouth 4 times a day as needed for muscle spasms. 20 tablet 06/29/2025 phenazopyridine (Pyridium) 100 MG tablet Take 2 tablets by mouth 3 times a day as needed (Bladder discomfort). 30 tablet 07/12/2025 tamsulosin (Flomax) 0.4 MG 24 hr capsule Take 1 capsule by mouth 1 time each day with dinner. Please take the medication until 1 day after removal of your stent 30 capsule 07/12/2025 5 acetaminophen (Tylenol) 500 MG tablet Take 2 tablets by mouth every 6 hours as needed for pain for up to 10 days. 80 tablet 07/12/2025 5 sulfamethoxazole -trimethoprim (Bactrim DS) 800-160 MG tabletIndication s:Acute cystitis without hematuria Take 1 tablet by mouth 2 times a day for 7 days. 14 tablet 07/12/2025 5 documented as of this encounter Miscellaneous Notes * Anesthesia PACU Signout - Steven Diaz MD - 07/12/2025 6:26 PM EDT Patient: [facility] Anesthesia Type: general Vitals Value Taken Time BP 117/76 07/12/25 18:15 Temp 36.7 ??C (98.1 ??F) 07/12/25 18:15 Pulse 77 07/12/25 18:15 Resp 14 07/12/25 18:15 SpO2 96 % 07/12/25 18:15 Anesthesia PACU Signout Patient location during evaluation: PACU Patient participation: complete - patient participated Level of consciousness: baseline and awake Pain management: adequate (pain score 0-3) Airway patency: natural airway Hydration status: acceptable PONV: none Cardiovascular status: acceptable and hemodynamically stable Respiratory status: acceptable, spontaneous ventilation, unassisted and nonlabored ventilation * Rosa Reeder RN - 07/12/2025 5:38 PM EDT Images from the original note were not included. [id number] Having a Ureteral Stent A ureteral stent is a soft, flexible plastic tube. It's 8 to 11 inches long. It?s temporarily put into a ureter to help drain urine into the bladder. One end goes in the kidney. The other end goes into the bladder. A coil on each end holds the stent in place. The stent can?t be seen from outside the body. It should not get in the way of your normal routine. Your stent will be put in by a doctor trained in treating the urinary tract (urologist). Or it may be put in by another specialist. The procedure is done in a hospital or surgery center. You?ll likely go home the same day. When is a ureteral stent used? A ureteral stent may be used: ? To bypass a blockage in a kidney or ureter. ? During kidney stone removal. ? To let a ureter heal after surgery. Before the procedure Your doctor will tell you how to prepare for the procedure. Tell your doctor if you were ill recently. Also tell them about any allergies or health conditions you have. Be sure your doctor knows about all the medicines you take. These include herbal supplements and medicines that don't need a prescription. X-rays or other imaging tests will be done ahead of time. These tests will be of your kidneys and ureters. During the procedure ? You receive medicine to prevent pain and help you relax or sleep during the procedure. Once this takes effect, the procedure starts. ? The doctor puts a cystoscope (lighted instrument) through the urethra and into the bladder. This shows the opening to the ureter. ? A thin wire is carefully threaded through the cystoscope, up the ureter, and into the kidney. Thestent is inserted over the wire. ? A fluoroscope (special X-ray machine) is used to help position the stent. When the stent is in place, the wire and cystoscope are removed. While you have a stent ? Some pain is normal. If you move in a certain way, it may cause pain or a feeling that you need to urinate. You may also feel mild soreness or pressure before or during urination. These symptoms will go away a few days after the stent is removed. ? Medicine to control pain or bladder spasms or to prevent infection may be prescribed. Take it as directed. ? Drink plenty of fluids to help flush out your urinary tract. ? Your urine may be slightly pink or red. This is due to bleeding caused by minor irritation from the stent. This may happen on and off while you have the stent. ? As with any synthetic device placed in the body, there is a risk of infection. The stent may haveto be removed if this happens. How long will you need a stent? The stent is often taken out after the blockage in the ureter is treated or the ureter has healed. This may take 1 week to 2 weeks, or longer. If a stent is needed for a long time, it may need to be changed every few months. When to contact your doctor Contact your doctor right away if: ? Your urine contains blood clots or you see a large amount of blood-tinged urine. ? You have symptoms similar to those you had before the stent was placed. ? You constantly leak urine. ? You have a fever of 100.4??F (38??C) or higher, or as directed by your doctor. ? You have chills. ? You experience nausea or vomiting. ? Your pain is not relieved with medicine. ? The end of the stent comes out of the urethra. ? You experience new or worsening symptoms. Last Reviewed Date: 2025 00:00:00 ?? [id number] [employer]. All rights reserved. This information is not intended as a substitute for professional medical care. Always follow your healthcare professional's instructions. * Rosa Reeder RN - 07/12/2025 5:38 PM EDT Images from the original note were not included. [id number] Discharge Instructions: After Your Surgery You?ve just had surgery. During surgery, you were given medicine called anesthesia to keep you relaxed and free of pain. After surgery, you may have some pain or nausea. This is common. Here are sometips for feeling better and getting well after surgery. Going home Your healthcare provider will show you how to take care of yourself when you go home. They'll also answer your questions. Have an adult family member or friend drive you home. For the first 24 hours after your surgery: ? Don't drive or use heavy equipment. ? Don't make important decisions or sign legal papers. ? Take medicines as directed. ? Don't drink alcohol. ? Have someone stay with you, if needed. They can watch for problems and help keep you safe. Be sure to go to all follow-up visits with your healthcare provider. And rest after your surgery for as long as your provider tells you to. Coping with pain If you have pain after surgery, pain medicine will help you feel better. Take it as directed, before pain becomes severe. Also, ask your healthcare provider or pharmacist about other ways to control pain. This might be with heat, ice, or relaxation. And follow any other instructions your surgeon ornurse gives you. Stay on schedule with your medicine. Tips for taking pain medicine To get the best relief possible, remember these points: ? Pain medicines can upset your stomach. Taking them with a little food may help. ? Most pain relievers taken by mouth need at least 20 to 30 minutes to start to work. ? Don't wait till your pain becomes severe before you take your medicine. Try to time your medicineso that you can take it before starting an activity. This might be before you get dressed, go for awalk, or sit down for dinner. ? Constipation is a common side effect of some pain medicines. Call your healthcare provider beforetaking any medicines, such as laxatives or stool softeners, to help ease constipation. Also ask if you should skip any foods. Drinking lots of fluids and eating foods, such as fruits and vegetables, that are high in fiber can also help. Remember, don't take laxatives unless your surgeon has prescribed them. ? Drinking alcohol and taking pain medicine can cause dizziness and slow your breathing. It can even be deadly. Don't drink alcohol while taking pain medicine. ? Pain medicine can make you react more slowly to things. Don't drive or run machinery while takingpain medicine. Your healthcare provider may tell you to take acetaminophen to help ease your pain. Ask them how much you're supposed to take each day. Acetaminophen or other pain relievers may interact with your prescription medicines or other kimw-gfn-vcdbxss (OTC) medicines. Some prescription medicines have acetaminophen and other ingredients in them. Using both prescription and OTC acetaminophen for pain cancause you to accidentally overdose. Read the labels on your OTC medicines with care. This will helpyou to clearly know the list of ingredients, how much to take, and any warnings. It may also help you not take too much acetaminophen. If you have questions or don't understand the information, ask yo ur pharmacist or healthcare provider to explain it to you before you take the OTC medicine. Managing nausea Some people have an upset stomach (nausea) after surgery. This is often because of anesthesia, pain, or pain medicine, less movement of food in the stomach, or the stress of surgery. These tips will help you handle nausea and eat healthy foods as you get better. If you were on a special food plan before surgery, ask your healthcare provider if you should follow it while you get better. Check withyour provider on how your eating should progress. It may depend on the surgery you had. These general tips may help: ? Don't push yourself to eat. Your body will tell you when to eat and how much. ? Start off with clear liquids and soup. They're easier to digest. ? Next try semi-solid foods as you feel ready. These include mashed potatoes, applesauce, and gelatin. ? Slowly move to solid foods. Don?t eat fatty, rich, or spicy foods at first. ? Don't force yourself to have 3 large meals a day. Instead eat smaller amounts more often. ? Take pain medicines with a small amount of solid food, such as crackers or toast. This helps prevent nausea. When to call your healthcare provider Call your healthcare provider right away if you have any of these: ? You still have too much pain, or the pain gets worse, after taking the medicine. The medicine maynot be strong enough. Or there may be a complication from the surgery. ? You feel too sleepy, dizzy, or groggy. The medicine may be too strong. ? Side effects, such as nausea or vomiting. Your healthcare provider may advise taking other medicines to treat these or may change your treatment plan.. ? Skin changes, such as rash, itching, or hives. This may mean you have an allergic reaction. Your provider may advise taking other medicines. ? The incision looks different (for instance, part of it opens up). ? Bleeding or fluid leaking from the incision site, and you weren't told to expect that. ? Fever of 100.4??F (38??C) or higher, or as directed by your healthcare provider. Call 911 Call 911 right away if you have: ? Trouble breathing ? Facial swelling If you have obstructive sleep apnea You were given anesthesia medicine during surgery to keep you comfortable and free of pain. After surgery, you may have more apnea spells because of this medicine and other medicines you were given. The spells may last longer than normal. At home: ? Keep using the continuous positive airway pressure (CPAP) device when you sleep. Unless your healthcare provider tells you not to, use it when you sleep, day or night. CPAP is a common device used to treat obstructive sleep apnea. ? Talk with your provider before taking any pain medicine, muscle relaxants, or sedatives. Your provider will tell you about the possible dangers of taking these medicines. ? Contact your provider if your sleeping changes a lot even when taking medicines as directed. Last Reviewed Date: 2024 00:00:00 ?? [id number] [employer]. All rights reserved. This information is not intended as a substitute for professional medical care. Always follow your healthcare professional's instructions. * Op Note - Steven Shaw MD - 07/12/2025 4:07 PM EDT Date of Surgery: 07/12/25 Procedure Performed: Cystoscopy Left Ureteroscopy, laser lithotripsy and basket stone extraction Left retrograde pyelogram Left ureteral stent placement Preoperative Diagnosis: Left ureteral Stone Postoperative Diagnosis: Same Surgeon: * Gilberto Ling - Primary Mechanical Design Drafter Surgeon: * Steven Shaw MD - Resident - Assisting Intraoperative Findings: Stones were visible on fluoroscopy. Stones appeared to be completely treated. Left stent placed with strings Intraoperative fluoroscopy demonstrated normal appearing renal collecting system and was used to confirm proper placement of the ureteral stent. Other findings include: Stone was impacted at the left UPJ, following removal the UPJ was noted to be markedly inflamed. Indications: Donna Warner is a 64 y.o. female with pmhx T2DM, hypothyroidism, and HLD who presents to ED as a transfer from [facility] for left UPJ stone with upstream hydronephrosis and concern for infection. She was taken for left ureteral stent placement on 06/28/2025. She presents today for definitive stone management. Anesthesia: General Complications: None Drains: Implant Name Type Inv. Item Serial No. Print Shop Stenographer Lot No. [id number] No. Used Action STENT URETERAL DOUBLE PIGTAIL POS 6FR 26CM - [id number] STENT URETERAL DOUBLE PIGTAIL POS 6FR 26CM [id number] 1 Implanted Specimens: ID Type Source Tests Collected by Time A : URINE CULTURE Urine Ureter, Left URINE CULTURE Gilberto Ling MD 07/12/2025 1618 B : left kidney stone for analysis Calculus Kidney, Left CALCULI (KIDNEY STONE)ANALYSIS (SO) Gilberto Ling MD 07/12/2025 1655 EBL: Min. Procedure in Detail: After informed consent was obtained, the patient was brought into the surgical suite. The patient was placed in the dorsal lithotomy position. General anesthesia was administered, SCDs were placed onthe patient and preoperative antibiotics were administered prior to the start of the case. A 19 Fr rigid cystoscope was introduced into the patient's urethral meatus and advanced into the urinary bladder. A bladder urine was collected and sent for culture. The bladder was examined and did not have any masses or stones. The left ureteral orifice was cannulated with a Sensor wire and this was advanced under fluoroscopyto the level of the left renal pelvis. A semirigid ureteroscope was then advanced into the left ureter alongside the Sensor wire. There were no stones visualized in the distal or mid ureter. The semirigid ureteroscope was removed and a dual-lumen catheter was advanced over the sensor wire. A zip wire was advanced to the level of the renal pelvis and the dual lumen catheter was offloaded from the wires. A 11/13 x 46 cm ureteral access sheath was advanced over the Sensor wire under fluoroscopy until the proximal portion was at the left UPJ. The flexible ureteroscope was then inserted through the access sheath into the left kidney. An impacted stone was encountered at the UPJ. A 200 micron laser fiber was used to fragment the stone into small particles. The larger pieces were removed with a 1.9 FrNcircle basket. Much of the dust was flushed out by flushing the calices with saline irrigation with a 20cc syringe through the cystoscope. The stones were sent for stone analysis. Contrast was injected in a retrograde fashion to delineate the intrarenal anatomy. The ureteroscope and access sheath were withdrawn and the ureter was examined with no evidence of significant ureteral injury. A small stone fragment was visualized in the mid ureter. This fragment was removed with the 1.9 Fr Ncircle basket. A 6 Fr x 26 cm JJ ureteral stent with strings was placed over the zip wire and the proximal end wasseen on fluoroscopy to be in the renal pelvis and the distal end in the bladder. The patient tolerated the procedure well and was awakened from anesthesia without difficulty. They were taken to the PACU in stable condition. Postoperative Plan: - The patient will be discharged home today. - The patient has been prescribed Bactrim DS taken twice daily for 7 days. - 0.4mg tamsulosin daily until one day after stent is removed - 200mg phenazopyridine up to three times daily for stent and bladder discomfort - 500mg Tylenol every 6 hours for mild - moderate pain - 600mg ibuprofen every 6 hours for mild-moderate pain - The patient may remove their ureteral stent on 07/19/2025. - The patient will follow up in 2 months with Gilberto Ling MD. - Renal Ultrasound and 24-Hour Urine prior to follow up appointment. Steven Shaw MD Cosigned by Gilberto Ling MD at 07/20/2025 9:03 PM EDT Associated attestation - Gilberto Ling MD - 07/20/2025 9:03 PM EDT I was present for the entirety of the procedure(s). * H&P - Steven Shaw MD - 07/12/2025 1:49 PM EDT Subjective Chief complaint Left UPJ stone History Of Present Illness Donna Warner is a 64 y.o. female with pmhx T2DM, hypothyroidism, and HLD who presents to ED as a transfer from [facility] for left UPJ stone with upstream hydronephrosis and concern for infection. She was taken for left ureteral stent placement on 06/28/2025. She presents today for definitive stone management. Medical/Surgical/Social/Family History I have reviewed and updated the patient history. Allergies Patient has no known allergies. Medications Current Medications[1] Objective Review of Systems All other systems reviewed and are negative. Physical Exam HENT: Mouth/Throat: Mouth: Mucous membranes are moist. Pharynx: Oropharynx is clear. Cardiovascular: Rate and Rhythm: Normal rate. Pulmonary: Effort: Pulmonary effort is normal. Abdominal: General: Abdomen is flat. Palpations: Abdomen is soft. Skin: General: Skin is warm and dry. Neurological: General: No focal deficit present. Mental Status: She is alert and oriented to person, place, and time. Psychiatric: Mood and Affect: Mood normal. Behavior: Behavior normal. Last Recorded Vitals Blood pressure 109/57, pulse 71, temperature 36.4 ??C (97.6 ??F), temperature source Oral, resp. rate 12, height 1.626 m (5' 4 ), weight 64.9 kg (143 lb 1.3 oz), SpO2 96%. Results Review I have reviewed the latest lab and imaging results. Assessment & Plan Left ureteral stone The diagnoses, recommended procedures, and plan of care was once again discussed in detail with thepatient. All risks, benefits, and alternatives of the procedure were clearly elucidated. All questions were solicited and answered to satisfaction. Informed consent was obtained. We will proceed today with operative management as discussed. - To OR for Left Ureteroscopy with laser lithotripsy - Intraoperative cefazolin Medically Ready for Discharge:Anticipated Today [1] Current Facility-Administered Medications Medication Dose Route Frequency Provider Last Rate Last Admin cefTRIAXone (Rocephin) 1 g in sodium chloride 0.9% 100 mL IVPB (vial adapter required) 1 g Intravenous q24h Gilberto Ling MD lactated Ringer's infusion 20 mL/hr Intravenous Continuous Gilberto Ling MD 20 mL/hr at 07/12/25 1259 20 mL/hr at 07/12/25 1259 sodium chloride 0.9 % flush 10 mL 10 mL Intravenous q12h Rob Gonzalez MD And sodium chloride 0.9 % flush 10 mL 10 mL Intravenous PRN Rob Gonzalez MD Cosigned by Gilberto Ling MD at 07/12/2025 6:27 PM EDT * PAT Phone Note - Mariaa Greenwood RN - 07/07/2025 10:15 AM EDT JONNA Warner is a 64 y.o. female who presents with Pre-op Diagnosis * Left ureteral stone [N20.1] now scheduled for URETEROSCOPY/LASER LITHOTRIPSY (Left). Past Medical History[1] Family History[2] Social History[3] SURGICAL HISTORY: Surgical History[4] Allergies[5] MEDICATIONS: Current Medications[6] Mariaa Greenwood RN [1] Past Medical History: Diagnosis Date Chronic kidney disease kidney stones Diabetes mellitus (CMS/HCC) Disease of thyroid gland Hyperlipidemia [2] History reviewed. No pertinent family history. [3] Social History Tobacco Use Smoking status: Never Passive exposure: Never Smokeless tobacco: Never Vaping Use Vaping status: Never Used Substance Use Topics Alcohol use: Not Currently Drug use: Never [4] Past Surgical History: Procedure Laterality Date CARPAL TUNNEL RELEASE Right KIDNEY STONE SURGERY [5] No Known Allergies [6] No current facility-administered medications for this encounter. Current Outpatient Medications: acetaminophen, Take 2 tablets by mouth every 6 hours as needed for pain. Aspirin, Take 1 capsule by mouth daily. atorvastatin, Take 1 tablet by mouth nightly. exenatide, 2 times a day before meals. glipiZIDE, Take 1 tablet by mouth 2 times a day. Lantus SoloStar, Inject 30 units twice a day by subcutaneous route at bedtime for 90 days. levothyroxine, Take 1 tablet by mouth daily. metFORMIN, Take 1 tablet by mouth 2 times a day. methocarbamol, Take 1 tablet by mouth 4 times a day as needed for muscle spasms. phenazopyridine, Take 1 tablet by mouth 3 times a day for 10 days. ibuprofen, Take 1 tablet by mouth every 6 hours as needed for moderate pain. (Patient not taking: Reported on 07/07/2025) * Preprocedure Instructions - Mariaa Greenwood RN - 07/07/2025 10:13 AM EDT Home Medication Instructions Current Medications Medication Instructions acetaminophen (Tylenol) 500 MG tablet Take as needed Aspirin 81 MG capsule Hold 5 days before surgery atorvastatin (Lipitor) 10 MG tablet Take night before surgery exenatide 5 MCG/0.02ML inj. pen Hold day of surgery glipiZIDE (Glucotrol) 10 MG tablet Hold day of surgery Lantus SoloStar 100 UNIT/ML injection pen Take 1/2 usual dose of your insulin night before surgery levothyroxine (Synthroid, Levoxyl) 112 MCG tablet Take morning of surgery metFORMIN (Glucophage) 1000 MG tablet Hold 48 hours before surgery methocarbamol (Robaxin) 500 MG tablet Take as needed phenazopyridine (Pyridium) 100 MG tablet Take as prescribed You will be called the business day before surgery with your arrival time Your surgery is at [facility] located at [address] [place] [address] Please park in the parking garage and enter the building at Entrance A and check-in inside Do not eat any food after midnight the night before your surgey. Do not drink any coffee or tea butyou can have clear liquids up to 2 hours prior to arrival. Do not try to get all your hydration in 2 hours prior to your arrival. Start the day before surgery drinking more than you normally would. After midnight, you can have clear liquids: water, apple juice, Gatorade or Powerade up to 2 hours prior to arrival time No alcohol within 24 hours of surgery Do not smoke, vape or use any tobacco products after midnight the night before your surgery Arrive on time to avoid delays You MUST have a responsible adult available for transport to and from hospital If you spend the night in the hospital you are allowed to have one adult visitor spend the night inyour room You are allowed to have 2 adult visitors with you on the day of surgery Bring insurance card, photo ID, along with power of managing attorney, guardianship or advanced directives if applicable Do not bring any valuables Hibiclens bathing instructions reviewed if applicable; if you do not receive Hibiclens you may buy Dial antibacterial soap and shower with it the night before your surgery and the morning of surgery Notify surgeon of fever, illness, any changes or if you decide not to have surgery documented in this encounter Plan of Treatment Upcoming Encounters Date Type Department Care Team ([facility] st Contact Info) Description 09/09/2025 1:00 PM EDT Appointment [facility] Ultrasound [address] [place] [id number] 09/09/2025 3:15 PM EDT Office Visit Medical Office Building Urology [address], [address] [place] [address] Gilberto Ling MD [address] [place] [address] Scheduled Orders Name Type Priority Associated Diagnoses Orde r Schedule US Renal Complete Imaging Routine Left ureteral stone Expected: 09/11/2025 (Approximate), Expires: 01/13/2027 [facility] urine kidney stone panel Lab Routine Left ureteral stone Expected: 08/12/2025 (Approximate), Expires: 01/13/2027 documented as of this encounter Goals Goal Patient Goal Type Associated Problems Recent Progress Patient-Stated? Author Autogenerat ed Goal Care Plan Autogenerated Problem No Taylor Foster documented as of this encounter Procedures Procedure Name Priority Date/Time Associated Diagnosis Comments POCT GLUCOSE METER UNSOLICITED RESULTS Routine 07/12/2025 5:51 PM EDT FL LESS THAN 1 HOUR (NON-REPORTABLE) Routine 07/12/2025 5:46 PM EDT CALCULI (KIDNEY STONE)ANALYSIS (SO) STAT 07/12/2025 4:55 PM EDT Left ureteral stone URINE CULTURE Routine 07/12/2025 4:18 PM EDT Left ureteral stone REMOVAL, CALCULUS, URETER, URETEROSCOPIC 07/12/2025 3:36 PM EDT Left ureteral stone CYSTOSCOPY, WITH RETROGRADE PYELOGRAM 07/12/2025 3:36 PM EDT Left ureteral stone CYSTOSCOPY, WITH URETERAL STENT INSERTION OR REMOVAL 07/12/2025 3:36 PM EDT Left ureteral stone URETEROSCOPY, WITH LASER LITHOTRIPSY 07/12/2025 3:36 PM EDT Left ureteral stone POCT GLUCOSE METER UNSOLICITED RESULTS Routine 07/12/2025 12:53 PM EDT documented in this encounter Results * (ABNORMAL) POCT glucose meter (07/12/2025 5:51 PM EDT) POCT Glucose 136(H) 74 - 99 mg/dL 07/12/2025 5:53 PM EDT [facility] Comment:Accuracy of [...] to the main labortory for testing. Comment 07/12/2025 5:53 PM EDT [facility] [id number] Armor Crewman ID Valeria Araiza 07/12/2025 5:53 PM EDT [facility] Device ID [id number] 07/12/2025 5:53 PM EDT [facility] Specimen Type POC Capillary 07/12/2025 5:53 PM EDT [facility] Blood Capillary blood specimen / Unknown 07/12/2025 5:51 PM EDT 07/12/2025 5:53 PM EDT Gilberto Ling MD LAB POINT OF CARE TE ST DOCKED DEVICE UNSOLICITED RESULTS Final Result [facility] [address] [place] [address] * [place] Less than 1 Hour Intraoperative (07/12/2025 5:46 PM EDT) Narrative IMAGING - 07/12/2025 5:46 PM EDT Images were obtained for surgical purposes. See Gilberto Ling's surgical note in the patient's chart for the findings. Gilberto Ling MD IMG FLUOROSCOPY PROCEDURES Final Result IMAGING * Calculi (Kidney Stone) Analysis (07/12/2025 4:55 PM EDT) Calculi Mass 60 mg 07/16/2025 4:37 PM EDT [facility] ([facility]) Calculi Description See Note 07/16/2025 4:37 PM EDT [facility] ([facility]) Calculi Composition See Note 07/16/2025 4:37 PM EDT [facility] ([facility]) Calculus Left kidney structure / Unknown 07/12/2025 4:55 PM EDT 07/12/2025 5:45 PM EDT Comment:Pre-op diagnosis: Left ureteral stone [N20.1] Narrative [facility]) - 07/16/2025 4:37 PM EDT Specimen consists of numerous brown and savage calculi fragments. The total weight is 60 mg. Calculi composed primarily of: 10% calcium oxalate monohydrate, and 90% calcium oxalate dihydrate. INTERPRETIVE INFORMATION: Calculi (Stone) analysis Calculi are the products of physiological processes that yield crystalline compounds in a matrix of biological compounds and blood. Matrix components are not reported. The clinically significant crystalline components identified in calculi specimens are reported. Gross description may not be consistent with composition determined by FTIR analysis. Performed By: [facility] [address] [place] [id number] [employer] Position Clerk: Chepe Carr MD, PhD CLIA Number: [id number] us Gilberto Ling MD LAB REF LAB BLOOD AND FLUID ORD Final Result [facility] ([facility] [address] [place] [address] * Urine Culture (07/12/2025 4:18 PM EDT) Pathologist [facility] Culture No growth at day 1 07/14/2025 8:07 AM EDT [facility] Urine Structure of left ureter / Unknown 07/12/2025 4:18 PM EDT 07/12/2025 4:33 PM EDT Comment:Pre-op diagnosis: Left ureteral stone [N20.1] us Gilberto Ling MD LAB MICROBIOLOGY - GENERAL ORDER ERNESTINA Final Result Performing Organization Address City/[facility] Co de Phone Number [facility] [address] [place] [address] * (ABNORMAL) POCT glucose meter (07/12/2025 12:53 PM EDT) Pathologist [facility] POCT Glucose 148(H) 74 - 99 mg/dL 07/12/2025 12:55 PM EDT [facility] Comment:Accuracy of a glucos e result obtained from a capillary whole blood specimen relies upon adequate, non-compromised capillary blood flow. If the capillary glucose result is not consistent with the patient's clinical signs and symptoms, glucose testing should be repeated with either an arterial or venous sample on the glucometer or sent to the main labortory for testing. Comment 07/12/2025 12:55 PM EDT [facility] [id number] Armor Crewman ID Nakul Browning 07/12/2025 12:55 PM EDT [facility] Device ID [id number] 07/12/2025 12:55 PM EDT [facility] Specimen Type POC Capillary 07/12/2025 12:55 PM EDT [facility] Blood Capillary blood specimen / Unknown 07/12/2025 12:53 PM EDT 07/12/2025 12:55 PM EDT us Gilberto Ling MD LAB POINT OF CARE TE ST DOCKED DEVICE UNSOLICITED RESULTS Final Result [facility] [address] [place] [address] documented in this encounter Visit Diagnoses Diagnosis Left ureteral stone- Primary Left ureteral stone Acute cystitis without hematuria documented in this encounter Admitting Diagnoses Diagnosis Left ureteral stone documented in this encounter Administered Medications Inactive Administered Medications - up to 3 most recent administrations Medication Order MAR Action Action Date Dose Rate Site acetaminophen (Tylenol) tablet 1,000 mg 1,000 mg, Oral, Once as needed, 1 dose, Starting on Sat07/12/25 at 1755, Until Sat07/12/25 at 2038, Routine, Recovery(Phase II-Outpatient)/On Unit(Inpatient), mild pain, moderate pain cefTRIAXone (Rocephin) 1 g in sodium chloride 0.9% 100 mL IVPB (vial adapter required) 1 g, Intravenous, Every 24 hours, First dose on Sat07/12/25 at 1300, Until Discontinued, Routine New Bag 07/12/2025 1:56 PM EDT 1 g 220 mL/hr droperidol (Inapsine) injection 0.625 mg 0.625 mg, Intravenous, Once as needed, 1 dose, Starting on Sat07/12/25 at 1738, Until Sat07/12/25 at 2038, Routine, Recovery (Phase I only), nausea, vomiting fentaNYL (Sublimaze) injection 25 mcg 25 mcg, Intravenous, Every 5 min PRN, 2 doses, Starting on Sat07/12/25 at 1738, Until Sat07/12/25 at 2038, Routine, Recovery (Phase I only), pain score of 3-4 out of 10 fentaNYL (Sublimaze) injection 50 mcg 50 mcg, Intravenous, Every 5 min PRN, 2 doses, Starting on Sat07/12/25 at 1738, Until Sat07/12/25 at 2038, Routine, Recovery (Phase I only), pain score of 5-8 out of 10 HYDROmorphone (Dilaudid) injection 0.5 mg 0.5 mg, Intravenous, Every 10 min PRN, 2 doses, Starting on Sat07/12/25 at 1738, Until Sat07/12/25 at 2038, Routine, Recovery (Phase I only), pain score of 9-10 out of 10 ibuprofen tablet 600 mg 600 mg, Oral, Once as needed, 1 dose, Starting on Sat07/12/25 at 1755, Until Sat07/12/25 at 2038, Routine, Recovery(Phase II-Outpatient)/On Unit(Inpatient), mild pain, moderate pain ipratropium-albuterol (Duo-Neb) 0.5-2.5 mg/3 mL nebulizer solution 3 mL 3 mL, Nebulization, Once PRN Procedure, 1 dose, Starting on Sat07/12/25 at 1738, Until Sat07/12/25 at 2038, Routine, Recovery (Phase I only), shortness of breath lactated Ringer's infusion 20 mL/hr, Intravenous, Continuous, Starting on Sat07/12/25 at 1300, Until Sat07/12/25 at 2038, Routine Restarted 07/12/2025 3:50 PM EDT New Bag 07/12/2025 12:59 PM EDT 20 mL/hr 20 mL/hr ondansetron (Zofran) injection 4 mg 4 mg, Intravenous, Once as needed, 1 dose, Starting on Sat07/12/25 at 1738, Until Sat07/12/25 at 2038, Routine, Recovery (Phase I only), nausea, vomiting oxyCODONE (Roxicodone) immediate release tablet 10 mg 10 mg, Oral, Once as needed, 2 doses, Starting on Sat07/12/25 at 1738, Until Sat07/12/25 at 2038, Routine, Recovery (Phase I only), pain score of 6-8 out of 10 oxyCODONE (Roxicodone) immediate release tablet 5 mg 5 mg, Oral, Once as needed, 2 doses, Starting on Sat07/12/25 at 1738, Until Sat07/12/25 at 2038, Routine, Recovery (Phase I only), pain score of 3-5 out of 10 phenazopyridine (Pyridium) tablet 200 mg 200 mg, Oral, Once, 1 dose, On Sat07/12/25 at 1845, Routine, Recovery(Phase II-Outpatient)/On Unit(Inpatient) Povidone-Iodine 5 % swab solution 1 Application Nasal, Once, 1 dose, On Sat07/12/25 at 1300, Routine Given 07/12/2025 1:00 PM EDT 1 Application sodium chloride 0.9 % flush 10 mL 10 mL, Intravenous, Every 12 hours, First dose on Sat07/12/25 at 1300, Until Discontinued, Routine, Holding - Preprocedure sodium chloride 0.9 % flush 10 mL 10 mL, Intravenous, As needed, Starting on Sat07/12/25 at 1209, Until Sat07/12/25 at 2039, Routine, Holding - Preprocedure, line care tamsulosin (Flomax) 24 hr capsule 0.4 mg 0.4 mg, Oral, Once, 1 dose, On Sat07/12/25 at 1845, Routine, Recovery(Phase II-Outpatient)/On Unit(Inpatient) documented in this encounter Active and Recently Administered Medications Times are shown in EDT. Scheduled Medication Order 07/10/2025 07/11/2025 07/12/2025 cefTRIAXone (Rocephin) 1 g in sodium chloride 0.9% 100 mL IVPB (vial adapter required) (CANCELED) 1 g, Intravenous, Every 24 hours, First dose on Sat07/12/25 at 1300, Until Discontinued, Routine 1356 (New Bag - Prov ider: Benita Almaguer RN) phenazopyridine (Pyridium) tablet 200 mg 200 mg, Oral, Once, 1 dose, On Sat07/12/25 at 1845, Routine, Recovery(Phase II-Outpatient)/On Unit(Inpatient) 1845 (Canceled Entry - Provider: Automatic Discharge Provider - Comment: Automatically canceled at discontinue of medication order) Povidone-Iodine 5 % swab solution 1 Application (COMPLETED) Nasal, Once, 1 dose, On Sat07/12/25 at 1300, Routine 1300 (Given - Provid er: Benita Almaguer RN) sodium chloride 0.9 % flush 10 mL(Linked Group 1) 10 mL, Intravenous, Every 12 hours, First dose on Sat07/12/25 at 1300, Until Discontinued, Routine, Holding - Preprocedure 1300 (Canceled Entry - Provider: Automatic Discharge Provider - Comment: Automatically canceled at discontinue of medication order) tamsulosin (Flomax) 24 hr capsule 0.4 mg 0.4 mg, Oral, Once, 1 dose, On Sat07/12/25 at 1845, Routine, Recovery(Phase II-Outpatient)/On Unit(Inpatient) 1845 (Canceled Entry - Provider: Automatic Discharge Provider - Comment: Automatically canceled at discontinue of medication order) Continuous Medication Order 07/10/2025 07/11/2025 07/12/2025 lactated Ringer's infusion 20 mL/hr, Intravenous, Continuous, Starting on Sat07/12/25 at 1300, Until Sat07/12/25 at 2038, Routine 1259 (New Bag - Prov ider: Benita Almaguer RN)1549 (Paused - Provider: Juan Hsu CRNA - Comment: Switch to gravity)1550 (Restarted - Provider: Juan Hsu CRNA)1738 (Stopped - Provider: Juan Hsu CRNA) PRN Medication Order 07/10/2025 07/11/2025 07/12/2025 acetaminophen (Tylenol) tablet 1,000 mg 1,000 mg, Oral, Once as needed, 1 dose, Starting on Sat07/12/25 at 1755, Until Sat07/12/25 at 2038, Routine, Recovery(Phase II-Outpatient)/On Unit(Inpatient), mild pain, moderate pain droperidol (Inapsine) injection 0.625 mg 0.625 mg, Intravenous, Once as needed, 1 dose, Starting on Sat07/12/25 at 1738, Until Sat07/12/25 at 2038, Routine, Recovery (Phase I only), nausea, vomiting fentaNYL (Sublimaze) injection 25 mcg 25 mcg, Intravenous, Every 5 min PRN, 2 doses, Starting on Sat07/12/25 at 1738, Until Sat07/12/25 at 2038, Routine, Recovery (Phase I only), pain score of 3-4 out of 10 fentaNYL (Sublimaze) injection 50 mcg 50 mcg, Intravenous, Every 5 min PRN, 2 doses, Starting on Sat07/12/25 at 1738, Until Sat07/12/25 at 2038, Routine, Recovery (Phase I only), pain score of 5-8 out of 10 HYDROmorphone (Dilaudid) injection 0.5 mg 0.5 mg, Intravenous, Every 10 min PRN, 2 doses, Starting on Sat07/12/25 at 1738, Until Sat07/12/25 at 2038, Routine, Recovery (Phase I only), pain score of 9-10 out of 10 ibuprofen tablet 600 mg 600 mg, Oral, Once as needed, 1 dose, Starting on Sat07/12/25 at 1755, Until Sat07/12/25 at 2038, Routine, Recovery(Phase II-Outpatient)/On Unit(Inpatient), mild pain, moderate pain iohexol (OMNIPaque) 300 MG/ML injection (CANCELED) As needed, Starting on Sat07/12/25 at 1715, Until Sat07/12/25 at 1754, Routine, Intraprocedure 1715 (Given - Provid er: Gilberto Ling MD - Comment: left ureterexp: 27 DEC 2027lot#[id number] field) ipratropium-albuterol (Duo-Neb) 0.5-2.5 mg/3 mL nebulizer solution 3 mL 3 mL, Nebulization, Once PRN Procedure, 1 dose, Starting on Sat07/12/25 at 1738, Until Sat07/12/25 at 2038, Routine, Recovery (Phase I only), shortness of breath ondansetron (Zofran) injection 4 mg 4 mg, Intravenous, Once as needed, 1 dose, Starting on Sat07/12/25 at 1738, Until Sat07/12/25 at 2038, Routine, Recovery (Phase I only), nausea, vomiting oxyCODONE (Roxicodone) immediate release tablet 10 mg(Linked Group 2) 10 mg, Oral, Once as needed, 2 doses, Starting on Sat07/12/25 at 1738, Until Sat07/12/25 at 2038, Routine, Recovery (Phase I only), pain score of 6-8 out of 10 oxyCODONE (Roxicodone) immediate release tablet 5 mg(Linked Group 2) 5 mg, Oral, Once as needed, 2 doses, Starting on Sat07/12/25 at 1738, Until Sat07/12/25 at 2038, Routine, Recovery (Phase I only), pain score of 3-5 out of 10 sodium chloride 0.9 % flush 10 mL(Linked Group 1) 10 mL, Intravenous, As needed, Starting on Sat07/12/25 at 1209, Until Sat07/12/25 at 2038, Routine, Holding - Preprocedure, line care Linked Groups Order Group 1: Insert peripheral IV (CANCELED) Once, On Sat07/12/25 at 1210, For 1 occurrence, Holding - Preprocedure And Saline lock IV (CANCELED) Once, On Sat07/12/25 at 1210, For 1 occurrence, Holding - Preprocedure And sodium chloride 0.9 % flush 10 mLJump to med 10 mL, Intravenous, Every 12 hours, First dose on Sat07/12/25 at 1300, Until Discontinued, Routine, Holding - Preprocedure And sodium chloride 0.9 % flush 10 mLJump to med 10 mL, Intravenous, As needed, Starting on Sat07/12/25 at 1209, Until Sat07/12/25 at 2038, Routine, Holding - Preprocedure, line care Group 2: oxyCODONE (Roxicodone) immediate release tablet 5 mgJump to med 5 mg, Oral, Once as needed, 2 doses, Starting on Sat07/12/25 at 1738, Until Sat07/12/25 at 2038, Routine, Recovery (Phase I only), pain score of 3-5 out of 10 Or oxyCODONE (Roxicodone) immediate release tablet 10 mgJump to med 10 mg, Oral, Once as needed, 2 doses, Starting on Sat07/12/25 at 1738, Until Sat07/12/25 at 2038, Routine, Recovery (Phase I only), pain score of 6-8 out of 10 documented in this encounter Additional Health Concerns Active Problems Noted Date Diagnosed Date Autogenerated Problem 07/01/2025 Assessment Noted Time A Body Mass Index follow-up plan has been documented for the patient 06/29/2025 12:23 PM EDT documented as of this encounter Care Teams Suspect Artist Relationship Specialty Start Date End Date Gabby Gordillo APRN [address] [place] [address] PCP - General 06/28/25 documented as of this encounter
--- OUTSIDE RECORDS SUMMARY | 2025-07-12 15:50 | XMS_ITS | Encounter Summary ---
Author Organization Healthcare Address [address] [place] [address] Care Team Providers Care Commercial Real Estate Paralegal Name Role Phone Gabby Gordillo APRN Primary Care Provider + [phone] Reason for Visit * Auth/Cert (Routine) Specialty Diagnoses / Procedures Referred By Sophy roldan Referred To Contact Diagnoses Left ureteral stone Left ureteral stone [N20.1] Procedures MT CYSTO/URETERO W/LITHOTRIPSY &INDWELL STENT INSRT CHG X-RAY RETROGRADE PYELOGRAM URETEROSCOPY/LASER LITHOTRIPSY Gilberto Ling MD [address] [address] Phone: tel: fax: [facility] Operating Room [address] [place] [address] Phone: tel: Referral ID Status Reason Start Date Expiration Date Visits Re quested Visits Authorized [id number] 1 1 Encounter Details Date Type Department Care Team (Late st Contact Info) Description 07/12/2025 3:50 PM EDT - 07/12/2025 5:55 PM EDT Surgery [facility] Operating Room [address] [place] [address] Gilberto Ling MD [address] [address] URETEROSCOPY/LASER LITHOTRIPSY Surgery Details Date/Time Status Location OR Service Patient Class Case Class Case Type Trauma Case? 07/12/2025 3:50 PM Posted [facility] [place] Urology [facility] Outpatient Surgery E-Electi ve Panel 1 Procedure LRB Anes Op Region Wound Class Comments URETEROSCOPY/LASER LITHOTRIPSY Left General Ureter Class II/ Clean Contaminated CYSTOSCOPY, WITH URETERAL STENT INSERTION Left Ureter RETROGRADE PYELOGRAM Left REMOVAL, CALCULUS, URETER, URETEROSCOPIC Left Surgeon Surgeon Role Service Panel Gilberto Ling MD Primary Urology 1 Steven Shaw MD Resident - Assisting 1 documented in this encounter Social History Tobacco [...] Sign Reading Time Taken Comments Blood Pressure 135/83 07/12/2025 5:55 PM EDT Pulse 95 07/12/2025 5:55 PM EDT Temperature 36.4 C (97.5 F) 07/12/2025 5:50 PM EDT Respiratory Rate 25 07/12/2025 5:55 PM EDT Oxygen Saturation 98% 07/12/2025 5:55 PM EDT Inhaled Oxygen Concentration - - [...] confirm your location ahead of your appointment) [facility] Urology Department Clinic at [facility] [address], [facility], [address] [place] [address] Clinic After Hours [facility] Building Urology Clinic [address] [facility] [facility] [address] [place] [address] Clinic After Hours documented in this encounter [...] MD - 07/12/2025 6:26 PM EDT Patient: [facility] Anesthesia Type: general Vitals Value [...] spontaneous ventilation, unassisted and nonlabored ventilation * Otis Brandon - Rosa Thompson RN - 07/12/2025 5:38 PM EDT Images from the original note were not included. [id number] Having a Ureteral Stent A ureteral stent [...] symptoms. Last Reviewed Date: 2025 00:00:00 ?? [phone] [employer]. All rights reserved. This information is not intended as a substitute for professional medical care. Always follow your healthcare professional's instructions. * Otis Brandon - Rosa Thompson RN - 07/12/2025 5:38 PM EDT Images from the original note were not included. Discharge Instructions: After Your Surgery You?ve just [...] interact with your prescription medicines or other uveo-ehe-qjxctkt (OTC) medicines. Some prescription medicines have acetaminophen [...] directed. Last Reviewed Date: 2024 00:00:00 ?? [phone] [employer]. All rights reserved. This information is not [...] Same Surgeon: * Gilberto Ling - Primary Quick Technician Surgeon: * Steven Shaw MD - Resident [...] presents to ED as a transfer from [facility] for left UPJ stone with upstream hydronephrosis and concern for infection. She was taken for left ureteral stent placement on 06/28/2025. She presents today for definitive stone management. Anesthesia: General Complications: None Drains: Implant Name Type Inv. Item Serial No. Hospital Aide Lot No. LRB No. Used Action STENT URETERAL DOUBLE PIGTAIL POS 6FR 26CM - [id number] STENT URETERAL DOUBLE PIGTAIL POS 6FR 26CM [id number] Left 1 Implanted Specimens: ID Type Source [...] presents to ED as a transfer from [facility] for left UPJ stone with [...] your arrival time Your surgery is at [facility] located at [address] [place] [address] Please park in the parking garage and [...] card, photo ID, along with power of insurance defense attorney, guardianship or advanced directives if applicable [...] Upcoming Encounters Date Type Department Care Team ([facility] st Contact Info) Description 09/09/2025 1:00 PM EDT Appointment [facility] Ultrasound [address] [place] [id number] 09/09/2025 3:15 PM EDT Office Visit Medical Office Building Urology [address] [facility], [address] [place] [address] Gilberto Ling MD [address] [place] [address] Scheduled Orders Name Type Priority [...] POCT glucose meter (07/12/2025 5:51 PM EDT) Pathologist [facility] POCT Glucose 136(H) 74 - 99 mg/dL [...] 07/12/2025 5:53 PM EDT [facility] Mount Loader ID Valeria Araiza 07/12/2025 5:53 PM EDT HEALTHCARE LAB Device ID [id number] 07/12/2025 5:53 PM EDT HEALTHCARE LAB Specimen Type POC Capillary 07/12/2025 5:53 PM EDT [facility] Blood Capillary blood specimen / Unknown 07/12/2025 5:51 PM EDT 07/12/2025 5:53 PM EDT Gilberto Ling MD LAB POINT OF CARE TE ST DOCKED DEVICE UNSOLICITED RESULTS Final Result Performing Organization Address [facility] de Phone Number HEALTHCARE LAB [address] [place] [address] * [place] Less than 1 Hour Intraoperative (07/12/2025 5:46 PM EDT) Narrative IMAGING - 07/12/2025 5:46 PM EDT Images were obtained for surgical purposes. See Gilberto Ling's surgical note in the patient's chart for the findings. us Gilberto Ling MD IMG FLUOROSCOPY PROCEDURES Final Result Performing Organization Address [facility] de Phone Number IMAGING * Calculi (Kidney Stone) Analysis (07/12/2025 4:55 PM EDT) Calculi Mass 60 mg 07/16/2025 4:37 PM EDT [facility] Calculi Description See Note 07/16/2025 4:37 PM EDT [facility] Calculi Composition See Note 07/16/2025 4:37 PM EDT [facility] Calculus Left kidney structure / Unknown 07/12/2025 4:55 PM EDT 07/12/2025 5:45 PM EDT Comment:Pre-op diagnosis: Left ureteral stone [N20.1] Narrative [facility] - 07/16/2025 4:37 PM EDT Specimen consists [...] composition determined by FTIR analysis. Performed By: [email or web address] [address] [place] [address] Mailroom Personnel: Chepe Carr MD, PhD CLIA Number: [id number] us Gilberto Ling MD LAB REF LAB BLOOD AND FLUID ORD Final Result Performing Organization Address [facility]/State/ZIP Co de Phone Number [facility] ([facility]) [address] [place] [address] * Urine Culture (07/12/2025 4:18 PM EDT) Pathologist [facility] Culture No growth at day 1 07/14/2025 8:07 AM EDT [facility] Urine Structure of left ureter / Unknown 07/12/2025 4:18 PM EDT 07/12/2025 4:33 PM EDT Comment:Pre-op diagnosis: Left ureteral stone [N20.1] Gilberto Ling MD LAB MICROBIOLOGY - GENERAL ORDER ERNESTINA Final Result Performing Organization Address City/[facility] Co de Phone Number [facility] [address] [place] [address] * (ABNORMAL) POCT glucose meter (07/12/2025 12:53 PM EDT) POCT Glucose 148(H) 74 - 99 mg/dL [...] 07/12/2025 12:55 PM EDT [facility] Mount Loader ID Nakul Browning 07/12/2025 12:55 PM EDT HEALTHCARE LAB Device ID [id number] 07/12/2025 12:55 PM EDT HEALTHCARE LAB Specimen Type POC Capillary 07/12/2025 12:55 PM EDT [facility] Blood Capillary blood specimen / Unknown 07/12/2025 12:53 PM EDT 07/12/2025 12:55 PM EDT us Gilberto Ling MD LAB POINT OF CARE TE ST DOCKED DEVICE UNSOLICITED RESULTS Final Result [facility] [address] [place] [address] documented in this encounter Visit Diagnoses Diagnosis Left ureteral stone- Primary Left ureteral stone Acute cystitis without hematuria Left ureteral stone documented in this encounter Admitting Diagnoses Diagnosis [...] moderate pain iohexol (OMNIPaque) 300 MG/ML injection As needed, Starting on Sat07/12/25 at 1715, Until Sat07/12/25 at 1754, Routine, Intraprocedure Given 07/12/2025 5:15 PM EDT 50 mL ipratropium-albuterol (Duo-Neb) 0.5-2.5 mg/3 mL nebulizer solution [...] MD - Comment: left ureterexp: 27 DEC 2027lot#[id number] field) ipratropium-albuterol (Duo-Neb) 0.5-2.5 mg/3 mL nebulizer [...] documented as of this encounter Care Teams Commercial Real Estate Paralegal Relationship Specialty Start Date End Date Gabby Gordillo APRN [address] [place] [address] PCP - General 06/28/25 documented as of this encounter
--- OUTSIDE RECORDS SUMMARY | 2025-07-12 15:50 | XMS_ITS | Encounter Summary ---
Author Organization Healthcare Address [address] [place] [address] Care Team Providers Care Mail Weigher Name Role Phone Gabby Gordillo APRN Primary Care Provider + [phone] Reason for Visit * Auth/Cert (Routine) Specialty Diagnoses / Procedures Referred By Sophy roldan Referred To Contact Diagnoses Left ureteral stone Left ureteral stone [N20.1] Procedures [place] CYSTO/URETERO W/LITHOTRIPSY &INDWELL STENT INSRT CHG X-RAY RETROGRADE PYELOGRAM URETEROSCOPY/LASER LITHOTRIPSY Gilberto Ling MD [id number] [place] [address] Phone: tel: fax: [facility] Operating Room [address] [place] [address] Phone: tel: Referral ID Status Reason Start Date Expiration Date Visits Re quested Visits Authorized [id number] 1 1 Encounter Details Date Type Department Care Team (Late st Contact Info) Description 07/12/2025 3:50 PM EDT Anesthesia Event [facility] Operating Room [address] [place] [address] Steven Diaz MD [address] [place] [address] Armando Strauss MD [address] [place] [address] Anesthesia Record Procedure Summary Procedure Name Responsible Anesthesiologist Anesthesia Start Time Anesthesia Stop Time URETEROSCOPY/LASER LITHOTRIPSY (Left: Ureter) Steven Diaz MD 07/12/25 1550 07/12/25 1753 Events Date Time Event Comment 07/12/2025 1345 1550 An Start The patient was reevaluated immediately before sedation and remains eligible for anesthesia plan. 1551 In Room 1552 An Start Data 1555 An Induction The patient was reevaluated immediately before moderate or deep sedation use and before anesthesia induction. 1558 An Intubation 1600 Anesthesia Ready 1607 Proc Start 1741 Proc Fin 1742 An Extubation 1746 an stop data 1747 Out of Room 1748 Handoff to Receiving I compl eted my handoff to the receiving clinician during which we: 1. Identified the patient 2. Identified the responsible provider 3. Reviewed the pertinent medical history 4. Discussed the surgical course 5. Reviewed intra-op anesthesia management and issues during anesthesia 6. Set expectations for post-procedure period 7. Allowed opportunity for questions and acknowledgement of understanding. 175 An Stop Meds Name Total propofol (Diprivan) injection 10 mg/mL 1 50 mg fentaNYL (Sublimaze) injection 50 mcg/mL 50 mcg lidocaine PF (Xylocaine-MPF) 2% 60 mg ondansetron (Zofran) injection 2 mg/mL 4 mg dexamethasone (Decadron) injection 4 mg/ mL 4 mg ePHEDrine injection prefilled syringe 5 mg/mL 10 mg lactated Ringer's infusion 500 mL * Agents Name O2 * Blood No blood administrations on file. Lines, Drains, and Airways Type Details Placement Removal Peripheral IV Placement Date: 07/02 12/26; Placement Time: 125; Catheter Size: 20 G; Orientation: Distal, Posterior, Right; Location: Forearm; Site Prep: Chlorhexidine ; Inserted by: benita ruiz RN; Insertion Attempts: 1; Patient Tolerance: Tolerated well; Removal Date: 07/12/25; Removal Time: 183807/12/25 1258 by Benita Ruiz RN 07/12/25 183 by Rosa Thompson RN Supraglottic Airway Placement Date: 07/02 12/26; Placement Time: 155 (created via procedure documentation); Mask Ventilation: 1; Removal Date: 07/12/25; Removal Time: 174107/12/25 155 by Juan Hsu CRNA 07/12/25 174 by Juan Hsu CRNA documented in this encounter Social History Tobacco [...] as of this encounter Functional Status * Are you [...] Risk Indicated 07/12/2025 12:22 PM EDT Greyson Ruiz RN * Question Answer Date of Assessment Author 1. Wish to be (Past 1 Month) No 12:22 PM EDT Benita Ruiz RN 2. Non-Specific Active Suici sushil Thoughts (Past 1 Month) No 07/12/2025 12:22 PM STANT Benita Ruiz RN 6. Suicidal Behavior (Lifetime) No 12:22 PM EDT Tripp, Benita K, RN documented as of this encounter Mental Status * Because of a physical, mental, or emotional condition, do you have serious difficulty concentrating, remembering, or making decisions? (5 years old or older) Answer Entry Date Author No 06/29/2025 12:21 PM EDT Stacey Erazo documented in this encounter Miscellaneous Notes * Addendum Note - Steven Diaz MD - 07/12/2025 6:00 PM EDT Addendum created 07/12/25 1800 by Steven Diaz MD Intraprocedure Staff edited * Anesthesia Postprocedure Evaluation - Antoinette Frankel CRNA - 07/12/2025 5:53 PM EDT Patient: Donna [place] Anesthesia Type: general Vitals Value Taken Time BP 125/69 07/12/25 17:50 Temp 36.4 ??C (97.5 ??F) 07/12/25 17:50 Pulse 97 07/12/25 17:52 Resp 17 07/12/25 17:52 SpO2 100 % 07/12/25 17:52 Vitals shown include unfiled device data. Anesthesia Post Evaluation Patient location during evaluation: PACU Patient participation: complete - patient participated Level of consciousness: awake Pain management: adequate (pain score 0-3) Airway patency: natural airway Cardiovascular status: acceptable and hemodynamically stable Respiratory status: acceptable, face mask, spontaneous ventilation, unassisted and nonlabored ventilation Hydration status: acceptable Nausea/Vomiting: No Comments: Extubated in OR, SV, no respiratory distress. To PACU w/FS/O2. Reported to RADIO ENGINEERING TEACHER. Pt HD Stable. No notable events documented. * Anesthesia Procedure Notes - Juan Hsu CRNA - 07/12/2025 4:08 PM EDT Associated Order(s): Airway Airway Date/Time: 07/12/2025 3:58 PM Reason: elective Airway not difficult General Information and Staff Patient location during procedure: OR ROLL CAPPER: Juan Hsu CRNA Performed: ROLL CAPPER Patient Condition Indications for airway management: anesthesia Patient position: sniffing MILS maintained throughout Final Airway Details Final airway type: LMALMA Size: 3 LMA Type: normal * Anesthesia Preprocedure Evaluation - Armando Strauss MD - 07/12/2025 1:44 PM EDT Anesthesiologist: Boogie Groves MD Patient: Donna Warner HPI Donna Warner is a 64 y.o. female with body mass index is 24.56 kg/m??. who presents with Left ureteral stone, now for URETEROSCOPY/LASER LITHOTRIPSY (Left) PMH: recurrent nephrolithiasis PSX: ureteroscopy. NO issues w/ previous GA Social: negative NKDA Okay for blood >4 METs NPO. Denies N/V, GERD Consented for GA Procedure Information Date/Time: 07/12/25 1550 Procedure: URETEROSCOPY/LASER LITHOTRIPSY (Left) Location: [facility] 09 [facility] / [facility] OR Surgeons: Gilberto Ling MD Relevant Problems /Renal (+) Ureteral stone with hydronephrosis ALLERGIES Allergies[1] NPO STATUS Date of Last Liquid: 07/11/25 Date of Last Solid: 07/11/25 Time of Last Void: 1225 Past Medical History[2] AIRWAY HISTORY Airway Detailed Review Displaying the 20 most recent records Date Difficult Airway Blade Size ETT Size C-L Class Final Type Intubation Method 06/28/25 No LMA MEDICATIONS Outpatient Current Outpatient Medications Medication Instructions acetaminophen (TYLENOL) 1,000 mg, Oral, Every 6 hours PRN Aspirin 81 MG capsule 1 capsule, Daily atorvastatin (LIPITOR) 10 mg, Nightly exenatide 5 MCG/0.02ML inj. pen 2 times a day before meals. glipiZIDE (GLUCOTROL) 10 mg, 2 times daily ibuprofen 400 mg, Oral, Every 6 hours PRN Lantus SoloStar 100 UNIT/ML injection pen Inject 30 units twice a day by subcutaneous route at bedtime for 90 days. levothyroxine (SYNTHROID, LEVOXYL) 112 mcg, Daily metFORMIN (GLUCOPHAGE) 1,000 mg, 2 times daily methocarbamol (ROBAXIN) 500 mg, Oral, 4 times daily PRN sulfamethoxazole-trimethoprim (Bactrim DS) 800-160 MG tablet 1 tablet, Oral, 2 times daily Scheduled Current Scheduled Medications[3] PRNs Current PRN Medications[4] SURGICAL HX: Surgical History[5] SOCIAL HX: Social History[6] OBJECTIVE DATA LABS Lab Results Component Value Date WBC 5.08 06/29/2025 HGB 10.9 (L) 06/29/2025 HCT 32.3 (L) 06/29/2025 MCV 86 06/29/2025 PLT 188 06/29/2025 Lab Results Component Value Date CALCIUM 8.5 (L) 06/29/2025 BUN 16 06/29/2025 CREATININE 0.61 06/29/2025 BCR 26 06/29/2025 NA 139 06/29/2025 K 4.4 06/29/2025 CL 106 06/29/2025 CO2 19 (L) 06/29/2025 Type and Screen No results found for: ABO Lab Results Component Value Date HGBA1C 9.2 (H) 06/28/2025 Lab Results Component Value Date PGLU 148 (H) 07/12/2025 GLUCOSE 279 (H) 06/29/2025 ABG No results found for: PHART , SEX0RXW , PO2ART , SO2ART , BEART , MHU6PZN , HCTART , SODIUMART , POTASSIUMART , POCTCL , POCGLU , IONCALART , LACTATE Lab Results Component Value Date HCTSYR 36.8 06/28/2025 KSYR 3.6 06/28/2025 CLSYR 108 (H) 06/28/2025 GLUSYR 101 (H) 06/28/2025 CAION 4.9 06/28/2025 ECHO No echocardiogram results found for the past 12 months PFTs No results found for: DYW2IRP , GRQ0KMVZ , KTP5QCL , FVCPRED BP Readings from Last 5 Encounters: 07/12/25 109/57 06/29/25 125/76 Physical Exam Airway Mallampati: II Mouth opening: normal TM distance: >3 FB Neck ROM: full Cardiovascular Rhythm: regular Rate: normal Dental - normal exam Pulmonary Breath sounds clear to auscultation Neurological Oriented: normal to time, normal to place and normal to person Skin Musculoskeletal Extremities Anesthesia Plan ASA 2 Plan was reviewed with: attending Anesthesia technique(s) discussed with the patient/family: general Anesthesia plan agreed upon was: general Anesthetic plan and risks discussed with patient. Use of blood products discussed with patient who consented to blood products. Anesthesia Evaluation [1] No Known Allergies [2] Past Medical History: Diagnosis Date Chronic kidney disease kidney stones Diabetes mellitus (CMS/HCC) Disease of thyroid gland Hyperlipidemia [3] cefTRIAXone, 1 g, Intravenous, q24h Insert peripheral IV, , , Once AND Saline lock IV, , , Once AND sodium chloride, 10 mL, Intravenous, q12h AND sodium chloride, 10 mL, Intravenous, PRN [4] PRN medications: Insert peripheral IV AND Saline lock IV AND sodium chloride AND sodium chloride [5] Past Surgical History: Procedure Laterality Date CARPAL TUNNEL RELEASE Right KIDNEY STONE SURGERY [6] Social History Tobacco Use Smoking status: Never Passive exposure: Never Smokeless tobacco: Never Vaping Use Vaping status: Never Used Substance Use Topics Alcohol use: Not Currently Drug use: Never Cosigned by Boogie Groves MD at 07/12/2025 1:47 PM EDT Associated attestation - Boogie Groves MD - 07/12/2025 1:47 PM EDT I agree with the findings and care plan documented in the preprocedure evaluation note. documented in this encounter Plan of Treatment Upcoming Encounters Date Type Department Care Team (Late st Contact Info) Description 09/09/2025 1:[address] [facility] Ultrasound [address] [place] [address] 09/09/2025 3:15 PM EDT Office Visit Medical Office Building Urology [address] [facility], [address] [place] [address] Gilberto Ling MD [address] [place] [id number] documented as of this encounter Goals Goal Patient Goal Type Associated Problems Recent Progress Patient-Stated? Author Autogenerat ed Goal Care Plan Autogenerated Problem No Taylor Foster documented as of this encounter Procedures Procedure Name Priority Date/Time Associated Diagnosis Comments PB ANESTHESIA PLACEHOLDER Routine 07/12/2025 3:58 PM EDT OH AN ELECTIVE SUPRAGLOTTIC AIRWAY Routine 07/12/2025 3:58 PM EDT documented in this encounter Results * OH AN ELECTIVE SUPRAGLOTTIC AIRWAY, PB ANESTHESIA PLACEHOLDER (07/12/2025 3:58 PM EDT) Narrative Juan Hsu CRNA - 07/12/2025 3:58 PM EDT Juan Hsu CRNA 07/12/2025 4:08 PM Airway Date/Time: 07/12/2025 3:58 PM Reason: elective Airway not difficult General Information and Staff Patient location during procedure: OR ROLL CAPPER: Juan Hsu CRNA Performed: ROLL CAPPER Patient Condition Indications for airway management: anesthesia Patient position: sniffing MILS maintained throughout Final Airway Details Final airway type: LMALMA Size: 3 LMA Type: normal Steven Diaz MD ANESTHESIA ORDERABLES Final Res ult documented in this encounter Visit Diagnoses Not on filedocumented in this encounter Administered Medications Inactive Administered Medications - up to 3 most recent administrations Medication Order MAR Action Action Date Dose Rate Site dexamethasone (Decadron) injection Intravenous, As needed, Starting on Sat07/12/25 at 1602, Until Sat07/12/25 at 1753, Routine, Anesthesia Intraprocedure Given 07/12/2025 4:02 PM EDT 4 mg ePHEDrine Sulfate (Akovaz) injection Intravenous, As needed, Starting on Sat07/12/25 at 1606, Until Sat07/12/25 at 1753, Routine, Anesthesia Intraprocedure Given 07/12/2025 4:06 PM EDT 10 mg fentaNYL (Sublimaze) injection Intravenous, As needed, Starting on Sat07/12/25 at 1600, Until Sat07/12/25 at 1753, Routine, Anesthesia Intraprocedure Given 07/12/2025 4:00 PM EDT 50 mcg lactated Ringer's infusion 20 mL/hr, Intravenous, Continuous, Starting on Sat07/12/25 at 1300, Until Sat07/12/25 at 2039, Routine Restarted 07/12/2025 3:50 PM EDT New Bag 07/12/2025 12:59 PM EDT 20 mL/hr 20 mL/hr lidocaine PF (Xylocaine) 2 % injection Intravenous, As needed, Starting on Sat07/12/25 at 1555, Until Sat07/12/25 at 1753, Routine, Anesthesia Intraprocedure Given 07/12/2025 3:55 PM EDT 60 mg ondansetron (Zofran) injection Intravenous, As needed, Starting on Sat07/12/25 at 1602, Until Sat07/12/25 at 1753, Routine, Anesthesia Intraprocedure Given 07/12/2025 4:02 PM EDT 4 mg propofol (Diprivan) injection Intravenous, As needed, Starting on Sat07/12/25 at 1555, Until Sat07/12/25 at 1753, Routine, Anesthesia Intraprocedure Given 07/12/2025 3:55 PM EDT 150 mg documented in this encounter Additional Health Concerns Active Problems Noted Date Diagnosed Date Autogenerated Problem 07/01/2025 Assessment Noted Time A Body Mass Index follow-up plan has been documented for the patient 06/29/2025 12:23 PM EDT documented as of this encounter Care Teams Mail Weigher Relationship Specialty Start Date End Date Gabby Gordillo APRN [address] [place] [address] PCP - General 06/28/25 documented as of this encounter
[2025-08-06 16:28] VITALS: BP 121/79; PULSE 86; RESP 16; TEMP 36.8; O2SAT 98; BMI 23.6
--- OUTSIDE RECORDS SUMMARY | 2025-08-06 16:36 | XMS_ITS | Encounter Summary ---
Author Organization Healthcare Address [address] [place] [address] Care Team Providers Care Marketing Researcher Name Role Phone Gabby Gordillo APRN Primary Care Provider + [phone] Reason for Visit * Reason Onset Date Comments HCN Clinical Concern/Question 07/14/2025 Encounter Details Date Type Department Care Team (Late st Contact Info) Description 07/14/2025 Telephone [facility] [address] [place] [address] Gilberto Ling MD [address] [place] [address] [facility] Clinical Concern/Question Social History Tobacco Use Types Packs/Day Years [...] 06/29/2025 12:21 PM EDT Stacey Erazo documented as of this encounter Mental Status * Because of a physical, mental, or emotional condition, do you have serious difficulty concentrating, remembering, or making decisions? (5 years old or older) Answer Entry Date Author No 06/29/2025 12:21 PM EDT Stacey Erazo documented in this encounter Miscellaneous Notes * Telephone Encounter - Gila Ferro LPN - 07/14/2025 4:07 PM EDT I called and spoke with the patient. Her nausea has gotten better but she just feels lousy. She is drinking and urinating fine. She is asking if it is normal for her to feel like this and I explainedto her that she did have a big surgery and she might not feel great for a couple of days. If her symptoms worsen, Fever 100.5 or greater, vomiting to go to the ER. She understood and agreed with this plan. She is asking for something for nausea. I also went over how to remove her stent on Saturday. * Telephone Encounter - Carlos Mcmullen - 07/14/2025 3:05 PM EDT Clinical Concern/Question Reason for Call: She had sx on 07/12/2025 and yesterday and today she has been nauseated. She wants to know if that is normal. Best contact number: [phone] (mobile) Optimal time of day to reach caller: ANYTIME Additional comments/information from caller: None Note: Please do not reply to this message. Follow-up communication and further actions as a result of this message need to be communicated with the patient directly, if the patient is not active onMyChart. If the patient is active on MyChart, they will receive notification of the communication/outcome via MyChart. documented in this encounter Plan of Treatment Upcoming Encounters Date Type Department Care Team (Late st Contact Info) Description 09/09/2025 1:00 PM EDT Appointment [facility] [address] [place] [address] 09/09/2025 3:15 PM EDT Office Visit Medical Office Building Urology [address] [facility], [address] [place] [address] Gilberto Ling MD [address] [place] [address] documented as of this encounter Goals Goal Patient Goal Type Associated Problems Recent Progress Patient-Stated? Author Autogenerat ed Goal Care Plan Autogenerated Problem No Taylor Foster documented as of this encounter Visit Diagnoses Not on filedocumented in this encounter Additional Health Concerns Active Problems Noted Date Diagnosed Date Autogenerated Problem 07/01/2025 Assessment Noted Time A Body Mass Index follow-up plan has been documented for the patient 06/29/2025 12:23 PM EDT documented as of this encounter Care Teams Marketing Researcher Relationship Specialty Start Date End Date Gabby Gordillo APRN [address] [place] [address] PCP - General 06/28/25 documented as of this encounter
--- OUTSIDE RECORDS SUMMARY | 2025-08-06 16:37 | XMS_ITS | Encounter Summary ---
Author Organization [facility] Address [address] [place] [address] Care Team Providers Care Mortgage Loan Closer Name Role Phone Gabby Gordillo APRN Primary Care Provider + [phone] Encounter Details Date Type Department Care Team ([facility] st Contact Info) Description 07/09/2025 Telephone Medical Office Building Urology [address] [facility] [facility], [address] [place] [address] Steven Shaw MD [address] [place] [address] Social History Tobacco Use Types Packs/Day Years [...] encounter Miscellaneous Notes * Telephone Encounter - Steven Shaw MD - 07/09/2025 11:40 AM EDT Spoke with patient over the phone on 07/09/2025. We discussed the patient's urine culture results from 06/28/2025. I prescribed her a course of Bactrim DS twice daily to be taken up until the time ofsurgery. I sent the medication to [facility] pharmacy at the patient's request. She expressed understanding. documented in this encounter Plan of Treatment Upcoming Encounters Date Type Department Care Team (Late st Contact Info) Description 09/09/2025 1:00 PM EDT Appointment [facility] [address] [place] [address] 09/09/2025 3:15 PM EDT Office Visit Medical Office Building Urology [address] [facility], [address] [place] [address] Gilberto Ling MD [address] [place] [id number] documented as of this encounter Goals Goal Patient Goal Type Associated Problems Recent Progress Patient-Stated? Author Autogenerat ed Goal Care Plan Autogenerated Problem No Taylor Foster documented as of this encounter Visit Diagnoses Diagnosis Acute cystitis without hematuria- Primary documented in this encounter Additional Health Concerns Active Problems Noted Date Diagnosed Date Autogenerated Problem 07/01/2025 Assessment Noted Time A Body Mass Index follow-up plan has been documented for the patient 06/29/2025 12:23 PM EDT documented as of this encounter Care Teams Mortgage Loan Closer Relationship Specialty Start Date End Date Gabby Gordillo APRN [address] [place] [address] PCP - General 06/28/25 documented as of this encounter
--- OUTSIDE RECORDS SUMMARY | 2025-08-06 16:37 | XMS_ITS | Clinical Summary ---
Author Organization [facility] Address [address] [place] [address] Care Team Providers Care Sap Bobj Developer Name Role Phone Gabby Gordillo APRN Primary Care Provider + [phone] Allergies No known active allergies Medications ibuprofen 400 MG tablet Take 1 tablet by mouth every 6 hours as needed for moderate pain. 20 tablet 06/29/20 25 Active Additional Information Patient not taking.Reported on 07/07/2025 acetaminophen (Tylenol) 500 MG tablet Take 2 tablets by mouth every 6 hours as needed for pain. 50 tablet 06/29/20 25 Active methocarbamol (Robaxin) 500 MG tablet Take 1 tablet by mouth 4 times a day as needed for muscle spasms. 20 tablet 06/29/20 25 Active Additional Information Patient not taking.Reported on 07/12/2025 metFORMIN (Glucophage) 1000 MG tablet Take 1 tablet by mouth 2 times a day. Active glipiZIDE (Glucotrol) 10 MG tablet Take 1 tablet by mouth 2 times a day. Active atorvastatin (Lipitor) 10 MG tablet Take 1 tablet by mouth nightly. Active levothyroxine (Synthroid, Levoxyl) 112 MCG tablet Take 1 tablet by mouth daily. Active Aspirin 81 MG capsule Take 1 capsule by mouth daily. 05/04/20 25 Active exenatide 5 MCG/0.02ML inj. pen 2 times a day before meals. 05/04/20 25 Active Lantus SoloStar 100 UNIT/ML injection pen Inject 30 units twice a day by subcutaneous route at bedtime for 90 days. Active tamsulosin (Flomax) 0.4 MG 24 hr capsule Take 1 capsule by mouth 1 time each day with dinner. Please take the medication until 1 day after removal of your stent 30 capsule 07/12/20 25 025 Active phenazopyridi ne (Pyridium) 100 MG tablet Take 2 tablets by mouth 3 times a day as needed (Bladder discomfort). 30 tablet 07/12/20 25 Active phenazopyridi ne (Pyridium) 100 MG tablet Take 1 tablet by mouth 3 times a day for 10 days. 30 tablet 06/29/20 25 025 Discontinued(S top Taking at Discharge) sulfamethoxaz ole-trimethop rim (Bactrim DS) 800-160 MG tabletIndicat ions:Acute cystitis without hematuria Take 1 tablet by mouth 2 times a day for 7 days. 14 tablet 07/09/20 25 025 Discontinued sulfamethoxaz ole-trimethop rim (Bactrim DS) 800-160 MG tabletIndicat ions:Acute cystitis without hematuria Take 1 tablet by mouth 2 times a day for 7 days. 14 tablet 07/12/20 25 025 acetaminophen (Tylenol) 500 MG tablet Take 2 tablets by mouth every 6 hours as needed for pain for up to 10 days. 80 tablet 07/12/20 25 025 Active Problems Problem Noted Date Diagnosed Date Left ureteral stone 06/29/2025 Ureteral stone with hydronephrosis 06/28/2025 Encounters Date Type Department Care Team Description 07/14/2025 Telephone [facility] Urology [address] [place] [address] Gilberto Ling MD HCN Clinical Concern/Question 07/12/2025 3:50 PM EDT Anesthesia Event [facility] Operating Room [address] [place] [address] Steven Diaz MD Marshall, Bryce M, MD 07/12/2025 3:50 PM EDT - 07/12/2025 5:55 PM EDT Surgery [facility] Operating Room [address] [place] [address] Gilberto Ling MD URETEROSCOPY/LASER LITHOTRIPSY 07/12/2025 11:17 AM EDT - 07/12/2025 6:39 PM EDT Hospital Encounter [facility] Operating Room [address] [place] [address] Gilberto Ling MD Left ureteral stone; Acute cystitis without hematuria Discharge Disposition: Home or Self Care 07/12/2025 Travel 07/09/2025 Telephone Medical Office Building [facility] [address] [facility], [address] [place] [address] Steven Shaw MD 07/01/2025 Telephone [facility] Urology [address] [place] [address] Gilberto Ling MD 06/29/2025 Orders Only [facility] Urology [address] [place] [address] Rob Gonzalez MD Left ureteral stone (Primary Dx) 06/28/2025 9:00 PM EDT - 06/28/2025 10:35 PM EDT Surgery [facility] [address] [place] [address] William Calle MD CYSTOSCOPY, WITH URETERAL STENT INSERTION, retrograde pyleogram [16638 (CPT )] 06/28/2025 8:01 PM EDT Anesthesia Event [facility] [address] [place] [address] Adeel Newsome MD Kline, David J, MD 06/28/2025 3:38 PM EDT - 06/29/2025 1:25 PM EDT Hospital Encounter [facility] Inpatient [address] [place] [address] Sheyla Groves MD Hensley, Patrick J, MD Ureteral stone with hydronephrosis (Primary Dx) Discharge Disposition: Home or Self Care 06/28/2025 Travel 06/28/2025 Orders Only External Location [address] [place] [address] Provider, External 06/28/2025 Orders Only External Location [address] [place] [address] Provider, External from Last 3 Months Social History Tobacco Use Types Packs/Day Years Used Date Smoking Tobacco: Never Passive Smoke Exposure: Never Smokeless Tobacco: Never Tobacco Cessation:Counseling Given: No Alcohol Use Standard Drinks/Week Comments Not Currently [...] on file Sexual Orientation Not on file Last Filed Vital Signs Vital Sign Reading [...] Mass Index 24.56 07/12/2025 12:44 PM EDT Plan of Treatment Upcoming Encounters Date Type Department Care Team (Late st Contact Info) Description 09/09/2025 1:00 PM EDT Appointment [facility] Ultrasound [address] [place] [address] 09/09/2025 3:15 PM EDT Office Visit Medical Office Building Urology [address] [facility], [address] [place] [address] Gilberto Ling MD [address] [place] [address] Health Maintenance Due Date Last Done Comments [facility]-Depression Screening 1960 [facility]-Infant/Child/Adol SDOH Screenings 1960 [id number] Vaccine (#1) 1965 [facility]- SDOH Screenings 1978 [facility]-Adult SDOH Screenings 1978 [facility]-Pap Smear 1981 [facility]-Cervical Cancer Screening 1990 [facility]-HPV/Cotest 1990 CT Colonography 2005 Colonoscopy 2005 FIT-DNA 2005 FIT 2005 FOBT 2005 Sigmoidoscopy 2005 [facility]-Colorectal Cancer Screening 2005 [facility]-Zoster Vaccines (1 of 2) 2010 [facility]-Pneumococcal Vaccine: 50 + Years (2 of 2 - PCV) 04/07/2020 04/07/2019 [facility]-RSV Vaccine: 60+ Years o r (1 - Risk 60-74 years 1-dose series) 2020 [facility]-Influenza Vaccine (#1) 2025 09/21/2020 [facility]-Breast Cancer Screening 05/24/202705/03, 05/24/2025, 05/25/2024 [facility]-DTaP,Tdap,and Td Vaccine s (3 - Td or Tdap) 05/03/2033 05/03/2023, 02/20/2012, 01/23/2006 [facility]-HIV Screening Completed 06/28/2025 [facility]-Hepatitis C Screening Completed 06/28/2025 HPV Vaccines Aged Out No longer eligi ble based on patient's age to complete this topic [facility]-HIB Vaccines Aged Out No longer e ligible based on patient's age to complete this topic [facility]-Hepatitis A Vaccines Aged Out No longer eligible based on patient's age to complete this topic [facility]-IPV Vaccines Aged Out No longer e ligible based on patient's age to complete this topic [facility]-Rotavirus Vaccines Aged Out No lo nger eligible based on patient's age to complete this topic Goals Goal Patient Goal Type Associated Problems Recent Progress Patient-Stated? Author Autogenerat ed Goal Care Plan Autogenerated Problem No Taylor Foster Medical Devices Implanted Type Area Quality Head Device Identifier Shelf Expiration Date Model / Serial / Lot Stent Ureteral Double Pigtail Pos 6fr 26cm - [id number] Implanted:Qty: 1 on 06/28/2025 by William Calle MD at [facility] Stent Left: [id number] 01/29/2027 [id number] / / Stent Ureteral Double Pigtail Pos 6fr 26cm - [id number] Implanted:Qty: 1 on 07/12/2025 by Gilberto Ling MD at [facility] Left: [id number] 02/08/2027 [id number] / / [id number] Procedures Procedure Name Priority Date/Time Associated Diagnosis Comments POCT GLUCOSE METER UNSOLICITED RESULTS Routine 07/12/2025 5:51 PM EDT FL LESS THAN 1 HOUR (NON-REPORTABLE) Routine 07/12/2025 5:46 PM EDT CALCULI (KIDNEY STONE)ANALYSIS (SO) STAT 07/12/2025 4:55 PM EDT Left ureteral stone URINE CULTURE Routine 07/12/2025 4:18 PM EDT Left ureteral stone PB ANESTHESIA PLACEHOLDER Routine 07/12/2025 3:58 PM EDT HI AN ELECTIVE SUPRAGLOTTIC AIRWAY Routine 07/12/2025 3:58 PM EDT REMOVAL, CALCULUS, URETER, URETEROSCOPIC 07/12/2025 3:36 PM EDT Left ureteral stone CYSTOSCOPY, WITH RETROGRADE PYELOGRAM 07/12/2025 3:36 PM EDT Left ureteral stone CYSTOSCOPY, WITH URETERAL STENT INSERTION OR REMOVAL 07/12/2025 3:36 PM EDT Left ureteral stone URETEROSCOPY, WITH LASER LITHOTRIPSY 07/12/2025 3:36 PM EDT Left ureteral stone POCT GLUCOSE METER UNSOLICITED RESULTS Routine 07/12/2025 12:53 PM EDT POCT GLUCOSE METER UNSOLICITED RESULTS Routine 06/29/2025 12:42 PM EDT POCT GLUCOSE METER UNSOLICITED RESULTS Routine 06/29/2025 7:48 AM EDT POCT GLUCOSE METER UNSOLICITED RESULTS Routine 06/29/2025 6:47 AM EDT PHOSPHORUS, PLASMA Routine 06/29/2025 3: 58 AM EDT MAGNESIUM, PLASMA Routine 06/29/2025 3:5 8 AM EDT BASIC METABOLIC PANEL, PLASMA Routine 06/29/2025 3:58 AM EDT CBC W/O DIFFERENTIAL Routine 06/29/2025 3:58 AM EDT POCT GLUCOSE METER UNSOLICITED RESULTS Routine 06/28/2025 11:53 PM EDT FL LESS THAN 1 HOUR (NON-REPORTABLE) Routine 06/28/2025 9:00 PM EDT POCT GLUCOSE METER UNSOLICITED RESULTS Routine 06/28/2025 8:59 PM EDT URINE CULTURE Routine 06/28/2025 8:29 PM EDT Ureteral stone with hydronephrosis PB ANESTHESIA PLACEHOLDER Routine 06/28/2025 8:08 PM EDT HI AN ELECTIVE SUPRAGLOTTIC AIRWAY Routine 06/28/2025 8:08 PM EDT POCT GLUCOSE METER UNSOLICITED RESULTS Routine 06/28/2025 7:47 PM EDT HI CYSTOSCOPY,INSERT URETERAL STENT 06/28/2025 7:46 PM EDT Ureteral stone with hydronephrosis Special Needs Cmax , URINE Routine 06/28/2025 6:05 PM EDT URINE CULTURE Routine 06/28/2025 6:05 PM EDT MICROBIOLOGY FREQUENCY OVERRIDE STAT 06/28/2025 6:05 PM EDT ECG ADULT STAT 06/28/2025 4:57 PM EDT HEMOGLOBIN A1C STAT 06/28/2025 4:57 PM EDT BETA HYDROXYBUTYRIC ACID STAT 06/28/2025 4:57 PM EDT BLOOD GAS PANEL, VENOUS STAT 06/28/2025 4:57 PM EDT MAGNESIUM, PLASMA STAT 06/28/2025 4:5 7 PM EDT PROTHROMBIN TIME(PT) / INR STAT 06/28/2025 4:57 PM EDT ED HIV 1/2 ANTIBODY/ANTIGEN SCREEN WITH REFLEX TO HIV I/II DIFFERENTIATION STAT 06/28/2025 4:57 PM EDT ED PROTOCOL HIV 1/2 ANTIBODY/ANTIGEN SCREEN W/REFLEX TO HIV 1/2 ANTIBODY DIFFERENTIATION STAT 06/28/2025 4:57 PM EDT HEPATITIS C ANTIBODY - ED W/REFLEX TO HCV QUANT PCR STAT 06/28/2025 4:57 PM EDT CBC WITH AUTO DIFFERENTIAL STAT 06/28/2025 4:57 PM EDT COMPREHENSIVE METABOLIC PANEL, PLASMA STAT 06/28/2025 4:57 PM EDT URINE SALVADOR PANEL STAT 06/28/2025 4:41 PM EDT URINALYSIS WITH REFLEX MICROSCOPIC STAT 06/28/2025 4:41 PM EDT URINALYSIS WITH REFLEX MICROSCOPIC AND CULTURE STAT 06/28/2025 4:41 PM EDT POCT GLUCOSE METER UNSOLICITED RESULTS Routine 06/28/2025 4:[address] MSK OUTSIDE IMAGES 06/28/2025 11:[address] OUTSIDE IMAGES 06/28/2025 11:16 AM EDT from Last 3 Months Results * (ABNORMAL) POCT glucose meter (07/12/2025 5:51 PM EDT) Only the most recent of9 resultswithin the time period is included. POCT Glucose 136(H) 74 - 99 mg/dL [...] for testing. Comment 07/12/2025 5:53 PM EDT [facility] Sack Keeper ID Valeria Araiza 07/12/2025 5:53 PM EDT HEALTHCARE LAB Device ID [id number] 07/12/2025 5:53 PM EDT HEALTHCARE LAB Specimen Type POC Capillary 07/12/2025 5:53 PM EDT HEALTHCARE LAB Blood Capillary blood specimen / Unknown 07/12/2025 5:51 PM EDT 07/12/2025 5:53 PM EDT us Gilberto Ling MD LAB POINT OF CARE TE ST DOCKED DEVICE UNSOLICITED RESULTS Final Result [facility] [address] [place] [address] * FL Less than 1 Hour Intraoperative (07/12/2025 5:46 PM EDT) Only the most recent of2 resultswithin the time period is included. Narrative IMAGING - 07/12/2025 5:46 PM EDT Images were obtained for surgical purposes. See Gilberto Ling's surgical note in the patient's chart for the findings. us Gilberto Ling MD IMG FLUOROSCOPY PROCEDURES Final Result IMAGING * Calculi (Kidney Stone) Analysis (07/12/2025 4:55 PM EDT) Pathologist [facility] Calculi Mass 60 mg 07/16/2025 4:37 PM EDT [facility] ([facility]) Calculi Description See Note 07/16/2025 4:37 PM EDT [facility] ([facility]) Calculi Composition See Note 07/16/2025 4:37 PM EDT [facility] ([facility]) Calculus Left kidney structure / Unknown 07/12/2025 4:55 PM EDT 07/12/2025 5:45 PM EDT Comment:Pre-op diagnosis: Left ureteral stone [N20.1] Narrative [facility] ([place]) - 07/16/2025 4:37 PM EDT Specimen consists [...] composition determined by FTIR analysis. Performed By: [email or web address] [address] [place] [address] Certified Physician Assistant: Chepe Carr MD, PhD CLIA Number: [id number] Gilberto Ling MD LAB REF LAB BLOOD AND FLUID ORD Final Result [facility] ([place]) [address] [place] [address] * Urine Culture (07/12/2025 4:18 PM EDT) Only the most recent of3 resultswithin the time period is included. Culture No growth at day 1 07/14/2025 8:07 AM EDT [facility] Urine Structure of left ureter / Unknown 07/12/2025 4:18 PM EDT 07/12/2025 4:33 PM EDT Comment:Pre-op diagnosis: Left ureteral stone [N20.1] Gilberto Ling MD LAB MICROBIOLOGY - GENERAL ORDER ERNESTINA Final Result [facility] [address] [place] [address] * HI AN ELECTIVE SUPRAGLOTTIC AIRWAY, PB ANESTHESIA PLACEHOLDER (07/12/2025 3:58 PM EDT) Narrative Juan Hsu CRNA - 07/12/2025 3:58 PM EDT Juan Hsu CRNA 07/12/2025 4:08 PM Airway Date/Time: 07/12/2025 3:58 PM Reason: elective Airway not difficult General Information and Staff Patient location during procedure: OR JEWELRY SALES: Juan Hsu CRNA Performed: GENE Patient Condition Indications for airway management: anesthesia Patient position: sniffing MILS maintained throughout Final Airway Details Final airway type: LMALMA Size: 3 LMA Type: normal Steven Diaz MD ANESTHESIA ORDERABLES Final Res ult * (ABNORMAL) Hemogram (CBC) (06/29/2025 3:58 AM [...] BLOOD ORDERABLES Final Result Performing Organization Address City/[facility]/ZIP Co de Phone Number [facility] [address] [place] [address] * Phosphorus (06/29/2025 3:58 AM EDT) Phosphorus, Plasma 3.5 2.5 - 4.5 mg/dL 06/29/2025 4:41 AM EDT [facility] Blood Venous blood specimen / Unknown Venipuncture / Unknown 06/29/2025 3:58 AM EDT 06/29/2025 4:09 AM EDT us William Calle MD LAB BLOOD ORDERABLES Final Result Performing Organization Address [facility] [place] [address] * (ABNORMAL) Magnesium (06/29/2025 3:58 AM EDT) Only the most recent of2 resultswithin the time period is included. Magnesium, Plasma 1.8(L) 1.9 - 2.4 mg/dL 06/29/2025 4:41 AM EDT [facility] Blood Venous blood specimen / Unknown Venipuncture / Unknown 06/29/2025 3:58 AM EDT 06/29/2025 4:09 AM EDT us William Calle MD LAB BLOOD ORDERABLES Final Result [facility] [address] [place] [address] * (ABNORMAL) Basic metabolic panel (06/29/2025 3:58 [...] Result [facility] [address] [place] [address] * HI AN ELECTIVE SUPRAGLOTTIC AIRWAY, PB ANESTHESIA PLACEHOLDER (06/28/2025 8:08 PM EDT) Narrative Adeel Newsome MD - 06/28/2025 8:08 PM EDT Adeel Newsome MD 06/29/2025 10:10 PM Airway Date/Time: 06/28/2025 8:08 PM Reason: elective Airway not difficult General Information and Staff Patient location during procedure: [place] Anesthesiologist: Adeel Newsome MD Resident: Manuel Gutierrez MD Performed: JEWELRY SALES Patient Condition Indications for airway management: anesthesia Patient position: sniffing MILS maintained throughout Final Airway Details Final airway type: LMALMA Size: 4 LMA Type: normal us Adeel Newsome MD ANESTHESIA ORDERABLES Final R esult * Microbiology Frequency Override (06/28/2025 6:05 PM EDT) Microbiology Frequency Override Test Comment Urine culture 06/29/2025 7:05 AM EDT [facility] Urine Urine specimen obtained by clean catch procedure / Unknown Non-blood Collection / Unknown 06/28/2025 6:05 PM EDT 06/28/2025 6:23 PM EDT us Sheyla Groves MD LAB MICROBIOLOGY - GENERAL OR DERABLES Final Result [facility] [address] [place] [address] * , urine (06/28/2025 6:05 PM EDT) [...] URINE ORDERABLES Final Result Performing Organization Address City/[facility]/ZIP Co de Phone Number [facility] [address] [place] [address] * EKG now - STAT (adult) (06/28/2025 4:57 PM EDT) [facility] EKG DIAGNOSIS CLASS Borderline Abnormal MUSE ECG Ventricular Rate 82 BPM MUSE ECG Atrial Rate 82 BPM MUSE ECG HI Interval 136 ms MUSE ECG QRSD Interval 74 ms MUSE ECG QT Interval 352 ms MUSE ECG QTC Interval 411 ms MUSE ECG P Wagoner 59 degrees MUSE ECG R Wagoner 46 degrees MUSE ECG T Wave Wagoner 59 degrees MUSE ECG Diagnosis Normal sinus rhythm MUSE ECG Diagnosis Low voltage QRS MUSE ECG Diagnosis Borderline ECG MUSE ECG Diagnosis MUSE ECG Diagnosis Confirmed by Gilberto West ([id number]) on 06/29/2025 4:58:20 PM MUSE ECG 06/28/2025 4:57 PM EDT 06/29/2025 4:58 PM EDT Sheyla Groves MD ECG ORDERABLES Final Result Performing Organization Address City/[facility]/ZIP Co de Phone Number MUSE ECG * ED HIV 1/2 Antibody/Antigen Screen w/Reflex to HIV 1/2 Differentiation (06/28/2025 4:57 PM EDT) [facility] HIV 1 & 2 Antibody/Antigen Screen Non Reactive Non Reactive 06/28/2025 5:54 PM EDT [facility] Comment:Screening for HIV 1 & 2 antibodies, and P24 antigen is NONREACTIVE. No confirmatory testing is required. Blood Venous blood specimen / Unknown Venipuncture / Unknown 06/28/2025 4:57 PM EDT 06/28/2025 5:13 PM EDT Sheyla Groves MD LAB BLOOD ORDERABLES Final Re sult [facility] [address] [place] [address] * (ABNORMAL) Beta-Hydroxybutyric Acid (06/28/2025 4:57 PM EDT) [facility] Beta-Hydroxybu tyric Acid, Plasma 2.46(H) <=0.27 mmol/L 06/28/2025 6:17 PM EDT [facility] Blood Venous blood specimen / Unknown Venipuncture / Unknown 06/28/2025 4:57 PM EDT 06/28/2025 5:05 PM EDT us Sheyla Groves MD LAB BLOOD ORDERABLES Final Re sult Performing Organization Address [facility] Co de Phone Number [facility] [address] [place] [address] * Hepatitis C Antibody - ED (06/28/2025 4:57 PM EDT) [facility] Hepatitis C Antibody Negative Negative 06/28/2025 5:56 PM EDT [facility] Blood Venous blood specimen / Unknown Venipuncture / Unknown 06/28/2025 4:57 PM EDT 06/28/2025 5:13 PM EDT us Sheyla Groves MD LAB BLOOD ORDERABLES Final Re sult Performing Organization Address [facility] [place] [address] * (ABNORMAL) PT-INR (06/28/2025 4:57 PM EDT) [facility] Prothrombin Time 14.9(H) 12.0 - 14.3 sec [...] INR 2.5 to 3.5 Prevention of recurrent KS INR 2.5 to 3.5 us Sheyla Groves MD LAB BLOOD ORDERABLES Final Re sult [facility] [address] [place] [address] * (ABNORMAL) CBC and Differential (06/28/2025 4:57 [...] 4:57 PM EDT 06/28/2025 5:05 PM EDT [facility] - 06/28/2025 5:09 PM EDT Therapeutic decision making should be based on absolute values, rather than percentages. us Sheyla Groves MD LAB BLOOD ORDERABLES Final Re sult [facility] [address] [place] [address] * (ABNORMAL) Hemoglobin A1c (06/28/2025 4:57 PM [...] Adults <6.0% Children and Adolescents <7.5% Source: [place] [employer]. Standards of medical care in diabetes,2017. Diabetes Care.2017:40 (suppl 1):S1-S135. Sheyla Groves MD LAB BLOOD ORDERABLES Final Re minoo Performing Organization Address [facility] Co de Phone Number [facility] [address] [place] [address] * (ABNORMAL) Blood gas panel, venous (06/28/2025 [...] sult [facility] [address] [place] [address] * (ABNORMAL) CMP (06/28/2025 4:57 PM EDT) [...] 4:57 PM EDT 06/28/2025 5:05 PM EDT Sheyla Groves MD LAB BLOOD ORDERABLES Final Re sult Performing Organization Address [facility] de Phone Number [facility] [address] [place] [address] * Urine [place] Panel (06/28/2025 4:41 PM [...] ORDERABLES Final Re sult Performing Organization Address [facility] Co de Phone Number [facility] [address] [place] [address] * (ABNORMAL) Urinalysis with reflex microscopic (Culture NOT Included) (06/28/2025 4:41 PM EDT) Color, Urine Dark Yellow LAB URINALYSIS - AUTOMATED METHOD 06/28/2025 4:53 PM EDT [facility] Clarity, Urine Clear LAB URINALYSIS - AUTOMATED METHOD 06/28/2025 4:53 PM EDT [facility] Spec [place], Urine >1.030(H) 1.005 - 1.030 LAB URINALYSIS [...] MD LAB URINE ORDERABLES Final Re sult [facility] [address] [place] [address] * CT OUTSIDE IMAGES (06/28/2025 11:16 AM EDT) Anatomical Region Laterality Modality Computed Tomogra phy 06/28/2025 11:1 6 AM EDT us External Provider IMG CT PROCEDURES Final Result * CT MSK OUTSIDE IMAGES (06/28/2025 11:16 AM EDT) Anatomical Region Laterality Modality Computed Tomogra phy 06/28/2025 11:1 6 AM EDT us External Provider IMG CT PROCEDURES Final Result from Last 3 Months Additional Health Concerns Active Problems Noted Date Diagnosed Date Autogenerated Problem 07/01/2025 Advance Directives * Full Code (Latest Code Status on File) Date Activated Date Inactivated Comments 06/28/2025 6:07 PM 06/29/2025 4:44 PM Question Answer Comments I have reviewed the capacity from the link above and, if needed, have updated to appropriate status: Yes Care Teams Sap Bobj Developer Relationship Specialty Start Date End Date Gabby Gordillo APRN [address] [place] [address] PCP - General 06/28/25
--- OUTSIDE RECORDS SUMMARY | 2025-08-06 16:38 | XMS_ITS | Encounter Summary ---
Author Organization [facility] Address [address] [place] [address] Care Team Providers Care Commissary Steward Name Role Phone Gabby Gordillo APRN Primary Care Provider + [phone] Encounter Details Date Type Department Care Team (Late st Contact Info) Description 07/01/2025 Telephone [facility] [address] [place] [address] Gilberto Ling MD [address] [place] [address] Social History Tobacco Use Types Packs/Day Years Used Date Smoking Tobacco: Never Passive Smoke Exposure: Never Smokeless Tobacco: Never Alcohol Use Standard Drinks/Week Comments Never 0 [...] encounter Miscellaneous Notes * Telephone Encounter - Taylor Foster - 07/01/2025 4:13 PM EDT Spoke with patient, scheduled 07/12 surgery, reviewed surgery information patient is aware of anesthesia preop screening call and arrival time call prior to surgery documented in this encounter Plan of Treatment Upcoming Encounters Date Type Department Care Team (Late st Contact Info) Description 09/09/2025 1:[address] [facility] Ultrasound [address] [place] [address] 09/09/2025 3:15 PM EDT Office Visit Medical Office Building Urology [address] [facility], [address] [place] [address] Gilberto Ling MD [address] [place] [address] documented as of this encounter [...] documented as of this encounter Care Teams Commissary Steward Relationship Specialty Start Date End Date Gabby Gordillo APRN [address] [place] [address] PCP - General 06/28/25 documented as of this encounter
--- OUTSIDE RECORDS SUMMARY | 2025-08-06 16:38 | XMS_ITS | Clinical Summary ---
Author Organization [facility] Address [address] [place] [address] Phone Care Team Providers Care Railroad Baggage Porter Name Role Phone Unavailable Primary Care Provider Unavailabl e Encounters Date Type Department Care Team Description 05/24/2025 1:43 PM EDT - 05/24/2025 11:59 PM EDT Hospital Encounter Mobile Mammography Other Location View online schedule for mobile van location [phone] Gabby Gordillo NP Encounter for screening mammogram [...] COVID-19 Vaccine (1 - 2023-2 5 season) 2025 Influenza Vaccine (#1) 2025 0, 10/16/2019, 12/05/2017 [...] EDT Impressions 05/25/2025 8:38 AM EDT Negative ([id number]) RECOMMENDATION: Routine Screening Mammogram in 1 Year Bilateral . . COMMENTS: DISCLAIMER *The patient was notified by MyChart or mail of the results for this examination. *The patient's information was entered into a reminder system with a target due date for the next breast imaging, in accordance with the [employer] and the Society of [...] for screening mammogram for malignant neoplasm of [id number] COMPARISON STUDIES: Compared with prior studies the most recent being 05/25/2024 MM MAMMO DIGITAL DEYVI SCREEN BILAT at [facility] TISSUE DENSITY: There are scattered areas of fibroglandular density. FINDINGS: No mammographic evidence of malignancy. Procedure Note Alex Oakes MD - 05/25/2025 EXAM: MM MAMMO DIGITAL DEYVI SCREEN BILAT EXAM DATE: 05/24/2025 1:55 PM INDICATION: Z12.31-Encounter for screening mammogram for malignantneoplasm of [id number]-NSI-90-CM COMPARISON STUDIES: Compared with prior studies the most recent being 05/25/2024 MM MAMMO DIGITAL DEYVI SCREEN BILAT at [facility] TISSUE DENSITY: There are scattered areas of fibroglandular density. FINDINGS: No mammographic evidence of malignancy. IMPRESSION: Negative ([id number]) RECOMMENDATION: Routine Screening Mammogram in 1 Year Bilateral . . COMMENTS: DISCLAIMER *The patient was notified by MyChart or mail of the results for this examination. *The patient's information was entered into a reminder system with atarget due date for the next breast imaging, in accordance with the [employer] and the Society of Breast Imaging recommendations. *Breast Imaging has a false negative rate of 15%. *Any patient with a palpable abnormality, unexplained by breast imaging,should be managed on a clinical basis by the attending physician. us Gabby Gordillo SALESFORCE SPECIALIST IMG MAMMOGRAPHY ORDERABLE S Final Result from Last 3 Months
--- OUTSIDE RECORDS SUMMARY | 2025-08-06 16:38 | XMS_ITS | Encounter Summary ---
Author Organization Healthcare Address [address] [place] [address] Care Team Providers Care Manager Image Name Role Phone Gabby Gordillo APRN Primary Care Provider + [phone] Encounter Details Date Type Department Care Team (Late st Contact Info) Description 06/28/2025 Orders Only External Location [address] [place] [id number] Provider, External Social History Tobacco Use Types Packs/Day Years [...] Month) No 06/28/2025 5:05 PM EDT Vicenta Wesley, JOCE 2. Non-Specific Active Suici sushil Thoughts (Past 1 Month) No 06/28/2025 5:05 PM EDT Leta Wesley RN 6. Suicidal Behavior (Lifetime) No 5:05 PM EDT Vicenta Wesley RN documented as of this encounter Plan of Treatment Upcoming Encounters Date Type Department Care Team ([facility] st Contact Info) Description 09/09/2025 1:00 PM EDT Appointment [facility] Ultrasound [address] [place] [phone] 09/09/2025 3:15 PM EDT Office Visit Medical Office Building Urology [address], [address] [place] [address] Gilberto Ling MD [address] [place] [phone] documented as of this encounter Procedures Procedure Name Priority Date/Time Associated Diagnosis Comments CT MSK OUTSIDE IMAGES 06/28/2025 11:16 AM EDT documented in this encounter Results * CT MSK OUTSIDE IMAGES (06/28/2025 11:16 AM EDT) Anatomical Region Laterality Modality Computed Tomogra phy 06/28/2025 11:1 6 AM EDT us External Provider IMG CT PROCEDURES Final Result documented in this encounter Visit Diagnoses Not on filedocumented in this encounter Additional Health Concerns Assessment Noted Time A Body Mass Index follow-up plan has been documented for the patient 06/29/2025 12:23 PM EDT documented as of this encounter Care Teams Manager Image Relationship Specialty Start Date End Date Gabby Gordillo APRN [address] [place] [address] PCP - General 06/28/25 documented as of this encounter
--- OUTSIDE RECORDS SUMMARY | 2025-08-06 16:38 | XMS_ITS | Encounter Summary ---
Author Organization [facility] Address [address] [place] [address] Care Team Providers Care Helicopter Officer Name Role Phone Gabby Gordillo APRN Primary Care Provider + [phone] Encounter Details Date Type Department Care Team (Latest Contact Info) Description 06/28/2025 Travel Social History Tobacco Use Types Packs/Day Years [...] as of this encounter Functional Status * Calculated C-SSRS Risk Score (Lifetime/Recent) Answer [...] 09/09/2025 1:00 PM EDT Appointment [facility] Ultrasound [address] [place] [phone] 09/09/2025 3:15 PM EDT Office Visit Medical Office Building Urology [address] [facility], [address] [place] [address] Gilberto Ling MD [address] [place] [address] documented as of this encounter Visit Diagnoses Not on filedocumented in this encounter Additional Health Concerns Assessment Noted Time A Body Mass Index follow-up plan has been documented for the patient 06/29/2025 12:23 PM EDT documented as of this encounter Care Teams Helicopter Officer Relationship Specialty Start Date End Date Gabby Gordillo APRN [address] [place] [address] PCP - General 06/28/25 documented as of this encounter
--- OUTSIDE RECORDS SUMMARY | 2025-08-06 16:38 | XMS_ITS | Encounter Summary ---
Author Organization [facility] Address [address] [place] [address] Care Team Providers Care Broach Trouble Shooter Name Role Phone Gabby Gordillo APRN Primary Care Provider + [phone] Encounter Details Date Type Department Care Team (Late st Contact Info) Description 06/29/2025 Orders Only [facility] Urology [address] [place] [address] Rob Gonzalez MD [address] [place] [address] Left ureteral stone (Primary Dx) Social History Tobacco Use Types Packs/Day Years [...] EDT Stacey Erazo documented in this encounter Plan of Treatment Upcoming Encounters Date Type Department Care Team (Late st Contact Info) Description 09/09/2025 1:00 PM EDT Appointment [facility] Ultrasound [address] [place] [address] 09/09/2025 3:15 PM EDT Office Visit Medical Office Building Urology [address] [facility], [address] [place] [address] Gilberto Ling MD [address] [place] [phone] documented as of this encounter Visit Diagnoses Diagnosis Left ureteral stone- Primary documented in this encounter Additional Health Concerns Assessment Noted Time A Body Mass Index follow-up plan has been documented for the patient 06/29/2025 12:23 PM EDT documented as of this encounter Care Teams Broach Trouble Shooter Relationship Specialty Start Date End Date Gabby Gordillo APRN [address] [place] [address] PCP - General 06/28/25 documented as of this encounter
--- OUTSIDE RECORDS SUMMARY | 2025-08-06 16:39 | XMS_ITS | Encounter Summary ---
Author Organization [facility] Address [address] [place] [address] Care Team Providers Care Steel Spar Operator Name Role Phone Gabby Gordillo APRN Primary Care Provider + [phone] Encounter Details Date Type Department Care Team (Latest Contact Info) Description 07/12/2025 Travel Social History Tobacco Use Types Packs/Day [...] 1 Month) No 12:22 PM EDT Benita Almaguer RN 2. [...] Info) Description 09/09/2025 1:00 PM EDT Appointment [facility] Ultrasound [address] [place] [address] 09/09/2025 3:15 PM EDT Office Visit Medical Office Building Urology [address] [facility] [facility], [address] [place] [address] Gilberto Ling MD [address] [place] [phone] documented as of this encounter Goals Goal [...] documented as of this encounter Care Teams Steel Spar Operator Relationship Specialty Start Date End Date Gabby Gordillo APRN [address] [place] [address] PCP - General 06/28/25 documented as of this encounter
--- OUTSIDE RECORDS SUMMARY | 2025-08-06 16:39 | XMS_ITS | Encounter Summary ---
Author Organization Healthcare Address [address] [place] [address] Care Team Providers Care Engineering Document Control Clerk Name Role Phone Gabby Gordillo APRN Primary Care Provider + [phone] Encounter Details Date Type Department Care Team (Late st Contact Info) Description 06/28/2025 Orders Only External Location [address] [place] [phone] Provider, External Social History Tobacco Use Types [...] Upcoming Encounters Date Type Department Care Team ([facility] st Contact Info) Description 09/09/2025 1:00 PM EDT Appointment [facility] Ultrasound [address] [place] [address] 09/09/2025 3:15 PM EDT Office Visit Medical Office Building Urology [address] [facility] [facility], [address] [place] [address] Gilberto Ling MD [address] [place] [address] documented as of this encounter Procedures Procedure Name Priority Date/Time Associated Diagnosis Comments CT OUTSIDE IMAGES 06/28/2025 11:16 AM EDT documented in this encounter Results * CT OUTSIDE IMAGES (06/28/2025 11:16 AM [...] documented as of this encounter Care Teams Engineering Document Control Clerk Relationship Specialty Start Date End Date Gabby Gordillo APRN [address] [place] [address] PCP - General 06/28/25 documented as of this encounter
[2025-08-06 16:47] LABS: Microscopic, Urine URINE MICROSCOPIC (MICROSCOPIC)
[2025-08-06 16:48] LABS: Hematocrit 34.8 % (37.0-47.0); Hemoglobin 11.5 g/dL (12.2-16.2); Immature Granulocytes % 0.4 %; Mean Corpuscular HGB Conc 33.0 g/dL (31.8-35.4); Mean Corpuscular Hemoglobin 29.9 pg (27.0-31.2); Mean Corpuscular Volume 90.6 fl (81-99); Nucleated Red Blood Cells % 0 %; Platelet Count 285 K/mm3 (142-424); Red Blood Count 3.84 M/mm3 (4.20-5.40); Red Cell Distribution Width-SD 51.6 fL; White Blood Count 5.7 K/mm3 (4.8-10.8)
[2025-08-06 16:58] LABS: Bilirubin,Urine Negative (Negative); Color,Urine YELLOW (Yellow); Glucose,Urine (UA) 3+ (Negative); Ketones,Urine Negative (Negative); Leukocyte Esterase,Urine Negative (Negative); PH,Urine 6.0 (5.0-8.5); Protein,Urine Negative (Negative); Specific Gravity, Urine 1.020 (1.005-1.030); Urobilinogen,Urine 0.2 EU/dl (0.2)
[2025-08-06 17:16] LABS: Bacteria,Urine 2+ /lpf
[2025-08-06 17:37] LABS: Alanine Aminotransferase 26 U/L (12-78); Albumin Level 4.7 g/dl (3.5-5.0); Albumin/Globulin Ratio 1.7 (1.1-1.8); Alkaline Phosphatase 63 U/L (38-126); Anion Gap 20.4 mEq/L (5-15); Aspartate Amino Transferase 34 U/L (14-36); Bilirubin,Total 0.8 mg/dl (0.2-1.3); Blood Urea Nitrogen 25 mg/dl (7-17); Calcium 9.4 mg/dl (8.4-10.2); Carbon Dioxide 19 mmol/L (22.0-30.0); Chloride 102 mmol/L (98-107); Creatinine Clearance Estimated 56 mL/min (50-200); Creatinine,Serum 0.60 mg/dl (0.52-1.04); Estimated Glomerular Filt Rate 101 ml/min (>60); GFR (African American) 122 ML/MIN (>60); Globulin 2.7 g/dL (1.3-3.2); Glucose 336 mg/dl (74-100); Lipase 250 U/L (23-300); Potassium 4.4 mmoL/L (3.5-5.1); Sodium 137 mmol/L (136-145); Total Protein,Serum 7.4 g/dl (6.3-8.2)
[2025-08-06 18:47] LABS: Adenovirus F 40/41, stool Not Detected (NotDetected); Cyclospora Cayetanesis Not Detected (NotDetected); Plesimonas Shigalloides, PCR Not Detected (NotDetected); Salmonella, PCR Not Detected (NotDetected); Shiga-like toxin E coli Not Detected (NotDetected); Shigella Enterovasive E coli Not Detected (NotDetected); Vibrio, PCR Not Detected (NotDetected); Yersinia Entercolitica, PCR Not Detected (NotDetected)
--- NOTE | 2025-08-06 19:48 | HMH.EDGENADL ---
Discharge Plan Disposition Patient Disposition: Home, Self-Care Prescriptions Prescriptions: New loperamide 2 mg capsule 2 mg PO Q6H PRN (Reason: loose stool) 5 Days Qty: 20 0RF Rx Instructions: Please take 4 mg initially, followed by 2 mg after each loose stool, maximum 16 mg/day ondansetron 4 mg tablet,disintegrating 4 mg PO Q6H PRN (Reason: nausea and vomiting) 5 Days Qty: 20 0RF No Action atorvastatin 10 mg tablet 10 mg PO DAILY Patient Comments: TAKE ONE TABLET BY MOUTH EVERY DAY alprazolam 1 mg tablet 1 mg PO TIDP PRN (Reason: Anxiety) Patient Comments: TAKE ONE TABLET BY MOUTH THREE TIMES DAILY NEEDED glipizide 10 mg tablet 10 mg PO BID Patient Comments: Take 1 tablet twice a day by oral route for 90 days. aspirin 81 mg tablet,delayed release (DR/EC) 81 mg PO DAILY Patient Comments: TAKE ONE CAPSULE BY MOUTH EVERY DAY metformin 1,000 mg tablet 1,000 mg PO BID Patient Comments: TAKE ONE TABLET BY MOUTH TWICE DAILY levothyroxine 112 mcg tablet 112 mcg PO DAILY Patient Comments: TAKE ONE TABLET BY MOUTH EVERY DAY calcium carbonate-vitamin D3 600 mg-10 mcg (400 unit) tablet 1 tab PO DAILY Patient Comments: TAKE ONE TABLET BY MOUTH EVERY DAY FOR 90 DAYS insulin glargine [Lantus Solostar U-100 Insulin] 100 unit/mL (3 mL) insulin pen 30 unit SQ BID Patient Comments: Inject 30 units twice a day by subcutaneous route at bedtime for 90 days. Referrals Follow up/Referrals: Benji Perez II, MD [Staff Physician, Gastroenterology] - See instructions Gabby Gordillo APRN [Primary Care Provider, Medical] - See instructions Activity Restrictions/Add. Instructions Additional Instructions/Restrictions: As discussed you have mild dehydration no significant endorgan damage such as acute kidney injury etc. You have elevated glucose which is not abnormal for you. I suspect you may have C. difficile please call back sometime this evening or tomorrow to get the results of your diarrhea PCR panel at which point we will address it. Otherwise he may follow-up with Dr. Perez as discussed. Clinical Impressions Clinical Impression: Diarrhea, Dehydration, mild Instructions Patient Instructions: DI for Acute Abdominal Pain Print Language Print Language: French Discharge ED Provider: Ted Jenkins General Adult HPI General Chief complaint: Abdominal Pain Stated complaint: diarrhea,weakness,no appitite,lost 20 lbs Time Seen by Provider: 08/06/25 19:34 Mode of Arrival: Ambulatory Source of Information: Patient Description of Symptoms (Recalled from ER Triage Doc. by RN): patient presents to the ED for loss of appetite and vomiting over the last month. patient stated she has a surgery a month ago at to removed kidney infection and since then hasn't been able to eat or drink anything and what she has ate she cant keep down. History of Present Illness HPI narrative: Patient is a 64-year-old female presenting today with diarrhea. States has been ongoing for quite some time she recently has undergone numerous antibiotic interventions including for H. pylori as well as for infected kidney stones and is concerned she may have C. difficile. No abdominal pain whatsoever. No blood in her stool no fevers or chills or vomiting. She is able to eat and drink without difficulty but is nauseated. Related Data Home Medications ?Medication ?Instructions ?Recorded ?Confirmed alprazolam 1 mg tablet 1 mg PO TIDP PRN Anxiety 06/28/25 06/28/25 aspirin 81 mg tablet,delayed 81 mg PO DAILY 06/28/25 06/28/25 release atorvastatin 10 mg tablet 10 mg PO DAILY 06/28/25 06/28/25 calcium 600 mg (as 1 tab PO DAILY 06/28/25 06/28/25 carbonate)-vitamin D3 10 mcg (400 unit) tablet glipizide 10 mg tablet 10 mg PO BID 06/28/25 06/28/25 insulin glargine 100 unit/mL (3 30 unit SQ BID 06/28/25 06/28/25 mL) subcutaneous pen (Lantus Solostar U-100 Insulin) levothyroxine 112 mcg tablet 112 mcg PO DAILY 06/28/25 06/28/25 metformin 1,000 mg tablet 1,000 mg PO BID 06/28/25 06/28/25 Previous Rx's ?Medication ?Instructions ?Recorded loperamide 2 mg capsule 2 mg PO Q6H PRN loose stool 5 days 08/06/25 #20 caps ondansetron 4 mg disintegrating 4 mg PO Q6H PRN nausea and 08/06/25 tablet vomiting 5 days #20 tabs Allergies Allergy/AdvReac Type Severity Reaction Status Date / Time No Known Allergies Allergy Verified 06/28/25 10:23 [facility] Disclaimer: The information contained in this section may have been updated after the patient was seen, as this information can be updated by other users. Social History (Updated 06/28/25 @ 13:28 by ADIS Osborn) Smoking Status: Never smoker alcohol intake: never current occupational status: retired Travel in the last 8 weeks?: None Have you lived/traveled outside US in past 30 days?: No Contact w/someone who lives/traveled outside US past 30 days?: No Exposure to someone with infectious disease in past 14 days?: No Do you have a fever (greater than 100.4 F or 38 C)?: No Have you tested positive for COVID-19?: No Exposed to someone with COVID-19 in past 14 days?: No Do you have a sore throat?: No Do you have a cough?: No Do you have any weakness?: No Do you have any diarrhea?: No Are you experiencing any unusual bleeding?: No Do you have any muscle aches/pain?: No Do you have any abdominal pain?: No Are you experiencing loss of taste or smell?: No ROS Obtained: Yes All systems reviewed & no additional complaints except as documented Physical Exam General General appearance: alert and in no apparent distress Respiratory Respiratory exam: Present normal lung sounds bilaterally and respiratory distress Cardiovascular Cardiovascular exam: Present regular rate and normal rhythm Abdominal Exam Abdominal exam: Present soft; Absent distention or tenderness Neurological Exam Neurological exam: Present alert and oriented X3 Medical Decision Making Medical Records Screening: Per USPSTF and CDC recommendations, given the prevalence of disease in our region, it is our hospital?s policy to screen for HIV and viral Hepatitis for all patients aged 18 and over and those with ongoing risk factors. Cheikh Inquiry Pt receiving controlled substance: No Vital Signs: 08/06/25 16:28 Temperature 98.2 F Temperature Source Temporal Artery Scan Pulse Rate [Left Radial] 86 Respiratory Rate 16 Blood Pressure [Left Arm] 121/79 Blood Pressure Mean [Left Arm] 93 Blood Pressure Source [Left Arm] Automatic Cuff Blood Pressure Position [Left Arm] Sitting 02 Sat by Pulse Oximetry 98 Oxygen Delivery Method Room Air Lab Data Lab results reviewed: Yes I reviewed the patient's lab results. Lab Results 08/06/25 16:38: WBC 5.7, RBC 3.84 L, Hgb 11.5 L, Hct 34.8 L, MCV 90.6, MCH 29.9, MCHC 33.0, RDW 15.6, Plt Count 285, MPV 10.8 H, Neut % (Auto) 59.1, Lymph % (Auto) 28.4, Alpine % (Auto) 8.8, Eos % (Auto) 2.6, Baso % (Auto) 0.7, Neut # (Auto) 3.4, Lymph # (Auto) 1.6, Alpine # (Auto) 0.5, Eos # (Auto) 0.2, Baso # (Auto) 0.0, Sodium 137, Potassium 4.4, Chloride 102, Carbon Dioxide 19 L, Anion Gap 20.4 H, BUN 25 H, Creatinine 0.60, Estimated Creat Clear 56, Estimated GFR 101, Est GFR ( Amer) 122, Glucose 336 H, Calcium 9.4, Total Bilirubin 0.8, AST 34, ALT 26, Alkaline Phosphatase 63, Total Protein 7.4, Albumin 4.7, Globulin 2.7, Albumin/Globulin Ratio 1.7, Lipase 250, Urine Color Yellow, Urine Appearance Clear, Urine pH 6.0, Ur Specific Willis 1.020, Urine Protein Negative, Urine Glucose (UA) 3+, Urine Ketones Negative, Urine Blood Negative, Urine Nitrate Negative, Urine Bilirubin Negative, Urine Urobilinogen 0.2, Ur Leukocyte Esterase Negative, Urine RBC None, Urine WBC 10-20, Ur Squamous Epith Cells 5-10, Urine Bacteria 2+ 08/06/25 16:38 08/06/25 16:38 Orders (Tests/Meds): ORDERS Category Date Time Status Complete Blood Count Auto Diff Stat Lab 08/06/25 16:38 Completed Comprehensive Metabolic Panel Stat Lab 08/06/25 16:38 Completed Diarrhea 23 Panel, PCR Stat Lab 08/06/25 18:39 Received Lipase Stat Lab 08/06/25 16:38 Completed Urinalysis and Microscopic Stat Lab 08/06/25 16:38 Completed Urine Culture Stat Micro 08/06/25 16:38 Received Medical Decision Narrative: Patient is a 64-year-old presenting today with diarrhea after numerous antibiotic regimens concerning for C. difficile versus other inflammatory infectious pathology. Her abdominal exam is complete benign indication for any CT imaging. Labs were performed which does show mildly elevated anion gap and depressed bicarb but patient is able to eat and drink without any difficulty offered her IV fluids unfortunately the patient was seen on a very busy evening and length stay was already significant and and PEs were already performed and she opted to go home try oral fluids. I prescribe Zofran and loperamide. GI PCR panel is pending she will call back and follow-up on those results at which point we will intervene if necessary. She has follow-up with GI. Critical Care Critical Care Time Critical Care Time: No
[2025-08-06 19:50] VITALS: BP 132/80; PULSE 85; RESP 16; TEMP 36.8; O2SAT 98
[2025-08-06] MEDS: ONDANSETRON 4MG/2ML VIAL 4 MG IV (19:55)
[2025-08-06 23:08] LABS: Clostridium Difficile A/B, PCR Detected (NotDetected)
--- NOTE | 2025-08-06 23:37 | PC.NURSE ---
spoke with patient regarding stool rsults, and prescriptions called into pharmacy. pt denies any questions
--- NOTE | 2025-08-08 08:00 | PC.NURSE ---
Urine culture results reviewed by Dr. Gotti. No new results received.
== END 2025-08-06 20:01 | disposition home or self-care (01) ==
PROVIDERS: Emergency Provider Student in an Organized Health Care Education/Training Program; PCP Nurse Practitioner
DX: A04.72 Enterocolitis due to Clostridium difficile, not specified as recurrent (principal); A08.11 Acute gastroenteropathy due to Norwalk agent; E86.0 Dehydration; R19.7 Diarrhea, unspecified
CPT/HCPCS: 80053; 81001; 83690; 85025; 87086; 87507; 96374; 99283; 99284; J2405

== ENCOUNTER 2025-10-31 00:06 | Inpatient (IN) | payer MEDICARE, BC, SELFPAY ==
[2025-10-31] VITALS (32 sets, daily range): BP systolic 128–180; BP diastolic 66–94; PULSE 100–131; RESP 14–25; TEMP 36.6–37.7; O2SAT 91–98; BMI 20.9; BMI 19.8
--- NOTE | 2025-10-31 00:25 | XR_ITS ---
PROCEDURE INFORMATION: Exam: XR Chest Exam date and time: 10/31/2025 12:43 AM Age: 65 years old Clinical indication: Cough; Additional info: Flu like symptoms TECHNIQUE: Imaging protocol: Radiologic exam of the chest. Views: 1 view. Total images: 1 COMPARISON: CT ABDOMEN PELVIS W CON 06/28/2025 11:16 AM FINDINGS: Tubes, catheters and devices: EKG leads are present. Lungs: Mild patchy peribronchial infiltrates at the left lung base and left perihilar region. Right lung is essentially clear. No pulmonary vascular congestion. Cannot exclude upper lobe emphysema. Pleural spaces: Unremarkable. No pleural effusion. No pneumothorax. Heart/Mediastinum: Unremarkable. No cardiomegaly. No mediastinal widening or hilar enlargement. Bones/joints: Osteopenia. Mild degenerative changes thoracic spine. IMPRESSION: Mild patchy peribronchial infiltrates at the left lung base and left perihilar region.
--- OUTSIDE RECORDS SUMMARY | 2025-10-31 00:26 | XMS_ITS | Clinical Summary ---
Author Organization [facility] Address [address] [place] [address] Care Team Providers Care Industrial Methods Consultant Name Role Phone Gabby Gordillo APRN Primary Care Provider + [phone] Allergies No known active allergies Medications ibuprofen 400 MG tablet Take 1 tablet by mouth every 6 hours as needed for moderate pain. 20 tablet Active Additional Information Patient not taking.Reported on 07/07/2025 acetaminophen (Tylenol) 500 MG tablet Take 2 tablets by mouth every 6 hours as needed for pain. 50 tablet Active methocarbamol (Robaxin) 500 MG tablet Take 1 tablet by mouth 4 times a day as needed for muscle spasms. 20 tablet Active Additional Information Patient not taking.Reported on [...] capsule Take 1 capsule by mouth daily. Active exenatide 5 MCG/0.02ML inj. pen 2 times a day before meals. Active Lantus SoloStar 100 UNIT/ML injection pen Inject 30 units twice a day by subcutaneous route at bedtime for 90 days. Active phenazopyridine (Pyridium) 100 MG tablet Take 2 tablets by mouth 3 times a day as needed (Bladder discomfort). 30 tablet Active Active Problems Problem Noted Date Diagnosed Date Left ureteral stone 06/29/2025 Ureteral stone with hydronephrosis 06/28/2025 Social History Tobacco Use Types Packs/Day Years [...] 07/12/2025 12:44 PM EDT Plan of Treatment Health Maintenance Due Date Last Done Comments [facility]-Bone Density Scan 1960 [facility]-Depression Screening 1960 [facility]-Infant/Child/Adol SDOH Screenings 1960 [facility]-[id number]-80 Vaccine (#1) 1965 [facility]- SDOH Screenings 1978 [...] Td or Tdap) 05/03/2033 05/03/2023, 02/20/2012, 01/23/2006 [facility]-Hepatitis C Screening Completed 06/28/2025 HPV Vaccines [...] on patient's age to complete this topic Medical Devices Implanted Type Area Customer Operations Specialist Device Identifier Shelf Expiration Date Model / Serial / Lot Stent Ureteral Double Pigtail Pos 6fr 26cm - [id number] Implanted:Qty: 1 on 06/28/2025 by William Calle MD at [facility] Stent Left: [id number] 01/29/2027 [id number] / / Stent Ureteral Double Pigtail Pos 6fr 26cm - [id number] Implanted:Qty: 1 on 07/12/2025 by Gilberto Ling MD at [facility] Left: [id number] 02/08/2027 [id number] / / [id number] Procedures Procedure Name Priority Date/Time Associated Diagnosis Comments HEPATITIS C ANTIBODY - ED W/REFLEX TO HCV QUANT PCR STAT 06/28/2025 4:57 PM EDT from Last 3 Months or Most Recently Relevant to Health Maintenance Results * Hepatitis C Antibody - ED (06/28/2025 4:57 PM EDT) Hepatitis C Antibody Negative Negative 06/28/2025 5:56 PM EDT [facility] Blood Venous blood specimen / Unknown Venipuncture / Unknown 06/28/2025 4:57 PM EDT 06/28/2025 5:13 PM EDT us Sheyla Groves MD LAB BLOOD ORDERABLES Final Re sult [facility] [address] [place] [address] from Last 3 Months or Most Recently Relevant to Health Maintenance Advance Directives * Full Code (Latest Code Status on File) Date Activated Date Inactivated Comments 06/28/2025 6:07 PM 06/29/2025 4:44 PM Question Answer Comments I have reviewed the capacity from the link above and, if needed, have updated to appropriate status: Yes Care Teams Industrial Methods Consultant Relationship Specialty Start Date End Date Gabby Gordillo APRN [address] [place] [address] PCP - General 06/28/25
--- OUTSIDE RECORDS SUMMARY | 2025-10-31 00:26 | XMS_ITS ---
Author Organization Unknown ENCOUNTERS Encounter Performer Location Date Diagnosis Diagnosis Status Emergency [facility] [place] [address] [place] [address] [id number] STEFAN Pre Admit [facility] [place] [address] [place] [address] [id number] Pre Admit [facility] [address] [place] [address] [phone] Emergency [facility] [address] [place] [address] [id number] [facility] *Note: Encounters from your own facility or health system may be excluded. Allergies, Adverse Reactions, Alerts Allergen Type Severity Identification Date Medications Name Date Quantity Days Supplied GPI Number
--- NOTE | 2025-10-31 00:30 | ECG_ITS ---
APPROVED REPORT Exam: Resting ECG HR:121 bpm ECG Measurements Heart Rate 121 AXES MI 138 P 69 QRSd 82 QRS 66 QT 310 T 54 QTc 382 Conclusion SINUS TACHYCARDIA ABNORMAL RHYTHM ECG UNCONFIRMED REPORT Electronically signed by : MELONY SOTO, 10/31/2025 23:00:35
[2025-10-31 00:50] LABS: Coronavirus 19, PCR Not Detected (NotDetected); Influenza B, PCR Not Detected (NotDetected)
[2025-10-31 00:53] LABS: Hematocrit 47.7 % (37.0-47.0); Hemoglobin 15.0 g/dL (12.2-16.2); Immature Granulocytes % 0.8 %; Mean Corpuscular HGB Conc 31.4 g/dL (31.8-35.4); Mean Corpuscular Hemoglobin 29.3 pg (27.0-31.2); Mean Corpuscular Volume 93.2 fl (81-99); Nucleated Red Blood Cells % 0 %; Platelet Count 313 K/mm3 (142-424); Red Blood Count 5.12 M/mm3 (4.20-5.40); Red Cell Distribution Width-SD 46.5 fL; White Blood Count 7.6 K/mm3 (4.8-10.8)
--- NOTE | 2025-10-31 00:54 | HMH.EDGENADL ---
Discharge Plan Disposition Patient Disposition: Admitted Condition: Critical Clinical Impressions Clinical Impression: DKA (diabetic ketoacidosis), Influenza, Pneumonia, Hyperkalemia Discharge ED Provider: Raymon Ramos General Adult HPI General Chief complaint: Weakness Stated complaint: dehydration, weakness, disorientation, flu symtoms Time Seen by Provider: 10/31/25 00:10 Mode of Arrival: Ambulatory Source of Information: Patient and Spouse Description of Symptoms (Recalled from ER Triage Doc. by RN): Pt presents to ER with generalized weakness since Sat (10/27/25). Pt's noticed that pt has also had decreased appetite since (10/28/25). Pt has taken 500mg tylenol Q4 hrs everday since Sat in attempt to control symptoms. History of Present Illness HPI narrative: 60-year-old male with a of diabetes since . Her family exposed her to the flu and she has been feeling bad since . She has not had anything to eat or drink today of any significance. reports that she is confused and not acting normal. They do not want her blood sugars. No reported trauma. She has had a fever. Related Data Home Medications ?Medication ?Instructions ?Recorded ?Confirmed alprazolam 1 mg tablet 1 mg PO TIDP PRN Anxiety 06/28/25 09/01/25 aspirin 81 mg tablet,delayed 81 mg PO DAILY 06/28/25 09/01/25 release atorvastatin 10 mg tablet 10 mg PO DAILY 06/28/25 09/01/25 calcium 600 mg (as 1 tab PO DAILY 06/28/25 09/01/25 carbonate)-vitamin D3 10 mcg (400 unit) tablet glipizide 10 mg tablet 10 mg PO BID 06/28/25 09/01/25 insulin glargine 100 unit/mL (3 30 unit SQ BID 06/28/25 09/01/25 mL) subcutaneous pen (Lantus Solostar U-100 Insulin) levothyroxine 112 mcg tablet 112 mcg PO DAILY 06/28/25 09/01/25 metformin 1,000 mg tablet 1,000 mg PO BID 06/28/25 09/01/25 liraglutide 0.6 mg/0.1 mL (18 mg/3 mg SQ 09/01/25 09/01/25 mL) subcutaneous pen injector (Victoza 2-James) Previous Rx's ?Medication ?Instructions ?Recorded sodium,potassium,mag sulfates 17.5 See Rx Instructions PO .COMPLEX 10/21/25 gram-3.13 gram-1.6 gram oral soln #354 mL (Suprep Bowel Prep Kit) Allergies Allergy/AdvReac Type Severity Reaction Status Date / Time No Known Allergies Allergy Verified 09/01/25 09:07 [facility] Disclaimer: The information contained in this section may have been updated after the patient was seen, as this information can be updated by other users. Social History Smoking Status: Never smoker alcohol intake: never current occupational status: retired Travel in the last 8 weeks?: None Have you lived/traveled outside [place] in past 30 days?: No Contact w/someone who lives/traveled outside US past 30 days?: No Exposure to someone with infectious disease in past 14 days?: Yes Do you have a fever (greater than 100.4 F or 38 C)?: No Have you tested positive for COVID-19?: No Exposed to someone with COVID-19 in past 14 days?: No Do you have a sore throat?: No Do you have a cough?: No Do you have any weakness?: Yes Do you have any diarrhea?: No Are you experiencing any unusual bleeding?: No Do you have any muscle aches/pain?: No Do you have any abdominal pain?: No Are you experiencing loss of taste or smell?: No ROS Obtained: Yes All systems reviewed & no additional complaints except as documented Physical Exam General General appearance: alert Comment: Very weak Head Head exam: atraumatic and normocephalic Eye Eye exam: Present normal appearance, PERRL and EOMI ENT ENT exam: Present mucous membranes dry and normal external ear exam Neck Neck exam: Present normal inspection and full ROM Chest Chest inspection: Present normal inspection and symmetric chest wall rise; Absent tenderness Respiratory Respiratory exam: Present normal lung sounds bilaterally; Absent respiratory distress Cardiovascular Cardiovascular exam: Present regular rate and normal rhythm Abdominal Exam Abdominal exam: Present soft; Absent distention, tenderness or guarding Extremities Exam Extremities exam: Present normal inspection; Absent edema or joint swelling Back Exam Back exam: Present normal inspection; Absent tenderness Neurological Exam Neurological exam: Present alert and oriented X3; Absent motor sensory deficit Psychiatric Psychiatric exam: Present normal affect and normal mood Skin Skin exam: Present warm, dry and normal color Lymphatic Lymphatic Findings: no adenopathy Medical Decision Making Medical Records Medical records reviewed: Yes I reviewed the patient's medical records. Screening: Per USPSTF and CDC recommendations, given the prevalence of disease in our region, it is our hospital?s policy to screen for HIV and viral Hepatitis for all patients aged 18 and over and those with ongoing risk factors. Cheikh Inquiry Pt receiving controlled substance: No Cheikh was queried for this patient: No Vital Signs: 10/31/25 00:30 10/31/25 00:32 10/31/25 01:00 Temperature 97.9 F Temperature Source Oral Pulse Rate 130 H Pulse Rate [Left Radial] 131 H Respiratory Rate 20 25 H Blood Pressure 152/88 H 159/84 H Blood Pressure [Right Arm] 164/94 H Blood Pressure Mean 116 Blood Pressure Mean [Right Arm] 117 Blood Pressure Source Blood Pressure Source [Right Arm] Automatic Cuff Blood Pressure Position Blood Pressure Position [Right Arm] Supine 02 Sat by Pulse Oximetry 94 L 96 Oxygen Delivery Method Room Air Room Air 10/31/25 01:00 10/31/25 01:15 10/31/25 01:30 Temperature Temperature Source Pulse Rate Pulse Rate [Left Radial] Respiratory Rate 22 20 Blood Pressure 153/88 H Blood Pressure [Right Arm] Blood Pressure Mean 117 Blood Pressure Mean [Right Arm] Blood Pressure Source Blood Pressure Source [Right Arm] Blood Pressure Position Blood Pressure Position [Right Arm] 02 Sat by Pulse Oximetry Oxygen Delivery Method 10/31/25 01:30 10/31/25 01:45 10/31/25 02:00 Temperature Temperature Source Pulse Rate 121 H 120 H 127 H Pulse Rate [Left Radial] Respiratory Rate 24 20 24 Blood Pressure Blood Pressure [Right Arm] Blood Pressure Mean Blood Pressure Mean [Right Arm] Blood Pressure Source Blood Pressure Source [Right Arm] Blood Pressure Position Blood Pressure Position [Right Arm] 02 Sat by Pulse Oximetry 96 96 98 Oxygen Delivery Method Room Air Room Air Room Air 10/31/25 02:00 10/31/25 02:30 10/31/25 03:00 Temperature Temperature Source Pulse Rate 124 H 122 H Pulse Rate [Left Radial] Respiratory Rate 19 19 Blood Pressure 160/81 H 180/81 H 144/87 H Blood Pressure [Right Arm] Blood Pressure Mean 107 Blood Pressure Mean [Right Arm] Blood Pressure Source Blood Pressure Source [Right Arm] Blood Pressure Position Blood Pressure Position [Right Arm] 02 Sat by Pulse Oximetry 95 95 Oxygen Delivery Method 10/31/25 03:06 10/31/25 03:48 Temperature 97.9 F Temperature Source Oral Pulse Rate 116 H Pulse Rate [Left Radial] Respiratory Rate 20 16 Blood Pressure 140/92 H Blood Pressure [Right Arm] Blood Pressure Mean Blood Pressure Mean [Right Arm] Blood Pressure Source Automatic Cuff Blood Pressure Source [Right Arm] Blood Pressure Position Supine Blood Pressure Position [Right Arm] 02 Sat by Pulse Oximetry Oxygen Delivery Method Room Air Lab Data Lab results reviewed: Yes I reviewed the patient's lab results. Lab Results 10/31/25 00:25: VBG pH 6.94 L, VBG pCO2 26.8 L, VBG pO2 64.8 H, VBG HCO3 5.6 L, VBG Total CO2 6.4 L, VBG O2 Saturation 87.2 H, VBG Base Excess -26.6 L, VBG Lactic Acid 3.7 H 10/31/25 00:30: Hemoglobin A1c 7.3 H, Lactate 2.3 H 10/31/25 00:35: WBC 7.6, RBC 5.12, Hgb 15.0, Hct 47.7 H, MCV 93.2, MCH 29.3, MCHC 31.4 L, RDW 13.3, Plt Count 313, MPV 11.9 H, Neut % (Auto) 86.2 H, Lymph % (Auto) 8.0 L, Stark % (Auto) 4.2, Eos % (Auto) 0.0 L, Baso % (Auto) 0.8, Neut # (Auto) 6.6, Lymph # (Auto) 0.6 L, Stark # (Auto) 0.3, Eos # (Auto) 0.0, Baso # (Auto) 0.1, Sodium 143, Potassium 6.3 H*, Chloride 104, Carbon Dioxide < 5 L*, Anion Gap 40.3 H, BUN 27 H, Creatinine 1.40 H, Estimated Creat Clear 37, Estimated GFR 38 L, Est GFR ( Amer) 46 L, Glucose 598 H*, Calcium 9.7, Phosphorus 5.8 H, Magnesium 2.1, Total Bilirubin 0.9, AST 42 H, ALT 31, Alkaline Phosphatase 78, Troponin I < 0.01, Total Protein 8.7 H, Albumin 5.1 H, Globulin 3.6 H, Albumin/Globulin Ratio 1.4, Lipase 236, Acetone Level Small, SARS-CoV-2 (PCR) Not detected, Influenza A Untype (PCR) Detected A, Influenza Type B (PCR) Not detected 10/31/25 02:30: VBG pH 6.98 L, VBG pCO2 27.2 L, VBG pO2 63.6 H, VBG HCO3 6.3 L, VBG Total CO2 7.2 L, VBG O2 Saturation 88.5 H, VBG Base Excess -25.2 L, VBG Lactic Acid 3.4 H 10/31/25 03:08: Sodium 148 H, Potassium 5.2 H, Chloride 112 H, Carbon Dioxide < 5 L*, Anion Gap 36.2 H, BUN 26 H, Creatinine 1.20 H, Estimated Creat Clear 44, Estimated GFR 45 L, Est GFR ( Amer) 55 L, Glucose 429 H* D, Calcium 9.4, Troponin I < 0.01, Acetone Level Small 10/31/25 00:35 10/31/25 03:08 Orders (Tests/Meds): ED MEDICATIONS Generic Name Dose Route Start Last Admin Trade Name Freq PRN Reason Stop Dose Admin Dextrose 50 ml 10/31/25 03:51 Dextrose 50% 50ml Syringe (Crash Cart) IVP 11/30/25 03:50 NEEDED PRN Per Dka Protocol for FSBS </= 50 Insulin Human Regular 100 unit 101 mls @ 6.06 mls/hr 10/31/25 03:45 / Sodium Chloride IV 11/30/25 03:44 .[id number] ZORAIDA Protocol 6 UNIT/HR Sodium Chloride 1,000 mls @ 150 mls/hr 10/31/25 03:45 Sod Chlor 0.9% 1000ml Bag IV 11/30/25 03:44 .[id number] ZORAIDA Ceftriaxone Sodium 1 gm/ 50 mls @ 100 mls/hr 11/01/25 01:00 Sodium Chloride IV 11/11/25 00:59 Q24H ZORAIDA Azithromycin 500 mg/ Sodium 250 mls @ 250 mls/hr 11/01/25 01:00 Chloride IV 11/11/25 00:59 Q24H ZORAIDA Discontinued Medications Generic Name Dose Route Start Last Admin Trade Name Freq PRN Reason Stop Dose Admin Sodium Chloride 1,000 mls @ 999 mls/hr 10/31/25 00:30 10/31/25 02:26 Sod Chlor 0.9% 1000ml Bag IV 10/31/25 01:30 Infused .Q1H1M ZORAIDA Infusion Sodium Chloride 1,000 mls @ 999 mls/hr 10/31/25 01:00 10/31/25 03:04 Sod Chlor 0.9% 1000ml Bag IV 10/31/25 02:00 Infused .Q1H1M ZORAIDA Infusion Ceftriaxone Sodium 1 gm/ 50 mls @ 100 mls/hr 10/31/25 01:03 10/31/25 01:52 Sodium Chloride IV 10/31/25 01:32 Infused ONCE ONE Infusion Azithromycin 500 mg/ Sodium 250 mls @ 250 mls/hr 10/31/25 01:04 10/31/25 03:33 Chloride IV 10/31/25 02:03 Infused ONCE ONE Infusion Sodium Chloride 1,000 mls @ 150 mls/hr 10/31/25 03:15 10/31/25 03:18 Sod Chlor 0.9% 1000ml Bag IV 11/30/25 03:14 150 mls/hr .Q6H40M ZORAIDA Administration Insulin Human Regular 100 unit 101 mls @ 6.06 mls/hr 10/31/25 01:15 10/31/25 02:39 / Sodium Chloride IV 11/30/25 01:14 3 unit/hr .[id number] ZORAIDA 3.03 mls/hr Protocol Titration 6 UNIT/HR Calcium Gluconate/Sodium Chloride 1 gm in 50 mls @ 50 mls/hr 10/31/25 01:20 10/31/25 02:46 Calcium Gluconate 1,000mg/50ml Nacl Premix IV 10/31/25 02:19 Infused ONCE ONE Infusion Insulin Human Regular 6 unit 10/31/25 01:40 10/31/25 01:41 Insulin Human Regular 100 Units/Ml 10ml Vial 0.1 unit/kg (6 unit) 10/31/25 01:41 6 unit IV Administration ONCE ONE Oseltamivir Phosphate 75 mg 10/31/25 01:44 10/31/25 01:48 Oseltamivir 75mg Capsule PO 10/31/25 01:45 75 mg ONCE ONE Administration Sodium Bicarbonate 50 meq 10/31/25 01:10 10/31/25 01:21 Sodium Bicarb 8.4% 50ml Syringe (Crash Cart) IV 10/31/25 01:11 50 meq ONCE ONE Administration ORDERS Category Date Time Status CXR --portable [XR chest portable] Stat Exams 10/31/25 00:25 Completed Acetone, Serum (Rapid) Q12H Lab 10/31/25 03:08 Completed Acetone, Serum (Rapid) Q12H Lab 10/31/25 15:45 Ordered Acetone, Serum (Rapid) Q12H Lab 11/01/25 03:45 Ordered Acetone, Serum (Rapid) Stat Lab 10/31/25 00:35 Completed Basic Metabolic Panel Q12H Lab 10/31/25 19:45 Ordered Basic Metabolic Panel Q12H Lab 11/01/25 07:45 Ordered Basic Metabolic Panel Q12H Lab 11/01/25 19:45 Ordered Basic Metabolic Panel Q4H Lab 10/31/25 03:08 Completed Basic Metabolic Panel Q4H Lab 10/31/25 07:45 Ordered Basic Metabolic Panel Q4H Lab 10/31/25 11:45 Ordered Basic Metabolic Panel Q4H Lab 10/31/25 15:45 Ordered CBC w/Auto Diff [Complete Blood Count Auto Diff] Stat Lab 10/31/25 00:35 Completed CMP [Comprehensive Metabolic Panel] Stat Lab 10/31/25 00:35 Completed Hemoglobin A1C Stat Lab 10/31/25 00:30 Completed Lactic Acid Stat Lab 10/31/25 00:30 Completed Lipase Stat Lab 10/31/25 00:35 Completed Magnesium Stat Lab 10/31/25 00:35 Completed Phosphorous Stat Lab 10/31/25 00:35 Completed Rapid PCR Covid and Flu A/B Stat Lab 10/31/25 00:35 Completed Troponin I Q3H Lab 10/31/25 00:35 Completed Troponin I Q3H Lab 10/31/25 03:08 Completed UA [Urinalysis and Microscopic] Stat Lab 10/31/25 03:05 Ordered Blood Culture Stat Micro 10/31/25 00:35 Received VBG [Venous Blood Gas] Stat RT 10/31/25 00:25 Completed VBG [Venous Blood Gas] Stat RT 10/31/25 02:30 Completed Medical Decision Narrative: 65-year-old female with history of diabetes presents for fever, generalized weakness, dehydration, recent flu exposure. History was obtained via interactive discussion with patient, family, chart review. On arrival, patient is afebrile, tachycardic to the 130s, satting appropriately, normotensive, alert, generally ill-appearing, very weak, moving all extremities spontaneously. Full physical exam performed and significant for generalized weakness, dry mucous membrane Differential includes but is not limited to flu, DKA, hypoglycemia, bacteremia, pneumonia, UTI. Patient was given 2 L IV fluid for symptomatic management and correction of underlying abnormalities. Workup initiated including broad-spectrum labs, chest x-ray, EKG. On re-evaluation, patient tachycardia mildly improving. Remains normal Laboratory workup independently interpreted by me and significant for DKA with pH 6.94, bicarb of 5.6, lactate of 3.7, potassium is 6.3, anion gap of 40. Creatinine elevated at 1.4. Influenza positive. Imaging independently interpreted by me and significant for patchy opacities concerning for viral/bacterial pneumonia.. See radiology read for full review of final results. EKG independently interpreted by me and significant for sinus tachycardia, ventricular rate of 121, normal intervals, subtly peaked T waves. Interpreted at 0113. Patient was initiated on therapy for DKA including 6 unit insulin bolus, 6 unit insulin drip in addition to the 2 L she is receiving currently. Given possible early EKG changes in the setting of hyperkalemia and severe acidosis, she was given 1 amp of bicarb as well as IV calcium gluconate she was started on ceftriaxone and azithromycin for treatment of pneumonia. Started on Tamiflu for influenza. Repeat VBG was obtained. pH essentially unchanged, lactate essentially unchanged, potassium improved to 5.2. Patient's blood pressure remained stable. Heart rate is improving. Given patient history, exam and workup, patient's presentation most likely represents DKA, hyperkalemia influenza, pneumonia with profound acidosis. Procedures Risk/Benefits of Procedure(s) Were Explained: Yes Critical Care Critical Care Time Critical Care Time: Yes Attestation: On 10/31/25, the high probability of a clinically significant, sudden or life threatening deterioration of the following system(s) required my full and direct attention, intervention and personal management. The time I documented below is in addition to time spent performing reported procedures but includes the following listed in this critical care notation. Total Time Total Critical Care Time: 45
[2025-10-31] MEDS: 0.9 % SODIUM CHLORIDE 1000ML 1,000 ML 999 ML IV ×2 (00:55→01:53)
[2025-10-31 00:56] LABS: Acetone, Serum (Rapid) Small (None Detect)
[2025-10-31 00:57] LABS: Albumin Level 5.1 g/dl (3.5-5.0); Chloride 104 mmol/L (98-107)
[2025-10-31 00:58] LABS: Sodium 143 mmol/L (136-145)
[2025-10-31 01:00] LABS: Alanine Aminotransferase 31 U/L (12-78); Aspartate Amino Transferase 42 U/L (14-36); Blood Urea Nitrogen 27 mg/dl (7-17); Creatinine Clearance Estimated 37 mL/min (50-200); Creatinine,Serum 1.40 mg/dl (0.52-1.04); Estimated Glomerular Filt Rate 38 ml/min (>60); GFR (African American) 46 ML/MIN (>60)
[2025-10-31 01:01] LABS: Albumin/Globulin Ratio 1.4 (1.1-1.8); Alkaline Phosphatase 78 U/L (38-126); Bilirubin,Total 0.9 mg/dl (0.2-1.3); Calcium 9.7 mg/dl (8.4-10.2); Globulin 3.6 g/dL (1.3-3.2); Lipase 236 U/L (23-300); Magnesium 2.1 mg/dl (1.6-2.3); Phosphorous 5.8 mg/dl (2.5-4.5); Total Protein,Serum 8.7 g/dl (6.3-8.2)
[2025-10-31 01:02] LABS: VBG HCO3 5.6 mmol/L (23-30); VBG PCO2 26.8 mmol/L (35-51); VBG PO2 64.8 mmol/L (28-40)
[2025-10-31 01:06] LABS: Glucose 598 mg/dl (74-100)
[2025-10-31 01:07] LABS: Anion Gap 40.3 mEq/L (5-15); Carbon Dioxide < 5 mmol/L (22.0-30.0); Potassium 6.3 mmoL/L (3.5-5.1)
[2025-10-31 01:07] LABS: Lactate Venous 3.7 mmol/L (0.4-2.0); VBG PH 6.94 mmol/L (7.31-7.41)
--- NOTE | 2025-10-31 01:07 | PC.NURSE ---
critical results called from lab, MD Ramos aware at 0107 glucose:598 K:6.3 CO2:<5
[2025-10-31] MEDS: SODIUM BICARB 8.4% 50ML SYRINGE (CRASH CART) 50 MEQ IV (01:21)
[2025-10-31] MEDS: CEFTRIAXONE 1 GM 1 GM in 0.9 % SODIUM CHLORIDE 50 ML IV ×2 (01:22→20:40)
[2025-10-31] MEDS: CALCIUM GLUC IN NACL, ISO-OSM 1 GM/50 ML BAG IV (01:32)
[2025-10-31] MEDS: INSULIN REGULAR, HUMAN 100 UNIT in 0.9 % SODIUM CHLORIDE 100 ML 6.06 UNIT IV ×2 (01:35→01:37)
[2025-10-31] MEDS: INSULIN HUMAN REGULAR 100 UNITS/ML 10ML VIAL 6 UNIT IV (01:41)
[2025-10-31 01:42] LABS: Influenza A, PCR Detected (NotDetected)
[2025-10-31 01:48] LABS: Troponin I < 0.01 ng/ml (0.00-0.034)
[2025-10-31] MEDS: OSELTAMIVIR 75MG CAPSULE 75 MG PO ×2 (01:48→20:40)
--- NOTE | 2025-10-31 02:06 | PC.NURSE ---
NS bolus put on pressure bag per MD verbal order
[2025-10-31 02:12] LABS: Hemoglobin A1C 7.3 % (4.0-6.0)
[2025-10-31] MEDS: AZITHROMYCIN 500 MG in 0.9 % SODIUM CHLORIDE 250 ML 250 MG IV (02:26)
[2025-10-31 03:17] LABS: VBG HCO3 6.3 mmol/L (23-30); VBG PCO2 27.2 mmol/L (35-51); VBG PO2 63.6 mmol/L (28-40)
[2025-10-31] MEDS: 0.9 % SODIUM CHLORIDE 1000ML 1,000 ML 150 ML IV ×3 (03:18→10:00)
[2025-10-31 03:24] LABS: Lactate Venous 3.4 mmol/L (0.4-2.0); VBG PH 6.98 mmol/L (7.31-7.41)
--- NOTE | 2025-10-31 03:47 | PC.NURSE ---
Report given to JOCE Rubin
[2025-10-31 03:48] LABS: Troponin I < 0.01 ng/ml (0.00-0.034)
[2025-10-31 03:58] LABS: Acetone, Serum (Rapid) Small (None Detect)
[2025-10-31 03:59] LABS: Chloride 112 mmol/L (98-107)
[2025-10-31 04:00] LABS: Potassium 5.2 mmoL/L (3.5-5.1); Sodium 148 mmol/L (136-145)
[2025-10-31 04:03] LABS: Blood Urea Nitrogen 26 mg/dl (7-17); Calcium 9.4 mg/dl (8.4-10.2); Creatinine Clearance Estimated 44 mL/min (50-200); Creatinine,Serum 1.20 mg/dl (0.52-1.04); Estimated Glomerular Filt Rate 45 ml/min (>60); GFR (African American) 55 ML/MIN (>60)
[2025-10-31 04:04] LABS: Anion Gap 36.2 mEq/L (5-15)
[2025-10-31 04:06] LABS: Carbon Dioxide < 5 mmol/L (22.0-30.0); Glucose 429 mg/dl (74-100)
[2025-10-31 04:15] LABS: Magnesium 2.0 mg/dl (1.6-2.3); Phosphorous 3.7 mg/dl (2.5-4.5)
--- NOTE | 2025-10-31 04:22 | PC.NURSE ---
notified Donna ENGLAND of critical CO2 and glucose @0406.
[2025-10-31 05:07] LABS: Reflex Lactic Add Lactic Reflex
--- NOTE | 2025-10-31 05:09 | EXP.HP ---
History of Present Illness *Admission Date: 10/31/25 *Reason for visit:: Generalized weakness *History of present illness: Donna Warner is a 65-year-old female with past medical history significant for diabetes mellitus type 2. Patient presents to [facility] due to generalized weakness and increased confusion. present at bedside providing history as patient is a poor historian due to confusion. Reports was recently exposed to the flu. Reports symptoms began on Saturday and have significantly become worse. States she has not had much to eat or drink today. Reports increased confusion today with fever. Denied any known alleviating or aggravating factors. Concern of glucose control with underlying diabetes. Due to worsening symptoms brought her to the emergency department for further evaluation. On arrival to the ED she was noted to be tachycardic heart rate in the 130s, ill-appearing. Laboratory workup within the ED revealing DKA. Hospitalist team consulted for continued treatment and admission. Initial ED workup included laboratory studies and imaging.Laboratory workup significant for DKA with pH 6.94, bicarb of 5.6, lactate of 3.7, potassium is 6.3, anion gap of 40. Creatinine elevated at 1.4. Influenza positive. Chest chest x-ray obtained, I personally reviewed showing significant patchy opacities concerning for viral/bacterial pneumonia. EKG showing sinus tachycardia, ventricular rate of 121, normal intervals, subtly peaked T waves. Received 6 units insulin bolus with 6 units insulin drip in addition to 2 L normal saline. 1 amp bicarb and IV calcium gluconate. IV Rocephin and azithromycin for pneumonia. Tamiflu received in ED. Admission to ICU. Assessment of patient at bedside, she is without acute distress, resting in bed comfortably. Hemodynamically stable. at bedside assisting with history/interview. [facility] Disclaimer: The information contained in this section may have been updated after the patient was seen, as this information can be updated by other users. Medical History (Updated 10/31/25 @ 06:07 by Donna Fisher APRN) DKA, type 2 Social History Smoking Status: Never smoker alcohol intake: never current occupational status: retired Travel in the last 8 weeks?: None Have you lived/traveled outside [place] in past 30 days?: No Contact w/someone who lives/traveled outside US past 30 days?: No Exposure to someone with infectious disease in past 14 days?: Yes Do you have a fever (greater than 100.4 F or 38 C)?: No Have you tested positive for COVID-19?: No Exposed to someone with COVID-19 in past 14 days?: No Do you have a sore throat?: No Do you have a cough?: No Do you have any weakness?: Yes Are you experiencing any nausea/vomitting?: No Do you have any diarrhea?: No Are you experiencing any unusual bleeding?: No Do you have any muscle aches/pain?: No Do you have any abdominal pain?: No Are you experiencing loss of taste or smell?: No Other Medical History Have you received the Flu Vaccine for this season: No Have you received the Pneumonia Vaccine: No Review of Systems Review of Systems Review of systems:: other and pertinent systems reviewed and negative unless documented below Constitutional Constitutional: Reports system reviewed and no additional complaints, except as documented, Reports as per HPI, Reports chills, Reports fatigue, Reports fever(s), Reports poor appetite, Reports lethargy and Reports weakness Eyes Eyes: Reports system reviewed and no additional complaints, except as documented and Reports as per HPI ENT Ears, Nose, Mouth, and Throat: Reports system reviewed and no additional complaints, except as documented and Reports as per HPI *Cardiovascular Cardiovascular: Reports system reviewed and no additional complaints, except as documented and Reports as per HPI *Respiratory Respiratory: Reports system reviewed and no additional complaints, except as documented, Reports as per HPI and Reports cough *Gastrointestinal Gastrointestinal: Reports system reviewed and no additional complaints, except as documented, Reports as per HPI and Reports nausea *Genitourinary Genitourinary: Reports system reviewed and no additional complaints, except as documented and Reports as per HPI *Musculoskeletal Musculoskeletal: Reports system reviewed and no additional complaints, except as documented and Reports as per HPI Integumentary/Breasts Skin/Breast: Reports system reviewed and no additional complaints, except as documented and Reports as per HPI *Neurologic Neurologic: Reports system reviewed and no additional complaints, except as documented, Reports as per HPI and Reports weakness Psychiatric Psychiatric: Reports system reviewed and no additional complaints, except as documented and Reports as per HPI Endocrine Endocrine: Reports system reviewed and no additional complaints, except as documented, Reports as per HPI and Reports fatigue Hematologic/Lymphatic Hematologic/Lymphatic: Reports system reviewed and no additional complaints, except as documented and Reports as per HPI Allergic/Immunologic Allergic/Immunologic: Reports system reviewed and no additional complaints, except as documented and Reports as per HPI Meds Home Medications and Allergies Home Medications ?Medication ?Instructions ?Recorded ?Confirmed ?Type alprazolam 1 mg tablet 1 mg PO TIDP PRN Anxiety 06/28/25 10/31/25 History aspirin 81 mg tablet,delayed 81 mg PO DAILY 06/28/25 10/31/25 History release atorvastatin 10 mg tablet 10 mg PO DAILY 06/28/25 10/31/25 History calcium 600 mg (as 1 tab PO DAILY 06/28/25 10/31/25 History carbonate)-vitamin D3 10 mcg (400 unit) tablet glipizide 10 mg tablet 10 mg PO BID 06/28/25 10/31/25 History insulin glargine 100 unit/mL (3 30 unit SQ BID 06/28/25 09/01/25 History mL) subcutaneous pen (Lantus Solostar U-100 Insulin) levothyroxine 112 mcg tablet 112 mcg PO DAILY 06/28/25 10/31/25 History metformin 1,000 mg tablet 1,000 mg PO BID 06/28/25 10/31/25 History sodium,potassium,mag sulfates 17.5 See Rx Instructions PO .COMPLEX 10/21/25 Rx gram-3.13 gram-1.6 gram oral soln #354 mL (Suprep Bowel Prep Kit) liraglutide 0.6 mg/0.1 mL (18 mg/3 0.6 mg SQ DAILY 10/31/25 10/31/25 History mL) subcutaneous pen injector (Victoza 2-James) New Prescriptions to Start Prescriptions: Allergies Allergy/AdvReac Type Severity Reaction Status Date / Time No Known Allergies Allergy Verified 09/01/25 09:07 Exam Data for Last 24 hours Vital signs and Labs for Last 24 Hours: Temp Pulse Resp BP Pulse Ox O2 Del Method 97.9 F 116 H 16 140/92 H 95 Room Air 10/31/25 03:48 10/31/25 03:48 10/31/25 03:48 10/31/25 03:48 10/31/25 03:00 10/31/25 04:30 Laboratory Results - last 24 hr 10/31/25 00:25: VBG pH 6.94 L, VBG pCO2 26.8 L, VBG pO2 64.8 H, VBG HCO3 5.6 L, VBG Total CO2 6.4 L, VBG O2 Saturation 87.2 H, VBG Base Excess -26.6 L, VBG Lactic Acid 3.7 H 10/31/25 00:30: Hemoglobin A1c 7.3 H, Lactate 2.3 H 10/31/25 00:35: WBC 7.6, RBC 5.12, Hgb 15.0, Hct 47.7 H, MCV 93.2, MCH 29.3, MCHC 31.4 L, RDW 13.3, Plt Count 313, MPV 11.9 H, Neut % (Auto) 86.2 H, Lymph % (Auto) 8.0 L, [place] % (Auto) 4.2, Eos % (Auto) 0.0 L, Baso % (Auto) 0.8, Neut # (Auto) 6.6, Lymph # (Auto) 0.6 L, [place] # (Auto) 0.3, Eos # (Auto) 0.0, Baso # (Auto) 0.1, Sodium 143, Potassium 6.3 H*, Chloride 104, Carbon Dioxide < 5 L*, Anion Gap 40.3 H, BUN 27 H, Creatinine 1.40 H, Estimated Creat Clear 37, Estimated GFR 38 L, Est GFR ( Amer) 46 L, Glucose 598 H*, Calcium 9.7, Phosphorus 5.8 H, Magnesium 2.1, Total Bilirubin 0.9, AST 42 H, ALT 31, Alkaline Phosphatase 78, Troponin I < 0.01, Total Protein 8.7 H, Albumin 5.1 H, Globulin 3.6 H, Albumin/Globulin Ratio 1.4, Lipase 236, Acetone Level Small, SARS-CoV-2 (PCR) Not detected, Influenza A Untype (PCR) Detected A, Influenza Type B (PCR) Not detected 10/31/25 02:30: VBG pH 6.98 L, VBG pCO2 27.2 L, VBG pO2 63.6 H, VBG HCO3 6.3 L, VBG Total CO2 7.2 L, VBG O2 Saturation 88.5 H, VBG Base Excess -25.2 L, VBG Lactic Acid 3.4 H 10/31/25 03:08: Sodium 148 H, Potassium 5.2 H, Chloride 112 H, Carbon Dioxide < 5 L*, Anion Gap 36.2 H, BUN 26 H, Creatinine 1.20 H, Estimated Creat Clear 44, Estimated GFR 45 L, Est GFR ( Amer) 55 L, Glucose 429 H* D, Calcium 9.4, Phosphorus 3.7 D, Magnesium 2.0, Troponin I < 0.01, Acetone Level Small I & O for Last 24 hours: Intake & Output 10/28/25 10/29/25 10/30/25 10/31/25 23:59 23:59 23:59 23:59 Intake Total 2356.464 / 2356.464 Balance 2356.464 / 2356.464 Weight 58.967 kg Constitutional Constitutional: no acute distress Comments: Ill appearing *Routine HEENT Exam Head: Present normocephalic and atraumatic Eye: Present EOMI and PERRL ENT: Present mucous membranes dry *Routine Neck Exam Neck: Present full ROM *Routine Respiratory Exam Respiratory: Present normal respiratory effort *Routine Cardiovascular Exam Cardiovascular: Present Normal S1, Normal S2 and tachycardia *Routine Abdominal Exam Abdominal: Present soft and normoactive bowel sounds *Routine Rectal Exam Rectal:: deferred *Routine Genitalia Exam Genitalia:: deferred *Routine Extremities Exam Extremities: Present pulses intact and normal capillary refill Routine Back/Spine/Pelvis Exam Back/Spine: Present full ROM *Routine Skin Exam Skin: Present intact *Routine Neurological Exam Neurological: Present altered mental status Routine Psychiatric Exam Psychiatric: Present normal affect Assessment and Plan *Assessment and plan (1) DKA (diabetic ketoacidosis): Status: Acute Qualifiers: Diabetes mellitus type: type 2 Diabetes mellitus complication detail: without coma Qualified Code(s): E11.10 - Type 2 diabetes mellitus with ketoacidosis without coma Category: Medical Code(s): E11.10 - Type 2 diabetes mellitus with ketoacidosis without coma (2) Influenza due to identified novel influenza A virus with pneumonia: Status: Acute Category: Medical Code(s): J09.X1 - Influenza due to identified novel influenza A virus with pneumonia (3) CORNELL (acute kidney injury): Status: Acute Category: Medical Code(s): N17.9 - Acute kidney failure, unspecified (4) Hyperkalemia: Status: Acute Category: Medical Code(s): E87.5 - Hyperkalemia (5) Decreased oral intake: Status: Acute Category: Medical Code(s): R63.8 - Other symptoms and signs concerning food and fluid intake (6) Hypothyroidism: Status: Acute Qualifiers: Hypothyroidism type: unspecified Qualified Code(s): E03.9 - Hypothyroidism, unspecified Category: Medical Code(s): E03.9 - Hypothyroidism, unspecified Plan Assessment/plan: I personally discussed the management of this patient with the emergency department provider and agree with hospital admission to the ICU. Patient is a 65-year-old female with a medical history significant for type 2 diabetes. Recently exposed to flu. Patient at bedside providing history due to mild confusion the patient. Reports onset of symptoms Saturday with generalized weakness that progressed and notable confusion today. Decreased fluid and nutritional intake today as well. Concerned due to underlying diabetes and progressive symptoms followed up to the ED for evaluation initial workup significant for DKA. VBG pH 6.94, bicarb of 5.6, lactate of 3.7, potassium is 6.3, anion gap of 40. Creatinine elevated at 1.4. Influenza positive. Chest chest x-ray obtained, I personally reviewed showing significant patchy opacities concerning for viral/bacterial pneumonia. EKG showing sinus tachycardia, ventricular rate of 121, normal intervals, subtly peaked T waves. Received 6 units insulin bolus with 6 units insulin drip in addition to 2 L normal saline. 1 amp bicarb and IV calcium gluconate. IV Rocephin and azithromycin for pneumonia. Initial dose Tamiflu in the ED. DKA protocol, monitor trending labs for appropriate insulin and fluid changes. Blood cultures obtained/pending. Closely monitor hemodynamic/neuro status for any acute/worsening change. 1. DKA: pH 6.94, bicarb of 5.6, lactate of 3.7, potassium is 6.3, anion gap of 40, glucose 598. ED provided noted patient received 2 L IV fluid, initial 6 units insulin bolus with a continued 6 units insulin drip. Received 1 amp bicarb and IV calcium gluconate due to severe acidosis pH 6.94. Repeat VBG pH 6.98. DKA protocol initiated with routine electrolyte monitoring, IV fluids and insulin drip. Currently on normal saline at 150, monitor labs for fluid changes, electrolyte replacement. Glucose monitoring, Accu-Chek Q1. Twelve-lead showing tachycardia, ventricular rate of 121, normal intervals, subtly peaked T waves. Continue cardiac monitoring. Hemoglobin A1c pending. NPO with ice chips. CMP, CBC with morning labs. 2. Influenza due to influenza A with pneumonia: Chest x-ray with evidence of significant patchy opacities concerning for viral/bacterial pneumonia. IV Rocephin and azithromycin initiated within the ED, will resume therapy. Blood cultures obtained, pending. Sputum culture requested, pending. Currently on room air with adequate saturations. Tamiflu per status in the emergency department, resume therapy, nebs as needed, pulmonary hygiene, IS at bedside. 3. CORNELL: Creatinine 1.20, BUN 26, GFR 45->Baseline appears to be creatinine of 0.6, GFR 101, BUN 25. Suspect dehydration-> as noted above receiving IV fluids per DKA protocol, will continue to monitor, trend with morning labs. Avoid nephrotoxic medication. 4. Hypothyroidism: Resume home Levothyroxine 112 mcg daily. 5. DVT prophylaxis: Lovenox Full code NPO Next of kin/ (Gordon Warner)
[2025-10-31 07:05] LABS: POC Glucose,Bedside 349 gm/dL (70-110)
[2025-10-31 07:05] LABS: POC Glucose,Bedside 287 gm/dL (70-110)
[2025-10-31 07:05] LABS: POC Glucose,Bedside 352 gm/dL (70-110)
[2025-10-31 07:25] LABS: Lactate Venous 2.0 mmol/L (0.4-2.0); VBG HCO3 9.8 mmol/L (23-30); VBG PCO2 30.9 mmol/L (35-51); VBG PO2 31.7 mmol/L (28-40)
[2025-10-31 07:27] LABS: VBG PH 7.12 mmol/L (7.31-7.41)
--- NOTE | 2025-10-31 07:27 | PC.NURSE ---
reported critical VBG results to Dr Alford at this time
[2025-10-31 07:54] LABS: Lactic Acid Follow Up (RFLX 1) 1.2 mmol/L (0.7-2.1)
[2025-10-31 07:57] LABS: Anion Gap 21.8 mEq/L (5-15); Blood Urea Nitrogen 24 mg/dl (7-17); Calcium 9.3 mg/dl (8.4-10.2); Chloride 115 mmol/L (98-107); Creatinine Clearance Estimated 50 mL/min (50-200); Creatinine,Serum 0.90 mg/dl (0.52-1.04); Estimated Glomerular Filt Rate 63 ml/min (>60); GFR (African American) 76 ML/MIN (>60); Glucose 312 mg/dl (74-100); Magnesium 1.8 mg/dl (1.6-2.3); Phosphorous 2.6 mg/dl (2.5-4.5); Potassium 4.8 mmoL/L (3.5-5.1); Sodium 140 mmol/L (136-145)
[2025-10-31 08:18] LABS: Carbon Dioxide 8 mmol/L (22.0-30.0)
--- NOTE | 2025-10-31 08:53 | HMH.PHAAMS2 ---
- Antimicrobial Stewardship Review culture & sensitivity review Stewardship interventions: culture & sensitivity review (CURRENTLY ON AZITH AND ROCEPHIN FOR PNA, POSITIVE FOR FLU A, AFEBRILE NOW AND WBC WNL.)
[2025-10-31] MEDS: LEVOTHYROXINE 112MCG (0.112MG) TAB 112 MCG PO (09:29)
[2025-10-31] MEDS: ASPIRIN EC 81MG TABLET 81 MG PO (09:29)
[2025-10-31 09:36] LABS: POC Glucose,Bedside 304 gm/dL (70-110)
[2025-10-31 09:36] LABS: POC Glucose,Bedside 266 gm/dL (70-110)
[2025-10-31] MEDS: POTASSIUM PHOS IN 0.9 % NACL 15 MMOL/250 ML PIGGYBACK 62.5 MMOL IV ×2 (10:26→14:51)
--- NOTE | 2025-10-31 11:20 | PC.NURSE ---
Primary RN spoke with Dr. Alford. Dr. Alford states we do not need another VBG ordered. Continuation of care plan.
[2025-10-31 11:57] LABS: Magnesium 1.6 mg/dl (1.6-2.3); Phosphorous 2.1 mg/dl (2.5-4.5)
[2025-10-31 11:58] LABS: Anion Gap 16.3 mEq/L (5-15); Blood Urea Nitrogen 21 mg/dl (7-17); Calcium 9.2 mg/dl (8.4-10.2); Chloride 120 mmol/L (98-107); Creatinine Clearance Estimated 50 mL/min (50-200); Creatinine,Serum 0.70 mg/dl (0.52-1.04); Estimated Glomerular Filt Rate 84 ml/min (>60); GFR (African American) 102 ML/MIN (>60); Glucose 195 mg/dl (74-100); Potassium 4.3 mmoL/L (3.5-5.1); Sodium 142 mmol/L (136-145)
[2025-10-31 11:59] LABS: Carbon Dioxide 10 mmol/L (22.0-30.0)
--- NOTE | 2025-10-31 12:33 | DIET.NUTRFU ---
attached diabetic diet handouts with discharge paperwork and can follow-up with phone call once discharge to review and review schedule outpatient matthew.
--- NOTE | 2025-10-31 13:36 | P.PN_ITS ---
Critical Care Event Note Summary Code activated: No Narrative: This case had a high probability of a clinically significant, sudden, or life threatening deterioration of this patient's condition which required my full and direct attention, intervention and personal management. High anion gap metabolic acidosis secondary to DKA in the setting of flu A Severe sepsis Pneumonia - Continuing to make adjustments to insulin drip. Patient's initial pH was 6.9. Bicarb less than 5 and anion gap of 40. Has shown gradual improvement on insulin drip. Sodium improved from 148-140. Adjusting insulin regimen. Have added 10 units insulin glargine to assist with closure of gap and maintenance of closure. Showing some improvement in mentation on rounds this morning. Labs also show magnesium dropping at 1.8, potassium improved from 5.2-4.8. Phosphorus dropped from 3.7-2.6. Will initiate potassium phosphate 15 mEq x 1. Repeat labs ordered for 4 hours, will continue to replace if phosphorus continues to drop due to risk of refeeding syndrome. High risk for further decompensation. Stable on room air. Remains tachycardic. Continuing Tamiflu 75 mg twice daily for flu A infection along with ceftriaxone 1 g daily for airspace disease appreciated on chest imaging. Likely viral but in the setting of DKA, concern for superimposed bacterial infection. ICU/Critical care attestation This patient is critically ill with 40 minutes devoted solely to this patient managing life/organ supporting interventions that required physician assessment. This includes time spent making adjustments in ventilator settings, IV fluid administration, titration of pressors, adjustments of medications, discussion of patient with consultants and other care providers as well as updating patient and/or family (if patient by virtue of his/her condition is unable to participate in decision making). This does not include time spent performing separately billed procedures. Time is not concurrent with that of other providers. Critical care time: 30 - 74 mins [facility] Critical Care Exam Physical Exam Vital signs: Temp Pulse Resp BP Pulse Ox O2 Del Method 99.2 F 115 H 18 128/78 95 Room Air 10/31/25 12:00 10/31/25 12:10/31/25 12:00 10/31/25 12:00 10/31/25 12:10/31/25 12:26 Constitutional Constitutional: Present moderate distress, thin, chronically ill appearing and cooperative Routine Respiratory Exam Respiratory: Present accessory muscle use, rhonchi and crackles; Absent wheezes Routine Cardiovascular Exam Cardiovascular: Present tachycardia Comments: Regular rhythm Routine Neurological Exam Neurological: Present alert Comments: Oriented to self. Disoriented to place. Making eye contact. GCS 15
--- NOTE | 2025-10-31 14:10 | PC.NURSE ---
Blood Sugar of 92. Dr. Alford notified. Primary RN verified IV fluid order as per DKA protocol. Dr. Alford aware. Continuation of care plan.
[2025-10-31] MEDS: D5W/0.9% NaCl w/20mEq KCL 1,000 ML 125 ML IV ×2 (14:51→23:59)
--- NOTE | 2025-10-31 16:00 | PC.NURSE ---
Dr. Alford states to continue D5W/0.9% NaCl with 20 Meq of Potassium at 125 ml/hr as ordered on JAN. Continuation of care plan.
[2025-10-31 16:13] LABS: POC Glucose,Bedside 168 gm/dL (70-110)
[2025-10-31 16:13] LABS: POC Glucose,Bedside 248 gm/dL (70-110)
[2025-10-31 16:13] LABS: POC Glucose,Bedside 92 gm/dL (70-110)
[2025-10-31 16:13] LABS: POC Glucose,Bedside 130 gm/dL (70-110)
[2025-10-31 16:13] LABS: POC Glucose,Bedside 292 gm/dL (70-110)
[2025-10-31 16:13] LABS: POC Glucose,Bedside 94 gm/dL (70-110)
[2025-10-31 16:13] LABS: POC Glucose,Bedside 202 gm/dL (70-110)
[2025-10-31 16:46] LABS: Acetone, Serum (Rapid) Small (None Detect); Chloride 120 mmol/L (98-107); Potassium 5.6 mmoL/L (3.5-5.1); Sodium 146 mmol/L (136-145)
[2025-10-31 16:49] LABS: Anion Gap 22.6 mEq/L (5-15); Blood Urea Nitrogen 18 mg/dl (7-17); Creatinine Clearance Estimated 50 mL/min (50-200); Creatinine,Serum 0.60 mg/dl (0.52-1.04); Estimated Glomerular Filt Rate 100 ml/min (>60); GFR (African American) 121 ML/MIN (>60)
[2025-10-31 16:50] LABS: Calcium 8.5 mg/dl (8.4-10.2); Glucose 180 mg/dl (74-100); Magnesium 1.6 mg/dl (1.6-2.3); Phosphorous 2.6 mg/dl (2.5-4.5)
[2025-10-31 16:52] LABS: Carbon Dioxide 9 mmol/L (22.0-30.0)
--- NOTE | 2025-10-31 18:00 | PC.NURSE ---
Primary RN verified IV fluids going at this time. Refer to MAR. Dr. Alford states continue D5W/ 0.9% NaCl with 20 Meq of potassium at 125 ml/hr until labs from 1944 tonight result. Continuation of care plan.
[2025-10-31] MEDS: INSULIN GLARGINE 100 UNITS/ML 3ML FLEXPEN 15 UNIT SUBCUT (18:01)
[2025-10-31 18:59] LABS: POC Glucose,Bedside 258 gm/dL (70-110)
[2025-10-31 18:59] LABS: POC Glucose,Bedside 263 gm/dL (70-110)
[2025-10-31 18:59] LABS: POC Glucose,Bedside 306 gm/dL (70-110)
[2025-10-31] MEDS: ATORVASTATIN 10MG TABLET 10 MG PO (20:40)
[2025-10-31 21:29] LABS: POC Glucose,Bedside 267 gm/dL (70-110)
[2025-10-31 21:29] LABS: POC Glucose,Bedside 244 gm/dL (70-110)
[2025-10-31 21:56] LABS: Magnesium 1.5 mg/dl (1.6-2.3)
[2025-10-31 21:59] LABS: Phosphorous 1.7 mg/dl (2.5-4.5)
[2025-10-31 22:24] LABS: Chloride 119 mmol/L (98-107); Potassium 4.4 mmoL/L (3.5-5.1); Sodium 148 mmol/L (136-145)
[2025-10-31 22:27] LABS: Anion Gap 19.4 mEq/L (5-15); Blood Urea Nitrogen 15 mg/dl (7-17); Carbon Dioxide 14 mmol/L (22.0-30.0); Creatinine Clearance Estimated 50 mL/min (50-200); Creatinine,Serum 0.60 mg/dl (0.52-1.04); Estimated Glomerular Filt Rate 100 ml/min (>60); GFR (African American) 121 ML/MIN (>60)
[2025-10-31 22:28] LABS: Calcium 8.4 mg/dl (8.4-10.2); Glucose 211 mg/dl (74-100)
[2025-10-31] MEDS: INSULIN REGULAR, HUMAN 100 UNIT in 0.9 % SODIUM CHLORIDE 100 ML 7.58 UNIT IV (22:58)
[2025-10-31] MEDS: 0.9% NaCl w/20mEq KCL 1,000 ML 150 ML IV ×2 (23:02→23:17)
[2025-10-31] MEDS: MAGNESIUM SULFATE IN WATER 2 GM/50 ML PIGGYBACK IV (23:34)
[2025-11-01] VITALS (18 sets, daily range): BP systolic 128–178; BP diastolic 67–90; PULSE 61–110; RESP 14–24; TEMP 36.6–37.4; O2SAT 93–100; BMI 20.5
[2025-11-01] MEDS: AZITHROMYCIN 500 MG in 0.9 % SODIUM CHLORIDE 250 ML 250 MG IV (00:27)
[2025-11-01 00:59] LABS: Magnesium 2.2 mg/dl (1.6-2.3)
[2025-11-01 01:08] LABS: Phosphorous 1.2 mg/dl (2.5-4.5)
--- NOTE | 2025-11-01 01:33 | PC.NURSE ---
during the 1 o clock sugar check, pts sugar was 62, pt not symptomatic. 8oz of orange juice was given.Provider notified. sugar recheck 15 min later was 96. Rechecked sugar again at 0130, sugar is now 133. Spoke to provider, provider Kiersten ENGLAND stated to turn the pts insulin drip back on @ 1units/hr at this time.
[2025-11-01] MEDS: MAGNESIUM SULFATE IN WATER 2 GM/50 ML PIGGYBACK IV (01:43)
[2025-11-01 02:04] LABS: Chloride 120 mmol/L (98-107); Potassium 4.2 mmoL/L (3.5-5.1); Sodium 146 mmol/L (136-145)
[2025-11-01 02:07] LABS: Anion Gap 17.2 mEq/L (5-15); Blood Urea Nitrogen 11 mg/dl (7-17); Carbon Dioxide 13 mmol/L (22.0-30.0); Creatinine Clearance Estimated 50 mL/min (50-200); Creatinine,Serum 0.50 mg/dl (0.52-1.04); Estimated Glomerular Filt Rate 124 ml/min (>60); GFR (African American) 150 ML/MIN (>60)
[2025-11-01 02:09] LABS: Calcium 8.5 mg/dl (8.4-10.2); Glucose 166 mg/dl (74-100)
[2025-11-01] MEDS: POTASSIUM PHOS IN 0.9 % NACL 15 MMOL/250 ML PIGGYBACK 62.5 MMOL IV ×3 (03:16→18:36)
--- NOTE | 2025-11-01 03:42 | PC.NURSE ---
spoke w/ provider Kiersten ENGLAND. Provider stated to leave pts insulin drip running at 1units/hr and to not titrate.
[2025-11-01 04:29] LABS: Acetone, Serum (Rapid) Small (None Detect)
[2025-11-01 04:44] LABS: POC Glucose,Bedside 263 gm/dL (70-110)
[2025-11-01 04:44] LABS: POC Glucose,Bedside 242 gm/dL (70-110)
[2025-11-01 04:44] LABS: POC Glucose,Bedside 138 gm/dL (70-110)
[2025-11-01 04:44] LABS: POC Glucose,Bedside 154 gm/dL (70-110)
[2025-11-01 04:44] LABS: POC Glucose,Bedside 85 gm/dL (70-110)
[2025-11-01 04:44] LABS: POC Glucose,Bedside 96 gm/dL (70-110)
[2025-11-01 04:44] LABS: POC Glucose,Bedside 204 gm/dL (70-110)
[2025-11-01 04:44] LABS: POC Glucose,Bedside 209 gm/dL (70-110)
[2025-11-01 04:44] LABS: POC Glucose,Bedside 62 gm/dL (70-110)
[2025-11-01 05:08] LABS: POC Glucose,Bedside 286 gm/dL (70-110)
[2025-11-01 06:56] LABS: POC Glucose,Bedside 249 gm/dL (70-110)
[2025-11-01 06:56] LABS: POC Glucose,Bedside 285 gm/dL (70-110)
[2025-11-01 07:42] LABS: Hematocrit 34.8 % (37.0-47.0); Hemoglobin 12.0 g/dL (12.2-16.2); Immature Granulocytes % 0.2 %; Mean Corpuscular HGB Conc 34.5 g/dL (31.8-35.4); Mean Corpuscular Hemoglobin 29.8 pg (27.0-31.2); Mean Corpuscular Volume 86.4 fl (81-99); Nucleated Red Blood Cells % 0 %; Platelet Count 133 K/mm3 (142-424); Red Blood Count 4.03 M/mm3 (4.20-5.40); Red Cell Distribution Width-SD 43.3 fL; White Blood Count 4.2 K/mm3 (4.8-10.8)
[2025-11-01 08:01] LABS: Chloride 117 mmol/L (98-107)
[2025-11-01 08:02] LABS: Potassium 4.5 mmoL/L (3.5-5.1); Sodium 142 mmol/L (136-145)
[2025-11-01] MEDS: ASPIRIN EC 81MG TABLET 81 MG PO (08:03)
[2025-11-01] MEDS: LEVOTHYROXINE 112MCG (0.112MG) TAB 112 MCG PO (08:03)
[2025-11-01 08:05] LABS: Anion Gap 15.5 mEq/L (5-15); Blood Urea Nitrogen 9 mg/dl (7-17); Calcium 8.1 mg/dl (8.4-10.2); Carbon Dioxide 14 mmol/L (22.0-30.0); Creatinine Clearance Estimated 51 mL/min (50-200); Creatinine,Serum 0.40 mg/dl (0.52-1.04); Estimated Glomerular Filt Rate 160 ml/min (>60); GFR (African American) 194 ML/MIN (>60); Glucose 255 mg/dl (74-100)
[2025-11-01 08:07] LABS: Microscopic, Urine URINE MICROSCOPIC (MICROSCOPIC)
[2025-11-01] MEDS: INSULIN GLARGINE 100 UNITS/ML 3ML FLEXPEN 15 UNIT SUBCUT ×2 (08:16→20:48)
[2025-11-01 08:27] LABS: Bilirubin,Urine Negative (Negative); Color,Urine YELLOW (Yellow); Glucose,Urine (UA) 2+ (Negative); Ketones,Urine 1+ (Negative); Leukocyte Esterase,Urine Negative (Negative); PH,Urine 6.0 (5.0-8.5); Protein,Urine TRACE (Negative); Specific Gravity, Urine 1.025 (1.005-1.030); Urobilinogen,Urine 0.2 EU/dl (0.2)
--- NOTE | 2025-11-01 08:31 | HMH.PHAAMS2 ---
- Antimicrobial Stewardship Review culture & sensitivity review Stewardship interventions: culture & sensitivity review Comments: BLOOD CX NO GROWTH AT 48 HR, SPUTUM UNCOLLECTED. PATIENT ON AZITHROMYCIN/ROCEPHIN FOR PNEUMONIA, ON TAMIFLU FOR INFLUENZA.
[2025-11-01 08:33] LABS: POC Glucose,Bedside 252 gm/dL (70-110)
--- NOTE | 2025-11-01 08:54 | P.PN_ITS ---
Subjective *Date: 11/01/25 *Time: 12:44 Interval history: Patient alert to self and place. Still has difficulty with some questions such as orientation to time but showing significant improvement in her encephalopathy. Stable on room air. No nausea or vomiting. Tolerating full liquid diet Medical Exam Vital signs and Labs for Last 24 Hours: Vital Signs Temp Pulse Pulse Resp BP Pulse Ox O2 Del Method 11/01/25 08:00 Room Air 11/01/25 08:00 98.2 F 90 18 169/89 H 96 Room Air 11/01/25 07:00 89 14 160/77 H 97 Room Air 11/01/25 06:54 Room Air 11/01/25 06:00 90 14 140/73 97 Room Air 11/01/25 05:00 93 H 167/78 H 96 Room Air 11/01/25 05:00 Room Air 11/01/25 04:00 100 H 11/01/25 04:00 100 H 11/01/25 04:00 98.2 F 108 H 24 168/82 H 97 Room Air 11/01/25 04:00 95 Room Air 11/01/25 03:00 98 H 178/80 H 11/01/25 03:00 Room Air 11/01/25 02:00 101 H 14 151/67 H 94 L Room Air 11/01/25 01:00 152/74 H 96 Room Air 11/01/25 01:00 Room Air 11/01/25 00:00 110 H 11/01/25 00:00 94 L Room Air 11/01/25 00:00 97.9 F 102 H 16 151/80 H 94 L Room Air 10/31/25 23:20 Room Air 10/31/25 23:00 102 H 18 158/66 H 95 Room Air 10/31/25 23:00 158/66 H 95 10/31/25 22:00 106 H 16 167/78 H 94 L Room Air 10/31/25 21:00 Room Air 10/31/25 20:00 100 H 10/31/25 20:00 95 Room Air 10/31/25 20:00 99.9 F H 102 H 15 163/80 H 95 Room Air 10/31/25 19:00 Room Air 10/31/25 18:55 103 H 18 164/76 H 95 Room Air 10/31/25 18:00 103 H 14 166/76 H 95 Room Air 10/31/25 17:00 111 H 18 144/73 H 95 Room Air 10/31/25 17:00 Room Air 10/31/25 16:00 110 H 10/31/25 16:00 108 H 95 Room Air 10/31/25 16:00 99.5 F 110 H 18 171/74 H 95 Room Air 10/31/25 15:00 111 H 18 157/78 H 95 Room Air 10/31/25 15:00 Room Air 10/31/25 14:00 112 H 18 143/84 H 95 Room Air 10/31/25 13:00 113 H 16 136/81 95 Room Air 10/31/25 13:00 Room Air 10/31/25 12:26 115 H 95 Room Air 10/31/25 12:00 120 H 10/31/25 12:00 99.2 F 120 H 18 128/78 95 Room Air 10/31/25 11:00 98.4 F 107 H 18 132/78 96 Room Air 10/31/25 11:00 Room Air 10/31/25 10:00 111 H 18 138/79 95 Room Air 10/31/25 09:00 114 H 18 144/78 H 95 Room Air 10/31/25 09:00 Room Air O2 Flow Rate 11/01/25 08:00 11/01/25 08:00 11/01/25 07:00 11/01/25 06:54 11/01/25 06:00 11/01/25 05:00 11/01/25 05:00 11/01/25 04:00 11/01/25 04:00 11/01/25 04:00 11/01/25 04:00 11/01/25 03:00 11/01/25 03:00 96 11/01/25 02:00 11/01/25 01:00 11/01/25 01:00 96 11/01/25 00:00 11/01/25 00:00 11/01/25 00:00 10/31/25 23:20 10/31/25 23:00 10/31/25 23:00 10/31/25 22:00 10/31/25 21:00 95 10/31/25 20:00 10/31/25 20:00 10/31/25 20:00 10/31/25 19:00 10/31/25 18:55 10/31/25 18:00 10/31/25 17:00 10/31/25 17:00 10/31/25 16:00 10/31/25 16:00 10/31/25 16:00 10/31/25 15:00 10/31/25 15:00 10/31/25 14:00 10/31/25 13:00 10/31/25 13:00 10/31/25 12:26 10/31/25 12:00 10/31/25 12:00 10/31/25 11:00 10/31/25 11:00 10/31/25 10:00 10/31/25 09:00 10/31/25 09:00 Intake and Output 10/31/25 11/01/25 11/01/25 23:59 07:59 15:59 Intake Total 2541.788 / 6954.265 1220.028 / 1220.028 Output Total 500 / 1200 550 / 550 Balance 2041.788 / 5754.265 670.028 / 670.028 Intake: Intake, Oral Amount 440 / 710 0 / 0 Intake, Total IV Amount 2101.788 / 6244.265 1220.028 / 1220.028 0.9 % Sodium Chloride 1000ML 1, 633 / 1500 000 ml @ 150 mls/hr IV .Q6H40M [facility] Rx#:[id number] 0.9% NaCl w/20mEq KCL 1,000 ml 140.0 / 140.0 @ 150 mls/hr IV .Q6H40M [facility] Rx# :[id number] Azithromycin 500 mg In 0.9 % 250 / 250 Sodium Chloride 250 ml @ 250 mls/hr IV 2100 [facility] Rx#:[id number] Ceftriaxone 1 gm 1 gm In 0.9 % 50 / 50 Sodium Chloride 50 ml @ 100 mls /hr IV 1700 [facility] Rx#:[id number] D5W/0.9% NaCl w/20mEq KCL 1,000 1000 / 1000 622.917 / 622.917 ml @ 125 mls/hr IV .Q8H [facility] Rx #:[id number] Insulin Regular, Human 100 unit 39.788 / 105.801 7.944 / 7.944 In 0.9 % Sodium Chloride 100 ml @ 6 UNIT/HR 6.06 mls/hr IV . [id number] [facility] Rx#:[id number] Magnesium Sulfate in Water 2 gm 89.167 / 89.167 In 50 ml @ 50 mls/hr IV Q1H [facility] Rx#:[id number] Potassium Phos in 0.9 % NaCl 15 239 / 239 mmol In 250 ml @ 62.5 mls/hr IV ONCE ONE Rx#:[id number] Potassium Phos in 0.9 % NaCl 15 250 / 250 mmol In 250 ml @ 62.5 mls/hr IV Q4H [facility] Rx#:[id number] Output: Output, Urine Amount 500 / 1200 550 / 550 Other: Number of Voids 1 Number of Unmeasured Voids 1 150 Weight 57.878 kg Patient Weight 11/01/25 23:59 Weight 57.878 kg Laboratory Results - last 24 hr 10/31/25 08:00: Urine Color Yellow, Urine Appearance Clear, Urine pH 6.0, Ur Specific [place] 1.025, Urine Protein Trace, Urine Glucose (UA) 2+, Urine Ketones 1+, Urine Blood Trace-i, Urine Nitrate Negative, Urine Bilirubin Negative, Urine Urobilinogen 0.2, Ur Leukocyte Esterase Negative 10/31/25 08:02: POC Glucose 304 H* 10/31/25 09:12: POC Glucose 266 H 10/31/25 09:56: POC Glucose 292 H 10/31/25 11:00: POC Glucose 248 H 10/31/25 11:40: Sodium 142, Potassium 4.3, Chloride 120 H, Carbon Dioxide 10 L D , Anion Gap 16.3 H, BUN 21 H, Creatinine 0.70 D, Estimated Creat Clear 50, Estimated GFR 84, Est GFR ( Amer) 102 D, Glucose 195 H D, Calcium 9.2, Phosphorus 2.1 L, Magnesium 1.6 D 10/31/25 11:52: POC Glucose 202 H 10/31/25 13:03: POC Glucose 130 H 10/31/25 14:09: POC Glucose 92 10/31/25 14:54: POC Glucose 94 10/31/25 15:58: POC Glucose 168 H 10/31/25 16:05: Sodium 146 H, Potassium 5.6 H D, Chloride 120 H, Carbon Dioxide 9 L*, Anion Gap 22.6 H, BUN 18 H, Creatinine 0.60, Estimated Creat Clear 50, Estimated GFR 100, Est GFR ( Amer) 121, Glucose 180 H, Calcium 8.5, Phosphorus 2.6, Magnesium 1.6, Acetone Level Small 10/31/25 16:51: POC Glucose 258 H 10/31/25 18:00: POC Glucose 263 H 10/31/25 18:51: POC Glucose 306 H* 10/31/25 20:09: POC Glucose 244 H 10/31/25 21:19: POC Glucose 267 H 10/31/25 21:20: Sodium 148 H, Potassium 4.4 D, Chloride 119 H, Carbon Dioxide 14 L, Anion Gap 19.4 H, BUN 15, Creatinine 0.60, Estimated Creat Clear 50, Estimated GFR 100, Est GFR ( Amer) 121, Glucose 211 H, Calcium 8.4, Phosphorus 1.7 L D, Magnesium 1.5 L 10/31/25 22:01: POC Glucose 209 H 10/31/25 23:13: POC Glucose 154 H 10/31/25 23:55: POC Glucose 85 11/01/25 00:20: Phosphorus 1.2 L D, Magnesium 2.2 D 11/01/25 00:51: POC Glucose 62 L 11/01/25 01:13: POC Glucose 96 11/01/25 01:33: POC Glucose 138 H 11/01/25 01:45: Sodium 146 H, Potassium 4.2, Chloride 120 H, Carbon Dioxide 13 L , Anion Gap 17.2 H, BUN 11 D, Creatinine 0.50 L, Estimated Creat Clear 50, Estimated GFR 124, Est GFR ( Amer) 150 D, Glucose 166 H D, Calcium 8.5 11/01/25 02:04: POC Glucose 204 H 11/01/25 02:48: Acetone Level Small 11/01/25 03:02: POC Glucose 242 H 11/01/25 04:07: POC Glucose 263 H 11/01/25 05:01: POC Glucose 286 H 11/01/25 06:00: POC Glucose 285 H 11/01/25 06:47: POC Glucose 249 H 11/01/25 07:36: WBC 4.2 L D, RBC 4.03 L, Hgb 12.0 L, Hct 34.8 L, MCV 86.4, MCH 29.8, MCHC 34.5, RDW 13.7, Plt Count 133 L D, MPV 11.1 H, Neut % (Auto) 71.7, Lymph % (Auto) 20.8, [place] % (Auto) 6.1, Eos % (Auto) 0.0 L, Baso % (Auto) 1.2, Neut # (Auto) 3.0, Lymph # (Auto) 0.9, [place] # (Auto) 0.3, Eos # (Auto) 0.0, Baso # (Auto) 0.1, Sodium 142, Potassium 4.5, Chloride 117 H, Carbon Dioxide 14 L, Anion Gap 15.5 H, BUN 9, Creatinine 0.40 L, Estimated Creat Clear 51, Estimated GFR 160, Est GFR ( Amer) 194 D, Glucose 255 H D, Calcium 8.1 L 11/01/25 08:25: POC Glucose 252 H I & O for Labs for Last 24 Hours: Intake & Output 10/29/25 10/30/25 10/31/25 11/01/25 23:59 23:59 23:59 23:59 Intake Total 6954.265 / 6954.265 1220.028 / 1220.028 Output Total 1200 / 1200 550 / 550 Balance 5754.265 / 5754.265 670.028 / 670.028 Weight 55.928 kg 57.878 kg Microbiology Reports for the Last 24 Hours: Microbiology 10/31/25 00:35 Blood Blood Culture - Preliminary NO GROWTH AFTER 24 HOURS 10/31/25 00:30 Blood Blood Culture - Preliminary NO GROWTH AFTER 24 HOURS Constitutional: Present mild distress, thin, chronically ill appearing and cooperative Head: Present atraumatic and normocephalic Comment:: Edentulous Respiratory: Present normal respiratory effort; Absent rhonchi, wheezes or crackles Cardiac: Present Reg Rate and Rhythm GI: Present soft and normal bowel sounds; Absent distention or tenderness Extremities: Present normal inspection and full ROM; Absent edema Skin: Present intact; Absent erythema Neuro: Present Grossly Intact, alert, awake and moves all extremities Comment:: Oriented to self place and situation. Not oriented to time Assessment and Plan *Assessment and plan (1) DKA (diabetic ketoacidosis): Status: Acute Qualifiers: Diabetes mellitus complication detail: without coma Diabetes mellitus type: type 2 Qualified Code(s): E11.10 - Type 2 diabetes mellitus with ketoacidosis without coma Category: Medical Code(s): E11.10 - Type 2 diabetes mellitus with ketoacidosis without coma (2) Influenza due to identified novel influenza A virus with pneumonia: Status: Acute Category: Medical Code(s): J09.X1 - Influenza due to identified novel influenza A virus with pneumonia (3) CORNELL (acute kidney injury): Status: Acute Category: Medical Code(s): N17.9 - Acute kidney failure, unspecified (4) Hyperkalemia: Status: Acute Category: Medical Code(s): E87.5 - Hyperkalemia (5) Decreased oral intake: Status: Acute Category: Medical Code(s): R63.8 - Other symptoms and signs concerning food and fluid intake (6) Hypothyroidism: Status: Acute Qualifiers: Hypothyroidism type: unspecified Qualified Code(s): E03.9 - Hypothyroidism, unspecified Category: Medical Code(s): E03.9 - Hypothyroidism, unspecified (7) Acute metabolic encephalopathy: Problem Comment: Present on admission, secondary to DKA Status: Acute Category: Medical Code(s): G93.41 - Metabolic encephalopathy (8) High anion gap metabolic acidosis: Status: Acute Category: Medical Code(s): E87.29 - Other acidosis (9) Hypophosphatemia: Problem Comment: Risk for refeeding syndrome. Monitoring closely. Necessitating IV Status: Acute Category: Medical Code(s): E83.39 - Other disorders of phosphorus metabolism Plan Patient is a 65-year-old female with a medical history significant for type 2 diabetes, insulin-dependent. Recently exposed to flu. Patient at bedside providing history due to mild confusion the patient. Reports onset of symptoms Saturday with generalized weakness that progressed and notable confusion today. Decreased fluid and nutritional intake today as well. Concerned due to underlying diabetes and progressive symptoms followed up to the ED for evaluation initial workup significant for DKA. VBG pH 6.94, bicarb of 5.6, lactate of 3.7, potassium is 6.3, anion gap of 40. Creatinine elevated at 1.4. Influenza positive. Chest chest x-ray obtained, I personally reviewed showing significant patchy opacities concerning for viral/bacterial pneumonia. EKG showing sinus tachycardia, ventricular rate of 121, normal intervals, subtly peaked T waves. Received 6 units insulin bolus with 6 units insulin drip in addition to 2 L normal saline. 1 amp bicarb and IV calcium gluconate. IV Rocephin and azithromycin for pneumonia. Initial dose Tamiflu in the ED. Continues on DKA protocol with insulin drip and IV fluids. Showing gradual improvement. Anion gap nearing closure this morning. Bicarb in the low teens. Continues to require ICU level care. Having electrolyte disturbances with risk for refeeding given her low phosphorus. More oriented today. Encephalopathy improving. Problems addressed as follows: Insulin-dependent diabetes DKA High anion gap metabolic acidosis Metabolic encephalopathy, present on admission, improving -On admission, pH 6.94, bicarb of 5.6, lactate of 3.7, potassium is 6.3, anion gap of 40, glucose 598. ED provided noted patient received 2 L IV fluid. - Continuing DKA protocol with insulin drip and IV fluids. Currently on dextrose containing fluids. Initiated long-acting insulin at half home regimen. Continue insulin glargine 15 units twice daily. Gradually increase over the next 24 hours. - Repeat BMP every 4 hours pending anion gap closure. Will transition to sliding scale high intensity insulin once gap closes. - Morning labs with Sodium 1 42, potassium 4.5, chloride 117. Bicarb 14. Anion gap 15. Kidney function normalized with BUN 9, creatinine 0.4. Glucose 255. - Repeat CBC, CMP, magnesium and phosphorus every 12 hours ordered - A1c 7.3, relatively well-controlled. Will resume home regimen as patient's condition improves - Would like to establish with endocrinology at [facility] for follow-up after discharge Hypophosphatemia Electrolyte disturbances - Phosphorus low at 1.2. Received two 15mmol runs yesterday. Will continue potassium phosphate repletion today with 2 more 15mmol IV runs today. Monitoring every 12 hours. High risk for refeeding syndrome and decompensation Influenza due to influenza A with pneumonia - Chest x-ray with evidence of significant patchy opacities concerning for viral/bacterial pneumonia. IV Rocephin and azithromycin initiated within the ED, will plan to complete 5 days of therapy. - Continue Tamiflu 75 mg twice daily. - Remained stable on room air, goal sats greater 90% - Sputum culture pending CORNELL, present on admission, resolved - Creatinine 1.20, BUN 26, GFR 45->Baseline appears to be creatinine of 0.6, GFR 101, BUN 25. Suspect dehydration - Improved this morning to creatinine 0.4. Appears at baseline. Caution with nephrotoxins Hypothyroidism: Resume home Levothyroxine 112 mcg daily. TSH ordered and pending DVT prophylaxis: Lovenox Full code Diabetic diet Next of kin/ (Gordon Warner) ICU/Critical care attestation This patient is critically ill with 40 minutes devoted solely to this patient managing life/organ supporting interventions that required physician assessment. This includes time spent making adjustments in ventilator settings, IV fluid administration, titration of pressors, adjustments of medications, discussion of patient with consultants and other care providers as well as updating patient and/or family (if patient by virtue of his/her condition is unable to participate in decision making). This does not include time spent performing separately billed procedures. Time is not concurrent with that of other providers.
[2025-11-01 09:18] LABS: Bacteria,Urine Trace /lpf; Squamous Epithelial Cell,Urine Occasional #/hpf (0-5); WBC,Urine Occasional #/hpf (0-3)
[2025-11-01 09:32] LABS: POC Glucose,Bedside 249 gm/dL (70-110)
[2025-11-01] MEDS: SODIUM CHLORIDE 3% 15ML NEB 3 ML IH (09:58)
--- NOTE | 2025-11-01 10:12 | HMH.OTEV ---
OT Evaluation Rehab OT IP Evaluation Start: 10/31/25 17:09 Freq: ONCE Status: Active Protocol: Document 11/01/25 10:07 [facility] (Rec: 11/01/25 10:12 [facility] [id number]) Rehab OT IP Assessment Subjective History Pt oriented x 3 on arrival. Pt agreeable to engage in therapy evaluation. Pt admitted on 10/30/25 due to CORNELL and Flu. History and physical: Donna Warner is a 65-year-old female with past medical history significant for diabetes mellitus type 2. Patient presents to [facility] due to generalized weakness and increased confusion. present at bedside providing history as patient is a poor historian due to confusion. Reports was recently exposed to the flu. Reports symptoms began on Saturday and have significantly become worse. States she has not had much to eat or drink today. Reports increased confusion today with fever. Denied any known alleviating or aggravating factors. Concern of glucose control with underlying diabetes. Due to worsening symptoms brought her to the emergency department for further evaluation. On arrival to the ED she was noted to be tachycardic heart rate in the 130s, ill-appearing. Laboratory workup within the ED revealing DKA. Hospitalist team consulted for continued treatment and admission. Subjective Prior to being in the hospital, pt lived at home with her . Pt claims normally she is independent with all ADLS and IADLs. Pt did not require any type of AE during functional transfers. Pt also still drove as needed. reports he can be home at all times to assist as needed. Objective Patient Orientation Person,Place,Birthday Right Upper WFL Extremity Gross ROM Left Upper Extremity WFL Gross ROM Bed Mobility bed mobility-scooting,bed mobility - supine/sit Assist Level Minimal x 1 (25% assist) Transfer Training Sit/Stand Transfer Assist Level Contact Guard/Hand Hold Lower Body Dressing Moderate Assistance Ability Performing Toilet Minimal Assistance Hygiene Ability Overall Commode/ Contact Guard,Minimal Assistance Toilet Transfer Ability Commode/Toilet Sit to/from Ambulatory Transfer Technique Rehab OT IP prob,goals,plan Problems Date of Evaluation: 11/01/25 OT IP Problems Bed Mobility,Transfers,Balance,Self care,Safety Rehab Potential Rehab Potential Good Equipment Needs Assistive Devices Rolling / Wheeled Walker Plan OT intervention Plan Bed Mobility,Transfers,Balance,Self care,Safety, Therapeutic Exercise OT Plan Frequency Daily Duration LOS Discharge Goals Bed Mobility Ability Standby Assistance Sit to Stand Chair Contact Guard/Hand Hold Transfer Ability Chair Transfer Contact Guard/Hand Hold Ability Chair Transfer Sit to/from Ambulatory Technique Chair Transfer Rolling Walker Assistive Devices Lower Body Dressing Minimal Assistance Ability Upper Body Dressing Standby Assistance Ability Performing Toilet Standby Assistance Hygiene Ability Overall Commode/ Contact Guard Toilet Transfer Ability Commode/Toilet Sit to/from Ambulatory Transfer Technique Discharge Plan OT Discharge Plan Pt appears to be close to baseline with functional transfers and ADL independence. Pt can return home with husbands assistance once she is medically stable per physician. Therapist does recommend HH OT evaluation upon returning home for environmental adaptations needed. Pt will continue to be seen for OT services while at [facility]. Eval Complexity Eval Charge Codes 91735 - Moderate Complexity PHYSICIAN CERTIFICATION: I certify the specified therapy services for Donna Warner are required, authorized, and reviewed every 30 days.
[2025-11-01 10:26] LABS: POC Glucose,Bedside 252 gm/dL (70-110)
--- NOTE | 2025-11-01 10:29 | HMH.PTEV ---
Physical Therapy Evaluation Rehab PT IP Evaluation Start: 10/31/25 17:09 Freq: ONCE Status: Active Protocol: Document 11/01/25 10:13 [facility] (Rec: 11/01/25 10:28 [facility] [id number]) Subjective/History History History 65-year-old female with past medical history significant for diabetes mellitus type 2. Patient presents to [facility] due to generalized weakness and increased confusion. present at bedside providing history as patient is a poor historian due to confusion. Reports was recently exposed to the flu. Reports symptoms began on Saturday and have significantly become worse. States she has not had much to eat or drink today. Reports increased confusion today with fever. Denied any known alleviating or aggravating factors. Concern of glucose control with underlying diabetes. Due to worsening symptoms brought her to the emergency department for further evaluation. On arrival to the ED she was noted to be tachycardic heart rate in the 130s, ill-appearing. Laboratory workup within the ED revealing DKA. Hospitalist team consulted for continued treatment and admission. Subjective Subjective Pt presents awake, supine in bed, agrees to OOB mobility. She reports she lives with her , ramp to enter the home, and she is generally independent with all mobility without an AD. [facility] How much help from another person do you currently need... Turning from your None back to your side while in a flat bed without using bedrails? Moving from lying on None back to sitting on the side of a flat bed without using bedrails? Moving to and from a A little bed to a chair ( including a wheelchair)? Standing up from a A little chair using your arms? (e.g., wheelchair, bedside chair) Walking in hospital A little room? Climbing 3-5 steps A little with a railing? Mobility Score 20 Mobility Level [facility] Mobility 6 Walk 10 steps or more Mobility Calculator Rehab PT IP Eval Objective Appearance Patient Behavior Appropriate Patient Orientation Person,Place,Time Difficulty following none instructions Speech Pattern Clear Ambulation Patient Able to Yes Ambulate Ambulation Observation IP General Gait No Deviations/Normal Pattern Observation Ambulation Distance 30 (feet) Ambulation Assistive None Device Ambulation Ability Supervision/Stand by,Contact Guard/Hand Hold Balance Ability to Arise Able, uses arms to help Sitting Balance Leans or slides in chair Standing Balance Steady, wide stance Dynamic Sitting Fair Balance Ability Dynamic Standing Fair Balance Ability Transfers Bed Transfer Ability Independent Chair Transfer Contact Guard/Hand Hold Ability Sit to Stand Bed Contact Guard/Hand Hold Transfer Ability Sit to Stand Chair Contact Guard/Hand Hold Transfer Ability Rehab PT IP prob,goals,plan Problems Date of Evaluation: 11/01/25 PT IP Problems Transfers,Gait,Balance Rehab Potential Rehab Potential Good Plan PT Intervention Plan Transfers,Gait,Balance,Therapeutic Exercise PT Plan Frequency Daily Duration LOS Discharge Goals Bed Transfer Ability Independent Sit to Stand Chair Independent Transfer Ability Ambulation Assistive Rolling Walker Device Ambulation Distance 50 (feet) Discharge Plan PT Discharge Plan Pt is currently appropriate to return home once medically stable for d/c. Skilled acute therapy services are indicated to increase general strength, improve transfers, and increase ambulation ability in order to aid pt improvement in QOL. Recommend Home Health therapy after d/c. Eval Complexity Eval Charge Codes 02335 - Moderate Complexity PHYSICIAN CERTIFICATION: I certify the specified therapy services for Donna Warner are required, authorized, and reviewed every 30 days.
[2025-11-01 11:21] LABS: POC Glucose,Bedside 241 gm/dL (70-110)
[2025-11-01 12:44] LABS: Chloride 118 mmol/L (98-107); Sodium 143 mmol/L (136-145)
[2025-11-01 12:45] LABS: Potassium 4.7 mmoL/L (3.5-5.1)
[2025-11-01 12:47] LABS: Blood Urea Nitrogen 8 mg/dl (7-17)
[2025-11-01 12:48] LABS: Anion Gap 14.7 mEq/L (5-15); Calcium 7.8 mg/dl (8.4-10.2); Carbon Dioxide 15 mmol/L (22.0-30.0); Creatinine Clearance Estimated 51 mL/min (50-200); Creatinine,Serum 0.40 mg/dl (0.52-1.04); Estimated Glomerular Filt Rate 160 ml/min (>60); GFR (African American) 194 ML/MIN (>60); Glucose 216 mg/dl (74-100)
[2025-11-01 12:50] LABS: POC Glucose,Bedside 225 gm/dL (70-110)
[2025-11-01] MEDS: humaLOG 100 UNITS/ML 10ML VIAL (SSI) SUBCUT (12:59)
[2025-11-01 13:19] LABS: Thyroid Stimulating Hormone 0.24 uIU/mL (0.465-4.68)
[2025-11-01] MEDS: CEFTRIAXONE 1 GM 1 GM in 0.9 % SODIUM CHLORIDE 50 ML IV (16:26)
[2025-11-01 16:33] LABS: POC Glucose,Bedside 61 gm/dL (70-110)
[2025-11-01 16:33] LABS: POC Glucose,Bedside 225 gm/dL (70-110)
[2025-11-01 17:42] LABS: POC Glucose,Bedside 150 gm/dL (70-110)
[2025-11-01 18:10] LABS: Alanine Aminotransferase 30 U/L (12-78); Albumin Level 3.3 g/dl (3.5-5.0); Albumin/Globulin Ratio 1.1 (1.1-1.8); Alkaline Phosphatase 68 U/L (38-126); Anion Gap 10.0 mEq/L (5-15); Aspartate Amino Transferase 49 U/L (14-36); Bilirubin,Total 0.9 mg/dl (0.2-1.3); Blood Urea Nitrogen 8 mg/dl (7-17); Calcium 8.7 mg/dl (8.4-10.2); Carbon Dioxide 17 mmol/L (22.0-30.0); Chloride 114 mmol/L (98-107); Creatinine Clearance Estimated 51 mL/min (50-200); Creatinine,Serum 0.50 mg/dl (0.52-1.04); Estimated Glomerular Filt Rate 124 ml/min (>60); GFR (African American) 150 ML/MIN (>60); Globulin 2.9 g/dL (1.3-3.2); Glucose 141 mg/dl (74-100); Potassium 4.0 mmoL/L (3.5-5.1); Sodium 137 mmol/L (136-145); Total Protein,Serum 6.2 g/dl (6.3-8.2)
[2025-11-01 18:13] LABS: Phosphorous 2.0 mg/dl (2.5-4.5)
[2025-11-01 20:15] LABS: POC Glucose,Bedside 140 gm/dL (70-110)
[2025-11-01] MEDS: ATORVASTATIN 10MG TABLET 10 MG PO (20:48)
[2025-11-01] MEDS: AZITHROMYCIN 250MG TABLET 500 MG PO (20:48)
[2025-11-01] MEDS: OSELTAMIVIR 75MG CAPSULE 75 MG PO (20:48)
[2025-11-02] VITALS (8 sets, daily range): BP systolic 131–148; BP diastolic 76–89; PULSE 60–81; RESP 16–20; TEMP 36.3–36.9; O2SAT 94–98; BMI 20.5
[2025-11-02 06:18] LABS: POC Glucose,Bedside 71 gm/dL (70-110)
[2025-11-02 06:54] LABS: Albumin Level 3.0 g/dl (3.5-5.0); Chloride 112 mmol/L (98-107); Sodium 142 mmol/L (136-145)
[2025-11-02 06:55] LABS: Potassium 3.5 mmoL/L (3.5-5.1)
[2025-11-02 06:57] LABS: Alanine Aminotransferase 27 U/L (12-78); Albumin/Globulin Ratio 1.1 (1.1-1.8); Anion Gap 12.5 mEq/L (5-15); Aspartate Amino Transferase 42 U/L (14-36); Blood Urea Nitrogen 9 mg/dl (7-17); Carbon Dioxide 21 mmol/L (22.0-30.0); Creatinine Clearance Estimated 51 mL/min (50-200); Creatinine,Serum 0.40 mg/dl (0.52-1.04); Estimated Glomerular Filt Rate 160 ml/min (>60); GFR (African American) 194 ML/MIN (>60); Globulin 2.8 g/dL (1.3-3.2); Total Protein,Serum 5.8 g/dl (6.3-8.2)
[2025-11-02 06:58] LABS: Alkaline Phosphatase 64 U/L (38-126); Bilirubin,Total 1.1 mg/dl (0.2-1.3); Calcium 8.3 mg/dl (8.4-10.2); Glucose 71 mg/dl (74-100); Magnesium 1.7 mg/dl (1.6-2.3); Phosphorous 2.6 mg/dl (2.5-4.5)
[2025-11-02 07:02] LABS: Hematocrit 32.2 % (37.0-47.0); Hemoglobin 11.1 g/dL (12.2-16.2); Immature Granulocytes % 0.7 %; Mean Corpuscular HGB Conc 34.5 g/dL (31.8-35.4); Mean Corpuscular Hemoglobin 29.4 pg (27.0-31.2); Mean Corpuscular Volume 85.2 fl (81-99); Nucleated Red Blood Cells % 0 %; Platelet Count 168 K/mm3 (142-424); Red Blood Count 3.78 M/mm3 (4.20-5.40); Red Cell Distribution Width-SD 42.9 fL; White Blood Count 5.4 K/mm3 (4.8-10.8)
[2025-11-02] MEDS: LEVOTHYROXINE 112MCG (0.112MG) TAB 112 MCG PO (07:36)
[2025-11-02] MEDS: OSELTAMIVIR 75MG CAPSULE 75 MG PO (08:42)
[2025-11-02] MEDS: ASPIRIN EC 81MG TABLET 81 MG PO (08:42)
--- NOTE | 2025-11-02 08:49 | PC.NURSE ---
Held patients lantus 15 units due to patients bgl being 71.
--- NOTE | 2025-11-02 09:04 | HMH.PHAAMS2 ---
- Antimicrobial Stewardship Review culture & sensitivity review Stewardship interventions: culture & sensitivity review Comments: BLOOD CX NO GROWTH AT 48 HR, SPUTUM REMAINS UNCOLLECTED - PATIENT WITH DRY UNPRODUCTIVE COUGH PER NURSE. PATIENT ON AZITHROMYCIN/ROCEPHIN FOR PNEUMONIA, ON TAMIFLU FOR INFLUENZA.
--- NOTE | 2025-11-02 10:36 | SW/DCPLANNER ---
Addendum entered by Mariam Browning 11/02/25 13:00: Per Tiny patient has been accepted for home health services. Addendum entered by Mariam Browning 11/02/25 11:27: Patient information/order faxed to Tiny schneider/ [facility]. Original Note: I spoke w/ patient regarding plans once medically stable for discharge. PT/OT evaluated patient and recommended home health services. Patient is agreeable to home health w/ no agency preference. CM will set up home health services at time of discharge. Patient should discharge home later today.
--- NOTE | 2025-11-02 11:18 | DIET.NUTRFU ---
RD saw patient today, she declined education. She usually follows fairly good diet at home. Her A1c was 7.3% and she takes insulin. she recently has had multiple hospital stays d/t kidney stones which may caused additional stress and change in routine which may have contributed to diet and BS levels. Menu is in place and no further concerns. She reported BM today.
[2025-11-02] MEDS: EMPAGLIFLOZIN 10MG TABLET 10 MG PO (12:05)
[2025-11-02] MEDS: humaLOG 100 UNITS/ML 10ML VIAL (SSI) SUBCUT (12:06)
[2025-11-02 12:53] LABS: Free T4 (Free Thyroxine) 1.43 ng/dl (0.78-2.19)
--- NOTE | 2025-11-02 12:58 | EXP.DC.SUM ---
General Admission date:: 10/31/25 HPI HPI HPI: Donna Warner is a 65-year-old female with past medical history significant for diabetes mellitus type 2. Patient presents to [facility] due to generalized weakness and increased confusion. present at bedside providing history as patient is a poor historian due to confusion. Reports was recently exposed to the flu. Reports symptoms began on Saturday and have significantly become worse. States she has not had much to eat or drink today. Reports increased confusion today with fever. Denied any known alleviating or aggravating factors. Concern of glucose control with underlying diabetes. Due to worsening symptoms brought her to the emergency department for further evaluation. On arrival to the ED she was noted to be tachycardic heart rate in the 130s, ill-appearing. Laboratory workup within the ED revealing DKA. Hospitalist team consulted for continued treatment and admission. Initial ED workup included laboratory studies and imaging.Laboratory workup significant for DKA with pH 6.94, bicarb of 5.6, lactate of 3.7, potassium is 6.3, anion gap of 40. Creatinine elevated at 1.4. Influenza positive. Chest chest x-ray obtained, I personally reviewed showing significant patchy opacities concerning for viral/bacterial pneumonia. EKG showing sinus tachycardia, ventricular rate of 121, normal intervals, subtly peaked T waves. Received 6 units insulin bolus with 6 units insulin drip in addition to 2 L normal saline. 1 amp bicarb and IV calcium gluconate. IV Rocephin and azithromycin for pneumonia. Tamiflu received in ED. Admission to ICU. Assessment of patient at bedside, she is without acute distress, resting in bed comfortably. Hemodynamically stable. at bedside assisting with history/interview. Hospital Course Hospital Course Hospital Course: Donna Warner is a 65-year-old female who presented with progressive weakness, decreased appetite and was admitted for DKA, acute metabolic encephalopathy, in the setting of influenza infection. #DKA #Acute metabolic encephalopathy, resolved #Influenza infection #Suspected left lower lobe pneumonia ? Presented with progressive weakness, decreased appetite and was found to be in DKA with a AGAP of 40, pH 6.94, and initial glucose of 598 with ketonuria. DKA more likely representation of not taking her medications at all due to acute illness with influenza and pneumonia. ? Clinically improved with IV fluid resuscitation, insulin drip, Tamiflu, ceftriaxone, azithromycin. Patient is alert and oriented x 4 today. Feeling much better. ? Hemoglobin A1c 7.3%. Patient became slightly hypoglycemic on day of discharge, which improved with decreasing long-acting insulin. ? Patient previously had uncontrolled diabetes and had been on glipizide 10 mg twice daily, metformin 1000 mg twice daily, Victoza, and long-acting Lantus but patient unsure how much she takes at this time. Patient has since lost 30 to 40 pounds with improvement of A1c to 7.3%. As such, she is likely not as insulin resistant anymore and does not need as much long-acting insulin. Blood sugars very stable on day of discharge with Lantus 10 units. DKA more likely representation of not taking her medications at all due to acute illness with influenza and pneumonia. ? Discontinue glipizide given risk of hypoglycemia with insulin. ? Continue metformin 1000 mg twice daily, Victoza 1.2 mg daily, started Humalog sliding scale insulin as needed. Advised patient to start with this regimen first given hypoglycemia on day of discharge with long-acting insulin, and start Lantus 10 units daily once ACHS blood sugars are consistently greater than 250. Also advised patient to increase Lantus by 3 units every 2 days if morning glucose greater than 200. ? Discharged with insulin as above, Tamiflu, cefdinir 300 mg twice daily for 3 more days. ? Will follow-up with PCP within 1 week. #CORNELL ? Improved with fluid resuscitation. Creatinine back to baseline 0.4. #Anxiety/depression ? Continue home Xanax 1 mg 3 times daily as needed. #Hypothyroidism ? Continue home levothyroxine 112 mcg daily. TSH low but free T4 normal. Exam Data for Last 24 hours Vital signs and Labs for Last 24 Hours: Temp Pulse Resp BP Pulse Ox O2 Del Method O2 Flow Rate 97.4 F L 75 20 139/82 96 Room Air 99 11/02/25 12:00 11/02/25 12:00 11/02/25 12:00 11/02/25 12:00 11/02/25 12:00 11/02/25 12:00 11/01/25 21:00 Laboratory Results - last 24 hr 11/01/25 11:40: TSH 0.24 L 11/01/25 13:47: POC Glucose 225 H 11/01/25 16:21: POC Glucose 61 L 11/01/25 17:35: POC Glucose 150 H 11/01/25 17:50: Sodium 137, Potassium 4.0, Chloride 114 H, Carbon Dioxide 17 L, Anion Gap 10.0, BUN 8, Creatinine 0.50 L D, Estimated Creat Clear 51, Estimated GFR 124, Est GFR ( Amer) 150 D, Glucose 141 H D, Calcium 8.7, Phosphorus 2.0 L D, Total Bilirubin 0.9, AST 49 H, ALT 30, Alkaline Phosphatase 68, Total Protein 6.2 L D, Albumin 3.3 L, Globulin 2.9, Albumin/Globulin Ratio 1.1 11/01/25 20:08: POC Glucose 140 H 11/02/25 05:27: WBC 5.4 D, RBC 3.78 L, Hgb 11.1 L, Hct 32.2 L, MCV 85.2, MCH 29.4, MCHC 34.5, RDW 13.8, Plt Count 168 D, MPV 12.0 H, Neut % (Auto) 73.9, Lymph % (Auto) 20.0, Clayton % (Auto) 4.3, Eos % (Auto) 0.2, Baso % (Auto) 0.9, Neut # (Auto) 4.0, Lymph # (Auto) 1.1, Clayton # (Auto) 0.2, Eos # (Auto) 0.0, Baso # (Auto) 0.1, Sodium 142, Potassium 3.5, Chloride 112 H, Carbon Dioxide 21 L, Anion Gap 12.5, BUN 9, Creatinine 0.40 L, Estimated Creat Clear 51, Estimated GFR 160, Est GFR ( Amer) 194 D, Glucose 71 L D, Calcium 8.3 L, Phosphorus 2.6 D, Magnesium 1.7 D, Total Bilirubin 1.1, AST 42 H, ALT 27, Alkaline Phosphatase 64, Total Protein 5.8 L, Albumin 3.0 L, Globulin 2.8, Albumin/Globulin Ratio 1.1, Free T4 1.43 11/02/25 06:12: POC Glucose 71 I & O for Last 24 hours: Intake & Output 10/30/25 10/31/25 11/01/25 11/02/25 23:59 23:59 23:59 23:59 Intake Total 6954.265 / 6954.265 3332.286 / 3582.286 760 / 760 Output Total 1200 / 1200 550 / 550 Balance 5754.265 / 5754.265 2782.286 / 3032.286 759 / 759 Weight 55.928 kg 57.878 kg 57.9 kg Microbiology Reports for the Last 24 Hours: Microbiology 10/31/25 08:46 Rectum CRE Surveillance Culture - Final Negative 10/31/25 00:35 Blood Blood Culture - Preliminary NO GROWTH AFTER 48 HOURS 10/31/25 00:30 Blood Blood Culture - Preliminary NO GROWTH AFTER 48 HOURS Constitutional Constitutional: no acute distress *Routine HEENT Exam Head: Present normocephalic Eye: Present EOMI and PERRL ENT: Present mucous membranes moist *Routine Neck Exam Neck: Present supple; Absent lymphadenopathy *Routine Respiratory Exam Respiratory: Present CTA bilaterally *Routine Cardiovascular Exam Cardiovascular: Present RRR *Routine Abdominal Exam Abdominal: Present soft and normoactive bowel sounds; Absent tenderness *Routine Extremities Exam Extremities: Absent cyanosis, clubbing or edema *Routine Skin Exam Skin: Present warm; Absent rash *Routine Neurological Exam Neurological: Present alert and oriented X3 Results Data Completed and Pending Labs on day of discharge: Labs from last 24 hours 11/02/25 11/02/25 11/01/25 06:12 05:27 20:08 WBC 5.4 D RBC 3.78 L Hgb 11.1 L Hct 32.2 L MCV 85.2 MCH 29.4 MCHC 34.5 RDW 13.8 Plt Count 168 D MPV 12.0 H Neut % (Auto) 73.9 Lymph % (Auto) 20.0 Clayton % (Auto) 4.3 Eos % (Auto) 0.2 Baso % (Auto) 0.9 Neut # (Auto) 4.0 Lymph # (Auto) 1.1 Clayton # (Auto) 0.2 Eos # (Auto) 0.0 Baso # (Auto) 0.1 Sodium 142 Potassium 3.5 Chloride 112 H Carbon Dioxide 21 L Anion Gap 12.5 BUN 9 Creatinine 0.40 L Estimated Creat Clear 51 Estimated GFR 160 Est GFR ( Amer) 194 D Glucose 71 L D POC Glucose 71 140 H Calcium 8.3 L Phosphorus 2.6 D Magnesium 1.7 D Total Bilirubin 1.1 AST 42 H ALT 27 Alkaline Phosphatase 64 Total Protein 5.8 L Albumin 3.0 L Globulin 2.8 Albumin/Globulin Ratio 1.1 TSH Free T4 1.43 11/01/25 11/01/25 11/01/25 17:50 17:35 16:21 WBC RBC Hgb Hct MCV MCH MCHC RDW Plt Count MPV Neut % (Auto) Lymph % (Auto) Clayton % (Auto) Eos % (Auto) Baso % (Auto) Neut # (Auto) Lymph # (Auto) Clayton # (Auto) Eos # (Auto) Baso # (Auto) Sodium 137 Potassium 4.0 Chloride 114 H Carbon Dioxide 17 L Anion Gap 10.0 BUN 8 Creatinine 0.50 L D Estimated Creat Clear 51 Estimated GFR 124 Est GFR ( Amer) 150 D Glucose 141 H D POC Glucose 150 H 61 L Calcium 8.7 Phosphorus 2.0 L D Magnesium Total Bilirubin 0.9 AST 49 H ALT 30 Alkaline Phosphatase 68 Total Protein 6.2 L D Albumin 3.3 L Globulin 2.9 Albumin/Globulin Ratio 1.1 TSH Free T4 11/01/25 11/01/25 13:47 11:40 WBC RBC Hgb Hct MCV MCH MCHC RDW Plt Count MPV Neut % (Auto) Lymph % (Auto) Clayton % (Auto) Eos % (Auto) Baso % (Auto) Neut # (Auto) Lymph # (Auto) Clayton # (Auto) Eos # (Auto) Baso # (Auto) Sodium Potassium Chloride Carbon Dioxide Anion Gap BUN Creatinine Estimated Creat Clear Estimated GFR Est GFR ( Amer) Glucose POC Glucose 225 H Calcium Phosphorus Magnesium Total Bilirubin AST ALT Alkaline Phosphatase Total Protein Albumin Globulin Albumin/Globulin Ratio TSH 0.24 L Free T4 Preliminary micro results at discharge 10/31/25 00:35 Blood Culture - Preliminary Blood NO GROWTH AFTER 48 HOURS 10/31/25 00:30 Blood Culture - Preliminary Blood NO GROWTH AFTER 48 HOURS DS: Diagnosis Discharge Diagnosis (1) DKA (diabetic ketoacidosis): Status: Acute Code(s): E11.10 - Type 2 diabetes mellitus with ketoacidosis without coma Qualifiers: Diabetes mellitus complication detail: without coma Diabetes mellitus type: type 2 Qualified Code(s): E11.10 - Type 2 diabetes mellitus with ketoacidosis without coma (2) Influenza due to identified novel influenza A virus with pneumonia: Status: Acute Code(s): J09.X1 - Influenza due to identified novel influenza A virus with pneumonia (3) CORNELL (acute kidney injury): Status: Acute Code(s): N17.9 - Acute kidney failure, unspecified (4) Hyperkalemia: Status: Acute Code(s): E87.5 - Hyperkalemia (5) Decreased oral intake: Status: Acute Code(s): R63.8 - Other symptoms and signs concerning food and fluid intake (6) Hypothyroidism: Status: Acute Code(s): E03.9 - Hypothyroidism, unspecified Qualifiers: Hypothyroidism type: unspecified Qualified Code(s): E03.9 - Hypothyroidism, unspecified (7) Acute metabolic encephalopathy: Status: Acute Code(s): G93.41 - Metabolic encephalopathy Problem details: Present on admission, secondary to DKA (8) High anion gap metabolic acidosis: Status: Acute Code(s): E87.29 - Other acidosis (9) Hypophosphatemia: Status: Acute Code(s): E83.39 - Other disorders of phosphorus metabolism Problem details: Risk for refeeding syndrome. Monitoring closely. Necessitating IV Meds Home Medications and Allergies Home Medications ?Medication ?Instructions ?Recorded ?Confirmed ?Type alprazolam 1 mg tablet 1 mg PO TID 06/28/25 10/31/25 History aspirin 81 mg tablet,delayed 81 mg PO DAILY 06/28/25 10/31/25 History release calcium 600 mg (as 1 tab PO DAILY 06/28/25 10/31/25 History carbonate)-vitamin D3 10 mcg (400 unit) tablet levothyroxine 112 mcg tablet 112 mcg PO DAILY 06/28/25 10/31/25 History metformin 1,000 mg tablet 1,000 mg PO BID 06/28/25 10/31/25 History liraglutide 0.6 mg/0.1 mL (18 mg/3 0.6 mg SQ DAILY 10/31/25 10/31/25 History mL) subcutaneous pen injector (Victoza 2-James) cefdinir 300 mg capsule 300 mg PO BID 3 days #6 caps 11/02/25 Rx insulin glargine 100 unit/mL (3 10 unit (0.1 mL) SQ DAILY 30 days 11/02/25 Rx mL) subcutaneous pen (Lantus #3 mL Solostar U-100 Insulin) insulin lispro 100 unit/mL See Protocol SQ ACHS hyperglycemia 11/02/25 Rx subcutaneous solution (Humalog #50 mL U-100 Insulin) oseltamivir 75 mg capsule (Tamiflu) 75 mg PO BID #7 caps 11/02/25 Rx sitagliptin 50 mg tablet 50 mg PO DAILY #30 tabs 11/02/25 Rx New Prescriptions to Start Prescriptions: cefdinir Joesph,Gilberto insulin glargine [Lantus Solostar U-100 Insulin] Joesph,Gilberto insulin lispro [Humalog U-100 Insulin] Gilberto Pink oseltamivir [Tamiflu] Joesph,Gilberto sitagliptin Gilberto Pink Allergies Allergy/AdvReac Type Severity Reaction Status Date / Time No Known Allergies Allergy Verified 09/01/25 09:07 Discharge Plan Disposition Patient Disposition: Home, Self-Care Condition: Fair Discharge Order Discharge Orders: Discharge Order (Routine); Ordered 11/02/25 Ordered By: Gilberto Pink Follow up Plan Follow up with: Gabby Gordillo APRN [Referring, Medical] - 11/09/25 10:45 am Prescriptions/Medication Reconciliation: New oseltamivir [Tamiflu] 75 mg Capsule 75 mg PO BID Qty: 7 0RF cefdinir 300 mg capsule 300 mg PO BID 3 Days Qty: 6 0RF insulin lispro [Humalog U-100 Insulin] 100 unit/mL Solution See Protocol SQ ACHS Qty: 50 0RF Protocol: Insulin Corrective Low-Dose Regimen Condition: Fingerstick Blood Glucose Dose/Route: Insulin Units Condition: 151-200 mg/dl Dose/Route: 2 unit/SQ Condition: 201-250 mg/dl Dose/Route: 4 units/SQ Condition: 251-300 mg/dl Dose/Route: 6 units/SQ Condition: 301-350 mg/dl Dose/Route: 8 units/SQ Condition: 351-400 mg/dl Dose/Route: 10 units/SQ Condition: 401-450 mg/dl Dose/Route: 12 units/SQ Condition: > 450 mg/dl Dose/Route: CALL MD Protocol Text: Low Intensity Sliding Scale Insulin insulin glargine [Lantus Solostar U-100 Insulin] 100 unit/mL (3 mL) Insulin Pen 10 unit SQ DAILY 30 Days Qty: 3 0RF sitagliptin 50 mg tablet 50 mg PO DAILY Qty: 30 0RF Continued alprazolam 1 mg tablet 1 mg PO TID Patient Comments: TAKE ONE TABLET BY MOUTH THREE TIMES DAILY NEEDED aspirin 81 mg tablet,delayed release (DR/EC) 81 mg PO DAILY Patient Comments: TAKE ONE CAPSULE BY MOUTH EVERY DAY metformin 1,000 mg tablet 1,000 mg PO BID Patient Comments: TAKE ONE TABLET BY MOUTH TWICE DAILY levothyroxine 112 mcg tablet 112 mcg PO DAILY Patient Comments: TAKE ONE TABLET BY MOUTH EVERY DAY calcium carbonate-vitamin D3 600 mg-10 mcg (400 unit) tablet 1 tab PO DAILY Patient Comments: TAKE ONE TABLET BY MOUTH EVERY DAY FOR 90 DAYS liraglutide [Victoza 2-James] 0.6 mg/0.1 mL (18 mg/3 mL) pen injector 0.6 mg SQ DAILY Patient Comments: Inject 0.6 mg under the skin every day for 30 days then can increase to 1.2mg daily. Discontinued glipizide 10 mg tablet 10 mg PO BID Patient Comments: Take 1 tablet twice a day by oral route for 90 days. Problem Reconciliation Problems Reviewed?: Yes Patient Discharge Instructions Additional Instructions: Begin by taking metformin 1000 mg twice daily and Humalog sliding scale insulin based on the table we provided. If your blood sugars are consistently greater than 250 with fingerstick glucose checks with meals/bedtime, start taking long-acting Lantus 10 units daily. If your morning blood sugars are consistently greater than 200, increase Lantus dose by 3 units every 2 days until your blood sugars are between 120 and 200 in the morning. Follow-up with your PCP for further titration of your Lantus. Patient Instructions: Carbohydrate-Counting Diet, DI for Influenza in Adults, DI for Diabetic Ketoacidosis, DI for Acute Kidney Injury, Using Nutrition Labels: Carbohydrate Diet Print Language: Rwandan Providers Primary Care Provider: Provider,Referral Admit Provider: Stephen Alford Attending Provider: Stephen Alford
[2025-11-02] MEDS: INSULIN GLARGINE 100 UNITS/ML 3ML FLEXPEN 10 UNIT SUBCUT (13:38)
--- OUTSIDE RECORDS SUMMARY | 2025-11-02 15:07 | XMS_ITS | Clinical Summary ---
Author Organization [facility] Address [address] [place] [address] Care Team Providers Care Body And Fender Mechanic Apprentice Name Role Phone Gabby Gordillo APRN Primary Care Provider + [phone] Allergies No known active allergies Medications ibuprofen [...] Encounters Date Type Department Care Team Description 10/31/2025 Orders Only External Location [address] [place] [address] Provider, External from Last 3 [...] [facility]-Depression Screening 1960 [facility]-Infant/Child/Adol SDOH Screenings 1960 [id number] Vaccine (#1) 1965 [facility]- SDOH Screenings 1978 [...] this topic Medical Devices Implanted Type Area Employment Case Manager Device Identifier Shelf Expiration Date Model / Serial / Lot Stent Ureteral Double Pigtail Pos 6fr 26cm - [id number] Implanted:Qty: 1 on 06/28/2025 by William Calle MD at [facility] Stent Left: [id number] 01/29/2027 [id number] 0 / / Stent Ureteral Double Pigtail Pos 6fr 26cm - [id number] Implanted:Qty: 1 on 07/12/2025 by Gilberto Ling MD at [facility] Left: [id number] 02/08/2027 [id number] 0 / / [id number] Procedures Procedure Name Priority Date/Time Associated Diagnosis Comments XR OUTSIDE IMAGES 10/31/2025 12: 43 AM EST HEPATITIS C ANTIBODY - ED W/REFLEX TO HCV QUANT PCR STAT 06/28/2025 4:57 PM EDT from Last 3 Months or Most Recently Relevant to Health Maintenance Results * XR OUTSIDE IMAGES (10/31/2025 12:43 AM EST) Anatomical Region Laterality Modality Radiographic Lydia ging 10/31/2025 12:4 3 AM EST us External Provider IMG XR PROCEDURES Edited Resul t - Final * Hepatitis C Antibody - ED (06/28/2025 4:57 PM EDT) Hepatitis C Antibody Negative Negative 06/28/2025 5:56 PM EDT [facility] Blood Venous blood specimen / Unknown Venipuncture / Unknown 06/28/2025 4:57 PM EDT 06/28/2025 5:13 PM EDT Sheyla Groves MD LAB BLOOD ORDERABLES Final Re sult [facility] [address] [place] [address] from Last 3 Months or Most Recently Relevant to Health Maintenance Advance Directives * Full Code (Latest Code Status on File) Date Activated Date Inactivated Comments 06/28/2025 6:07 PM 06/29/2025 4:44 PM Question Answer Comments I have reviewed the capacity from the link above and, if needed, have updated to appropriate status: Yes Care Teams Body And Fender Mechanic Apprentice Relationship Specialty Start Date End Date Gabby Gordillo APRN [address] [place] [address] PCP - General 06/28/25
--- OUTSIDE RECORDS SUMMARY | 2025-11-02 15:07 | XMS_ITS | Encounter Summary ---
Author Organization [facility] Address [address] [place] [address] Care Team Providers Care Whizzer Operator Name Role Phone Gabby Gordillo APRN Primary Care Provider + [phone] Encounter Details Date Type Department Care Team (Late st Contact Info) Description 10/31/2025 Orders Only External Location [address] [place] [id number] Provider, External Social History Tobacco Use Types [...] No 06/29/2025 12:21 PM EDT Stacey Erazo RN * Are you blind or do you have serious difficulty seeing, even when wearing glasses? Answer Date of Assessment Author No 06/29/2025 12:21 PM EDT Stacey Erazo RN * Do you have serious difficulty walking or climbing stairs? Answer Date of Assessment Author No 06/29/2025 12:21 PM EDT Stacey Erazo RN * Do you have serious difficulty dressing or bathing? Answer Date of Assessment Author No 06/29/2025 12:21 PM EDT Stacey Erazo RN * Because of a physical, mental, or emotional condition, do you have serious difficulty doing errandsalone such as visiting the doctor? Answer Date of Assessment Author No 06/29/2025 12:21 PM EDT Stacey Erazo RN documented as of this encounter Mental Status * Because of a physical, mental, or emotional condition, do you have serious difficulty concentrating, remembering, or making decisions? (5 years old or older) Answer Entry Date Author No 06/29/2025 12:21 PM EDT Stacey Erazo RN documented in this encounter Plan of Treatment Not on file documented as of this encounter Procedures Procedure Name Priority Date/Time Associated Diagnosis Comments XR OUTSIDE IMAGES 10/31/2025 12:43 AM EST documented in this encounter Results * XR OUTSIDE IMAGES (10/31/2025 12:43 AM EST) Anatomical Region Laterality Modality Radiographic Lydia ging 10/31/2025 12:4 3 AM EST us External Provider IMG XR PROCEDURES Edited Resul t - Final documented in this encounter Visit Diagnoses Not on filedocumented in this encounter Additional Health Concerns Assessment Noted Time A Body Mass Index follow-up plan has been documented for the patient 06/29/2025 12:23 PM EDT documented as of this encounter Care Teams Whizzer Operator Relationship Specialty Start Date End Date Gabby Gordillo APRN [address] [place] [address] PCP - General 06/28/25 documented as of this encounter
--- OUTSIDE RECORDS SUMMARY | 2025-11-02 15:07 | XMS_ITS ---
Author Organization Unknown ENCOUNTERS Encounter Performer Location Date Diagnosis Diagnosis Status Inpatient [facility] [address] [facility] [address] [place] [id number] Emergency [address] [place] [address] [id number] Pre Admit [facility] [address] [place] [address] [address] [place] [id number] Emergency [address] [place] [address] [id number] STEFAN Pre Admit [facility] [address] [place] [address] [address] [place] [address] [id number] Pre Admit [address] [place] [address] [id number] Emergency [address] [place] [address] [id number] XSTH *Note: Encounters from your own facility or health system may be excluded. Allergies, Adverse Reactions, Alerts Allergen Type Severity Identification Date Medications Name Date Quantity Days Supplied GPI Number
[2025-11-02] MEDS: CEFTRIAXONE 1 GM 1 GM in 0.9 % SODIUM CHLORIDE 50 ML IV (16:10)
[2025-11-02 19:29] LABS: POC Glucose,Bedside 104 gm/dL (70-110)
[2025-11-02 19:29] LABS: POC Glucose,Bedside 215 gm/dL (70-110)
--- OUTSIDE RECORDS SUMMARY | 2025-11-03 09:14 | XMS_ITS | Encounter Summary ---
Author Organization [facility] Address [address] [place] [address] Care Team Providers Care Senior Sql Dba Name Role Phone Gabby Gordillo APRN Primary Care Provider + [phone] Encounter Details Date Type Department Care Team (Late st Contact Info) Description 10/31/2025 Orders Only External Location [address] [place] [phone] Provider, External Social History Tobacco Use Types [...] documented as of this encounter Care Teams Senior Sql Dba Relationship Specialty Start Date End Date Gabby Gordillo APRN [address] [place] [address] PCP - General 06/28/25 documented as of this encounter
--- OUTSIDE RECORDS SUMMARY | 2025-11-03 09:14 | XMS_ITS | Clinical Summary ---
Author Organization [facility] Address [address] [place] [address] Care Team Providers Care Tech Brazer Tester Name Role Phone Gabby Gordillo APRN Primary Care Provider + [phone] Allergies No known active allergies Medications ibuprofen [...] Description 10/31/2025 Orders Only External Location [address] [place] [address] Provider, External from Last 3 [...] [facility]-Depression Screening 1960 [facility]-Infant/Child/Adol SDOH Screenings 1960 [id number] Vaccine (#1) 1965 [facility]- SDOH Screenings 1978 [...] this topic Medical Devices Implanted Type Area Computer System Technician Device Identifier Shelf Expiration Date Model / Serial / Lot Stent Ureteral Double Pigtail Pos 6fr 26cm - [id number] Implanted:Qty: 1 on 06/28/2025 by William Calle MD at [facility] Stent Left: [id number] 01/29/2027 [id number] 0 / / Stent Ureteral Double Pigtail Pos 6fr 26cm - [id number] Implanted:Qty: 1 on 07/12/2025 by Gilberto Ling MD at [facility] Left: [id number] 02/08/2027 [id number] / / [id number] Procedures Procedure Name Priority Date/Time Associated Diagnosis [...] Antibody Negative Negative 06/28/2025 5:56 PM EDT [facility] Blood Venous blood specimen / Unknown Venipuncture / Unknown 06/28/2025 4:57 PM EDT 06/28/2025 5:13 PM EDT Sheyla Groves MD LAB BLOOD ORDERABLES Final Re sult [facility] [address] [place] [address] from Last 3 Months or Most Recently Relevant to Health Maintenance Advance Directives * Full Code (Latest Code Status on File) Date Activated Date Inactivated Comments 06/28/2025 6:07 PM 06/29/2025 4:44 PM Question Answer Comments I have reviewed the capacity from the link above and, if needed, have updated to appropriate status: Yes Care Teams Tech Brazer Tester Relationship Specialty Start Date End Date Gabby Gordillo APRN [address] [place] [address] PCP - General 06/28/25
--- OUTSIDE RECORDS SUMMARY | 2025-11-03 09:14 | XMS_ITS ---
Author Organization Unknown ENCOUNTERS Encounter Performer Location Date Diagnosis Diagnosis Status Inpatient [facility] [address] [place] [address] [address] [place] [address] [id number] [facility] Emergency [address] [place] [address] [id number] Pre Admit [address] [place] [address] [id number] Emergency [address] [place] [address] [id number] STEFAN Pre Admit [address] [place] [address] [id number] Pre Admit [address] [place] [address] [id number] Emergency [address] [place] [address] [id number] [facility] *Note: Encounters from your own facility or health system may be excluded. Allergies, Adverse Reactions, Alerts Allergen Type Severity Identification Date Medications Name Date Quantity Days Supplied GPI Number
--- OUTSIDE RECORDS SUMMARY | 2025-11-03 09:14 | XMS_ITS | Clinical Summary ---
Author Organization [facility] Address [address] [place] [address] Phone Care Team Providers Care Revenue Collector Name Role Phone Unavailable Primary Care Provider Unavailabl e Social History Tobacco Use Types Packs/Day Years [...] PCV) 04/07/2020 04/07/2019 COVID-19 Vaccine (1 - 2024-2 6 season) 2025 Influenza Vaccine (#1) 2025 0, 10/16/2019, 12/05/2017 Bone Density Screening 2025 Breast Cancer Screening 05/24/2027 05/24/20 25, 05/25/2024 [...] neoplasm of breast from Last 3 Months or Most Recently Relevant to Health Maintenance Results * MM MAMMO DIGITAL DEYVI SCREEN BILAT (05/24/2025 1:55 PM EDT) Anatomical Region Laterality Modality Breast Bilateral Mammography 05/24/2025 1:55 PM EDT Impressions 05/25/2025 8:38 AM EDT Negative ([id number]) RECOMMENDATION: Routine Screening Mammogram in 1 Year Bilateral . . COMMENTS: DISCLAIMER *The patient was notified by MyChart or mail of the results for this examination. *The patient's information was entered into a reminder system with a target due date for the next breast imaging, in accordance with the [employer] and the Society of [...] for screening mammogram for malignant neoplasm of [id number] COMPARISON STUDIES: Compared with prior studies the most recent being 05/25/2024 MM MAMMO DIGITAL DEYVI SCREEN BILAT at [facility] TISSUE DENSITY: There are scattered areas of fibroglandular density. FINDINGS: No mammographic evidence of malignancy. Procedure Note Alex Oakes MD - 05/25/2025 EXAM: MM MAMMO DIGITAL DEYVI SCREEN BILAT EXAM DATE: 05/24/2025 1:55 PM INDICATION: Z12.31-Encounter for screening mammogram for malignantneoplasm of [id number] COMPARISON STUDIES: Compared with prior studies the most recent being 05/25/2024 MM MAMMO DIGITAL DEYVI SCREEN BILAT at [facility] TISSUE DENSITY: There are scattered areas of fibroglandular density. FINDINGS: No mammographic evidence of malignancy. IMPRESSION: Negative ([id number]) RECOMMENDATION: Routine Screening Mammogram in 1 Year Bilateral . . COMMENTS: DISCLAIMER *The patient was notified by MyChart or mail of the results for this examination. *The patient's information was entered into a reminder system with atarget due date for the next breast imaging, in accordance with the [employer] and the Society of Breast Imaging recommendations. *Breast Imaging has a false negative rate of 15%. *Any patient with a palpable abnormality, unexplained by breast imaging,should be managed on a clinical basis by the attending physician. us Gabby Gordillo THEATRICAL RIGGER IMG MAMMOGRAPHY ORDERABLE S Final Result from Last 3 Months or Most Recently Relevant to Health Maintenance
--- NOTE | 2025-11-03 10:18 | SW/DCPLANNER ---
Spoke with patient on the phone. Patient stated that she is doing well just weak. Patient stated that she is aware of her upcoming appointment. 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 Patient stated that she has no concerns or questions at this time. Kera Michel
== END 2025-11-02 17:42 | disposition home or self-care (01) | DRG 871 ==
LOC: ER 00:24 → 2ND 07:26
PROVIDERS: Nurse Practitioner Acute Care; Student in an Organized Health Care Education/Training Program; Admitting Provider Internal Medicine Adolescent Medicine; Emergency Provider Emergency Medicine; Visit Provider Internal Medicine Adolescent Medicine
DX: A41.89 Other specified sepsis (principal); E11.10 Type 2 diabetes mellitus with ketoacidosis without coma; G93.41 Metabolic encephalopathy; J09.X1 Influenza due to identified novel influenza A virus with pneumonia; N17.9 Acute kidney failure, unspecified; R65.20 Severe sepsis without septic shock; E11.649 Type 2 diabetes mellitus with hypoglycemia without coma; F41.9 Anxiety disorder, unspecified; F32.A Depression, unspecified; E86.0 Dehydration; E03.9 Hypothyroidism, unspecified; E87.5 Hyperkalemia; E83.39 Other disorders of phosphorus metabolism; T38.3X6A Underdosing of insulin and oral hypoglycemic [antidiabetic] drugs, initial encounter; Z91.148 Patient's other noncompliance with medication regimen for other reason; Z79.4 Long term (current) use of insulin; Z79.82 Long term (current) use of aspirin; Z79.84 Long term (current) use of oral hypoglycemic drugs; Z79.85 Long-term (current) use of injectable non-insulin antidiabetic drugs; Z79.890 Hormone replacement therapy; Z79.899 Other long term (current) drug therapy
CPT/HCPCS: 36415; 71045; 80048; 80053; 81001; 82009; 82803; 82962; 83036; 83605; 83690; 83735; 84100; 84439; 84443; 84484; 85025; 87040; 87081; 87636; 89220; 93005; 97110; 97162; 97166; 97535; 99285; J0456; J0612; J0696; J1650; J3475; J3480; J7030; J7042; J7050